=== PATIENT | female | born 1930 | race Caucasian/White ===

== ENCOUNTER 2018-07-27 22:02 | Emergency (ER) | payer OTHER, MEDICARE ==
--- NOTE | 2018-07-27 22:28 | PDOC ---
History of Present Illness - General Chief Complaint: Back Pain Stated Complaint: BACK PAIN Time Seen by Provider: 07/27/18 22:18 - History of Present Illness Initial Comments: 07/27/18 23:02 The patient is an 87 year old female with a history of osteoporosis, spinal stenosis, HTN, and hyperlipidemia who presents for evaluation of back pain. The patient is accompanied by family who assist in providing the history. They note that the patient has had gradual onset of dull 7/10 right lower back pain beginning earlier this evening. They state that the patient has chronic left sided back pain, and she has not had right sided back pain in the past prompting her presentation to the ED for further evaluation. The patient took tramadol with minimal improvement in her pain. She notes that the pain is worse with movement and lying on that side. She otherwise denies fevers, chills , SOB, vomiting, abdominal pain, numbness, tingling, weakness, or changes with urination or bowel movements. Past History - Past Medical History Allergies/Adverse Reactions: Allergies Allergy/AdvReac Type Severity Reaction Status Date / Time No Known Allergies Allergy Verified 02/01/15 22:07 Home Medications: Ambulatory Orders Multivit-Min/FA/Lycopene/Lut [Centrum Silver Tablet] 1 each PO DAILY 04/01/13 Tramadol HCl 50 mg PO TID 04/01/13 Bisoprolol 2.5MG/Hctz 6.25MG [Ziac (Nf)] 1 tab PO DAILY 07/27/18 Megestrol Acetate [Megace -] 20 mg PO QID 07/27/18 Timolol [Betimol] 5 ml OP DAILY 07/27/18 COPD: No HTN: Yes Hypercholesterolemia: Yes - Immunization History Immunization Up to Date: Yes - Suicide/Smoking/Psychosocial Hx Smoking Status: No Smoking History: Never smoked Number of Cigarettes Smoked Daily: 0 Hx Alcohol Use: No Review of Systems - Review of Systems Comments:: 07/27/18 23:07 Constitutional: No fevers, chills, fatigue, malaise HEENT: No Rhinorrhea, nasal congestion, visual changes Cardiovascular: No chest pain, syncope, palpitations, lightheadedness Respiratory: No Cough, SOB, Hemoptysis, Gastrointestinal: Nausea. No Abdominal pain, Vomiting, Constipation, Diarrhea, Melena Genitourinary: No Dysuria, Frequency, Urgency, Hesitancy, Hematuria, Flank pain Musculoskeletal: Right lower back pain. No Myalgia, arthralgia Skin: No rashes, itching, bruising, pallor Neurologic: No Headache, Dizziness, Numbness, Weakness, or Tingling Psychiatric: No Hallucinations. No SI or HI *Physical Exam - Physical Exam Comments: 07/27/18 23:08 General Appearance: Nourished. No Apparent Distress HEENT: No Pharyngeal Erythema, Tonsillar Exudate, Tonsillar Erythema Neck: No Cervical Lymphadenopathy Respiratory/Chest: Lungs Clear, Normal Breath Sounds. No Crackles, Rales, Rhonchi, Wheezing Cardiovascular: Regular Rhythm, Regular Rate. No Murmur, Gallops, Rubs Gastrointestinal/Abdominal: Normal Bowel Sounds, Soft. No Guarding, Rebound, Tenderness Musculoskeletal: Right lower back tenderness to palpation on exam. No CVA Tenderness Extremity: Normal Capillary Refill Integumentary: Normal Color, Dry, Warm Neurologic: Fully Oriented, Alert, Normal Mood/Affect, Normal Response, Medical Decision Making - Medical Decision Making 07/27/18 23:10 The patient is an 87 year old female with a history of osteoporosis, spinal stenosis, HTN, and hyperlipidemia who presents for evaluation of back pain. Given the patient's history and physical exam, it is likely the patient's symptoms are musculoskeletal in nature. We will obtain a chest plain film to evaluate further. We will treat with tylenol, motrin, and lidocaine patch and continue to monitor and reassess while here in the ED. 07/28/18 00:32 Chest plain film demonstrated no acute findings as preliminarily read by ED physician. The patient was reassessed and reports improvement in their symptoms. We are comfortable discharging the patient home in stable condition. Patient and family made aware of impression and plan, return precautions discussed including but not limited to worsening pain or symptoms, fevers, or signs of infection, chest pain, respiratory distress, inability to tolerate oral intake, dehydration, syncope, or neurologic changes. The patient is to follow up with PMD as recommended within 1 week, follow up information provided and the patient will call for an appointment. The patient is to take medications as instructed for duration of time and continue with supportive care , avoid triggers and precipitants. Patient is safe for outpatient follow-up. *DC/Admit/Observation/Transfer Diagnosis at time of Disposition: Musculoskeletal pain - Discharge Dispostion Disposition: HOME Condition at time of disposition: Stable Decision to Admit order: No - Referrals Referrals: Siva Monzon MD [Primary Care Provider] - - Patient Instructions Printed Discharge Instructions: DI for Musculoskeletal Pain Additional Instructions: 1) Please follow-up with your primary care doctor in the next 2-3 days. Please call tomorrow to schedule a follow up appointment. If you cannot follow up with your doctor within 1 week please return to the Emergency Department for any urgent issues. 2) Your imaging results were normal here in the ER. 3) If you have any worsening of symptoms or any other concerns please return to the ER immediately. Return if worsening symptoms including fevers, headache, vomiting, visual or hearing disturbances, abdominal pain, chest pain, shortness of breath, syncope, dehydration, inability to take things by mouth/vomiting, altered mental status, or worsening concerning symptoms. 4) Please continue taking your home medications as directed. Side effects may include upset stomach, abdominal pain, vomiting, or diarrhea. Do not drink alcohol with your medications. - Post Discharge Activity
--- NOTE | 2018-07-27 22:56 | PDOC ---
Attending Attestation - Resident Resident Name: NoemyBandar - ED Attending Attestation I have performed the following: I have examined & evaluated the patient, The case was reviewed & discussed with the resident, I agree w/resident's findings & plan, Exceptions are as noted - HPI HPI: 07/27/18 22:50 87y F hx of OA, spinal stenosis, htn, hl, presents with complaint of 3 hrs of R sided lower back pain that is dull, constant, gradual onset, non radiating, without associated fever/chills, numnbess/tingling/weakness, cp, sob, trauma. Pain seems worse with movement. no foul smelling urine/dysuria. on exam: general: NAD, well appearing card: rrr, no mrg pulm: cta bl abd soft nontender, mild ttp inferior to the R 12th rib, no cva ttp neuro: moving all 4 ext spontaneously and symmetrically ext: dp pulses symmetric b/l suspect msk pain/strain will treat supportively xray to ro fx or other pathology - Physicial Exam PE: 07/28/18 01:22 see above - Medical Decision Making 07/28/18 01:22 xray neg for acute pathology pt feeing irmved will dc with supportive care at home
[2018-07-27] MEDS ORDERED: ACETAMINOPHEN 325 MG TABLET (FP) PO ONE (22:57)
[2018-07-27] MEDS ORDERED: LIDOCAINE 5% TOPICAL PATCH TP ONE (22:57)
[2018-07-27] MEDS ORDERED: IBUPROFEN 600 MG TABLET (FP) PO ONE ×2 (22:57→23:17)
[2018-07-27 23:08] VITALS: TEMP 98.8; BMI 18.1
[2018-07-27] MEDS ORDERED: ACETAMINOPHEN 325 MG TABLET (FP) ONE (23:16)
[2018-07-27] MEDS ORDERED: LIDOCAINE 5% TOPICAL PATCH ONE (23:17)
[2018-07-28 01:00] VITALS: BP 175/86; PULSE 70
== END 2018-07-28 00:58 | disposition home or self-care (01) ==
LOC: JER 22:02
DX: M54.5 Low back pain (principal); M48.00 Spinal stenosis, site unspecified; I10 Essential (primary) hypertension; E78.5 Hyperlipidemia, unspecified; M81.8 Other osteoporosis without current pathological fracture
CPT/HCPCS: 71045-TC-FY; 99282-25

== ENCOUNTER 2018-08-04 08:20 | Inpatient (IN) | payer OTHER, MEDICARE ==
--- NOTE | 2018-08-04 08:34 | PDOC ---
Attending Attestation - Resident Resident Name: Marichuy Bates - ED Attending Attestation I have performed the following: I have examined & evaluated the patient, The case was reviewed & discussed with the resident, I agree w/resident's findings & plan, Exceptions are as noted - HPI HPI: 08/04/18 08:35 87yo F hx osteoporosis, spinal stenosis, HTN, dementia, and hyperlipidemia presents to the ED with generalized weakness since this morning. Per pt, daughter activated EMS this morning when she could not get her out of bed to the bathroom Lives with daughter and son in law, ambulates with walker Denies any other complaints of fevers, chills, cp, sob, abd pain, n/v/d, urinary sxs, focal weakness or numbness. Per daughter, reports she has noted a decline in pt over last month. Yyesterday pt slept all day despite company for [employer], woke up at 6pm which is very atypical for her. States pt normally more awake and alert. Other than recent decrease in bisoprolol from 5 to 2.5mg, no other medication changes. - Physicial Exam PE: 08/04/18 08:54 agree with resident exam - Medical Decision Making 08/04/18 08:55 87yo F with hx HTN, HL, dementia, osteoperosis, spinal stenosis presents to the ED with progressive generalized weakness and lethargy. Vitals unremarkable. Pt has 4/5 weakness in UE and LE. Plan for broad infectious vs neurologic vs metabolic vs ischemic w/u. Plan -labs -CTH -UA/UCx -CXR -rectal temp -reassess 08/04/18 10:15 Labs remarkable for elevated creatinine to 1.4 (baseline 0.7), BUN 40s with K of 5.9 (slightly hemolyzed) Likely pre-renal azotemia Review of EKG with peaked T waves As such pt treated with calcium, D50, IV insulin, fluids Will rpt BMP Dr. Ferrara c/gena and evaluated pt, recommends renal US which has been ordered Pt also has ++UA, will treat with ceftriaxone (prev UCx reviewed) Pt to be admitted at this time to hospitalist for pre-renal azotemia, hyperK, UTI 08/04/18 11:[address] Walden, pt accepted for admission Case discussed in detail with admitting physician including history, physical exam and ancillary studies. Admitting physician has assumed care for the patient, will follow all pending diagnostics and will complete the evaluation and treatment. Heart Score/ECG Review #1 08/04/18 09:07 Twelve-lead EKG was performed and reviewed by me. Sinus rhythm, rate 78. Normal axis. No ST elevations.
--- NOTE | 2018-08-04 08:45 | PDOC ---
History of Present Illness - General Chief Complaint: Weakness Stated Complaint: Weakness Time Seen by Provider: 08/04/18 08:25 History Source: Patient, Family Exam Limitations: No Limitations - History of Present Illness Initial Comments: 08/04/18 08:43 87 y/o female with PMH of HTN, HLD, spinal stenosis presents to the ED with generalized weakness for 24 hours. per patient and patient's daughter, she has been very lethargic since yesterday- there was company over her house for [employer] and it was a struggle for the patient to remain awake. She went to bed at 6pm (which her usual bedtime is around 10pm) and this morning the patients daughter had a hard time getting her out of bed to the bathroom and to do her normal routine. She said it took a lot out of her mother to walk to the bathroom which is unusual for her. She is usually able to perform her ADL's with help from her daughter and is able to recover after. per daughter she had seen her primary care physician, Dr. Esquivel around 3 weeks ago where he did blood work and all was normal, he also decreased her bisoprolol/HCTZ dose from 5 to 2.5 otherwise no new medications were started. She also had seen Dr. Yates who she usually follows up with every 6 months for her dementia and no new changes were made to her galantamine. She denies any recent falls, no recent illnesses travel or sick contacts. 08/04/18 08:46 08/04/18 08:53 Timing/Duration: 24 hours Associated Symptoms: reports: malaise, weakness. denies: chest pain, fever/ chills, nausea/vomiting Past History - Travel Traveled outside of the country in the last 30 days: No Close contact w/someone who was outside of country & ill: No - Past Medical History Allergies/Adverse Reactions: Allergies Allergy/AdvReac Type Severity Reaction Status Date / Time No Known Allergies Allergy Verified 08/04/18 08:31 Home Medications: Ambulatory Orders Multivit-Min/FA/Lycopene/Lut [Centrum Silver Tablet] 1 each PO DAILY 04/01/13 Tramadol HCl 50 mg PO TID 04/01/13 Bisoprolol 2.5MG/Hctz 6.25MG [Ziac (Nf)] 1 tab PO DAILY 07/27/18 Megestrol Acetate [Megace -] 20 mg PO QID 07/27/18 Timolol [Betimol] 5 ml OP DAILY 07/27/18 COPD: No HTN: Yes Hypercholesterolemia: Yes - Immunization History Immunization Up to Date: Yes - Suicide/Smoking/Psychosocial Hx Smoking Status: No Smoking History: Former smoker Have you smoked in the past 12 months: No Number of Cigarettes Smoked Daily: 0 Information on smoking cessation initiated: No Hx Alcohol Use: No Drug/Substance Use Hx: No Patient Lives Alone: No Review of Systems - Review of Systems Able to Perform ROS?: Yes Is the patient limited Hebrew proficient: No Constitutional: Yes: Malaise, Weakness HEENTM: No: Blurred Vision Respiratory: No: Shortness of Breath Cardiac (ROS): No: Chest Pain, Palpitations ABD/GI: Yes: Constipated. No: Diarrhea, Nausea : No: Burning, Dysuria, Frequency Musculoskeletal: Yes: Back Pain (chronic back pain), Muscle Weakness Neurological: Yes: Weakness. No: Headache *Physical Exam - Vital Signs Last Vital Signs Temp Pulse Resp BP Pulse Ox 98.2 F 72 18 149/82 99 08/04/18 08:26 08/04/18 08:26 08/04/18 08:26 08/04/18 08:26 08/04/18 08:26 - Physical Exam General Appearance: Yes: Cachetic Neck: positive: Normal Thyroid Respiratory/Chest: positive: Lungs Clear, Normal Breath Sounds Cardiovascular: positive: Regular Rhythm, Regular Rate, S1, S2 Gastrointestinal/Abdominal: positive: Normal Bowel Sounds, Flat, Soft. negative : Tender Musculoskeletal: negative: CVA Tenderness Integumentary: positive: Normal Color Neurologic: positive: machine heel builder II-XII NML intact, Fully Oriented, Alert, Other ( motor strength 4/5 B/L). negative: Numbness ED Treatment Course - LABORATORY CBC & Chemistry Diagram: 08/04/18 08:58 08/04/18 08:58 Medical Decision Making - Medical Decision Making 08/04/18 08:59 cbc/cmp/trop/ua/culture EKG CXR Head CT DDX: electrolyte abnormalitis; UTI ; PNA ekg done: sinus rhythm with PACS's peaked T waves labs; wbc 12; K 5.9; - giving calcium gluconate, d50 5 units insulin renal U/S pending Urine positive- ceftriaxone 08/04/18 09:07 08/04/18 09:50 08/04/18 10:15 *DC/Admit/Observation/Transfer Diagnosis at time of Disposition: APPLE (acute kidney injury), Hyperkalemia UTI (urinary tract infection) Qualifiers: Urinary tract infection type: acute cystitis Hematuria presence: with hematuria Qualified Code(s): N30.01 - Acute cystitis with hematuria - Discharge Dispostion Decision to Admit order: Yes - Referrals Referrals: Siva Monzon MD [Primary Care Provider] - - Patient Instructions - Post Discharge Activity - Attestations Physician Attestion: 08/04/18 11:26 Marichuy Bates
[2018-08-04 09:12] LABS: BASO % 0.6 % (0-2.0); EOS % 0.8 % (0-4.5); HEMATOCRIT 38.6 % (32.4-45.2); LYMPH % 10.6 % (8-40); MCH 37.6 pg (25.7-33.7); MCHC 33.7 g/dl (32.0-36.0); MEAN CELL VOLUME 111.8 fl (80-96); MEAN PLT VOLUME 8.8 fl (7.5-11.1); PLATELET COUNT 290 K/MM3 (134-434); RBC 3.45 M/mm3 (3.60-5.2); RDW 14.8 % (11.6-15.6)
[2018-08-04 09:40] LABS: ALBUMIN 2.5 g/dl (3.4-5.0); ALK PHOS 33 U/L (45-117); ANION GAP 8 MMOL/L (8-16); BILIRUBIN,TOTAL 0.5 mg/dL (0.2-1); BLOOD UREA NITROGEN 48 mg/dL (7-18); CALCIUM 9.4 mg/dL (8.5-10.1); CHLORIDE 112 mmol/L (98-107); CO2 22 mmol/L (21-32); CREATININE 1.4 mg/dL (0.55-1.3); GLUCOSE,RANDOM 82 mg/dL (74-106); POTASSIUM 5.9 mmol/L (3.5-5.1); SGOT/AST 59 U/L (15-37); SGPT/ALT 24 U/L (13-61); SODIUM 141 mmol/L (136-145); TOT PROT 7.3 g/dl (6.4-8.2)
[2018-08-04] MEDS ORDERED: SODIUM CHLORIDE 1,000 ML IV STA (09:42)
[2018-08-04] MEDS ORDERED: INSULIN REGULAR HUMAN 100 UNITS/ML *VIAL SQ ONE (09:43)
[2018-08-04] MEDS ORDERED: CALCIUM GLUCONATE 10% - 1,000 MG/10 ML VIAL IVPUSH ONE (09:43)
[2018-08-04] MEDS ORDERED: DEXTROSE 50%-WATER - 25 GM/50 ML VIAL IVPUSH ONE (09:44)
[2018-08-04] MEDS ORDERED: INSULIN REGULAR HUMAN 100 UNITS/ML *VIAL IVPUSH ONE (09:49)
[2018-08-04 10:03] LABS: EPI CELLS 1.4 /HPF (0-5/HPF); URINE APPEARANCE TURBID; URINE BACTERIA 1818.1 /hpf (NEGATIVE); URINE BILIRUBIN NEGATIVE (NEGATIVE); URINE CASTS 5 /lpf (0-8); URINE COLOR YELLOW; URINE GLUCOSE (UA) NEGATIVE (NEGATIVE); URINE KETONE NEGATIVE (NEGATIVE); URINE LEUK ESTERASE 3+ (NEGATIVE); URINE NITRITE NEGATIVE (NEGATIVE); URINE PROTEIN 1+ (NEGATIVE); URINE RBC 63 /hpf (0-4); URINE UROBILINOGEN 0.2 mg/dL (0.2-1.0); URINE WBC 1734 /hpf (0-5)
[2018-08-04] MEDS ORDERED: CEFTRIAXONE 1 GM in DEXTROSE 5%-WATER - 100 ML IVPB ONE (10:14)
--- NOTE | 2018-08-04 10:37 | CONSULT ---
Consult Consult Specialty:: Nephrology Reason for Consultation:: APPLE - History of Present Illness Chief Complaint: generalized weakness History of Present Illness: Pt is an 87 year old female with pmhx of HTN, spinal stenosis, HLD, osteoporosis , and dementia who presents to the ER today with generalized weakness. She says she does not feel well but is a poor historian. Her daughter is with her and assisted with history. Pt has had decreased PO intake for the last month. She was started on megace. She initially did better but over the last few days she has complained of weakness and had poor po intake. She was found to have APPLE and found to be hyperkalemic in the ER. She denied dysuria or hematuria. She denies chest pain or palpitations. She denies fevers or chills. 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 Cardio/Vascular: Yes: HTN, Hyperlipdemia - Alcohol/Substance Use Hx Alcohol Use: No - Smoking History Smoking history: Former smoker Have you smoked in the past 12 months: No Aproximately how many cigarettes per day: 0 Home Medications - Allergies Allergies/Adverse Reactions: Allergies Allergy/AdvReac Type Severity Reaction Status Date / Time No Known Allergies Allergy Verified 08/04/18 08:31 - Home Medications Home Medications: Ambulatory Orders Multivit-Min/FA/Lycopene/Lut [Centrum Silver Tablet] 1 each PO DAILY 04/01/13 Tramadol HCl 50 mg PO TID 04/01/13 Bisoprolol 2.5MG/Hctz 6.25MG [Ziac (Nf)] 1 tab PO DAILY 07/27/18 Megestrol Acetate [Megace -] 20 mg PO QID 07/27/18 Timolol [Betimol] 5 ml OP DAILY 07/27/18 Family Disease History - Family Disease History Family History: Denies Review of Systems - Review of Systems Constitutional: reports: Malaise. denies: Chills, Fever Eyes: reports: No Symptoms HENT: reports: No Symptoms Neck: reports: No Symptoms Cardiovascular: reports: No Symptoms Respiratory: reports: No Symptoms Gastrointestinal: reports: No Symptoms Genitourinary: reports: No Symptoms Musculoskeletal: reports: No Symptoms Integumentary: reports: No Symptoms Neurological: reports: No Symptoms Endocrine: reports: No Symptoms Hematology/Lymphatic: reports: No Symptoms Psychiatric: reports: No Symptoms Physical Exam Vital Signs: Vital Signs Temperature 98.2 F 08/04/18 08:26 Pulse Rate 72 08/04/18 08:26 Respiratory Rate 18 08/04/18 08:26 Blood Pressure 149/82 08/04/18 08:26 O2 Sat by Pulse Oximetry (%) 99 08/04/18 08:26 Constitutional: Yes: Calm Eyes: Yes: Conjunctiva Clear HENT: Yes: Atraumatic Cardiovascular: Yes: S1, S2 Respiratory: Yes: CTA Bilaterally Gastrointestinal: Yes: Soft Renal/: Yes: WNL Musculoskeletal: Yes: WNL Edema: No Neurological: Yes: Oriented Psychiatric: Yes: Oriented Labs: CBC, BMP 08/04/18 08:58 08/04/18 08:58 Laboratory Tests 09/15/10 09/18/10 01/04/14 07:30 06:00 09:41 WBC Hgb Plt Count Sodium Potassium Chloride BUN Creatinine 0.6 0.6 0.8 Creat Clearance w eGFR Urine Protein Urine Blood 11/27/17 08/04/18 08/04/18 10:00 08:58 08:58 WBC 12.0 H Hgb 13.0 Plt Count 290 Sodium 141 Potassium 5.9 H Chloride 112 H BUN 48 H Creatinine 1.0 1.4 H Creat Clearance w eGFR 35.65 Urine Protein Urine Blood 08/04/18 09:36 WBC Hgb Plt Count Sodium Potassium Chloride BUN Creatinine Creat Clearance w eGFR Urine Protein 1+ H Urine Blood 3+ H Problem List - Problems (1) APPLE (acute kidney injury) Code(s): N17.9 - ACUTE KIDNEY FAILURE, UNSPECIFIED Assessment/Plan Current Medications Generic Name Dose Route Start Last Admin Trade Name Freq PRN Reason Stop Dose Admin Sodium Chloride 1,000 mls @ 1,000 mls/hr 08/04/18 09:42 Normal Saline - IV 08/04/18 10:41 ASDIR STA Ceftriaxone Sodium 1 gm/ 100 mls @ 200 mls/hr 08/04/18 10:14 Dextrose IVPB 08/04/18 10:43 ONCE ONE Impression 1. APPLE 2. hyperkalemia 3. htn 4. UTI 5. hld 6. dementia Plan - pt is likely dehydrated - repeat labs after giving fluids - check renal ultrasound - check urine lytes and ward attendant to calc fena - abx for uti, follow cultures
[2018-08-04 10:43] LABS: YEAST NOT PRESENT (NEGATIVE)
[2018-08-04 10:49] LABS: ANISOCYTOSIS 1+; MACROCYTOSIS 0; OVALOCYTE 1+; PLATELET ESTIMATE NORMAL; TEAR DROP CELLS 1+
[2018-08-04] MEDS ORDERED: DEXTROSE 50%-WATER 25 GM/50 ML DISP.SYRIN ONE (11:51)
[2018-08-04] MEDS ORDERED: CALCIUM GLUCONATE 10% - 1,000 MG/10 ML VIAL ONE (11:51)
[2018-08-04] MEDS ORDERED: INSULIN REGULAR HUMAN 100 UNITS/ML *VIAL ONE ×2 (11:51→12:00)
[2018-08-04 11:58] LABS: OSMOLALITY,SERUM 309 mosm/kg (278-305)
[2018-08-04] MEDS ORDERED: CEFTRIAXONE 1 GM/50 ML BAG ONE (12:02)
--- NOTE | 2018-08-04 14:20 | EKG ---
Test Reason : Blood Pressure : / mmHG Vent. Rate : 078 BPM Atrial Rate : 078 BPM P-R Int : 158 ms QRS Dur : 064 ms QT Int : 354 ms P-R-T Axes : 075 -02 060 degrees QTc Int : 403 ms SINUS RHYTHM WITH PREMATURE ATRIAL COMPLEXES OTHERWISE NORMAL ECG WHEN COMPARED WITH ECG OF 27-NOV-2017 10:31, PREMATURE ATRIAL COMPLEXES ARE NOW PRESENT T WAVE AMPLITUDE HAS INCREASED IN ANTERIOR LEADS QT HAS SHORTENED Confirmed by AMOS POSADAS, KYLE ([id number]) on 08/04/2018 2:20:01 PM Referred By: Confirmed By:KYLE TRINIDAD MD
[2018-08-04 18:30] LABS: ANION GAP 10 MMOL/L (8-16); BLOOD UREA NITROGEN 44 mg/dL (7-18); CALCIUM 10.2 mg/dL (8.5-10.1); CHLORIDE 111 mmol/L (98-107); CO2 22 mmol/L (21-32); CREATININE 1.2 mg/dL (0.55-1.3); GLUCOSE,RANDOM 83 mg/dL (74-106); POTASSIUM 4.3 mmol/L (3.5-5.1); SODIUM 143 mmol/L (136-145)
--- NOTE | 2018-08-04 23:25 | HP ---
Admitting History and Physical - Past Medical History ADMISSIONS CONSULTANT: Yes: Dementia Cardiovascular: Yes: HTN, Hyperlipdemia - Smoking History Smoking history: Former smoker Have you smoked in the past 12 months: No Aproximately how many cigarettes per day: 0 - Alcohol/Substance Use Hx Alcohol Use: No Home Medications - Allergies Allergies/Adverse Reactions: Allergies Allergy/AdvReac Type Severity Reaction Status Date / Time No Known Allergies Allergy Verified 08/04/18 08:31 - Home Medications Home Medications: Ambulatory Orders Multivit-Min/FA/Lycopene/Lut [Centrum Silver Tablet] 1 each PO DAILY 04/01/13 Tramadol HCl 50 mg PO TID 04/01/13 Bisoprolol 2.5MG/Hctz 6.25MG [Ziac (Nf)] 1 tab PO DAILY 07/27/18 Megestrol Acetate [Megace -] 20 mg PO QID 07/27/18 Timolol [Betimol] 5 ml OP DAILY 07/27/18 Physical Examination Vital Signs: Vital Signs Temperature 98.2 F 08/04/18 08:26 Pulse Rate 101 H 08/04/18 21:28 Respiratory Rate 18 08/04/18 21:28 Blood Pressure 117/69 08/04/18 21:28 O2 Sat by Pulse Oximetry (%) 97 08/04/18 21:28 Labs: CBC, BMP 08/04/18 08:58 08/04/18 17:50
[2018-08-05] MEDS: traMADol HCL 50 MG TABLET PO SCH ×4 (00:27→23:01)
[2018-08-05] MEDS: DEXTROSE 5%-0.45% SALINE 1,000 ML IV SCH ×2 (00:28→23:00)
[2018-08-05 05:58] LABS: CREATININE, URINE RANDOM 24 mg/dL (30-150)
[2018-08-05 08:04] LABS: BASO % 0.6 % (0-2.0); EOS % 0.3 % (0-4.5); HEMOGLOBIN 13.7 GM/dL (10.7-15.3); LYMPH % 12.5 % (8-40); MCH 36.1 pg (25.7-33.7); MCHC 32.6 g/dl (32.0-36.0); MEAN CELL VOLUME 110.9 fl (80-96); MEAN PLT VOLUME 8.3 fl (7.5-11.1); MONO % 8.9 % (3.8-10.2); NEUT % 77.7 % (42.8-82.8); PLATELET COUNT 319 K/MM3 (134-434); RBC 3.79 M/mm3 (3.60-5.2); RDW 14.8 % (11.6-15.6); WHITE BLOOD COUNT 11.9 K/mm3 (4.0-10.0)
[2018-08-05] MEDS ORDERED: METOPROLOL TARTRATE 5 MG/5 ML VIAL ONE (08:39)
[2018-08-05 08:40] LABS: ALBUMIN 2.7 g/dl (3.4-5.0); ALK PHOS 37 U/L (45-117); ANION GAP 12 MMOL/L (8-16); BILIRUBIN,TOTAL 0.5 mg/dL (0.2-1); BLOOD UREA NITROGEN 40 mg/dL (7-18); CALCIUM 9.6 mg/dL (8.5-10.1); CHLORIDE 110 mmol/L (98-107); CO2 22 mmol/L (21-32); CREATININE 1.2 mg/dL (0.55-1.3); GLUCOSE,RANDOM 94 mg/dL (74-106); POTASSIUM 4.2 mmol/L (3.5-5.1); SGOT/AST 21 U/L (15-37); SGPT/ALT 17 U/L (13-61); SODIUM 144 mmol/L (136-145); TOT PROT 7.3 g/dl (6.4-8.2)
[2018-08-05] MEDS ORDERED: METOPROLOL TARTRATE 5 MG/5 ML VIAL IVPUSH ONE (09:00)
[2018-08-05] MEDS ORDERED: cefTRIAXone SODIUM 1 GM VIAL ONE (09:41)
[2018-08-05] MEDS ORDERED: DEXTROSE 5%-WATER - 50 ML IVPB ONE (09:41)
[2018-08-05] MEDS ORDERED: MEGESTROL ACETATE 20 MG TABLET PO SCH (10:00)
[2018-08-05] MEDS ORDERED: TIMOLOL OP SCH (10:00)
[2018-08-05] MEDS ORDERED: HEPARIN NA (PORCINE) 5,000 UNITS/ML 1ML VIAL SQ SCH (10:00)
[2018-08-05] MEDS: CEFTRIAXONE 1 GM in DEXTROSE 5%-WATER - 50 ML IVPB SCH (10:00)
[2018-08-05] MEDS: MULTIVITAMINS (DAILY MVI) TABLET (FP) PO SCH (10:01)
[2018-08-05 10:03] LABS: ANISOCYTOSIS 1+; MACROCYTOSIS 1+; PLATELET ESTIMATE NORMAL
--- NOTE | 2018-08-05 10:43 | CON.CARD ---
Consult Consult Specialty:: Cardiology Referred by:: Medicine Reason for Consultation:: tachycardia - History of Present Illness Chief Complaint: tachycardia History of Present Illness: 87F h/o HTN, HLD p/w weakness for one day. Had been lethargic for a day, felt sleepy and was very tired even walking to the bathroom. Recently saw Dr. Monzon , bisoprolol/HCTZ dose was reduced and labs reportedly normal at the time. UA concerning for UTI, on IV abx. Has seen Dr. Mcgregor for cardio. Afib with RVR noted on tele monitoring. No chest pain, palps, dizziness, lightheadedness. 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 Cardio/Vascular: Yes: HTN, Hyperlipdemia - Alcohol/Substance Use Hx Alcohol Use: No - Smoking History Smoking history: Never smoked Have you smoked in the past 12 months: No Aproximately how many cigarettes per day: 0 Home Medications - Allergies Allergies/Adverse Reactions: Allergies Allergy/AdvReac Type Severity Reaction Status Date / Time No Known Allergies Allergy Verified 08/04/18 08:31 - Home Medications Home Medications: Ambulatory Orders Multivit-Min/FA/Lycopene/Lut [Centrum Silver Tablet] 1 each PO DAILY 04/01/13 Tramadol HCl 50 mg PO TID 04/01/13 Bisoprolol 2.5MG/Hctz 6.25MG [Ziac (Nf)] 1 tab PO DAILY 07/27/18 Megestrol Acetate [Megace -] 20 mg PO QID 07/27/18 Timolol [Betimol] 5 ml OP DAILY 07/27/18 Galantamine HBr [Razadyne ER] 8 mg PO BID 08/05/18 Family Disease History - Family Disease History Family History: Unremarkable Review of Systems - Review of Systems Constitutional: reports: No Symptoms Eyes: reports: No Symptoms HENT: reports: No Symptoms Neck: reports: No Symptoms Cardiovascular: reports: No Symptoms Respiratory: reports: No Symptoms Gastrointestinal: reports: No Symptoms Genitourinary: reports: No Symptoms Musculoskeletal: reports: No Symptoms Integumentary: reports: No Symptoms Neurological: reports: No Symptoms Endocrine: reports: No Symptoms Hematology/Lymphatic: reports: No Symptoms Psychiatric: reports: No Symptoms Vital Signs: Vital Signs Temperature 97.6 F 08/05/18 06:00 Pulse Rate 142 H 08/05/18 08:45 Respiratory Rate 20 08/05/18 06:00 Blood Pressure 137/79 08/05/18 08:45 O2 Sat by Pulse Oximetry (%) 97 08/04/18 23:45 Constitutional: Yes: Well Nourished, No Distress, Calm Eyes: Yes: Conjunctiva Clear, EOM Intact HENT: Yes: Atraumatic, Normocephalic Neck: Yes: Supple, Trachea Midline Respiratory: Yes: Regular, CTA Bilaterally Gastrointestinal: Yes: Normal Bowel Sounds, Soft Cardiovascular: Yes: Pulse Irregular JVD: No Carotid Bruit: No PMI: Non-Displaced Musculoskeletal: No: Back Pain Extremities: No: Cold Edema: No Peripheral Pulses WNL: Yes Peripheral Pulses: 2+ Left Doralis Pedis, 2+ Right Dorsalis Pedis Integumentary: No: Jaundice Neurological: Yes: Alert Psychiatric: No: Agitated - Other Data Labs, Other Data: CBC, BMP 08/05/18 06:20 08/05/18 06:20 Troponin, BNP 08/04/18 08:58 Troponin I < 0.02 Troponin, BNP 08/04/18 08:58 Troponin I < 0.02 Assessment/Plan CXR: no congestion EKG: sinus with PACs, no ischemic changes EKG 08/05 afib with RVR, no ischemic changes tele: afib 110s-120s, occ 160s afib with RVR - no prior cardiac hx, discussed with patient's daughter - check echocardiogram - was on bisoprolol/HCT at home, history of low BP - will start metoprolol succinate 25 mg BID - [id number] 4, anticoagulation indicated. discussed risks/benefits with patient's daughter, has 24 hour supervision and uses assistance to get up, no bleeding hx. agreeable to starting AC -will start eliquis 2.5 mg BID (low dose for age, weight) APPLE -renal following, likely prerenal - improved with IVF UTI - manage per primary HTN - home meds held, starting metoprolol as above HLD - not on statin
[2018-08-05] MEDS ORDERED: METOPROLOL TARTRATE 5 MG/5 ML VIAL IVPUSH PRN (11:44)
[2018-08-05] MEDS: metoPROLOL SUCCINATE 25 MG TAB.SR.24H (FP) PO SCH ×2 (12:16→23:03)
[2018-08-05] MEDS: APIXABAN 2.5 MG TABLET PO SCH ×2 (12:20→23:03)
--- NOTE | 2018-08-05 12:25 | EKG ---
Test Reason : Blood Pressure : / mmHG Vent. Rate : 117 BPM Atrial Rate : 131 BPM P-R Int : 000 ms QRS Dur : 062 ms QT Int : 270 ms P-R-T Axes : 000 -14 049 degrees QTc Int : 376 ms ATRIAL FIBRILLATION WITH RAPID VENTRICULAR RESPONSE INFERIOR INFARCT , AGE UNDETERMINED ABNORMAL ECG Confirmed by MD RADHA, ALOK ([id number]) on 08/05/2018 12:25:26 PM Referred By: Shahram ROMAN Confirmed By:ALOK GARCIA MD
--- NOTE | 2018-08-05 14:47 | CON.ID ---
Consult Consult Specialty:: infectious diseases Referred by:: Reason for Consultation:: leukocytosis,uti - History of Present Illness Chief Complaint: generalized weakness History of Present Illness: 87 year old female with pmhx of HTN, spinal stenosis, HLD, osteoporosis, and dementia who presents to the ER today with generalized weakness. She says she does not feel well but is a poor historian. Her daughter is with her and assisted with history. Pt has had decreased PO intake for the last month. She was started on megace. She initially did better but over the last few days she has complained of weakness and had poor po intake. She was found to have APPLE and found to be hyperkalemic in the ER. She denied dysuria or hematuria. She denies chest pain or palpitations. She denies fevers or chills. 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 Cardio/Vascular: Yes: HTN, Hyperlipdemia - Alcohol/Substance Use Hx Alcohol Use: No - Smoking History Smoking history: Never smoked Have you smoked in the past 12 months: No Aproximately how many cigarettes per day: 0 Home Medications - Allergies Allergies/Adverse Reactions: Allergies Allergy/AdvReac Type Severity Reaction Status Date / Time No Known Allergies Allergy Verified 08/04/18 08:31 - Home Medications Home Medications: Ambulatory Orders RX: Multivit-Min/FA/Lycopene/Lut [Centrum Silver Tablet] 1 each PO DAILY RX: Tramadol HCl 50 mg PO TID 04/01/13 Bisoprolol 2.5MG/Hctz 6.25MG [Ziac (Nf)] 1 tab PO DAILY 07/27/18 Megestrol Acetate [Megace -] 20 mg PO QID 07/27/18 Timolol [Betimol] 5 ml OP DAILY 07/27/18 Galantamine HBr [Razadyne ER] 8 mg PO BID 08/05/18 Review of Systems - Review of Systems Constitutional: reports: Weakness Eyes: reports: No Symptoms HENT: reports: No Symptoms Neck: reports: No Symptoms Cardiovascular: reports: No Symptoms Respiratory: reports: No Symptoms Gastrointestinal: reports: No Symptoms Musculoskeletal: reports: No Symptoms Integumentary: reports: No Symptoms Neurological: reports: No Symptoms Endocrine: reports: No Symptoms Hematology/Lymphatic: reports: No Symptoms Psychiatric: reports: No Symptoms Physical Exam Vital Signs: Vital Signs Temperature 97.5 F L 08/05/18 09:00 Pulse Rate 114 H 08/05/18 09:00 Respiratory Rate 20 08/05/18 09:00 Blood Pressure 139/72 08/05/18 09:00 O2 Sat by Pulse Oximetry (%) 97 08/05/18 09:00 Constitutional: Yes: No Distress, Calm Eyes: Yes: Conjunctiva Clear Cardiovascular: Yes: Pulse Irregular Respiratory: Yes: Regular, CTA Bilaterally Gastrointestinal: Yes: Normal Bowel Sounds, Soft Musculoskeletal: Yes: WNL Extremities: Yes: WNL Neurological: Yes: Alert Psychiatric: Yes: Alert, Other Labs: CBC, BMP 08/05/18 06:20 08/05/18 06:20 Imaging - Results Chest X-ray: Report Reviewed, Image Reviewed Cat Scan: Report Reviewed, Image Reviewed Assessment/Plan Problem List - Problems (1) Rapid atrial fibrillation Code(s): I48.91 - UNSPECIFIED ATRIAL FIBRILLATION (2) UTI (urinary tract infection) Code(s): N39.0 - URINARY TRACT INFECTION, SITE NOT SPECIFIED Qualifiers: Urinary tract infection type: acute cystitis Hematuria presence: with hematuria Qualified Code(s): N30.01 - Acute cystitis with hematuria (3) APPLE (acute kidney injury) Code(s): N17.9 - ACUTE KIDNEY FAILURE, UNSPECIFIED (4) Dementia Code(s): F03.90 - UNSPECIFIED DEMENTIA WITHOUT BEHAVIORAL DISTURBANCE dirrhoea leukocytosis plan will start patient on abx monitor wbc nephro on case rest as per the team
--- NOTE | 2018-08-05 15:00 | PN ---
Progress Note, Physician History of Present Illness: Pt seen and examined at bedside. She is more awake today. Her PO intake remains poor. - Current Medication List Current Medications: Active Medications Apixaban (Eliquis -) 2.5 mg PO BID [facility] Last Admin: 08/05/18 12:20 Dose: 2.5 mg Ceftriaxone Sodium 1 gm/ (Dextrose) 50 mls @ 100 mls/hr IVPB DAILY [facility]; Protocol Last Admin: 08/05/18 10:00 Dose: 100 mls/hr Dextrose/Sodium Chloride (D5-1/2ns -) 1,000 mls @ 75 mls/hr IV ASDIR [facility] Last Admin: 08/05/18 00:28 Dose: 75 mls/hr Megestrol Acetate (Megace -) 20 mg PO QID [facility] Metoprolol Succinate (Toprol Xl -) 25 mg PO BID [facility] Last Admin: 08/05/18 12:16 Dose: 25 mg Metoprolol Tartrate (Lopressor Injection -) 5 mg IVPUSH Q4H PRN PRN Reason: TACHYCARDIA Multivitamins/Minerals/Vitamin C (Tab-A-Vit -) 1 tab PO DAILY [facility] Last Admin: 08/05/18 10:01 Dose: 1 tab Tramadol HCl (Ultram -) 50 mg PO TID [facility] Last Admin: 08/05/18 14:50 Dose: 50 mg - Objective Vital Signs: Vital Signs Temperature 97.5 F L 08/05/18 09:00 Pulse Rate 114 H 08/05/18 09:00 Respiratory Rate 20 08/05/18 09:00 Blood Pressure 139/72 08/05/18 09:00 O2 Sat by Pulse Oximetry (%) 97 08/05/18 09:00 Constitutional: Yes: Calm Eyes: Yes: Conjunctiva Clear HENT: Yes: Atraumatic Cardiovascular: Yes: S1, S2 Respiratory: Yes: CTA Bilaterally Gastrointestinal: Yes: Soft Genitourinary: Yes: WNL Musculoskeletal: Yes: Muscle Weakness Edema: No Neurological: Yes: Oriented Psychiatric: Yes: Oriented Labs: CBC, BMP 08/05/18 06:20 08/05/18 06:20 Problem List - Problems (1) APPLE (acute kidney injury) Code(s): N17.9 - ACUTE KIDNEY FAILURE, UNSPECIFIED Assessment/Plan Current Medications Generic Name Dose Route Start Last Admin Trade Name Freq PRN Reason Stop Dose Admin Apixaban 2.5 mg 08/05/18 12:00 08/05/18 12:20 Eliquis - PO 2.5 mg BID [facility] Administration Ceftriaxone Sodium 1 gm/ 50 mls @ 100 mls/hr 08/05/18 10:00 08/05/18 10:00 Dextrose IVPB 100 mls/hr DAILY [facility] Administration Protocol Dextrose/Sodium Chloride 1,000 mls @ 75 mls/hr 08/04/18 23:45 08/05/18 00:28 D5-1/2ns - IV 75 mls/hr ASDIR [facility] Administration Megestrol Acetate 20 mg 08/05/18 10:00 Megace - PO QID [facility] Metoprolol Succinate 25 mg 08/05/18 11:45 08/05/18 12:16 Toprol Xl - PO 25 mg BID [facility] Administration Metoprolol Tartrate 5 mg 08/05/18 11:44 Lopressor Injection - IVPUSH Q4H PRN TACHYCARDIA Multivitamins/Minerals/Vitamin C 1 tab 08/05/18 10:00 08/05/18 10:01 Tab-A-Vit - PO 1 tab DAILY [facility] Administration Tramadol HCl 50 mg 08/04/18 23:45 08/05/18 14:50 Ultram - PO 50 mg TID [facility] Administration Impression 1. APPLE 2. hyperkalemia 3. htn 4. UTI 5. hld 6. dementia Plan - potassium improved - renal function improving - urology eval for hydro - abx for uti, follow cultures - cont fluids for now Dr Ferrara
--- NOTE | 2018-08-05 16:15 | ECHO ---
Name: CURT SIMMONS Exam:Adult Echocardiogram Study Date: 08/05/2018 02:43 PM Age: 87 yrs Reason For Study: TACHYCARDIA Height: 58 in Weight: 93 lb BSA: 1.3 m2 MMode/2D Measurements & Calculations IVSd: 0.96 cm Ao root diam: 3.3 cm LVIDd: 3.4 cm LA dimension: 4.0 cm LVIDs: 2.2 cm LVPWd: 0.77 cm EDV(Teich): 46.8 ml LVOT diam: 2.0 cm ESV(Teich): 16.2 ml Doppler Measurements & Calculations MV E max gary: 52.1 cm/sec Ao V2 max: 111.3 cm/sec MV A max gary: 71.1 cm/sec Ao max P.0 mmHg MV E/A: 0.73 AI P1/2t: 539.6 msec SCAR(V,D): 3.3 cm2 AI max gary: 254.1 cm/sec LV V1 max P.4 mmHg AI max P.8 mmHg LV V1 mean P.5 mmHg AI dec slope: 137.9 cm/sec2 LV V1 max: 116.0 cm/sec LV V1 mean: 88.2 cm/sec LV V1 VTI: 27.7 cm MR max gary: 336.3 cm/sec SV(LVOT): 87.4 ml MR max P.3 mmHg TR max gary: 243.4 cm/sec Med Peak E' Gary: 2.6 cm/sec TR max P.7 mmHg Med E/e': 19.8 Lat Peak E' Gary: 3.5 cm/sec Lat E/e': 14.8 Left Ventricle Normal LV size and function. The estimated EF is 65%. Right Ventricle Normal RV size and function. Atria Normal left and right atrial size and function. Mitral Valve The mitral valve is grossly normal. Tricuspid Valve The tricuspid valve is not well visualized, but is grossly normal. There is mild tricuspid regurgitat ion. Aortic Valve Normal appearing aortic valve. Mild aortic regurgitation. Pulmonic Valve The pulmonic valve is not well seen, but is grossly normal. Great Vessels The aortic root is normal size. Pericardium/Pleura There is no pericardial effusion. Interpretation Summary Normal LV size and function. The estimated EF is 65%. Normal RV size and function. Normal left and right atrial size and function. The mitral valve is grossly normal. There is mild tricuspid regurgitation. Normal appearing aortic valve. Mild aortic regurgitation. The aortic root is normal size. MD Bandar Wong 08/05/2018 04:15 PM
--- NOTE | 2018-08-05 21:34 | PN ---
Progress Note, Physician History of Present Illness: No new complaints However this am pt developed rapid AFib w/ heart rate to 150's - Current Medication List Current Medications: Active Medications Apixaban (Eliquis -) 2.5 mg PO BID [facility] Last Admin: 08/05/18 12:20 Dose: 2.5 mg Ceftriaxone Sodium 1 gm/ (Dextrose) 50 mls @ 100 mls/hr IVPB DAILY [facility]; Protocol Last Admin: 08/05/18 10:00 Dose: 100 mls/hr Dextrose/Sodium Chloride (D5-1/2ns -) 1,000 mls @ 75 mls/hr IV ASDIR [facility] Last Admin: 08/05/18 00:28 Dose: 75 mls/hr Megestrol Acetate (Megace Oral Suspension -) 400 mg PO DAILY [facility] Metoprolol Succinate (Toprol Xl -) 25 mg PO BID [facility] Last Admin: 08/05/18 12:16 Dose: 25 mg Metoprolol Tartrate (Lopressor Injection -) 5 mg IVPUSH Q4H PRN PRN Reason: TACHYCARDIA Multivitamins/Minerals/Vitamin C (Tab-A-Vit -) 1 tab PO DAILY [facility] Last Admin: 08/05/18 10:01 Dose: 1 tab Tramadol HCl (Ultram -) 50 mg PO TID [facility] Last Admin: 08/05/18 14:50 Dose: 50 mg - Objective Vital Signs: Vital Signs Temperature 98.4 F 08/05/18 16:26 Pulse Rate 89 08/05/18 16:26 Respiratory Rate 18 08/05/18 16:26 Blood Pressure 130/74 08/05/18 16:26 O2 Sat by Pulse Oximetry (%) 97 08/05/18 09:00 Neck: Yes: WNL, Supple Cardiovascular: Yes: Tachycardia Respiratory: Yes: WNL, Regular, CTA Bilaterally Gastrointestinal: Yes: WNL, Normal Bowel Sounds, Soft Extremities: Yes: Other ((+) contractures B/L hands) Edema: No Labs: CBC, BMP 08/05/18 06:20 08/05/18 06:20 Problem List - Problems (1) Rapid atrial fibrillation Assessment/Plan: Cont tele Cont toprol Pt started on AC w/ eliquis Monitor for bleeding Code(s): I48.91 - UNSPECIFIED ATRIAL FIBRILLATION (2) UTI (urinary tract infection) Assessment/Plan: Cont ceftriaxone Cont IVF Code(s): N39.0 - URINARY TRACT INFECTION, SITE NOT SPECIFIED Qualifiers: Urinary tract infection type: acute cystitis Hematuria presence: with hematuria Qualified Code(s): N30.01 - Acute cystitis with hematuria (3) APPLE (acute kidney injury) Assessment/Plan: Cont IVF Code(s): N17.9 - ACUTE KIDNEY FAILURE, UNSPECIFIED (4) Dementia Code(s): F03.90 - UNSPECIFIED DEMENTIA WITHOUT BEHAVIORAL DISTURBANCE
[2018-08-05] MEDS: MEGESTROL ACETATE 400 MG/10 ML UNIT DOSE CUP PO SCH (23:01)
[2018-08-06] MEDS: traMADol HCL 50 MG TABLET PO SCH ×3 (05:33→22:05)
[2018-08-06] MEDS ORDERED: cefTRIAXone SODIUM 1 GM VIAL ONE (08:52)
[2018-08-06] MEDS ORDERED: DEXTROSE 5%-WATER - 50 ML IVPB ONE (08:52)
[2018-08-06] MEDS ORDERED: PT OWN MED DRAWER 7, Y5N ONE (08:53)
[2018-08-06] MEDS: CEFTRIAXONE 1 GM in DEXTROSE 5%-WATER - 50 ML IVPB SCH (09:29)
[2018-08-06] MEDS: APIXABAN 2.5 MG TABLET PO SCH ×2 (09:30→22:05)
[2018-08-06] MEDS: MULTIVITAMINS (DAILY MVI) TABLET (FP) PO SCH (09:30)
[2018-08-06] MEDS: MEGESTROL ACETATE 400 MG/10 ML UNIT DOSE CUP PO SCH (09:30)
[2018-08-06] MEDS: metoPROLOL SUCCINATE 25 MG TAB.SR.24H (FP) PO SCH ×2 (09:30→22:05)
[2018-08-06] MEDS: DEXTROSE 5%-0.45% SALINE 1,000 ML IV SCH (10:35)
--- NOTE | 2018-08-06 10:49 | PN ---
Progress Note, Physician History of Present Illness: Pt seen and examined at bedside. She is awake and alert. She has poor PO intake. - Current Medication List Current Medications: Active Medications Apixaban (Eliquis -) 2.5 mg PO BID [facility] Last Admin: 08/06/18 09:30 Dose: 2.5 mg Ceftriaxone Sodium 1 gm/ (Dextrose) 50 mls @ 100 mls/hr IVPB DAILY [facility]; Protocol Last Admin: 08/06/18 09:29 Dose: 100 mls/hr Dextrose/Sodium Chloride (D5-1/2ns -) 1,000 mls @ 75 mls/hr IV ASDIR [facility] Last Admin: 08/05/18 23:00 Dose: 75 mls/hr Megestrol Acetate (Megace Oral Suspension -) 400 mg PO DAILY [facility] Last Admin: 08/06/18 09:30 Dose: 400 mg Metoprolol Succinate (Toprol Xl -) 25 mg PO BID [facility] Last Admin: 08/06/18 09:30 Dose: 25 mg Metoprolol Tartrate (Lopressor Injection -) 5 mg IVPUSH Q4H PRN PRN Reason: TACHYCARDIA Multivitamins/Minerals/Vitamin C (Tab-A-Vit -) 1 tab PO DAILY [facility] Last Admin: 08/06/18 09:30 Dose: 1 tab Tramadol HCl (Ultram -) 50 mg PO TID [facility] Last Admin: 08/06/18 05:33 Dose: Not Given - Objective Vital Signs: Vital Signs Temperature 97.7 F 08/06/18 07:55 Pulse Rate 76 08/06/18 07:55 Respiratory Rate 18 08/06/18 07:55 Blood Pressure 142/85 08/06/18 07:55 O2 Sat by Pulse Oximetry (%) 99 08/06/18 10:16 Constitutional: Yes: Calm Eyes: Yes: Conjunctiva Clear HENT: Yes: Atraumatic Neck: Yes: Supple Cardiovascular: Yes: S1, S2 Respiratory: Yes: CTA Bilaterally Gastrointestinal: Yes: Soft Genitourinary: Yes: WNL Musculoskeletal: Yes: Muscle Weakness Edema: No Neurological: Yes: Oriented Psychiatric: Yes: Oriented Labs: CBC, BMP 08/05/18 06:20 08/05/18 06:20 Problem List - Problems (1) APPLE (acute kidney injury) Code(s): N17.9 - ACUTE KIDNEY FAILURE, UNSPECIFIED Assessment/Plan Current Medications Generic Name Dose Route Start Last Admin Trade Name Freq PRN Reason Stop Dose Admin Apixaban 2.5 mg 08/05/18 12:00 08/06/18 09:30 Eliquis - PO 2.5 mg BID [facility]IN Administration Ceftriaxone Sodium 1 gm/ 50 mls @ 100 mls/hr 08/05/18 10:00 08/06/18 09:29 Dextrose IVPB 100 mls/hr DAILY [facility] Administration Protocol Dextrose/Sodium Chloride 1,000 mls @ 75 mls/hr 08/04/18 23:45 08/05/18 23:00 D5-1/2ns - IV 75 mls/hr ASDIR [facility]IN Administration Megestrol Acetate 400 mg 08/05/18 17:30 08/06/18 09:30 Megace Oral Suspension - PO 400 mg DAILY [facility] Administration Metoprolol Succinate 25 mg 08/05/18 11:45 08/06/18 09:30 Toprol Xl - PO 25 mg BID [facility] Administration Metoprolol Tartrate 5 mg 08/05/18 11:44 Lopressor Injection - IVPUSH Q4H PRN TACHYCARDIA Multivitamins/Minerals/Vitamin C 1 tab 08/05/18 10:00 08/06/18 09:30 Tab-A-Vit - PO 1 tab DAILY [facility] Administration Tramadol HCl 50 mg 08/04/18 23:45 08/06/18 05:33 Ultram - PO Not Given TID ROBIN Impression 1. APPLE 2. hyperkalemia 3. htn 4. UTI 5. hld 6. dementia Plan - cont to monitor renal function - urology input pending - encourage PO intake - abx for UTI - cont fluids for now Dr Ferrara
--- NOTE | 2018-08-06 11:01 | PN ---
Progress Note (short form) - Note Progress Note: s: no chest pain, palps, dizziness, lightheadedness Current Medications Apixaban (Eliquis -) 2.5 mg PO BID [facility] Last Admin: 08/06/18 09:30 Dose: 2.5 mg Ceftriaxone Sodium 1 gm/ (Dextrose) 50 mls @ 100 mls/hr IVPB DAILY [facility]; Protocol Last Admin: 08/06/18 09:29 Dose: 100 mls/hr Dextrose/Sodium Chloride (D5-1/2ns -) 1,000 mls @ 75 mls/hr IV ASDIR [facility] Last Admin: 08/05/18 23:00 Dose: 75 mls/hr Megestrol Acetate (Megace Oral Suspension -) 400 mg PO DAILY [facility] Last Admin: 08/06/18 09:30 Dose: 400 mg Metoprolol Succinate (Toprol Xl -) 25 mg PO BID [facility] Last Admin: 08/06/18 09:30 Dose: 25 mg Metoprolol Tartrate (Lopressor Injection -) 5 mg IVPUSH Q4H PRN PRN Reason: TACHYCARDIA Multivitamins/Minerals/Vitamin C (Tab-A-Vit -) 1 tab PO DAILY [facility] Last Admin: 08/06/18 09:30 Dose: 1 tab Tramadol HCl (Ultram -) 50 mg PO TID [facility] Last Admin: 08/06/18 05:33 Dose: Not Given Vital Signs: Vital Signs Period Temp Pulse Resp BP Sys/Deluna Pulse Ox Last 24 Hr 97.7 F-98.9 F 76-121 17-20 119-143/62-86 97-99 Constitutional: Yes: Well Nourished, No Distress, Calm Eyes: Yes: Conjunctiva Clear, EOM Intact HENT: Yes: Atraumatic, Normocephalic Neck: Yes: Supple, Trachea Midline Respiratory: Yes: Regular, CTA Bilaterally Gastrointestinal: Yes: Normal Bowel Sounds, Soft Cardiovascular: Yes: Pulse Irregular JVD: No Carotid Bruit: No PMI: Non-Displaced Musculoskeletal: No: Back Pain Extremities: No: Cold Edema: No Peripheral Pulses WNL: Yes Peripheral Pulses: 2+ Left Doralis Pedis, 2+ Right Dorsalis Pedis Integumentary: No: Jaundice Neurological: Yes: Alert Psychiatric: No: Agitated Assessment/Plan CXR: no congestion EKG: sinus with PACs, no ischemic changes EKG 08/05 afib with RVR, no ischemic changes echo 07/2018 nl LV/RV function, mild TR, mild AR tele: afib rate ok afib with RVR - no prior cardiac hx, discussed with patient's daughter - nl LV function on echo - was on bisoprolol/HCT at home, history of low BP - continue metoprolol succinate 25 mg BID, rate ok - [id number] 4, anticoagulation indicated. discussed risks/benefits with patient's daughter, has 24 hour supervision and uses assistance to get up, no bleeding hx. agreeable to starting AC -continue eliquis 2.5 mg BID (low dose for age, weight) APPLE -renal following, likely prerenal - improved with IVF UTI - manage per primary HTN - home meds held, starting metoprolol as above HLD - not on statin
--- NOTE | 2018-08-06 11:06 | PN ---
Progress Note, Physician History of Present Illness: continues to be confused but more awake and alert - Current Medication List Current Medications: Active Medications Apixaban (Eliquis -) 2.5 mg PO BID [facility] Last Admin: 08/06/18 09:30 Dose: 2.5 mg Ceftriaxone Sodium 1 gm/ (Dextrose) 50 mls @ 100 mls/hr IVPB DAILY [facility]; Protocol Last Admin: 08/06/18 09:29 Dose: 100 mls/hr Dextrose/Sodium Chloride (D5-1/2ns -) 1,000 mls @ 75 mls/hr IV ASDIR [facility] Last Admin: 08/05/18 23:00 Dose: 75 mls/hr Megestrol Acetate (Megace Oral Suspension -) 400 mg PO DAILY [facility] Last Admin: 08/06/18 09:30 Dose: 400 mg Metoprolol Succinate (Toprol Xl -) 25 mg PO BID [facility] Last Admin: 08/06/18 09:30 Dose: 25 mg Metoprolol Tartrate (Lopressor Injection -) 5 mg IVPUSH Q4H PRN PRN Reason: TACHYCARDIA Multivitamins/Minerals/Vitamin C (Tab-A-Vit -) 1 tab PO DAILY [facility] Last Admin: 08/06/18 09:30 Dose: 1 tab Tramadol HCl (Ultram -) 50 mg PO TID [facility] Last Admin: 08/06/18 05:33 Dose: Not Given - Objective Vital Signs: Vital Signs Temperature 97.7 F 08/06/18 07:55 Pulse Rate 76 08/06/18 07:55 Respiratory Rate 18 08/06/18 07:55 Blood Pressure 142/85 08/06/18 07:55 O2 Sat by Pulse Oximetry (%) 99 08/06/18 10:16 Constitutional: Yes: No Distress, Calm Cardiovascular: Yes: Pulse Irregular, S1, S2 Respiratory: Yes: Regular, CTA Bilaterally Gastrointestinal: Yes: Normal Bowel Sounds, Soft Musculoskeletal: Yes: WNL Extremities: Yes: WNL Neurological: Yes: Alert, Confusion Labs: CBC, BMP 08/05/18 06:20 08/05/18 06:20 Assessment/Plan Problem List - Problems (1) Rapid atrial fibrillation Code(s): I48.91 - UNSPECIFIED ATRIAL FIBRILLATION (2) UTI (urinary tract infection) Code(s): N39.0 - URINARY TRACT INFECTION, SITE NOT SPECIFIED Qualifiers: Urinary tract infection type: acute cystitis Hematuria presence: with hematuria Qualified Code(s): N30.01 - Acute cystitis with hematuria (3) APPLE (acute kidney injury) Code(s): N17.9 - ACUTE KIDNEY FAILURE, UNSPECIFIED (4) Dementia Code(s): F03.90 - UNSPECIFIED DEMENTIA WITHOUT BEHAVIORAL DISTURBANCE plan if possible repeat urine cx rest continue current mgmt hydration nutrition
--- NOTE | 2018-08-06 11:26 | CON.GU ---
Consult Consult Specialty:: Reason for Consultation:: 87 year old with APPLE and incidentally detected hydronephrosis - History of Present Illness Chief Complaint: weakness History of Present Illness: 87 year old woman with APPLE. Renal sono shows right sided hydro with an 8mm renal calculus. 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 Cardio/Vascular: Yes: HTN, Hyperlipdemia - Alcohol/Substance Use Hx Alcohol Use: No - Smoking History Smoking history: Never smoked Have you smoked in the past 12 months: No Aproximately how many cigarettes per day: 0 Home Medications - Allergies Allergies/Adverse Reactions: Allergies Allergy/AdvReac Type Severity Reaction Status Date / Time No Known Allergies Allergy Verified 08/04/18 08:31 - Home Medications Home Medications: Ambulatory Orders Multivit-Min/FA/Lycopene/Lut [Centrum Silver Tablet] 1 each PO DAILY 04/01/13 Tramadol HCl 50 mg PO TID 04/01/13 Bisoprolol 2.5MG/Hctz 6.25MG [Ziac (Nf)] 1 tab PO DAILY 07/27/18 Megestrol Acetate [Megace -] 20 mg PO QID 07/27/18 Timolol [Betimol] 5 ml OP DAILY 07/27/18 Galantamine HBr [Razadyne ER] 8 mg PO BID 08/05/18 Physical Exam- Vital Signs: Vital Signs Temperature 97.7 F 08/06/18 07:55 Pulse Rate 76 08/06/18 07:55 Respiratory Rate 18 08/06/18 07:55 Blood Pressure 142/85 08/06/18 07:55 O2 Sat by Pulse Oximetry (%) 99 08/06/18 10:16 Labs: CBC, BMP 08/05/18 06:20 08/05/18 06:20 Problem List - Problems (1) Hydronephrosis Assessment/Plan: R/O congenital UPJ obstruction vs. ureteral calculs recommend abd/pel CT without contrast Code(s): N13.30 - UNSPECIFIED HYDRONEPHROSIS
--- NOTE | 2018-08-06 12:49 | PN ---
Progress Note (short form) - Note Progress Note: covering for Dr Walden chart reviewed / son at bedside - provides hx of admission patient comfortable provides no c/o Vital Signs Period Temp Pulse Resp BP Sys/Deluna Pulse Ox Last 24 Hr 97.7 F-98.9 F 76-121 17-20 119-143/62-86 97-99 neck - KJVD heart S1/S2 ireg lungs clear bilat abd soft non tender ext no edema / left knee deformity / right knee surgical scar CBC, BMP 08/05/18 06:20 08/05/18 06:20 CXR: no congestion EKG: sinus with PACs, no ischemic changes EKG 08/05 afib with RVR, no ischemic changes echo 07/2018 nl LV/RV function, mild TR, mild AR tele: afib rate ok Microbiology 08/04/18 09:36 Urine - Urine Clean Catch Urine Culture - Final Contaminated: Please Repeat Active Medications Apixaban (Eliquis -) 2.5 mg PO BID [facility] Last Admin: 08/06/18 09:30 Dose: 2.5 mg Ceftriaxone Sodium 1 gm/ (Dextrose) 50 mls @ 100 mls/hr IVPB DAILY [facility]; Protocol Last Admin: 08/06/18 09:29 Dose: 100 mls/hr Dextrose/Sodium Chloride (D5-1/2ns -) 1,000 mls @ 75 mls/hr IV ASDIR [facility] Last Admin: 08/06/18 10:35 Dose: 75 mls/hr Megestrol Acetate (Megace Oral Suspension -) 400 mg PO DAILY [facility] Last Admin: 08/06/18 09:30 Dose: 400 mg Metoprolol Succinate (Toprol Xl -) 25 mg PO BID [facility] Last Admin: 08/06/18 09:30 Dose: 25 mg Metoprolol Tartrate (Lopressor Injection -) 5 mg IVPUSH Q4H PRN PRN Reason: TACHYCARDIA Multivitamins/Minerals/Vitamin C (Tab-A-Vit -) 1 tab PO DAILY [facility] Last Admin: 08/06/18 09:30 Dose: 1 tab Tramadol HCl (Ultram -) 50 mg PO TID [facility] Last Admin: 08/06/18 05:33 Dose: Not Giv afib with RVR - no prior cardiac hx, discussed with patient's son - nl LV function on echo - was on bisoprolol/HCT at home, history of low BP - continue metoprolol succinate 25 mg BID, rate ok - [id number], anticoagulation indicated. discussed risks/benefits with patient's daughter, has 24 hour supervision and uses assistance to get up, no bleeding hx. agreeable with use of AC -continue eliquis 2.5 mg BID (low dose for age, weight) APPLE -renal following, likely prerenal - improved with IVF UTI - will need repeat c/s HTN - home meds held, starting metoprolol as above HLD - not on statin Dementia / cognitive decline per family noted to have cognitive decline over last few weeks willl recall Neurology - known as out patient
[2018-08-06 15:18] VITALS: BMI 19.4
--- NOTE | 2018-08-06 18:14 | CONSULT ---
Consult - text type - Consultation Consultation Note: NEUROLOGY CONSULT GREATLY APPRECIATED: Events discussed with staff. Granddaughter provides history at bedside. Discussed with ANN Dodson and Patient's daughter. This 87 yo F is well-known to me for OMS, LS spinal stenosis, B12 def. Lives with daughter and son-in-law. Ambulates short distances with rolling walker. Last seen by me in office 07/03/18 and maintained on galantamine 8 mg BID for cognitive decline. Admitted after increasing lower extremity weakness. Found with WBC 12.1 and urine [id number], started on IV rocephin. Incidentally noted R hydronephrosis pending CT scan. Stay complicated by new-onset afib, now on abixaban. Head CT (reviewed): Mod atrophy with involuntary ventricular dilation. Chronic periventricular ischemic changes. Calcified carotids. RACHEL: Cor irregularly irregular. No bruits. Neck supple. Mils Contracture of L knee. Wearing diaper. NEURO: Mentation/Speech: CACHIL DEHE, awake, alert, somewhat agitated. OX to "[facility] July 2018. TRUMP. +glabella. Recalls [facility] at 3 mins. CNII-CNXII: EOM full. Blink with threat. No facial. Gag ok. Motor: No obvious drift. R leg rests everted. Cannot raise L leg. Arreflexic in legs. Plantars silent. Minimal cogwheel rigidity. Coordination: No FTN dystaxia Sensation: Decreased to pinch in feet. Impression: Mod B/L Cerebral dysfunction (OMS, chronic) worsened by Toxic- Metabolic Encephalopathy Gait dysfunction with contributions of severe scoliosis, lumbar stenosis and contracture New onset A. Fib Suggest: Continue antibiotics and hydration Add quetiapine 12.5 mg po qhs PRN agitation Order Carotid duplex, B12 level Agree with cardio and telemetry Bedside PT for contractures director of food and nutrition services for possible SNF placement Thank you very much, Chilo Yates MD
[2018-08-07 06:38] LABS: BASO % 0.2 % (0-2.0); EOS % 0.5 % (0-4.5); HEMATOCRIT 34.1 % (32.4-45.2); HEMOGLOBIN 11.5 GM/dL (10.7-15.3); LYMPH % 6.3 % (8-40); MCH 36.9 pg (25.7-33.7); MCHC 33.9 g/dl (32.0-36.0); MEAN CELL VOLUME 108.9 fl (80-96); MEAN PLT VOLUME 7.8 fl (7.5-11.1); MONO % 5.5 % (3.8-10.2); NEUT % 87.5 % (42.8-82.8); PLATELET COUNT 282 K/MM3 (134-434); RBC 3.13 M/mm3 (3.60-5.2); RDW 14.4 % (11.6-15.6); WHITE BLOOD COUNT 14.4 K/mm3 (4.0-10.0)
[2018-08-07] MEDS: traMADol HCL 50 MG TABLET PO SCH ×3 (06:38→22:38)
[2018-08-07] MEDS: DEXTROSE 5%-0.45% SALINE 1,000 ML IV SCH (06:39)
[2018-08-07 07:14] LABS: ANION GAP 8 MMOL/L (8-16); BLOOD UREA NITROGEN 22 mg/dL (7-18); CALCIUM 8.5 mg/dL (8.5-10.1); CHLORIDE 110 mmol/L (98-107); CO2 20 mmol/L (21-32); GLUCOSE,RANDOM 98 mg/dL (74-106); POTASSIUM 3.8 mmol/L (3.5-5.1); SODIUM 138 mmol/L (136-145)
[2018-08-07] MEDS ORDERED: cefTRIAXone SODIUM 1 GM VIAL ONE (09:23)
[2018-08-07] MEDS ORDERED: PT OWN MED DRAWER 7, Y5N ONE (09:23)
[2018-08-07] MEDS ORDERED: DEXTROSE 5%-WATER - 50 ML IVPB ONE (09:23)
--- NOTE | 2018-08-07 09:57 | PN ---
Progress Note (short form) - Note Progress Note: covering for Dr Walden patient comfortable provides no c/o Vital Signs Period Temp Pulse Resp BP Sys/Deluna Pulse Ox Last 24 Hr 97.7 F-98.9 F 76-121 17-20 119-143/62-86 97-99 neck - KJVD heart S1/S2 ireg lungs clear bilat abd soft non tender ext no edema / left knee deformity / right knee surgical scar CBC, BMP 08/07/18 05:30 08/07/18 05:30 CBC, BMP 08/05/18 06:20 08/05/18 06:20 CXR: no congestion EKG: sinus with PACs, no ischemic changes EKG 08/05 afib with RVR, no ischemic changes echo 07/2018 nl LV/RV function, mild TR, mild AR tele: afib rate ok Microbiology 08/04/18 09:36 Urine - Urine Clean Catch Urine Culture - Final Contaminated: Please Repeat Active Medications Apixaban (Eliquis -) 2.5 mg PO BID [facility] Last Admin: 08/07/18 10:24 Dose: 2.5 mg Ceftriaxone Sodium 1 gm/ (Dextrose) 50 mls @ 100 mls/hr IVPB DAILY [facility]; Protocol Last Admin: 08/07/18 10:24 Dose: 100 mls/hr Dextrose/Sodium Chloride (D5-1/2ns -) 1,000 mls @ 75 mls/hr IV ASDIR [facility] Last Admin: 08/07/18 06:39 Dose: 75 mls/hr Megestrol Acetate (Megace Oral Suspension -) 400 mg PO DAILY [facility] Last Admin: 08/07/18 10:24 Dose: 400 mg Metoprolol Succinate (Toprol Xl -) 50 mg PO BID [facility] Last Admin: 08/07/18 10:25 Dose: 50 mg Metoprolol Tartrate (Lopressor Injection -) 5 mg IVPUSH Q4H PRN PRN Reason: TACHYCARDIA Multivitamins/Minerals/Vitamin C (Tab-A-Vit -) 1 tab PO DAILY [facility] Last Admin: 08/07/18 10:25 Dose: 1 tab Tramadol HCl (Ultram -) 50 mg PO TID [facility] Last Admin: 08/07/18 06:38 Dose: 50 mg ASSMT / plan afib with RVR - no prior cardiac hx, discussed with patient's son - nl LV function on echo - was on bisoprolol/HCT at home, history of low BP - continue metoprolol succinate 25 mg BID, rate ok - [id number], anticoagulation indicated. discussed risks/benefits with patient's daughter, has 24 hour supervision and uses assistance to get up, no bleeding hx. agreeable with use of AC -continue eliquis 2.5 mg BID (low dose for age, weight) APPLE -improved with IVF - now resolved UTI - will need repeat c/s - ordered HTN - home meds held, starting metoprolol as above HLD - not on statin Dementia / cognitive decline - appreciate Dr Yates follow up / consultation per family noted to have increased cognitive decline over last few weeks arrangements for STR in process - patient unable to go home safely without extensive assitance
[2018-08-07] MEDS: APIXABAN 2.5 MG TABLET PO SCH ×2 (10:24→22:39)
[2018-08-07] MEDS: MEGESTROL ACETATE 400 MG/10 ML UNIT DOSE CUP PO SCH (10:24)
[2018-08-07] MEDS: CEFTRIAXONE 1 GM in DEXTROSE 5%-WATER - 50 ML IVPB SCH (10:24)
[2018-08-07] MEDS: metoPROLOL SUCCINATE 25 MG TAB.SR.24H (FP) PO SCH ×2 (10:25→22:39)
[2018-08-07] MEDS: MULTIVITAMINS (DAILY MVI) TABLET (FP) PO SCH (10:25)
[2018-08-07 11:06] LABS: ANISOCYTOSIS 1+; MACROCYTOSIS 1+; PLATELET ESTIMATE NORMAL
--- NOTE | 2018-08-07 11:22 | PN ---
Progress Note (short form) - Note Progress Note: s: no chest pain, palps, dizziness, lightheadedness Current Medications Generic Name Dose Route Start Last Admin Trade Name Freq PRN Reason Stop Dose Admin Apixaban 2.5 mg 08/05/18 12:00 08/07/18 10:24 Eliquis - PO 2.5 mg BID [facility] Administration Ceftriaxone Sodium 1 gm/ 50 mls @ 100 mls/hr 08/05/18 10:00 08/07/18 10:24 Dextrose IVPB 100 mls/hr DAILY [facility] Administration Protocol Dextrose/Sodium Chloride 1,000 mls @ 75 mls/hr 08/04/18 23:45 08/07/18 06:39 D5-1/2ns - IV 75 mls/hr ASDIR [facility]IN Administration Megestrol Acetate 400 mg 08/05/18 17:30 08/07/18 10:24 Megace Oral Suspension - PO 400 mg DAILY [facility] Administration Metoprolol Succinate 50 mg 08/07/18 10:00 08/07/18 10:25 Toprol Xl - PO 50 mg BID ROBIN Administration Metoprolol Tartrate 5 mg 08/05/18 11:44 Lopressor Injection - IVPUSH Q4H PRN TACHYCARDIA Multivitamins/Minerals/Vitamin C 1 tab 08/05/18 10:00 08/07/18 10:25 Tab-A-Vit - PO 1 tab DAILY ROBIN Administration Tramadol HCl 50 mg 08/04/18 23:45 08/07/18 06:38 Ultram - PO 50 mg TID ROBIN Administration Vital Signs: Vital Signs Period Temp Pulse Resp BP Sys/Deluna Pulse Ox Last 24 Hr 98.8 F-99.4 F 83-114 18-20 123-150/73-93 97 Constitutional: Yes: Well Nourished, No Distress, Calm Eyes: Yes: Conjunctiva Clear Neck: Yes: Supple, Trachea Midline Respiratory: Yes: Regular, CTA Bilaterally Gastrointestinal: Yes: Normal Bowel Sounds, Soft Cardiovascular: Yes: Pulse Irregular JVD: No Extremities: No: Cold Edema: No Peripheral Pulses: 2+ Left Doralis Pedis, 2+ Right Dorsalis Pedis Integumentary: No: Jaundice Neurological: Yes: Alert Psychiatric: No: Agitated CBC, BMP 08/07/18 05:30 08/07/18 05:30 Assessment/Plan CXR: no congestion EKG: sinus with PACs, no ischemic changes EKG 08/05 afib with RVR, no ischemic changes echo 07/2018 nl LV/RV function, mild TR, mild AR tele: afib rate mostly ok afib with RVR - no prior cardiac hx, discussed with patient's daughter - nl LV function on echo - was on bisoprolol/HCT at home, history of low BP - mild rvr at times, will increase toprol to 50 bid - [id number], anticoagulation indicated. discussed risks/benefits with patient's daughter, has 24 hour supervision and uses assistance to get up, no bleeding hx. agreeable to starting AC -continue eliquis 2.5 mg BID (low dose for age, weight) APPLE -renal following, likely prerenal - improved with IVF UTI - manage per primary HTN - home meds held, starting metoprolol as above HLD - not on statin dc tele
--- NOTE | 2018-08-07 13:26 | PN ---
Progress Note, Physician History of Present Illness: Pt seen and examined at bedside. She still has poor PO intake. She denies shortness of breath. - Current Medication List Current Medications: Active Medications Apixaban (Eliquis -) 2.5 mg PO BID [facility] Last Admin: 08/07/18 10:24 Dose: 2.5 mg Ceftriaxone Sodium 1 gm/ (Dextrose) 50 mls @ 100 mls/hr IVPB DAILY [facility]; Protocol Last Admin: 08/07/18 10:24 Dose: 100 mls/hr Dextrose/Sodium Chloride (D5-1/2ns -) 1,000 mls @ 75 mls/hr IV ASDIR [facility] Last Admin: 08/07/18 06:39 Dose: 75 mls/hr Megestrol Acetate (Megace Oral Suspension -) 400 mg PO DAILY [facility] Last Admin: 08/07/18 10:24 Dose: 400 mg Metoprolol Succinate (Toprol Xl -) 50 mg PO BID [facility] Last Admin: 08/07/18 10:25 Dose: 50 mg Metoprolol Tartrate (Lopressor Injection -) 5 mg IVPUSH Q4H PRN PRN Reason: TACHYCARDIA Multivitamins/Minerals/Vitamin C (Tab-A-Vit -) 1 tab PO DAILY [facility] Last Admin: 08/07/18 10:25 Dose: 1 tab Tramadol HCl (Ultram -) 50 mg PO TID [facility] Last Admin: 08/07/18 06:38 Dose: 50 mg - Objective Vital Signs: Vital Signs Temperature 99.2 F 08/07/18 06:00 Pulse Rate 108 H 08/07/18 06:00 Respiratory Rate 20 08/07/18 09:00 Blood Pressure 123/73 08/07/18 06:00 O2 Sat by Pulse Oximetry (%) 97 08/07/18 09:00 Constitutional: Yes: Calm Eyes: Yes: Conjunctiva Clear HENT: Yes: Atraumatic Cardiovascular: Yes: S1, S2 Respiratory: Yes: CTA Bilaterally Gastrointestinal: Yes: Soft Genitourinary: Yes: Incontinence Musculoskeletal: Yes: Muscle Weakness Edema: No Neurological: Yes: Oriented Labs: CBC, BMP 08/07/18 05:30 08/07/18 05:30 Problem List - Problems (1) APPLE (acute kidney injury) Code(s): N17.9 - ACUTE KIDNEY FAILURE, UNSPECIFIED Assessment/Plan Current Medications Generic Name Dose Route Start Last Admin Trade Name Freq PRN Reason Stop Dose Admin Apixaban 2.5 mg 08/05/18 12:00 08/07/18 10:24 Eliquis - PO 2.5 mg BID ROBIN Administration Ceftriaxone Sodium 1 gm/ 50 mls @ 100 mls/hr 08/05/18 10:00 08/07/18 10:24 Dextrose IVPB 100 mls/hr DAILY [facility] Administration Protocol Dextrose/Sodium Chloride 1,000 mls @ 75 mls/hr 08/04/18 23:45 08/07/18 06:39 D5-1/2ns - IV 75 mls/hr ASDIR ROBIN Administration Megestrol Acetate 400 mg 08/05/18 17:30 08/07/18 10:24 Megace Oral Suspension - PO 400 mg DAILY [facility]IN Administration Metoprolol Succinate 50 mg 08/07/18 10:00 08/07/18 10:25 Toprol Xl - PO 50 mg BID ROBIN Administration Metoprolol Tartrate 5 mg 08/05/18 11:44 Lopressor Injection - IVPUSH Q4H PRN TACHYCARDIA Multivitamins/Minerals/Vitamin C 1 tab 08/05/18 10:00 08/07/18 10:25 Tab-A-Vit - PO 1 tab DAILY ROBIN Administration Tramadol HCl 50 mg 08/04/18 23:45 08/07/18 06:38 Ultram - PO 50 mg TID ROBIN Administration Impression 1. APPLE 2. hyperkalemia 3. htn 4. UTI 5. hld 6. dementia Plan - renal function is improving - abx for UTI - follow up ct scan - urology input appreciated - encourage PO intake - cont fluids for now Dr Ferrara
[2018-08-08] MEDS: traMADol HCL 50 MG TABLET PO SCH ×3 (05:53→21:30)
[2018-08-08] MEDS: DEXTROSE 5%-0.45% SALINE 1,000 ML IV SCH ×3 (06:31→17:11)
[2018-08-08] MEDS ORDERED: cefTRIAXone SODIUM 1 GM VIAL ONE (09:49)
[2018-08-08] MEDS ORDERED: DEXTROSE 5%-WATER - 50 ML IVPB ONE (09:50)
[2018-08-08] MEDS: MULTIVITAMINS (DAILY MVI) TABLET (FP) PO SCH (09:57)
[2018-08-08] MEDS: APIXABAN 2.5 MG TABLET PO SCH ×2 (09:57→21:30)
[2018-08-08] MEDS: metoPROLOL SUCCINATE 25 MG TAB.SR.24H (FP) PO SCH ×2 (09:57→21:29)
[2018-08-08] MEDS: CEFTRIAXONE 1 GM in DEXTROSE 5%-WATER - 50 ML IVPB SCH (09:58)
[2018-08-08] MEDS: MEGESTROL ACETATE 400 MG/10 ML UNIT DOSE CUP PO SCH (09:58)
--- NOTE | 2018-08-08 14:32 | PN ---
Progress Note, Physician History of Present Illness: clinically stable wbc still high dirrhoea - Current Medication List Current Medications: Active Medications Apixaban (Eliquis -) 2.5 mg PO BID [facility] Last Admin: 08/08/18 09:57 Dose: 2.5 mg Ceftriaxone Sodium 1 gm/ (Dextrose) 50 mls @ 100 mls/hr IVPB DAILY [facility]; Protocol Last Admin: 08/08/18 09:58 Dose: 100 mls/hr Dextrose/Sodium Chloride (D5-1/2ns -) 1,000 mls @ 75 mls/hr IV ASDIR [facility] Last Admin: 08/08/18 09:57 Dose: Not Given Megestrol Acetate (Megace Oral Suspension -) 400 mg PO DAILY [facility] Last Admin: 08/08/18 09:58 Dose: 400 mg Metoprolol Succinate (Toprol Xl -) 50 mg PO BID [facility] Last Admin: 08/08/18 09:57 Dose: 50 mg Metoprolol Tartrate (Lopressor Injection -) 5 mg IVPUSH Q4H PRN PRN Reason: TACHYCARDIA Multivitamins/Minerals/Vitamin C (Tab-A-Vit -) 1 tab PO DAILY [facility] Last Admin: 08/08/18 09:57 Dose: 1 tab Tramadol HCl (Ultram -) 50 mg PO TID [facility] - Objective Vital Signs: Vital Signs Temperature 98.4 F 08/08/18 13:35 Pulse Rate 76 08/08/18 13:35 Respiratory Rate 18 08/08/18 13:35 Blood Pressure 122/66 08/08/18 13:35 O2 Sat by Pulse Oximetry (%) 98 08/08/18 09:00 Constitutional: Yes: No Distress, Calm Cardiovascular: Yes: Pulse Irregular Respiratory: Yes: Regular, CTA Bilaterally Gastrointestinal: Yes: Normal Bowel Sounds, Soft Musculoskeletal: Yes: WNL Extremities: Yes: WNL Neurological: Yes: Alert Psychiatric: Yes: Alert Labs: CBC, BMP 08/07/18 05:30 08/07/18 05:30 Assessment/Plan Problem List - Problems (1) Rapid atrial fibrillation Code(s): I48.91 - UNSPECIFIED ATRIAL FIBRILLATION (2) UTI (urinary tract infection) Code(s): N39.0 - URINARY TRACT INFECTION, SITE NOT SPECIFIED Qualifiers: Urinary tract infection type: acute cystitis Hematuria presence: with hematuria Qualified Code(s): N30.01 - Acute cystitis with hematuria (3) APPLE (acute kidney injury) Code(s): N17.9 - ACUTE KIDNEY FAILURE, UNSPECIFIED (4) Dementia Code(s): F03.90 - UNSPECIFIED DEMENTIA WITHOUT BEHAVIORAL DISTURBANCE dirrhoea leukocytosis plan conitnue abx urology on complex case manager wbc rest as per the team reports noted
--- NOTE | 2018-08-08 14:42 | PN ---
Progress Note, Physician History of Present Illness: Pt seen and examined at bedside. She is awake and alert. Her appetite is improved and she is more interactive today. - Current Medication List Current Medications: Active Medications Apixaban (Eliquis -) 2.5 mg PO BID [facility] Last Admin: 08/08/18 09:57 Dose: 2.5 mg Ceftriaxone Sodium 1 gm/ (Dextrose) 50 mls @ 100 mls/hr IVPB DAILY [facility]; Protocol Last Admin: 08/08/18 09:58 Dose: 100 mls/hr Dextrose/Sodium Chloride (D5-1/2ns -) 1,000 mls @ 75 mls/hr IV ASDIR [facility] Last Admin: 08/08/18 09:57 Dose: Not Given Megestrol Acetate (Megace Oral Suspension -) 400 mg PO DAILY [facility] Last Admin: 08/08/18 09:58 Dose: 400 mg Metoprolol Succinate (Toprol Xl -) 50 mg PO BID [facility] Last Admin: 08/08/18 09:57 Dose: 50 mg Metoprolol Tartrate (Lopressor Injection -) 5 mg IVPUSH Q4H PRN PRN Reason: TACHYCARDIA Multivitamins/Minerals/Vitamin C (Tab-A-Vit -) 1 tab PO DAILY [facility] Last Admin: 08/08/18 09:57 Dose: 1 tab Tramadol HCl (Ultram -) 50 mg PO TID [facility] - Objective Vital Signs: Vital Signs Temperature 98.4 F 08/08/18 13:35 Pulse Rate 76 08/08/18 13:35 Respiratory Rate 18 08/08/18 13:35 Blood Pressure 122/66 08/08/18 13:35 O2 Sat by Pulse Oximetry (%) 98 08/08/18 09:00 Constitutional: Yes: Calm Eyes: Yes: Conjunctiva Clear HENT: Yes: Atraumatic Cardiovascular: Yes: S1, S2 Respiratory: Yes: CTA Bilaterally Gastrointestinal: Yes: Soft Genitourinary: Yes: WNL Musculoskeletal: Yes: Muscle Weakness Edema: No Neurological: Yes: Oriented Psychiatric: Yes: Oriented Labs: CBC, BMP 08/07/18 05:30 08/07/18 05:30 Problem List - Problems (1) APPLE (acute kidney injury) Code(s): N17.9 - ACUTE KIDNEY FAILURE, UNSPECIFIED Assessment/Plan Current Medications Generic Name Dose Route Start Last Admin Trade Name Freq PRN Reason Stop Dose Admin Apixaban 2.5 mg 08/08/18 10:00 08/08/18 09:57 Eliquis - PO 2.5 mg BID [facility]IN Administration Ceftriaxone Sodium 1 gm/ 50 mls @ 100 mls/hr 08/08/18 10:00 08/08/18 09:58 Dextrose IVPB 100 mls/hr DAILY [facility] Administration Protocol Dextrose/Sodium Chloride 1,000 mls @ 75 mls/hr 08/08/18 07:43 08/08/18 09:57 D5-1/2ns - IV Not Given ASDIR ROBIN Megestrol Acetate 400 mg 08/08/18 10:00 08/08/18 09:58 Megace Oral Suspension - PO 400 mg DAILY [facility] Administration Metoprolol Succinate 50 mg 08/08/18 10:00 08/08/18 09:57 Toprol Xl - PO 50 mg BID ROBIN Administration Metoprolol Tartrate 5 mg 08/08/18 07:43 Lopressor Injection - IVPUSH Q4H PRN TACHYCARDIA Multivitamins/Minerals/Vitamin C 1 tab 08/08/18 10:00 08/08/18 09:57 Tab-A-Vit - PO 1 tab DAILY [facility] Administration Tramadol HCl 50 mg 08/08/18 14:00 Ultram - PO TID [facility] Impression 1. APPLE 2. hyperkalemia 3. htn 4. UTI 5. hld 6. dementia 7. hydronephrosis 8. nephrolithiasis Plan - urology follow up for hydro - check bmp - PO intake is improving - abx for UTI - cont fluids for now Dr Ferrara
--- NOTE | 2018-08-08 16:17 | PN ---
Progress Note (short form) - Note Progress Note: s: no chest pain, palps, dizziness, lightheadedness Current Medications Generic Name Dose Route Start Last Admin Trade Name Freq PRN Reason Stop Dose Admin Apixaban 2.5 mg 08/08/18 10:00 08/08/18 09:57 Eliquis - PO 2.5 mg BID ROBIN Administration Ceftriaxone Sodium 1 gm/ 50 mls @ 100 mls/hr 08/08/18 10:00 08/08/18 09:58 Dextrose IVPB 100 mls/hr DAILY [facility] Administration Protocol Dextrose/Sodium Chloride 1,000 mls @ 75 mls/hr 08/08/18 07:43 08/08/18 09:57 D5-1/2ns - IV Not Given ASDIR ROBIN Megestrol Acetate 400 mg 08/08/18 10:00 08/08/18 09:58 Megace Oral Suspension - PO 400 mg DAILY [facility] Administration Metoprolol Succinate 50 mg 08/08/18 10:00 08/08/18 09:57 Toprol Xl - PO 50 mg BID ROBIN Administration Metoprolol Tartrate 5 mg 08/08/18 07:43 Lopressor Injection - IVPUSH Q4H PRN TACHYCARDIA Multivitamins/Minerals/Vitamin C 1 tab 08/08/18 10:00 08/08/18 09:57 Tab-A-Vit - PO 1 tab DAILY ROBIN Administration Tramadol HCl 50 mg 08/08/18 14:00 08/08/18 15:13 Ultram - PO 50 mg TID ROBIN Administration Vital Signs: Vital Signs Period Temp Pulse Resp BP Sys/Deluna Pulse Ox Last 24 Hr 97.4 F-98.8 F 76-114 18-20 121-144/62-80 93-98 Constitutional: Yes: No Distress, Calm Eyes: Yes: Conjunctiva Clear Neck: Yes: Supple, Trachea Midline Respiratory: Yes: Regular, CTA Bilaterally Gastrointestinal: Yes: Normal Bowel Sounds, Soft Cardiovascular: Yes: Pulse Irregular JVD: No Extremities: No: Cold Edema: No Peripheral Pulses: 2+ Left Doralis Pedis, 2+ Right Dorsalis Pedis Integumentary: No: Jaundice Neurological: Yes: Alert Psychiatric: No: Agitated CBC, BMP 08/07/18 05:30 08/07/18 05:30 Assessment/Plan CXR: no congestion EKG: sinus with PACs, no ischemic changes EKG 08/05 afib with RVR, no ischemic changes echo 07/2018 nl LV/RV function, mild TR, mild AR tele: afib rate mostly ok afib with RVR - no prior cardiac hx, discussed with patient's daughter - nl LV function on echo - was on bisoprolol/HCT at home, history of low BP - cont toprol 50 bid for rate control - [id number], anticoagulation indicated. discussed risks/benefits with patient's daughter, has 24 hour supervision and uses assistance to get up, no bleeding hx. agreeable to starting AC -continue eliquis 2.5 mg BID (low dose for age, weight) APPLE -renal following, likely prerenal - improved with IVF UTI - manage per primary HTN - home meds held, starting metoprolol as above HLD - not on statin
--- NOTE | 2018-08-08 17:44 | PN ---
Progress Note (short form) - Note Progress Note: kathie found to have an 8mm ureteral stone. If she is stable general anesthesia can schedule for ureteroscopy on 08/11/18 Problem List - Problems (1) Hydronephrosis Code(s): N13.30 - UNSPECIFIED HYDRONEPHROSIS
--- NOTE | 2018-08-08 23:30 | PN ---
Progress Note, Physician - Current Medication List Current Medications: Active Medications Apixaban (Eliquis -) 2.5 mg PO BID [facility] Last Admin: 08/08/18 21:30 Dose: 2.5 mg Ceftriaxone Sodium 1 gm/ (Dextrose) 50 mls @ 100 mls/hr IVPB DAILY [facility]; Protocol Last Admin: 08/08/18 09:58 Dose: 100 mls/hr Dextrose/Sodium Chloride (D5-1/2ns -) 1,000 mls @ 75 mls/hr IV ASDIR [facility] Last Admin: 08/08/18 17:11 Dose: 75 mls/hr Megestrol Acetate (Megace Oral Suspension -) 400 mg PO DAILY [facility] Last Admin: 08/08/18 09:58 Dose: 400 mg Metoprolol Succinate (Toprol Xl -) 50 mg PO BID [facility] Last Admin: 08/08/18 21:29 Dose: 50 mg Metoprolol Tartrate (Lopressor Injection -) 5 mg IVPUSH Q4H PRN PRN Reason: TACHYCARDIA Multivitamins/Minerals/Vitamin C (Tab-A-Vit -) 1 tab PO DAILY [facility] Last Admin: 08/08/18 09:57 Dose: 1 tab Tramadol HCl (Ultram -) 50 mg PO TID [facility] Last Admin: 08/08/18 21:30 Dose: 50 mg - Objective Vital Signs: Vital Signs Temperature 98.2 F 08/08/18 22:00 Pulse Rate 80 08/08/18 22:00 Respiratory Rate 18 08/08/18 22:00 Blood Pressure 142/92 08/08/18 22:00 O2 Sat by Pulse Oximetry (%) 100 08/08/18 21:00 Labs: CBC, BMP 08/07/18 05:30 08/07/18 05:30 Problem List - Problems (1) Rapid atrial fibrillation Code(s): I48.91 - UNSPECIFIED ATRIAL FIBRILLATION (2) UTI (urinary tract infection) Code(s): N39.0 - URINARY TRACT INFECTION, SITE NOT SPECIFIED Qualifiers: Urinary tract infection type: acute cystitis Hematuria presence: with hematuria Qualified Code(s): N30.01 - Acute cystitis with hematuria (3) APPLE (acute kidney injury) Code(s): N17.9 - ACUTE KIDNEY FAILURE, UNSPECIFIED (4) Dementia Code(s): F03.90 - UNSPECIFIED DEMENTIA WITHOUT BEHAVIORAL DISTURBANCE
[2018-08-09] MEDS: traMADol HCL 50 MG TABLET PO SCH ×3 (05:42→22:30)
[2018-08-09] MEDS ORDERED: cefTRIAXone SODIUM 1 GM VIAL ONE (08:55)
[2018-08-09] MEDS ORDERED: DEXTROSE 5%-WATER - 50 ML IVPB ONE (08:55)
[2018-08-09] MEDS: DEXTROSE 5%-0.45% SALINE 1,000 ML IV SCH ×2 (09:40→22:33)
[2018-08-09] MEDS: metoPROLOL SUCCINATE 25 MG TAB.SR.24H (FP) PO SCH ×2 (09:41→22:31)
[2018-08-09] MEDS: APIXABAN 2.5 MG TABLET PO SCH ×2 (09:42→22:31)
[2018-08-09] MEDS: CEFTRIAXONE 1 GM in DEXTROSE 5%-WATER - 50 ML IVPB SCH (09:42)
[2018-08-09] MEDS: MULTIVITAMINS (DAILY MVI) TABLET (FP) PO SCH (09:42)
[2018-08-09] MEDS: MEGESTROL ACETATE 400 MG/10 ML UNIT DOSE CUP PO SCH (09:45)
[2018-08-09] MEDS ORDERED: PT OWN MED DRAWER 7, Y5N ONE ×3 (10:10→21:46)
--- NOTE | 2018-08-09 17:08 | PN ---
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 APPLE 2. hyperkalemia 3. htn 4. UTI 5. hld 6. dementia 7. hydronephrosis 8. nephrolithiasis Current Medications Apixaban (Eliquis -) 2.5 mg PO BID [facility] Last Admin: 08/09/18 09:42 Dose: 2.5 mg Ceftriaxone Sodium 1 gm/ (Dextrose) 50 mls @ 100 mls/hr IVPB DAILY [facility]; Protocol Last Admin: 08/09/18 09:42 Dose: 100 mls/hr Dextrose/Sodium Chloride (D5-1/2ns -) 1,000 mls @ 75 mls/hr IV ASDIR [facility] Last Admin: 08/09/18 09:40 Dose: 75 mls/hr Megestrol Acetate (Megace Oral Suspension -) 400 mg PO DAILY [facility] Last Admin: 08/09/18 09:45 Dose: 400 mg Metoprolol Succinate (Toprol Xl -) 50 mg PO BID [facility] Last Admin: 08/09/18 09:41 Dose: 50 mg Metoprolol Tartrate (Lopressor Injection -) 5 mg IVPUSH Q4H PRN PRN Reason: TACHYCARDIA Multivitamins/Minerals/Vitamin C (Tab-A-Vit -) 1 tab PO DAILY [facility] Last Admin: 08/09/18 09:42 Dose: 1 tab Tramadol HCl (Ultram -) 50 mg PO TID [facility] Last Admin: 08/09/18 14:14 Dose: 50 mg Last Vital Signs Temp Pulse Resp BP Pulse Ox 98.1 F 112 H 20 151/83 97 08/09/18 13:54 08/09/18 13:54 08/09/18 13:54 08/09/18 13:54 08/09/18 09:00 CBC, BMP 08/07/18 05:30 08/07/18 05:30 s/p electrolyte disorder Plan- same rx
--- NOTE | 2018-08-09 18:01 | PN ---
Progress Note, Physician History of Present Illness: Pt seen and examined, events noted. Weak but responsive, no distress noted. notes reviewed. - Current Medication List Current Medications: Active Medications Apixaban (Eliquis -) 2.5 mg PO BID [facility] Last Admin: 08/09/18 09:42 Dose: 2.5 mg Ceftriaxone Sodium 1 gm/ (Dextrose) 50 mls @ 100 mls/hr IVPB DAILY [facility]; Protocol Last Admin: 08/09/18 09:42 Dose: 100 mls/hr Dextrose/Sodium Chloride (D5-1/2ns -) 1,000 mls @ 75 mls/hr IV ASDIR [facility] Last Admin: 08/09/18 09:40 Dose: 75 mls/hr Megestrol Acetate (Megace Oral Suspension -) 400 mg PO DAILY [facility] Last Admin: 08/09/18 09:45 Dose: 400 mg Metoprolol Succinate (Toprol Xl -) 50 mg PO BID [facility] Last Admin: 08/09/18 09:41 Dose: 50 mg Metoprolol Tartrate (Lopressor Injection -) 5 mg IVPUSH Q4H PRN PRN Reason: TACHYCARDIA Multivitamins/Minerals/Vitamin C (Tab-A-Vit -) 1 tab PO DAILY [facility] Last Admin: 08/09/18 09:42 Dose: 1 tab Tramadol HCl (Ultram -) 50 mg PO TID [facility] Last Admin: 08/09/18 14:14 Dose: 50 mg - Objective Vital Signs: Vital Signs Temperature 98.1 F 08/09/18 13:54 Pulse Rate 112 H 08/09/18 13:54 Respiratory Rate 20 08/09/18 13:54 Blood Pressure 151/83 08/09/18 13:54 O2 Sat by Pulse Oximetry (%) 97 08/09/18 09:00 Constitutional: Yes: No Distress Cardiovascular: Yes: Pulse Irregular Respiratory: Yes: Regular Gastrointestinal: Yes: Normal Bowel Sounds, Soft Genitourinary: Yes: WNL Extremities: Yes: WNL Integumentary: Yes: WNL Neurological: Yes: Weakness Labs: CBC, BMP 08/07/18 05:30 08/07/18 05:30 Microbiology 08/09/18 09:20 Urine - Urine Clean Catch Urine Culture - Final NO GROWTH OBTAINED 08/04/18 09:36 Urine - Urine Clean Catch Urine Culture - Final Contaminated: Please Repeat Problem List - Problems (1) APPLE (acute kidney injury) Code(s): N17.9 - ACUTE KIDNEY FAILURE, UNSPECIFIED (2) Dementia Code(s): F03.90 - UNSPECIFIED DEMENTIA WITHOUT BEHAVIORAL DISTURBANCE (3) Hydronephrosis Code(s): N13.30 - UNSPECIFIED HYDRONEPHROSIS (4) Parkinson disease Code(s): G20 - PARKINSON'S DISEASE (5) Rapid atrial fibrillation Code(s): I48.91 - UNSPECIFIED ATRIAL FIBRILLATION (6) UTI (urinary tract infection) Code(s): N39.0 - URINARY TRACT INFECTION, SITE NOT SPECIFIED Qualifiers: Urinary tract infection type: acute cystitis Hematuria presence: with hematuria Qualified Code(s): N30.01 - Acute cystitis with hematuria Assessment/Plan Ureteral Stone/hydronephrosis Pt mildly lethargic but responsive Afebrile but wbc trending up U/A indicative of UTI, initial Urine Cx contaminated, repeat neg Suggest continue antibiotics for now Repeat cbc, monitor wbc trend
--- NOTE | 2018-08-09 22:08 | PN ---
Progress Note, Physician History of Present Illness: Pt more awake - Current Medication List Current Medications: Active Medications Apixaban (Eliquis -) 2.5 mg PO BID [facility] Last Admin: 08/09/18 09:42 Dose: 2.5 mg Ceftriaxone Sodium 1 gm/ (Dextrose) 50 mls @ 100 mls/hr IVPB DAILY [facility]; Protocol Last Admin: 08/09/18 09:42 Dose: 100 mls/hr Dextrose/Sodium Chloride (D5-1/2ns -) 1,000 mls @ 75 mls/hr IV ASDIR [facility] Last Admin: 08/09/18 09:40 Dose: 75 mls/hr Megestrol Acetate (Megace Oral Suspension -) 400 mg PO DAILY [facility] Last Admin: 08/09/18 09:45 Dose: 400 mg Metoprolol Succinate (Toprol Xl -) 50 mg PO BID [facility] Last Admin: 08/09/18 09:41 Dose: 50 mg Metoprolol Tartrate (Lopressor Injection -) 5 mg IVPUSH Q4H PRN PRN Reason: TACHYCARDIA Multivitamins/Minerals/Vitamin C (Tab-A-Vit -) 1 tab PO DAILY [facility] Last Admin: 08/09/18 09:42 Dose: 1 tab Tramadol HCl (Ultram -) 50 mg PO TID [facility] Last Admin: 08/09/18 14:14 Dose: 50 mg - Objective Vital Signs: Vital Signs Temperature 97.8 F 08/09/18 19:05 Pulse Rate 101 H 08/09/18 19:05 Respiratory Rate 20 08/09/18 19:05 Blood Pressure 149/79 08/09/18 19:05 O2 Sat by Pulse Oximetry (%) 97 08/09/18 09:00 Neck: Yes: WNL, Supple Cardiovascular: Yes: Tachycardia, Pulse Irregular Respiratory: Yes: WNL, Regular, CTA Bilaterally Gastrointestinal: Yes: WNL, Normal Bowel Sounds, Soft Extremities: Yes: Other ((+) contractures of hands) Edema: No Labs: CBC, BMP 08/07/18 05:30 08/07/18 05:30 Problem List - Problems (1) Rapid atrial fibrillation Assessment/Plan: Cont eliquis Cont toprol Heart rate slightly elevated Code(s): I48.91 - UNSPECIFIED ATRIAL FIBRILLATION (2) UTI (urinary tract infection) Assessment/Plan: Cont ceftriaxone Cont IVF Repeat urine culture pending Code(s): N39.0 - URINARY TRACT INFECTION, SITE NOT SPECIFIED Qualifiers: Urinary tract infection type: acute cystitis Hematuria presence: with hematuria Qualified Code(s): N30.01 - Acute cystitis with hematuria (3) APPLE (acute kidney injury) Assessment/Plan: Cont IVF Renal/uro consults noted 8mm ureteral stone Possible ureterscopy on 08/11 if cleared by cardio Code(s): N17.9 - ACUTE KIDNEY FAILURE, UNSPECIFIED (4) Dementia Code(s): F03.90 - UNSPECIFIED DEMENTIA WITHOUT BEHAVIORAL DISTURBANCE
[2018-08-10] MEDS: traMADol HCL 50 MG TABLET PO SCH ×3 (05:48→21:29)
[2018-08-10 07:22] LABS: BASO % 0.3 % (0-2.0); EOS % 0.7 % (0-4.5); HEMATOCRIT 35.1 % (32.4-45.2); HEMOGLOBIN 11.8 GM/dL (10.7-15.3); LYMPH % 7.9 % (8-40); MCH 36.8 pg (25.7-33.7); MCHC 33.5 g/dl (32.0-36.0); MEAN PLT VOLUME 8.4 fl (7.5-11.1); MONO % 8.7 % (3.8-10.2); NEUT % 82.4 % (42.8-82.8); PLATELET COUNT 306 K/MM3 (134-434); RBC 3.19 M/mm3 (3.60-5.2); RDW 14.2 % (11.6-15.6); WHITE BLOOD COUNT 17.7 K/mm3 (4.0-10.0)
[2018-08-10 07:25] LABS: ALK PHOS 29 U/L (45-117); ANION GAP 7 MMOL/L (8-16); BILIRUBIN,TOTAL 0.4 mg/dL (0.2-1); BLOOD UREA NITROGEN 11 mg/dL (7-18); CALCIUM 8.1 mg/dL (8.5-10.1); CHLORIDE 106 mmol/L (98-107); CO2 25 mmol/L (21-32); CREATININE 0.7 mg/dL (0.55-1.3); GLUCOSE,RANDOM 93 mg/dL (74-106); POTASSIUM 3.5 mmol/L (3.5-5.1); SGOT/AST 23 U/L (15-37); SGPT/ALT 23 U/L (13-61); SODIUM 138 mmol/L (136-145); TOT PROT 5.8 g/dl (6.4-8.2)
[2018-08-10] MEDS ORDERED: cefTRIAXone SODIUM 1 GM VIAL ONE (08:42)
[2018-08-10] MEDS ORDERED: DEXTROSE 5%-WATER - 50 ML IVPB ONE ×2 (08:42→16:32)
[2018-08-10] MEDS: MEGESTROL ACETATE 400 MG/10 ML UNIT DOSE CUP PO SCH (10:02)
[2018-08-10] MEDS: APIXABAN 2.5 MG TABLET PO SCH ×2 (10:02→21:29)
[2018-08-10] MEDS: MULTIVITAMINS (DAILY MVI) TABLET (FP) PO SCH (10:02)
[2018-08-10] MEDS: metoPROLOL SUCCINATE 25 MG TAB.SR.24H (FP) PO SCH ×2 (10:02→21:29)
[2018-08-10] MEDS: DEXTROSE 5%-0.45% SALINE 1,000 ML IV SCH (10:09)
[2018-08-10] MEDS: CEFTRIAXONE 1 GM in DEXTROSE 5%-WATER - 50 ML IVPB SCH (10:10)
[2018-08-10 10:59] LABS: ANISOCYTOSIS 0; MACROCYTOSIS 0; PLATELET ESTIMATE NORMAL
[2018-08-10] MEDS: DOCUSATE SODIUM 100 MG CAPSULE (FP) PO SCH ×2 (13:45→21:29)
--- NOTE | 2018-08-10 14:41 | PN ---
Progress Note, Physician History of Present Illness: Pt is easily arousable, responsive verbally. Daughter at bedside states mental status has improved. Was conversive with family last night. Remains afebrile but wbc continues to trend up. As per daughter pt has had multiple UTIs in the past. - Current Medication List Current Medications: Active Medications Apixaban (Eliquis -) 2.5 mg PO BID [facility]S [facility] Last Admin: 08/10/18 10:02 Dose: 2.5 mg Docusate Sodium (Colace -) 100 mg PO TID [facility] 234 BEDS AT [facility] Last Admin: 08/10/18 13:45 Dose: 100 mg Ceftriaxone Sodium 1 gm/ (Dextrose) 50 mls @ 100 mls/hr IVPB DAILY [facility] 234 BEDS AT [facility]; Protocol Last Admin: 08/10/18 10:10 Dose: 100 mls/hr Dextrose/Sodium Chloride (D5-1/2ns -) 1,000 mls @ 75 mls/hr IV ASDIR COUNTS INCLUDE 234 BEDS AT THE [facility] Last Admin: 08/10/18 10:09 Dose: 75 mls/hr Megestrol Acetate (Megace Oral Suspension -) 400 mg PO DAILY [facility] 234 BEDS AT [facility] Last Admin: 08/10/18 10:02 Dose: 400 mg Metoprolol Succinate (Toprol Xl -) 50 mg PO BID [facility] 234 BEDS AT [facility] Last Admin: 08/10/18 10:02 Dose: 50 mg Metoprolol Tartrate (Lopressor Injection -) 5 mg IVPUSH Q4H PRN PRN Reason: TACHYCARDIA Multivitamins/Minerals/Vitamin C (Tab-A-Vit -) 1 tab PO DAILY [facility] 234 B[facility]S AT [facility] Last Admin: 08/10/18 10:02 Dose: 1 tab Non-Formulary Med( Galantamine Hbr 8 Mg Tab 1 each PO BID [facility]CLUDE 234 BEDS AT [facility] Tramadol HCl (Ultram -) 50 mg PO TID [facility] 234 BEDS AT [facility] Last Admin: 08/10/18 13:45 Dose: 50 mg - Objective Vital Signs: Vital Signs Temperature 98.2 F 08/10/18 08:50 Pulse Rate 107 H 08/10/18 08:50 Respiratory Rate 20 08/10/18 09:00 Blood Pressure 144/77 08/10/18 08:50 O2 Sat by Pulse Oximetry (%) 97 08/10/18 09:00 Constitutional: Yes: No Distress, Calm Cardiovascular: Yes: Pulse Irregular Respiratory: Yes: Regular Gastrointestinal: Yes: Normal Bowel Sounds, Soft Genitourinary: Yes: WNL Integumentary: Yes: WNL Neurological: Yes: Alert Labs: CBC, BMP 08/10/18 06:20 08/10/18 06:20 Microbiology 08/09/18 09:20 Urine - Urine Clean Catch Urine Culture - Final NO GROWTH OBTAINED 08/04/18 09:36 Urine - Urine Clean Catch Urine Culture - Final Contaminated: Please Repeat Problem List - Problems (1) APPLE (acute kidney injury) Code(s): N17.9 - ACUTE KIDNEY FAILURE, UNSPECIFIED (2) Dementia Code(s): F03.90 - UNSPECIFIED DEMENTIA WITHOUT BEHAVIORAL DISTURBANCE (3) Hydronephrosis Code(s): N13.30 - UNSPECIFIED HYDRONEPHROSIS (4) Parkinson disease Code(s): G20 - PARKINSON'S DISEASE (5) Rapid atrial fibrillation Code(s): I48.91 - UNSPECIFIED ATRIAL FIBRILLATION (6) UTI (urinary tract infection) Code(s): N39.0 - URINARY TRACT INFECTION, SITE NOT SPECIFIED Qualifiers: Urinary tract infection type: acute cystitis Hematuria presence: with hematuria Qualified Code(s): N30.01 - Acute cystitis with hematuria Assessment/Plan AMS Ureteral Stone/hydronephrosis Leukocytosis - wbc trending up APPLE - resolved Pt more alert and responsive, no distress d/c Ceftriaxone, will start Zosyn for now Repeat cbc, monitor wbc trend, unclear if infectious etiology For possible ureteroscopy
--- NOTE | 2018-08-10 15:26 | PN ---
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 APPLE 2. hyperkalemia 3. htn 4. UTI 5. hld 6. dementia 7. hydronephrosis 8. nephrolithiasis Current Medications Apixaban (Eliquis -) 2.5 mg PO BID [facility] Last Admin: 08/10/18 10:02 Dose: 2.5 mg Docusate Sodium (Colace -) 100 mg PO TID [facility] Last Admin: 08/10/18 13:45 Dose: 100 mg Dextrose/Sodium Chloride (D5-1/2ns -) 1,000 mls @ 75 mls/hr IV ASDIR [facility] Last Admin: 08/10/18 10:09 Dose: 75 mls/hr Piperacillin Sod/Tazobactam (Sod 3.375 gm/ Dextrose) 50 mls @ 100 mls/hr IVPB Q8H-IV [facility]; Protocol Megestrol Acetate (Megace Oral Suspension -) 400 mg PO DAILY [facility] Last Admin: 08/10/18 10:02 Dose: 400 mg Metoprolol Succinate (Toprol Xl -) 50 mg PO BID [facility] Last Admin: 08/10/18 10:02 Dose: 50 mg Metoprolol Tartrate (Lopressor Injection -) 5 mg IVPUSH Q4H PRN PRN Reason: TACHYCARDIA Multivitamins/Minerals/Vitamin C (Tab-A-Vit -) 1 tab PO DAILY [facility] Last Admin: 08/10/18 10:02 Dose: 1 tab Non-Formulary Med( Galantamine Hbr 8 Mg Tab 1 each PO BID [facility] Tramadol HCl (Ultram -) 50 mg PO TID [facility] Last Admin: 08/10/18 13:45 Dose: 50 mg Last Vital Signs Temp Pulse Resp BP Pulse Ox 98.2 F 112 H 20 126/71 97 08/10/18 14:44 08/10/18 14:44 08/10/18 14:44 08/10/18 14:44 08/10/18 09:00 CBC, BMP 08/07/18 05:30 08/07/18 05:30 s/p electrolyte disorder pre-renal azotemia Plan- same rx
[2018-08-10] MEDS ORDERED: PIPERACILLIN/TAZOBACTAM 3.375 GM VIAL IVPB ONE (16:32)
[2018-08-10] MEDS: PIPERACILLIN/TAZOB 3.375 GM 3.375 GM in DEXTROSE 5%-WATER - 50 ML IVPB SCH (17:15)
[2018-08-10] MEDS ORDERED: PT OWN MED DRAWER 7, Y5N ONE (20:59)
[2018-08-10] MEDS: GALANTAMINE HBR 8 MG PO SCH (21:30)
--- NOTE | 2018-08-10 21:42 | PN ---
Progress Note, Physician History of Present Illness: Pt seems more lethargic today - Current Medication List Current Medications: Active Medications Apixaban (Eliquis -) 2.5 mg PO BID [facility] Last Admin: 08/10/18 21:29 Dose: 2.5 mg Docusate Sodium (Colace -) 100 mg PO TID [facility] Last Admin: 08/10/18 21:29 Dose: 100 mg Dextrose/Sodium Chloride (D5-1/2ns -) 1,000 mls @ 75 mls/hr IV ASDIR [facility] Last Admin: 08/10/18 10:09 Dose: 75 mls/hr Piperacillin Sod/Tazobactam (Sod 3.375 gm/ Dextrose) 50 mls @ 100 mls/hr IVPB Q8H-IV [facility]; Protocol Last Admin: 08/10/18 17:15 Dose: 100 mls/hr Megestrol Acetate (Megace Oral Suspension -) 400 mg PO DAILY [facility] Last Admin: 08/10/18 10:02 Dose: 400 mg Metoprolol Succinate (Toprol Xl -) 50 mg PO BID [facility] Last Admin: 08/10/18 21:29 Dose: 50 mg Metoprolol Tartrate (Lopressor Injection -) 5 mg IVPUSH Q4H PRN PRN Reason: TACHYCARDIA Multivitamins/Minerals/Vitamin C (Tab-A-Vit -) 1 tab PO DAILY [facility] Last Admin: 08/10/18 10:02 Dose: 1 tab Non-Formulary Med( Galantamine Hbr 8 Mg Tab 1 each PO BID [facility] Last Admin: 08/10/18 21:30 Dose: 1 each Tramadol HCl (Ultram -) 50 mg PO TID [facility] Last Admin: 08/10/18 21:29 Dose: 50 mg - Objective Vital Signs: Vital Signs Temperature 98.3 F 08/10/18 18:00 Pulse Rate 125 H 08/10/18 18:00 Respiratory Rate 20 08/10/18 18:00 Blood Pressure 119/62 08/10/18 18:00 O2 Sat by Pulse Oximetry (%) 97 08/10/18 09:00 Neck: Yes: WNL, Supple Cardiovascular: Yes: Tachycardia Respiratory: Yes: Diminished Gastrointestinal: Yes: WNL, Normal Bowel Sounds, Soft Edema: No Labs: CBC, BMP 08/10/18 06:20 08/10/18 06:20 Problem List - Problems (1) Rapid atrial fibrillation Assessment/Plan: Cont eliquis Cont toprol Heart rate slightly elevated Code(s): I48.91 - UNSPECIFIED ATRIAL FIBRILLATION (2) UTI (urinary tract infection) Assessment/Plan: Antibx changed to IV zosyn WBC increased Cont IVF Repeat urine culture pending Probable ureteroscopy in am for 8 mm stone Cardio consult for cardiac clearance Code(s): N39.0 - URINARY TRACT INFECTION, SITE NOT SPECIFIED Qualifiers: Urinary tract infection type: acute cystitis Hematuria presence: with hematuria Qualified Code(s): N30.01 - Acute cystitis with hematuria (3) APPLE (acute kidney injury) Assessment/Plan: Cont IVF Renal/uro consults noted 8mm ureteral stone Possible ureterscopy on 08/11 if cleared by cardio Hydronephrosis Code(s): N17.9 - ACUTE KIDNEY FAILURE, UNSPECIFIED (4) Dementia Code(s): F03.90 - UNSPECIFIED DEMENTIA WITHOUT BEHAVIORAL DISTURBANCE
[2018-08-11] MEDS ORDERED: PIPERACILLIN/TAZOBACTAM 3.375 GM VIAL IVPB ONE ×3 (00:56→16:55)
[2018-08-11] MEDS ORDERED: DEXTROSE 5%-WATER - 50 ML IVPB ONE ×3 (00:57→16:55)
[2018-08-11] MEDS: PIPERACILLIN/TAZOB 3.375 GM 3.375 GM in DEXTROSE 5%-WATER - 50 ML IVPB SCH ×4 (01:01→17:17)
[2018-08-11] MEDS: DEXTROSE 5%-0.45% SALINE 1,000 ML IV SCH ×3 (01:01→17:28)
[2018-08-11] MEDS: traMADol HCL 50 MG TABLET PO SCH ×3 (06:03→21:13)
[2018-08-11] MEDS: DOCUSATE SODIUM 100 MG CAPSULE (FP) PO SCH ×3 (06:03→21:12)
[2018-08-11 07:01] LABS: BASO % 0.1 % (0-2.0); HEMATOCRIT 32.9 % (32.4-45.2); HEMOGLOBIN 10.9 GM/dL (10.7-15.3); LYMPH % 2.3 % (8-40); MCH 36.2 pg (25.7-33.7); MCHC 33.1 g/dl (32.0-36.0); MEAN CELL VOLUME 109.3 fl (80-96); MEAN PLT VOLUME 8.7 fl (7.5-11.1); MONO % 5.1 % (3.8-10.2); NEUT % 92.5 % (42.8-82.8); PLATELET COUNT 278 K/MM3 (134-434); RBC 3.01 M/mm3 (3.60-5.2); RDW 14.1 % (11.6-15.6)
[2018-08-11 07:30] LABS: ALBUMIN 1.8 g/dl (3.4-5.0); ALK PHOS 30 U/L (45-117); ANION GAP 9 MMOL/L (8-16); BILIRUBIN,TOTAL 0.7 mg/dL (0.2-1); BLOOD UREA NITROGEN 11 mg/dL (7-18); CHLORIDE 104 mmol/L (98-107); CO2 26 mmol/L (21-32); CREATININE 0.8 mg/dL (0.55-1.3); GLUCOSE,RANDOM 120 mg/dL (74-106); POTASSIUM 3.1 mmol/L (3.5-5.1); SGOT/AST 16 U/L (15-37); SGPT/ALT 16 U/L (13-61); SODIUM 138 mmol/L (136-145); TOT PROT 5.3 g/dl (6.4-8.2)
[2018-08-11 07:57] LABS: WHITE BLOOD COUNT 38.1 K/mm3 (4.0-10.0)
--- NOTE | 2018-08-11 08:49 | PN ---
Progress Note, Physician Chief Complaint: Asked to f/u for preop eval WBC increased. She denies CP or SOB - Current Medication List Current Medications: Active Medications Apixaban (Eliquis -) 2.5 mg PO BID [facility] Last Admin: 08/10/18 21:29 Dose: 2.5 mg Docusate Sodium (Colace -) 100 mg PO TID [facility] Last Admin: 08/11/18 06:03 Dose: 100 mg Dextrose/Sodium Chloride (D5-1/2ns -) 1,000 mls @ 75 mls/hr IV ASDIR [facility] Last Admin: 08/11/18 08:13 Dose: Not Given Piperacillin Sod/Tazobactam (Sod 3.375 gm/ Dextrose) 50 mls @ 100 mls/hr IVPB Q8H-IV [facility]; Protocol Last Admin: 08/11/18 01:01 Dose: 100 mls/hr Megestrol Acetate (Megace Oral Suspension -) 400 mg PO DAILY [facility] Last Admin: 08/10/18 10:02 Dose: 400 mg Metoprolol Succinate (Toprol Xl -) 50 mg PO BID [facility] Last Admin: 08/10/18 21:29 Dose: 50 mg Metoprolol Tartrate (Lopressor Injection -) 5 mg IVPUSH Q4H PRN PRN Reason: TACHYCARDIA Multivitamins/Minerals/Vitamin C (Tab-A-Vit -) 1 tab PO DAILY [facility] Last Admin: 08/10/18 10:02 Dose: 1 tab Non-Formulary Med( Galantamine Hbr 8 Mg Tab 1 each PO BID [facility] Last Admin: 08/10/18 21:30 Dose: 1 each Tramadol HCl (Ultram -) 50 mg PO TID [facility] Last Admin: 08/11/18 06:03 Dose: 50 mg - Objective Vital Signs: Vital Signs Temperature 98.1 F 08/11/18 06:04 Pulse Rate 101 H 08/11/18 06:04 Respiratory Rate 18 08/11/18 06:04 Blood Pressure 118/76 08/11/18 06:04 O2 Sat by Pulse Oximetry (%) 97 08/10/18 21:00 Constitutional: Yes: No Distress Cardiovascular: Yes: Pulse Irregular Respiratory: Yes: CTA Bilaterally (no rales or wheezing) Gastrointestinal: Yes: Soft Edema: No Neurological: Yes: Alert Labs: CBC, BMP 08/11/18 06:00 08/11/18 06:00 Laboratory Tests 08/11/18 08/11/18 06:00 06:00 WBC 38.1 H* Hgb 10.9 Hct 32.9 Plt Count 278 Sodium 138 Potassium 3.1 L Creatinine 0.8 - ....Imaging EKG: Image Reviewed Assessment/Plan IMP/PLAN: 1. Afib with RVR: - no prior cardiac hx, discussed with patient's daughter - nl LV function on echo - cont toprol 50 bid for rate control - [id number] 4, anticoagulation indicated. -Will Hold AC in prep for ureteroscopy (8mm stone) 2. APPLE -renal following, likely prerenal - improved with IVF 3. UTI - manage per primary 4. HTN - home meds held, started metoprolol as above for rate control 5. Preop reccs: -there are currently no absolute cardiac contraindications to ureteroscopy (no unstable angina, no severe , clinically euvolemic) -Will obtain preop ECG; hold Eliquis- timing of procedure deferred to Urology -CXR Will follow
[2018-08-11] MEDS: GALANTAMINE HBR 8 MG PO SCH ×2 (10:14→21:12)
[2018-08-11] MEDS: MEGESTROL ACETATE 400 MG/10 ML UNIT DOSE CUP PO SCH (10:14)
[2018-08-11] MEDS: metoPROLOL SUCCINATE 25 MG TAB.SR.24H (FP) PO SCH ×2 (10:14→21:12)
[2018-08-11] MEDS: MULTIVITAMINS (DAILY MVI) TABLET (FP) PO SCH (10:14)
--- NOTE | 2018-08-11 10:51 | EKG ---
Test Reason : Blood Pressure : / mmHG Vent. Rate : 089 BPM Atrial Rate : 090 BPM P-R Int : 000 ms QRS Dur : 060 ms QT Int : 364 ms P-R-T Axes : 074 -07 033 degrees QTc Int : 442 ms UNDETERMINED RHYTHM LIKELY SINUS WITH 1ST DEGREE AV BLOCK, ? JUNCTIONAL RHYTHM CANNOT RULE OUT INFERIOR INFARCT (CITED ON OR BEFORE 05-AUG-2018) ABNORMAL ECG WHEN COMPARED WITH ECG OF 05-AUG-2018 09:03, SINUS RHYTHM HAS REPLACED ATRIAL FIBRILLATION Confirmed by BARBARA PUCKETT MD ([id number]) on 08/11/2018 10:51:25 AM Referred By: BRODY NAVARRETE Confirmed By:BARBARA PUCKETT MD
--- NOTE | 2018-08-11 11:07 | PN ---
Progress Note, Physician History of Present Illness: dementia wbc has jumped up foul smelling stool - Current Medication List Current Medications: Active Medications Apixaban (Eliquis -) 2.5 mg PO BID [facility]S [facility]CLUDE 234 BEDS AT [facility] Last Admin: 08/10/18 21:29 Dose: 2.5 mg Docusate Sodium (Colace -) 100 mg PO TID COUNTS INCLUDE 234 BEDS AT [facility] Last Admin: 08/11/18 06:03 Dose: 100 mg Dextrose/Sodium Chloride (D5-1/2ns -) 1,000 mls @ 75 mls/hr IV ASDIR COUNTS INCLUDE 234 BEDS AT THE [facility] Last Admin: 08/11/18 08:13 Dose: Not Given Piperacillin Sod/Tazobactam (Sod 3.375 gm/ Dextrose) 50 mls @ 100 mls/hr IVPB Q8H-IV [facility]S [facility]CLUDE 234 BEDS AT [facility]; Protocol Last Admin: 08/11/18 10:14 Dose: 100 mls/hr Metronidazole (Flagyl 500mg Premixed Ivpb -) 500 mg in 100 mls @ 100 mls/hr IVPB Q8H-IV [facility] Last Admin: 08/11/18 10:47 Dose: 100 mls/hr Megestrol Acetate (Megace Oral Suspension -) 400 mg PO DAILY [facility]S [facility]CLUDE 234 BEDS AT [facility] Last Admin: 08/11/18 10:14 Dose: 400 mg Metoprolol Succinate (Toprol Xl -) 50 mg PO BID [facility]CLUDE 234 BEDS AT [facility] Last Admin: 08/11/18 10:14 Dose: 50 mg Metoprolol Tartrate (Lopressor Injection -) 5 mg IVPUSH Q4H PRN PRN Reason: TACHYCARDIA Multivitamins/Minerals/Vitamin C (Tab-A-Vit -) 1 tab PO DAILY [facility]CLUDE 234 BEDS AT [facility] Last Admin: 08/11/18 10:14 Dose: 1 tab Non-Formulary Med( Galantamine Hbr 8 Mg Tab 1 each PO BID COUNTS INCLUDE 234 BEDS AT [facility] Last Admin: 08/11/18 10:14 Dose: 1 each Tramadol HCl (Ultram -) 50 mg PO TID [facility] INCLUDE 234 BEDS AT [facility] Last Admin: 08/11/18 06:03 Dose: 50 mg - Objective Vital Signs: Vital Signs Temperature 97.9 F 08/11/18 10:00 Pulse Rate 101 H 08/11/18 10:00 Respiratory Rate 20 08/11/18 10:00 Blood Pressure 99/74 08/11/18 10:00 O2 Sat by Pulse Oximetry (%) 97 08/10/18 21:00 Constitutional: Yes: Calm Cardiovascular: Yes: S1, S2 Respiratory: Yes: Regular, CTA Bilaterally Gastrointestinal: Yes: Normal Bowel Sounds, Soft Musculoskeletal: Yes: WNL Extremities: Yes: WNL Neurological: Yes: Other Psychiatric: Yes: Other Labs: CBC, BMP 08/11/18 06:00 08/11/18 06:00 Assessment/Plan Problem List - Problems (1) Rapid atrial fibrillation Code(s): I48.91 - UNSPECIFIED ATRIAL FIBRILLATION (2) UTI (urinary tract infection) Code(s): N39.0 - URINARY TRACT INFECTION, SITE NOT SPECIFIED Qualifiers: Urinary tract infection type: acute cystitis Hematuria presence: with hematuria Qualified Code(s): N30.01 - Acute cystitis with hematuria (3) APPLE (acute kidney injury) Code(s): N17.9 - ACUTE KIDNEY FAILURE, UNSPECIFIED (4) Dementia Code(s): F03.90 - UNSPECIFIED DEMENTIA WITHOUT BEHAVIORAL DISTURBANCE dirrhoea leukocytosis plan will add iv flagyl and oral vanco will send a stool for cdiff rest as per the team
[2018-08-11 11:39] LABS: ANISOCYTOSIS 2+; MACROCYTOSIS 2+; PLATELET ESTIMATE NORMAL
[2018-08-11] MEDS: VANCOMYCIN 250 MG/5 ML ORAL SOLUTION PO SCH ×2 (12:06→17:18)
[2018-08-11] MEDS ORDERED: POTASSIUM CHLORIDE TABS 20 MEQ TABLET.ER (FP) PO ONE (15:10)
--- NOTE | 2018-08-11 15:15 | PN ---
Progress Note, Physician History of Present Illness: Pt seen and examined at bedside. She is awake and alert. She denies shortness of breath. - Current Medication List Current Medications: Active Medications Apixaban (Eliquis -) 2.5 mg PO BID [facility] Last Admin: 08/10/18 21:29 Dose: 2.5 mg Docusate Sodium (Colace -) 100 mg PO TID [facility] Last Admin: 08/11/18 13:41 Dose: 100 mg Dextrose/Sodium Chloride (D5-1/2ns -) 1,000 mls @ 75 mls/hr IV [facility]IR [facility] Last Admin: 08/11/18 08:13 Dose: Not Given Metronidazole (Flagyl 500mg Premixed Ivpb -) 500 mg in 100 mls @ 100 mls/hr IVPB Q8H-IV [facility] Last Admin: 08/11/18 10:47 Dose: 100 mls/hr Piperacillin Sod/Tazobactam (Sod 3.375 gm/ Dextrose) 50 mls @ 100 mls/hr IVPB Q8H-IV [facility]; Protocol Last Admin: 08/11/18 13:18 Dose: Not Given Megestrol Acetate (Megace Oral Suspension -) 400 mg PO DAILY [facility] Last Admin: 08/11/18 10:14 Dose: 400 mg Metoprolol Succinate (Toprol Xl -) 50 mg PO BID [facility] Last Admin: 08/11/18 10:14 Dose: 50 mg Metoprolol Tartrate (Lopressor Injection -) 5 mg IVPUSH Q4H PRN PRN Reason: TACHYCARDIA Multivitamins/Minerals/Vitamin C (Tab-A-Vit -) 1 tab PO DAILY [facility] Last Admin: 08/11/18 10:14 Dose: 1 tab Non-Formulary Med( Galantamine Hbr 8 Mg Tab 1 each PO BID [facility] Last Admin: 08/11/18 10:14 Dose: 1 each Tramadol HCl (Ultram -) 50 mg PO TID [facility] Last Admin: 08/11/18 13:40 Dose: 50 mg Vancomycin HCl (Vancomycin Oral Solution) 125 mg PO Q6HPO [facility] Last Admin: 08/11/18 12:06 Dose: 125 mg - Objective Vital Signs: Vital Signs Temperature 97.5 F L 08/11/18 13:33 Pulse Rate 96 H 08/11/18 13:33 Respiratory Rate 20 08/11/18 13:33 Blood Pressure 98/49 L 08/11/18 13:33 O2 Sat by Pulse Oximetry (%) 99 08/11/18 09:00 Constitutional: Yes: Calm Eyes: Yes: Conjunctiva Clear HENT: Yes: Atraumatic Neck: Yes: Supple Cardiovascular: Yes: S1, S2 Respiratory: Yes: CTA Bilaterally Gastrointestinal: Yes: Soft Genitourinary: Yes: Incontinence Musculoskeletal: Yes: Muscle Weakness Edema: No Neurological: Yes: Oriented Psychiatric: Yes: Oriented Labs: CBC, BMP 08/11/18 06:00 08/11/18 06:00 Problem List - Problems (1) APPLE (acute kidney injury) Code(s): N17.9 - ACUTE KIDNEY FAILURE, UNSPECIFIED Assessment/Plan Current Medications Generic Name Dose Route Start Last Admin Trade Name Freq PRN Reason Stop Dose Admin Apixaban 2.5 mg 08/08/18 10:00 08/10/18 21:29 Eliquis - PO 2.5 mg BID [facility] Administration Docusate Sodium 100 mg 08/10/18 13:00 08/11/18 13:41 Colace - PO 100 mg TID [facility] Administration Dextrose/Sodium Chloride 1,000 mls @ 75 mls/hr 08/08/18 07:43 08/11/18 08:13 D5-1/2ns - IV Not Given ASDIR [facility] Metronidazole 500 mg in 100 mls @ 100 mls/hr 08/11/18 10:00 08/11/18 10:47 Flagyl 500mg Premixed Ivpb - IVPB 100 mls/hr Q8H-IV [facility] Administration Piperacillin Sod/Tazobactam 50 mls @ 100 mls/hr 08/11/18 13:15 08/11/18 13:18 Sod 3.375 gm/ Dextrose IVPB Not Given Q8H-IV [facility] Protocol Megestrol Acetate 400 mg 08/08/18 10:00 08/11/18 10:14 Megace Oral Suspension - PO 400 mg DAILY [facility] Administration Metoprolol Succinate 50 mg 08/08/18 10:00 08/11/18 10:14 Toprol Xl - PO 50 mg BID [facility] Administration Metoprolol Tartrate 5 mg 08/08/18 07:43 Lopressor Injection - IVPUSH Q4H PRN TACHYCARDIA Multivitamins/Minerals/Vitamin C 1 tab 08/08/18 10:00 08/11/18 10:14 Tab-A-Vit - PO 1 tab DAILY [facility] Administration Non-Formulary Med( 1 each 08/10/18 22:00 08/11/18 10:14 Galantamine Hbr 8 Mg PO 1 each Tab BID ROBIN Administration Potassium Chloride 40 meq 08/11/18 15:10 K-Dur - PO 08/11/18 15:11 ONCE ONE Tramadol HCl 50 mg 08/08/18 14:00 08/11/18 13:40 Ultram - PO 50 mg TID ROBIN Administration Vancomycin HCl 125 mg 08/11/18 12:00 08/11/18 12:06 Vancomycin Oral Solution PO 125 mg Q6HPO ROBIN Administration Impression 1. APPLE 2. hyperkalemia 3. htn 4. UTI 5. hld 6. dementia 7. hydronephrosis 8. nephrolithiasis Plan - replace potassium - check mag - monitor lytes - ID and urology follow up - cont fluids for now Dr Ferrara
[2018-08-11] MEDS: KCL 10 MEQ IVPB 10 MEQ/100 ML INFUS.BAG IVPB SCH ×3 (18:58→22:08)
[2018-08-11] MEDS ORDERED: PT OWN MED DRAWER 7, Y5N ONE (20:14)
--- NOTE | 2018-08-11 23:03 | PN ---
Progress Note, Physician - Current Medication List Current Medications: Active Medications Apixaban (Eliquis -) 2.5 mg PO BID [facility] Last Admin: 08/10/18 21:29 Dose: 2.5 mg Docusate Sodium (Colace -) 100 mg PO TID [facility] Last Admin: 08/11/18 21:12 Dose: 100 mg Dextrose/Sodium Chloride (D5-1/2ns -) 1,000 mls @ 75 mls/hr IV ASDIR [facility] Last Admin: 08/11/18 17:28 Dose: 75 mls/hr Metronidazole (Flagyl 500mg Premixed Ivpb -) 500 mg in 100 mls @ 100 mls/hr IVPB Q8H-IV [facility] Last Admin: 08/11/18 17:54 Dose: 100 mls/hr Piperacillin Sod/Tazobactam (Sod 3.375 gm/ Dextrose) 50 mls @ 100 mls/hr IVPB Q8H-IV [facility]; Protocol Last Admin: 08/11/18 17:17 Dose: 100 mls/hr Megestrol Acetate (Megace Oral Suspension -) 400 mg PO DAILY [facility] Last Admin: 08/11/18 10:14 Dose: 400 mg Metoprolol Succinate (Toprol Xl -) 50 mg PO BID [facility] Last Admin: 08/11/18 21:12 Dose: 50 mg Metoprolol Tartrate (Lopressor Injection -) 5 mg IVPUSH Q4H PRN PRN Reason: TACHYCARDIA Multivitamins/Minerals/Vitamin C (Tab-A-Vit -) 1 tab PO DAILY [facility] Last Admin: 08/11/18 10:14 Dose: 1 tab Non-Formulary Med( Galantamine Hbr 8 Mg Tab 1 each PO BID [facility] Last Admin: 08/11/18 21:12 Dose: 1 each Tramadol HCl (Ultram -) 50 mg PO TID [facility] Last Admin: 08/11/18 21:13 Dose: 50 mg Vancomycin HCl (Vancomycin Oral Solution) 125 mg PO Q6HPO [facility] Last Admin: 08/11/18 17:18 Dose: 125 mg - Objective Vital Signs: Vital Signs Temperature 97.8 F 08/11/18 18:37 Pulse Rate 101 H 08/11/18 18:37 Respiratory Rate 20 08/11/18 18:37 Blood Pressure 104/49 L 08/11/18 18:37 O2 Sat by Pulse Oximetry (%) 99 04/29/19 09:00 Labs: CBC, BMP 08/11/18 06:00 08/11/18 06:00 Problem List - Problems (1) Rapid atrial fibrillation Code(s): I48.91 - UNSPECIFIED ATRIAL FIBRILLATION (2) UTI (urinary tract infection) Code(s): N39.0 - URINARY TRACT INFECTION, SITE NOT SPECIFIED Qualifiers: Urinary tract infection type: acute cystitis Hematuria presence: with hematuria Qualified Code(s): N30.01 - Acute cystitis with hematuria (3) APPLE (acute kidney injury) Code(s): N17.9 - ACUTE KIDNEY FAILURE, UNSPECIFIED (4) Dementia Code(s): F03.90 - UNSPECIFIED DEMENTIA WITHOUT BEHAVIORAL DISTURBANCE
[2018-08-12] MEDS: VANCOMYCIN 250 MG/5 ML ORAL SOLUTION PO SCH ×4 (01:06→17:39)
[2018-08-12] MEDS ORDERED: PIPERACILLIN/TAZOBACTAM 3.375 GM VIAL IVPB ONE ×3 (01:10→16:55)
[2018-08-12] MEDS ORDERED: DEXTROSE 5%-WATER - 50 ML IVPB ONE ×3 (01:11→16:56)
[2018-08-12] MEDS: PIPERACILLIN/TAZOB 3.375 GM 3.375 GM in DEXTROSE 5%-WATER - 50 ML IVPB SCH ×3 (01:14→17:38)
[2018-08-12] MEDS: KCL 10 MEQ IVPB 10 MEQ/100 ML INFUS.BAG IVPB SCH ×3 (03:15→05:23)
[2018-08-12] MEDS: DOCUSATE SODIUM 100 MG CAPSULE (FP) PO SCH ×3 (05:48→21:26)
[2018-08-12] MEDS: traMADol HCL 50 MG TABLET PO SCH ×3 (05:48→21:26)
[2018-08-12 07:36] LABS: BASO % 0.1 % (0-2.0); EOS % 0.1 % (0-4.5); HEMOGLOBIN 10.2 GM/dL (10.7-15.3); LYMPH % 2.9 % (8-40); MCH 34.9 pg (25.7-33.7); MEAN CELL VOLUME 108.8 fl (80-96); MONO % 4.3 % (3.8-10.2); NEUT % 92.6 % (42.8-82.8); PLATELET COUNT 320 K/MM3 (134-434); RBC 2.94 M/mm3 (3.60-5.2); RDW 14.2 % (11.6-15.6)
[2018-08-12 07:38] LABS: ALBUMIN 1.7 g/dl (3.4-5.0); ALK PHOS 34 U/L (45-117); ANION GAP 9 MMOL/L (8-16); BILIRUBIN,TOTAL 0.9 mg/dL (0.2-1); BLOOD UREA NITROGEN 12 mg/dL (7-18); CALCIUM 7.7 mg/dL (8.5-10.1); CHLORIDE 106 mmol/L (98-107); CO2 22 mmol/L (21-32); CREATININE 0.7 mg/dL (0.55-1.3); GLUCOSE,RANDOM 77 mg/dL (74-106); MAGNESIUM 1.2 mg/dL (1.8-2.4); POTASSIUM 4.8 mmol/L (3.5-5.1); SGOT/AST 14 U/L (15-37); SGPT/ALT 17 U/L (13-61); SODIUM 136 mmol/L (136-145); TOT PROT 5.5 g/dl (6.4-8.2)
[2018-08-12 08:29] LABS: WHITE BLOOD COUNT 35.6 K/mm3 (4.0-10.0)
[2018-08-12 10:24] LABS: ANISOCYTOSIS 0; MACROCYTOSIS 0; PLATELET ESTIMATE NORMAL
[2018-08-12] MEDS: GALANTAMINE HBR 8 MG PO SCH ×2 (10:30→21:28)
[2018-08-12] MEDS: MEGESTROL ACETATE 400 MG/10 ML UNIT DOSE CUP PO SCH (10:30)
[2018-08-12] MEDS: MULTIVITAMINS (DAILY MVI) TABLET (FP) PO SCH (10:31)
[2018-08-12] MEDS: metoPROLOL SUCCINATE 25 MG TAB.SR.24H (FP) PO SCH ×2 (10:33→21:26)
[2018-08-12] MEDS: DEXTROSE 5%-0.45% SALINE 1,000 ML IV SCH ×2 (10:33→17:37)
--- NOTE | 2018-08-12 13:36 | PN ---
Progress Note, Physician History of Present Illness: clinically patient is s table wbc still high - Current Medication List Current Medications: Active Medications Apixaban (Eliquis -) 2.5 mg PO BID [facility] Last Admin: 08/10/18 21:29 Dose: 2.5 mg Docusate Sodium (Colace -) 100 mg PO TID [facility] Last Admin: 08/12/18 05:48 Dose: 100 mg Dextrose/Sodium Chloride (D5-1/2ns -) 1,000 mls @ 75 mls/hr IV ASDIR [facility] Last Admin: 08/12/18 10:33 Dose: Not Given Metronidazole (Flagyl 500mg Premixed Ivpb -) 500 mg in 100 mls @ 100 mls/hr IVPB Q8H-IV [facility] Last Admin: 08/12/18 10:30 Dose: 100 mls/hr Piperacillin Sod/Tazobactam (Sod 3.375 gm/ Dextrose) 50 mls @ 100 mls/hr IVPB Q8H-IV [facility]; Protocol Last Admin: 08/12/18 10:29 Dose: 100 mls/hr Megestrol Acetate (Megace Oral Suspension -) 400 mg PO DAILY [facility] Last Admin: 08/12/18 10:30 Dose: 400 mg Metoprolol Succinate (Toprol Xl -) 50 mg PO BID [facility] Last Admin: 08/12/18 10:33 Dose: 50 mg Metoprolol Tartrate (Lopressor Injection -) 5 mg IVPUSH Q4H PRN PRN Reason: TACHYCARDIA Multivitamins/Minerals/Vitamin C (Tab-A-Vit -) 1 tab PO DAILY [facility] Last Admin: 08/12/18 10:31 Dose: 1 tab Non-Formulary Med( Galantamine Hbr 8 Mg Tab 1 each PO BID [facility] Last Admin: 08/12/18 10:30 Dose: 1 each Tramadol HCl (Ultram -) 50 mg PO TID [facility] Last Admin: 08/12/18 05:48 Dose: 50 mg Vancomycin HCl (Vancomycin Oral Solution) 125 mg PO Q6HPO [facility] Last Admin: 08/12/18 12:31 Dose: 125 mg - Objective Vital Signs: Vital Signs Temperature 97.9 F 08/12/18 10:00 Pulse Rate 97 H 08/12/18 10:00 Respiratory Rate 18 08/12/18 10:00 Blood Pressure 154/94 08/12/18 10:00 O2 Sat by Pulse Oximetry (%) 99 08/12/18 09:00 Constitutional: Yes: No Distress, Calm Cardiovascular: Yes: S1, S2 Respiratory: Yes: Regular, CTA Bilaterally Gastrointestinal: Yes: Normal Bowel Sounds, Soft Musculoskeletal: Yes: WNL Extremities: Yes: WNL Neurological: Yes: Alert Labs: CBC, BMP 08/12/18 06:00 08/12/18 06:00 Assessment/Plan Problem List - Problems (1) Rapid atrial fibrillation Code(s): I48.91 - UNSPECIFIED ATRIAL FIBRILLATION (2) UTI (urinary tract infection) Code(s): N39.0 - URINARY TRACT INFECTION, SITE NOT SPECIFIED Qualifiers: Urinary tract infection type: acute cystitis Hematuria presence: with hematuria Qualified Code(s): N30.01 - Acute cystitis with hematuria (3) APPLE (acute kidney injury) Code(s): N17.9 - ACUTE KIDNEY FAILURE, UNSPECIFIED (4) Dementia Code(s): F03.90 - UNSPECIFIED DEMENTIA WITHOUT BEHAVIORAL DISTURBANCE dirrhoea leukocytosis plan continue abx monitor closely urology plan rest as per the team
--- NOTE | 2018-08-12 14:18 | PN ---
Progress Note (short form) - Note Progress Note: s: no chest pain, palps, dizziness, lightheadedness Current Medications Generic Name Dose Route Start Last Admin Trade Name Freq PRN Reason Stop Dose Admin Apixaban 2.5 mg 08/08/18 10:00 08/10/18 21:29 Eliquis - PO 2.5 mg BID [facility] Administration Docusate Sodium 100 mg 08/10/18 13:00 08/12/18 13:58 Colace - PO 100 mg TID [facility] Administration Dextrose/Sodium Chloride 1,000 mls @ 75 mls/hr 08/08/18 07:43 08/12/18 10:33 D5-1/2ns - IV Not Given ASDIR [facility] Piperacillin Sod/Tazobactam 50 mls @ 100 mls/hr 08/11/18 13:15 08/12/18 10:29 Sod 3.375 gm/ Dextrose IVPB 100 mls/hr Q8H-IV [facility] Administration Protocol Megestrol Acetate 400 mg 08/08/18 10:00 08/12/18 10:30 Megace Oral Suspension - PO 400 mg DAILY [facility] Administration Metoprolol Succinate 50 mg 08/08/18 10:00 08/12/18 10:33 Toprol Xl - PO 50 mg BID [facility] Administration Metoprolol Tartrate 5 mg 08/08/18 07:43 Lopressor Injection - IVPUSH Q4H PRN TACHYCARDIA Multivitamins/Minerals/Vitamin C 1 tab 08/08/18 10:00 08/12/18 10:31 Tab-A-Vit - PO 1 tab DAILY [facility] Administration Non-Formulary Med( 1 each 08/10/18 22:00 08/12/18 10:30 Galantamine Hbr 8 Mg PO 1 each Tab BID [facility] Administration Tramadol HCl 50 mg 08/08/18 14:00 08/12/18 13:59 Ultram - PO Not Given TID [facility] Vancomycin HCl 125 mg 08/11/18 12:00 08/12/18 12:31 Vancomycin Oral Solution PO 125 mg Q6HPO [facility] Administration Vital Signs: Vital Signs Period Temp Pulse Resp BP Sys/Deluna Pulse Ox Last 24 Hr 97.3 F-98.7 F 96-110 18-22 104-154/49-94 99-99 Constitutional: Yes: No Distress, Calm Eyes: Yes: Conjunctiva Clear Neck: Yes: Supple, Trachea Midline Respiratory: Yes: Regular, CTA Bilaterally Gastrointestinal: Yes: Normal Bowel Sounds, Soft Cardiovascular: Yes: Pulse Irregular JVD: No Extremities: No: Cold Edema: No Peripheral Pulses: 2+ Left Doralis Pedis, 2+ Right Dorsalis Pedis Integumentary: No: Jaundice Neurological: Yes: Alert Psychiatric: No: Agitated CBC, BMP 08/12/18 06:00 08/12/18 06:00 Assessment/Plan CXR: no congestion EKG: sinus with PACs, no ischemic changes EKG 08/05 afib with RVR, no ischemic changes echo 07/2018 nl LV/RV function, mild TR, mild AR 1. Afib with RVR: - no prior cardiac hx, discussed with patient's daughter - nl LV function on echo - cont toprol 50 bid for rate control - [id number] 4, anticoagulation indicated. - can hold AC in prep for ureteroscopy (8mm stone) 2. APPLE -renal following, likely prerenal -improved with IVF 3. UTI - manage per primary 4. HTN - home meds held, started metoprolol as above for rate control 5. Preop reccs: -there are currently no absolute cardiac contraindications to ureteroscopy (no unstable angina, no severe , clinically euvolemic)
--- NOTE | 2018-08-12 16:42 | PN ---
Progress Note, Physician History of Present Illness: Pt seen and examined at bedside. She is awake and alert. She has poor appetite. - Current Medication List Current Medications: Active Medications Apixaban (Eliquis -) 2.5 mg PO BID [facility] Last Admin: 08/10/18 21:29 Dose: 2.5 mg Docusate Sodium (Colace -) 100 mg PO TID [facility] Last Admin: 08/12/18 13:58 Dose: 100 mg Dextrose/Sodium Chloride (D5-1/2ns -) 1,000 mls @ 75 mls/hr IV ASDIR [facility] Last Admin: 08/12/18 10:33 Dose: Not Given Piperacillin Sod/Tazobactam (Sod 3.375 gm/ Dextrose) 50 mls @ 100 mls/hr IVPB Q8H-IV [facility]; Protocol Last Admin: 08/12/18 10:29 Dose: 100 mls/hr Megestrol Acetate (Megace Oral Suspension -) 400 mg PO DAILY [facility] Last Admin: 08/12/18 10:30 Dose: 400 mg Metoprolol Succinate (Toprol Xl -) 50 mg PO BID [facility] Last Admin: 08/12/18 10:33 Dose: 50 mg Metoprolol Tartrate (Lopressor Injection -) 5 mg IVPUSH Q4H PRN PRN Reason: TACHYCARDIA Multivitamins/Minerals/Vitamin C (Tab-A-Vit -) 1 tab PO DAILY [facility] Last Admin: 08/12/18 10:31 Dose: 1 tab Non-Formulary Med( Galantamine Hbr 8 Mg Tab 1 each PO BID [facility] Last Admin: 08/12/18 10:30 Dose: 1 each Tramadol HCl (Ultram -) 50 mg PO TID [facility] Last Admin: 08/12/18 13:59 Dose: Not Given Vancomycin HCl (Vancomycin Oral Solution) 125 mg PO Q6HPO [facility] Last Admin: 08/12/18 12:31 Dose: 125 mg - Objective Vital Signs: Vital Signs Temperature 97.3 F L 08/12/18 13:56 Pulse Rate 105 H 08/12/18 13:56 Respiratory Rate 18 08/12/18 13:56 Blood Pressure 131/60 08/12/18 13:56 O2 Sat by Pulse Oximetry (%) 99 08/12/18 09:00 Constitutional: Yes: Calm Eyes: Yes: Conjunctiva Clear HENT: Yes: Atraumatic Neck: Yes: Supple Cardiovascular: Yes: S1, S2 Respiratory: Yes: CTA Bilaterally Gastrointestinal: Yes: Soft Genitourinary: Yes: Incontinence Musculoskeletal: Yes: Muscle Weakness Edema: No Neurological: Yes: Oriented Psychiatric: Yes: Oriented Labs: CBC, BMP 08/12/18 06:00 08/12/18 06:00 Problem List - Problems (1) APPLE (acute kidney injury) Code(s): N17.9 - ACUTE KIDNEY FAILURE, UNSPECIFIED Assessment/Plan Current Medications Generic Name Dose Route Start Last Admin Trade Name Freq PRN Reason Stop Dose Admin Apixaban 2.5 mg 08/08/18 10:00 08/10/18 21:29 Eliquis - PO 2.5 mg BID [facility] Administration Docusate Sodium 100 mg 08/10/18 13:00 08/12/18 13:58 Colace - PO 100 mg TID [facility] Administration Dextrose/Sodium Chloride 1,000 mls @ 75 mls/hr 08/08/18 07:43 08/12/18 10:33 D5-1/2ns - IV Not Given ASDIR [facility] Piperacillin Sod/Tazobactam 50 mls @ 100 mls/hr 08/11/18 13:15 08/12/18 10:29 Sod 3.375 gm/ Dextrose IVPB 100 mls/hr Q8H-IV [facility] Administration Protocol Megestrol Acetate 400 mg 08/08/18 10:00 08/12/18 10:30 Megace Oral Suspension - PO 400 mg DAILY [facility] Administration Metoprolol Succinate 50 mg 08/08/18 10:00 08/12/18 10:33 Toprol Xl - PO 50 mg BID [facility] Administration Metoprolol Tartrate 5 mg 08/08/18 07:43 Lopressor Injection - IVPUSH Q4H PRN TACHYCARDIA Multivitamins/Minerals/Vitamin C 1 tab 08/08/18 10:00 08/12/18 10:31 Tab-A-Vit - PO 1 tab DAILY [facility] Administration Non-Formulary Med( 1 each 08/10/18 22:00 08/12/18 10:30 Galantamine Hbr 8 Mg PO 1 each Tab BID [facility] Administration Tramadol HCl 50 mg 08/08/18 14:00 08/12/18 13:59 Ultram - PO Not Given TID [facility] Vancomycin HCl 125 mg 08/11/18 12:00 08/12/18 12:31 Vancomycin Oral Solution PO 125 mg Q6HPO [facility] Administration Laboratory Tests 08/12/18 06:00 Potassium 4.8 Magnesium 1.2 L Impression 1. APPLE 2. hyperkalemia 3. htn 4. UTI 5. hld 6. dementia 7. hydronephrosis 8. nephrolithiasis Plan - replace mag - decrease dose of potassium - monitor lytes daily - ID and urology follow up Dr Ferrara
[2018-08-12] MEDS ORDERED: MAGNESIUM SULF 50% (8.12 MEQ/2 ML-1 GM VIAL) IVPB ONE (17:15)
[2018-08-12] MEDS ORDERED: PT OWN MED DRAWER 7, Y5N ONE (20:58)
--- NOTE | 2018-08-12 21:54 | PN ---
Progress Note, Physician History of Present Illness: No new changes - Current Medication List Current Medications: Active Medications Apixaban (Eliquis -) 2.5 mg PO BID [facility] Last Admin: 08/10/18 21:29 Dose: 2.5 mg Docusate Sodium (Colace -) 100 mg PO TID [facility] Last Admin: 08/12/18 21:26 Dose: 100 mg Dextrose/Sodium Chloride (D5-1/2ns -) 1,000 mls @ 75 mls/hr IV ASDIR [facility] Last Admin: 08/12/18 17:37 Dose: 75 mls/hr Piperacillin Sod/Tazobactam (Sod 3.375 gm/ Dextrose) 50 mls @ 100 mls/hr IVPB Q8H-IV [facility]; Protocol Last Admin: 08/12/18 17:38 Dose: 100 mls/hr Megestrol Acetate (Megace Oral Suspension -) 400 mg PO DAILY [facility] Last Admin: 08/12/18 10:30 Dose: 400 mg Metoprolol Succinate (Toprol Xl -) 50 mg PO BID [facility] Last Admin: 08/12/18 21:26 Dose: 50 mg Metoprolol Tartrate (Lopressor Injection -) 5 mg IVPUSH Q4H PRN PRN Reason: TACHYCARDIA Multivitamins/Minerals/Vitamin C (Tab-A-Vit -) 1 tab PO DAILY [facility] Last Admin: 08/12/18 10:31 Dose: 1 tab Non-Formulary Med( Galantamine Hbr 8 Mg Tab 1 each PO BID [facility] Last Admin: 08/12/18 21:28 Dose: 1 each Tramadol HCl (Ultram -) 50 mg PO TID [facility] Last Admin: 08/12/18 21:26 Dose: 50 mg Vancomycin HCl (Vancomycin Oral Solution) 125 mg PO Q6HPO [facility] Last Admin: 08/12/18 17:39 Dose: 125 mg - Objective Vital Signs: Vital Signs Temperature 97.7 F 08/12/18 21:23 Pulse Rate 103 H 08/12/18 21:23 Respiratory Rate 20 08/12/18 21:23 Blood Pressure 127/72 08/12/18 21:23 O2 Sat by Pulse Oximetry (%) 99 08/12/18 09:00 Neck: Yes: WNL, Supple Cardiovascular: Yes: Tachycardia Respiratory: Yes: WNL, Regular, CTA Bilaterally Gastrointestinal: Yes: WNL, Normal Bowel Sounds, Soft Edema: No Labs: CBC, BMP 08/12/18 06:00 08/12/18 06:00 Problem List - Problems (1) Rapid atrial fibrillation Assessment/Plan: Cont eliquis Cont toprol Heart rate slightly elevated Code(s): I48.91 - UNSPECIFIED ATRIAL FIBRILLATION (2) UTI (urinary tract infection) Assessment/Plan: Antibx changed to IV zosyn WBC increased Cont IVF Repeat urine culture pending Probable ureteroscopy in am for 8 mm stone Cardio consult for cardiac clearance Code(s): N39.0 - URINARY TRACT INFECTION, SITE NOT SPECIFIED Qualifiers: Urinary tract infection type: acute cystitis Hematuria presence: with hematuria Qualified Code(s): N30.01 - Acute cystitis with hematuria (3) APPLE (acute kidney injury) Assessment/Plan: Cont IVF Renal/uro consults noted 8mm ureteral stone Possible ureterscopy on 08/11 if cleared by cardio Hydronephrosis Code(s): N17.9 - ACUTE KIDNEY FAILURE, UNSPECIFIED (4) Dementia Code(s): F03.90 - UNSPECIFIED DEMENTIA WITHOUT BEHAVIORAL DISTURBANCE
[2018-08-13] MEDS ORDERED: PIPERACILLIN/TAZOBACTAM 3.375 GM VIAL IVPB ONE ×3 (01:16→16:31)
[2018-08-13] MEDS ORDERED: DEXTROSE 5%-WATER - 50 ML IVPB ONE ×3 (01:16→16:31)
[2018-08-13] MEDS: PIPERACILLIN/TAZOB 3.375 GM 3.375 GM in DEXTROSE 5%-WATER - 50 ML IVPB SCH ×3 (01:19→17:16)
[2018-08-13] MEDS: VANCOMYCIN 250 MG/5 ML ORAL SOLUTION PO SCH ×4 (01:19→17:30)
[2018-08-13] MEDS ORDERED: PT OWN MED DRAWER 7, Y5N ONE ×3 (04:03→23:41)
[2018-08-13] MEDS: traMADol HCL 50 MG TABLET PO SCH ×3 (06:18→22:02)
[2018-08-13] MEDS: DOCUSATE SODIUM 100 MG CAPSULE (FP) PO SCH ×3 (06:19→22:02)
[2018-08-13] MEDS: DEXTROSE 5%-0.45% SALINE 1,000 ML IV SCH (08:31)
[2018-08-13 09:20] LABS: ALBUMIN 1.5 g/dl (3.4-5.0); ALK PHOS 34 U/L (45-117); ANION GAP 7 MMOL/L (8-16); BILIRUBIN,TOTAL 0.6 mg/dL (0.2-1); BLOOD UREA NITROGEN 12 mg/dL (7-18); CALCIUM 7.9 mg/dL (8.5-10.1); CHLORIDE 107 mmol/L (98-107); CO2 23 mmol/L (21-32); CREATININE 0.7 mg/dL (0.55-1.3); GLUCOSE,RANDOM 106 mg/dL (74-106); MAGNESIUM 1.9 mg/dL (1.8-2.4); POTASSIUM 3.3 mmol/L (3.5-5.1); SGOT/AST 14 U/L (15-37); SGPT/ALT 13 U/L (13-61); SODIUM 138 mmol/L (136-145); TOT PROT 5.2 g/dl (6.4-8.2)
[2018-08-13 09:21] LABS: BASO % 0.2 % (0-2.0); EOS % 0.2 % (0-4.5); HEMATOCRIT 31.5 % (32.4-45.2); HEMOGLOBIN 10.3 GM/dL (10.7-15.3); LYMPH % 3.2 % (8-40); MCH 35.5 pg (25.7-33.7); MCHC 32.8 g/dl (32.0-36.0); MEAN CELL VOLUME 108.4 fl (80-96); MEAN PLT VOLUME 9.1 fl (7.5-11.1); MONO % 5.1 % (3.8-10.2); NEUT % 91.3 % (42.8-82.8); PLATELET COUNT 350 K/MM3 (134-434); RDW 14.2 % (11.6-15.6); WHITE BLOOD COUNT 23.8 K/mm3 (4.0-10.0)
--- NOTE | 2018-08-13 09:36 | PN ---
Progress Note (short form) - Note Progress Note: for ureteroscopic laser lithotripsy RIGHT tomorrow 08/14/18/ spoke with daughter Naomi Banks [phone] Problem List - Problems (1) Hydronephrosis Code(s): N13.30 - UNSPECIFIED HYDRONEPHROSIS
[2018-08-13 10:05] LABS: ANISOCYTOSIS 0; MACROCYTOSIS 1+; PLATELET ESTIMATE NORMAL
[2018-08-13] MEDS: GALANTAMINE HBR 8 MG PO SCH ×2 (10:05→22:02)
[2018-08-13] MEDS: MULTIVITAMINS (DAILY MVI) TABLET (FP) PO SCH (10:05)
[2018-08-13] MEDS: metoPROLOL SUCCINATE 25 MG TAB.SR.24H (FP) PO SCH ×2 (10:05→22:02)
[2018-08-13] MEDS: MEGESTROL ACETATE 400 MG/10 ML UNIT DOSE CUP PO SCH (10:15)
[2018-08-13] MEDS: APIXABAN 2.5 MG TABLET PO SCH (11:31)
--- NOTE | 2018-08-13 12:30 | PN ---
Progress Note, Physician History of Present Illness: Pt seen and examined at bedside. She is awake and appears comfortable. - Current Medication List Current Medications: Active Medications Apixaban (Eliquis -) 2.5 mg PO BID [facility] Last Admin: 08/13/18 11:31 Dose: Not Given Docusate Sodium (Colace -) 100 mg PO TID [facility] Last Admin: 08/13/18 06:19 Dose: 100 mg Dextrose/Sodium Chloride (D5-1/2ns -) 1,000 mls @ 75 mls/hr IV ASDIR [facility] Last Admin: 08/13/18 08:31 Dose: 75 mls/hr Piperacillin Sod/Tazobactam (Sod 3.375 gm/ Dextrose) 50 mls @ 100 mls/hr IVPB Q8H-IV [facility]; Protocol Last Admin: 08/13/18 10:05 Dose: 100 mls/hr Megestrol Acetate (Megace Oral Suspension -) 400 mg PO DAILY [facility] Last Admin: 08/13/18 10:15 Dose: Not Given Metoprolol Succinate (Toprol Xl -) 50 mg PO BID [facility] Last Admin: 08/13/18 10:05 Dose: 50 mg Metoprolol Tartrate (Lopressor Injection -) 5 mg IVPUSH Q4H PRN PRN Reason: TACHYCARDIA Multivitamins/Minerals/Vitamin C (Tab-A-Vit -) 1 tab PO DAILY [facility] Last Admin: 08/13/18 10:05 Dose: 1 tab Non-Formulary Med( Galantamine Hbr 8 Mg Tab 1 each PO BID [facility] Last Admin: 08/13/18 10:05 Dose: 1 each Tramadol HCl (Ultram -) 50 mg PO TID [facility] Last Admin: 08/13/18 06:18 Dose: 50 mg Vancomycin HCl (Vancomycin Oral Solution) 125 mg PO Q6HPO [facility] Last Admin: 08/13/18 12:13 Dose: 125 mg - Objective Vital Signs: Vital Signs Temperature 97.0 F L 08/13/18 10:00 Pulse Rate 93 H 08/13/18 10:00 Respiratory Rate 20 08/13/18 10:00 Blood Pressure 116/50 L 08/13/18 10:00 O2 Sat by Pulse Oximetry (%) 98 08/12/18 21:00 Constitutional: Yes: Calm Eyes: Yes: Conjunctiva Clear HENT: Yes: Atraumatic Neck: Yes: Supple Cardiovascular: Yes: S1, S2 Respiratory: Yes: CTA Bilaterally Gastrointestinal: Yes: Soft Genitourinary: Yes: Incontinence Musculoskeletal: Yes: Muscle Weakness Edema: No Neurological: Yes: Oriented Labs: CBC, BMP 08/13/18 06:00 08/13/18 08:00 Problem List - Problems (1) APPLE (acute kidney injury) Code(s): N17.9 - ACUTE KIDNEY FAILURE, UNSPECIFIED Assessment/Plan Current Medications Generic Name Dose Route Start Last Admin Trade Name Freq PRN Reason Stop Dose Admin Apixaban 2.5 mg 08/08/18 10:00 08/13/18 11:31 Eliquis - PO Not Given BID [facility]IN Docusate Sodium 100 mg 08/10/18 13:00 08/13/18 06:19 Colace - PO 100 mg TID [facility] Administration Dextrose/Sodium Chloride 1,000 mls @ 75 mls/hr 08/08/18 07:43 08/13/18 08:31 D5-1/2ns - IV 75 mls/hr ASDIR [facility] Administration Piperacillin Sod/Tazobactam 50 mls @ 100 mls/hr 08/11/18 13:15 08/13/18 10:05 Sod 3.375 gm/ Dextrose IVPB 100 mls/hr Q8H-IV [facility] Administration Protocol Megestrol Acetate 400 mg 08/08/18 10:00 08/13/18 10:15 Megace Oral Suspension - PO Not Given DAILY [facility] Metoprolol Succinate 50 mg 08/08/18 10:00 08/13/18 10:05 Toprol Xl - PO 50 mg BID [facility] Administration Metoprolol Tartrate 5 mg 08/08/18 07:43 Lopressor Injection - IVPUSH Q4H PRN TACHYCARDIA Multivitamins/Minerals/Vitamin C 1 tab 08/08/18 10:00 08/13/18 10:05 Tab-A-Vit - PO 1 tab DAILY [facility] Administration Non-Formulary Med( 1 each 08/10/18 22:00 08/13/18 10:05 Galantamine Hbr 8 Mg PO 1 each Tab BID [facility] Administration Tramadol HCl 50 mg 08/08/18 14:00 08/13/18 06:18 Ultram - PO 50 mg TID [facility] Administration Vancomycin HCl 125 mg 08/11/18 12:08/13/18 12:13 Vancomycin Oral Solution PO 125 mg Q6HPO [facility] Administration Impression 1. APPLE 2. hyperkalemia 3. htn 4. UTI 5. hld 6. dementia 7. hydronephrosis 8. nephrolithiasis Plan - mag improved - replace potassium - cont fluids, can decrease rate - cysto tomorrow Dr Ferrara
[2018-08-13] MEDS ORDERED: POTASSIUM CHLORIDE ORAL LIQUID 20 MEQ/15 ML PO ONE (13:00)
--- NOTE | 2018-08-13 13:17 | PN ---
Progress Note, Physician History of Present Illness: patient stable no new issues - Current Medication List Current Medications: Active Medications Apixaban (Eliquis -) 2.5 mg PO BID [facility] Last Admin: 08/13/18 11:31 Dose: Not Given Docusate Sodium (Colace -) 100 mg PO TID [facility] Last Admin: 08/13/18 06:19 Dose: 100 mg Piperacillin Sod/Tazobactam (Sod 3.375 gm/ Dextrose) 50 mls @ 100 mls/hr IVPB Q8H-IV [facility]; Protocol Last Admin: 08/13/18 10:05 Dose: 100 mls/hr Potassium Chloride 10 meq/ (Dextrose/Sodium Chloride) 1,005 mls @ 60 mls/hr IVPB ASDIR [facility] Megestrol Acetate (Megace Oral Suspension -) 400 mg PO DAILY [facility] Last Admin: 08/13/18 10:15 Dose: Not Given Metoprolol Succinate (Toprol Xl -) 50 mg PO BID [facility] Last Admin: 08/13/18 10:05 Dose: 50 mg Metoprolol Tartrate (Lopressor Injection -) 5 mg IVPUSH Q4H PRN PRN Reason: TACHYCARDIA Multivitamins/Minerals/Vitamin C (Tab-A-Vit -) 1 tab PO DAILY [facility] Last Admin: 08/13/18 10:05 Dose: 1 tab Non-Formulary Med( Galantamine Hbr 8 Mg Tab 1 each PO BID [facility] Last Admin: 08/13/18 10:05 Dose: 1 each Tramadol HCl (Ultram -) 50 mg PO TID [facility] Last Admin: 08/13/18 06:18 Dose: 50 mg Vancomycin HCl (Vancomycin Oral Solution) 125 mg PO Q6HPO [facility] Last Admin: 08/13/18 12:13 Dose: 125 mg - Objective Vital Signs: Vital Signs Temperature 97.0 F L 08/13/18 10:00 Pulse Rate 93 H 08/13/18 10:00 Respiratory Rate 20 08/13/18 10:00 Blood Pressure 116/50 L 08/13/18 10:00 O2 Sat by Pulse Oximetry (%) 98 08/12/18 21:00 Constitutional: Yes: No Distress, Calm Cardiovascular: Yes: S1, S2 Respiratory: Yes: Regular, CTA Bilaterally Gastrointestinal: Yes: Normal Bowel Sounds, Soft Musculoskeletal: Yes: WNL Extremities: Yes: WNL Neurological: Yes: Alert Psychiatric: Yes: Alert Labs: CBC, BMP 08/13/18 06:00 08/13/18 08:00 Assessment/Plan Problem List - Problems (1) Rapid atrial fibrillation Code(s): I48.91 - UNSPECIFIED ATRIAL FIBRILLATION (2) UTI (urinary tract infection) Code(s): N39.0 - URINARY TRACT INFECTION, SITE NOT SPECIFIED Qualifiers: Urinary tract infection type: acute cystitis Hematuria presence: with hematuria Qualified Code(s): N30.01 - Acute cystitis with hematuria (3) APPLE (acute kidney injury) Code(s): N17.9 - ACUTE KIDNEY FAILURE, UNSPECIFIED (4) Dementia Code(s): F03.90 - UNSPECIFIED DEMENTIA WITHOUT BEHAVIORAL DISTURBANCE dirrhoea leukocytosis plan continue zosyn and flagyl wbc trending down final plan awaited rest as per the team
[2018-08-13] MEDS: DEXTROSE 5%-0.45% SALINE 1,000 ML with POTASSIUM CHLORIDE 10 MEQ IVPB SCH ×2 (14:02→17:17)
--- NOTE | 2018-08-13 14:54 | PN ---
Progress Note, Physician Chief Complaint: No distress ECG: NSR w/ 1st degree AV block - Current Medication List Current Medications: Active Medications Apixaban (Eliquis -) 2.5 mg PO BID [facility] Last Admin: 08/13/18 11:31 Dose: Not Given Docusate Sodium (Colace -) 100 mg PO TID [facility] Last Admin: 08/13/18 14:01 Dose: 100 mg Piperacillin Sod/Tazobactam (Sod 3.375 gm/ Dextrose) 50 mls @ 100 mls/hr IVPB Q8H-IV [facility]; Protocol Last Admin: 08/13/18 10:05 Dose: 100 mls/hr Potassium Chloride 10 meq/ (Dextrose/Sodium Chloride) 1,005 mls @ 60 mls/hr IVPB ASDIR [facility] Last Admin: 08/13/18 14:02 Dose: 60 mls/hr Megestrol Acetate (Megace Oral Suspension -) 400 mg PO DAILY [facility] Last Admin: 08/13/18 10:15 Dose: Not Given Metoprolol Succinate (Toprol Xl -) 50 mg PO BID [facility] Last Admin: 08/13/18 10:05 Dose: 50 mg Metoprolol Tartrate (Lopressor Injection -) 5 mg IVPUSH Q4H PRN PRN Reason: TACHYCARDIA Multivitamins/Minerals/Vitamin C (Tab-A-Vit -) 1 tab PO DAILY [facility] Last Admin: 08/13/18 10:05 Dose: 1 tab Non-Formulary Med( Galantamine Hbr 8 Mg Tab 1 each PO BID [facility] Last Admin: 08/13/18 10:05 Dose: 1 each Tramadol HCl (Ultram -) 50 mg PO TID [facility] Last Admin: 08/13/18 14:01 Dose: 50 mg Vancomycin HCl (Vancomycin Oral Solution) 125 mg PO Q6HPO [facility] Last Admin: 08/13/18 12:13 Dose: 125 mg - Objective Vital Signs: Vital Signs Temperature 98.2 F 08/13/18 14:33 Pulse Rate 93 H 08/13/18 10:00 Respiratory Rate 20 08/13/18 14:33 Blood Pressure 116/50 L 08/13/18 10:00 O2 Sat by Pulse Oximetry (%) 98 08/12/18 21:00 Constitutional: Yes: No Distress Cardiovascular: Yes: Regular Rate and Rhythm Respiratory: Yes: CTA Bilaterally Gastrointestinal: Yes: Soft Edema: No Labs: CBC, BMP 08/13/18 06:00 08/13/18 08:00 - ....Imaging EKG: Image Reviewed Assessment/Plan 1. 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 APPLE -renal following, likely prerenal -improved with IVF 3. UTI - manage per primary 4. HTN - home meds held, started metoprolol as above for rate control 5. Preop reccs: -there are currently no absolute cardiac contraindications to ureteroscopy (no unstable angina, no severe , clinically euvolemic) -Please replete K+ and Mg2+
[2018-08-13] MEDS: KCL 10 MEQ IVPB 10 MEQ/100 ML INFUS.BAG IVPB SCH ×2 (19:18→22:01)
[2018-08-13] MEDS ORDERED: INSULIN (NOVOLOG) ASPART 100 UNITS/ML 10ML VIAL ONE (19:38)
--- NOTE | 2018-08-13 19:59 | PN ---
Progress Note, Physician History of Present Illness: No new changes - Current Medication List Current Medications: Active Medications Apixaban (Eliquis -) 2.5 mg PO BID [facility] Last Admin: 08/13/18 11:31 Dose: Not Given Docusate Sodium (Colace -) 100 mg PO TID [facility] Last Admin: 08/13/18 14:01 Dose: 100 mg Piperacillin Sod/Tazobactam (Sod 3.375 gm/ Dextrose) 50 mls @ 100 mls/hr IVPB Q8H-IV [facility]; Protocol Last Admin: 08/13/18 17:16 Dose: 100 mls/hr Potassium Chloride 10 meq/ (Dextrose/Sodium Chloride) 1,005 mls @ 60 mls/hr IVPB ASDIR [facility] Last Admin: 08/13/18 17:17 Dose: 60 mls/hr Potassium Chloride (Potassium Chloride 10 Meq Premix Ivpb -) 10 meq in 100 mls @ 100 mls/hr IVPB Q60M [facility] Stop: 08/13/18 21:29 Last Admin: 08/13/18 19:18 Dose: Not Given Megestrol Acetate (Megace Oral Suspension -) 400 mg PO DAILY [facility] Last Admin: 08/13/18 10:15 Dose: Not Given Metoprolol Succinate (Toprol Xl -) 50 mg PO BID [facility] Last Admin: 08/13/18 10:05 Dose: 50 mg Metoprolol Tartrate (Lopressor Injection -) 5 mg IVPUSH Q4H PRN PRN Reason: TACHYCARDIA Multivitamins/Minerals/Vitamin C (Tab-A-Vit -) 1 tab PO DAILY [facility] Last Admin: 08/13/18 10:05 Dose: 1 tab Non-Formulary Med( Galantamine Hbr 8 Mg Tab 1 each PO BID [facility] Last Admin: 08/13/18 10:05 Dose: 1 each Tramadol HCl (Ultram -) 50 mg PO TID [facility] Last Admin: 08/13/18 14:01 Dose: 50 mg Vancomycin HCl (Vancomycin Oral Solution) 125 mg PO Q6HPO [facility] Last Admin: 08/13/18 17:30 Dose: 125 mg - Objective Vital Signs: Vital Signs Temperature 97.7 F 08/13/18 18:00 Pulse Rate 97 H 08/13/18 18:00 Respiratory Rate 20 08/13/18 18:00 Blood Pressure 157/71 08/13/18 18:00 O2 Sat by Pulse Oximetry (%) 98 08/12/18 21:00 Constitutional: Yes: Thin Neck: Yes: WNL Cardiovascular: Yes: WNL, Regular Rate and Rhythm Respiratory: Yes: WNL, Regular, CTA Bilaterally Gastrointestinal: Yes: WNL, Normal Bowel Sounds, Soft Extremities: Yes: Other (Slight swelling of rt elbow and lt knee) Labs: CBC, BMP 08/13/18 06:00 08/13/18 08:00 Problem List - Problems (1) Rapid atrial fibrillation Assessment/Plan: Cont eliquis Cont toprol Heart rate slightly elevated Code(s): I48.91 - UNSPECIFIED ATRIAL FIBRILLATION (2) UTI (urinary tract infection) Assessment/Plan: Antibx changed to IV zosyn WBC slowly decreasing Cont IVF Repeat urine culture pending Probable ureteroscopy in am for 8 mm stone Code(s): N39.0 - URINARY TRACT INFECTION, SITE NOT SPECIFIED Qualifiers: Urinary tract infection type: acute cystitis Hematuria presence: with hematuria Qualified Code(s): N30.01 - Acute cystitis with hematuria (3) APPLE (acute kidney injury) Assessment/Plan: Cont IVF Resolving 8mm ureteral stone Possible ureterscopy Hydronephrosis Code(s): N17.9 - ACUTE KIDNEY FAILURE, UNSPECIFIED (4) Dementia Code(s): F03.90 - UNSPECIFIED DEMENTIA WITHOUT BEHAVIORAL DISTURBANCE (5) Severe protein-calorie malnutrition Code(s): E43 - UNSPECIFIED SEVERE PROTEIN-CALORIE MALNUTRITION
[2018-08-14] MEDS: VANCOMYCIN 250 MG/5 ML ORAL SOLUTION PO SCH ×4 (00:32→20:17)
[2018-08-14] MEDS ORDERED: PIPERACILLIN/TAZOBACTAM 3.375 GM VIAL IVPB ONE ×3 (01:38→20:09)
[2018-08-14] MEDS ORDERED: DEXTROSE 5%-WATER - 50 ML IVPB ONE ×3 (01:39→20:09)
[2018-08-14] MEDS: PIPERACILLIN/TAZOB 3.375 GM 3.375 GM in DEXTROSE 5%-WATER - 50 ML IVPB SCH ×3 (01:45→20:16)
[2018-08-14] MEDS: DOCUSATE SODIUM 100 MG CAPSULE (FP) PO SCH ×3 (05:03→21:01)
[2018-08-14] MEDS: traMADol HCL 50 MG TABLET PO SCH ×3 (05:03→21:01)
[2018-08-14 07:43] LABS: BASO % 0.3 % (0-2.0); EOS % 0.2 % (0-4.5); HEMATOCRIT 35.3 % (32.4-45.2); HEMOGLOBIN 11.6 GM/dL (10.7-15.3); LYMPH % 5.1 % (8-40); MCH 35.4 pg (25.7-33.7); MCHC 32.9 g/dl (32.0-36.0); MEAN CELL VOLUME 107.7 fl (80-96); MEAN PLT VOLUME 8.7 fl (7.5-11.1); NEUT % 87.4 % (42.8-82.8); PLATELET COUNT 409 K/MM3 (134-434); RBC 3.28 M/mm3 (3.60-5.2); RDW 14.3 % (11.6-15.6); WHITE BLOOD COUNT 19.1 K/mm3 (4.0-10.0)
[2018-08-14 08:09] LABS: ALBUMIN 1.7 g/dl (3.4-5.0); ALK PHOS 34 U/L (45-117); ANION GAP 9 MMOL/L (8-16); BILIRUBIN,TOTAL 0.7 mg/dL (0.2-1); BLOOD UREA NITROGEN 12 mg/dL (7-18); CALCIUM 8.3 mg/dL (8.5-10.1); CHLORIDE 107 mmol/L (98-107); CO2 20 mmol/L (21-32); CREATININE 0.7 mg/dL (0.55-1.3); GLUCOSE,RANDOM 96 mg/dL (74-106); MAGNESIUM 1.7 mg/dL (1.8-2.4); POTASSIUM 4.1 mmol/L (3.5-5.1); SGOT/AST 14 U/L (15-37); SGPT/ALT 12 U/L (13-61); SODIUM 136 mmol/L (136-145); TOT PROT 5.6 g/dl (6.4-8.2)
[2018-08-14] MEDS: metoPROLOL SUCCINATE 25 MG TAB.SR.24H (FP) PO SCH ×2 (09:40→21:03)
[2018-08-14] MEDS: MEGESTROL ACETATE 400 MG/10 ML UNIT DOSE CUP PO SCH (09:40)
[2018-08-14] MEDS: MULTIVITAMINS (DAILY MVI) TABLET (FP) PO SCH (09:40)
[2018-08-14] MEDS: GALANTAMINE HBR 8 MG PO SCH ×2 (09:40→21:03)
[2018-08-14] MEDS ORDERED: MAGNESIUM SULF 50% (8.12 MEQ/2 ML-1 GM VIAL) IVPB ONE (11:00)
[2018-08-14 11:11] LABS: ANISOCYTOSIS 0; MACROCYTOSIS 1+; OVALOCYTE 1+; PLATELET ESTIMATE NORMAL
--- NOTE | 2018-08-14 12:37 | PN ---
Progress Note, Physician History of Present Illness: stable wbc trending down - Current Medication List Current Medications: Active Medications Apixaban (Eliquis -) 2.5 mg PO BID [facility] Last Admin: 08/13/18 11:31 Dose: Not Given Docusate Sodium (Colace -) 100 mg PO TID [facility] Last Admin: 08/14/18 05:03 Dose: 100 mg Piperacillin Sod/Tazobactam (Sod 3.375 gm/ Dextrose) 50 mls @ 100 mls/hr IVPB Q8H-IV [facility]; Protocol Last Admin: 08/14/18 09:25 Dose: 100 mls/hr Potassium Chloride 10 meq/ (Dextrose/Sodium Chloride) 1,005 mls @ 60 mls/hr IVPB ASDIR [facility] Last Admin: 08/13/18 17:17 Dose: 60 mls/hr Megestrol Acetate (Megace Oral Suspension -) 400 mg PO DAILY [facility] Last Admin: 08/14/18 09:40 Dose: Not Given Metoprolol Succinate (Toprol Xl -) 50 mg PO BID [facility] Last Admin: 08/14/18 09:40 Dose: Not Given Metoprolol Tartrate (Lopressor Injection -) 5 mg IVPUSH Q4H PRN PRN Reason: TACHYCARDIA Multivitamins/Minerals/Vitamin C (Tab-A-Vit -) 1 tab PO DAILY [facility] Last Admin: 08/14/18 09:40 Dose: Not Given Non-Formulary Med( Galantamine Hbr 8 Mg Tab 1 each PO BID [facility] Last Admin: 08/14/18 09:40 Dose: Not Given Tramadol HCl (Ultram -) 50 mg PO TID [facility] Last Admin: 08/14/18 05:03 Dose: 50 mg Vancomycin HCl (Vancomycin Oral Solution) 125 mg PO Q6HPO [facility] Last Admin: 08/14/18 11:26 Dose: 125 mg - Objective Vital Signs: Vital Signs Temperature 98.5 F 08/14/18 10:00 Pulse Rate 108 H 08/14/18 10:00 Respiratory Rate 18 08/14/18 10:00 Blood Pressure 149/94 08/14/18 10:00 O2 Sat by Pulse Oximetry (%) 96 08/14/18 09:00 Constitutional: Yes: No Distress, Calm Cardiovascular: Yes: S1, S2 Gastrointestinal: Yes: Normal Bowel Sounds, Soft Musculoskeletal: Yes: WNL Extremities: Yes: WNL Neurological: Yes: Alert, Other Psychiatric: Yes: Alert Labs: CBC, BMP 08/14/18 06:30 08/14/18 06:30 Assessment/Plan Problem List - Problems (1) Rapid atrial fibrillation Code(s): I48.91 - UNSPECIFIED ATRIAL FIBRILLATION (2) UTI (urinary tract infection) Code(s): N39.0 - URINARY TRACT INFECTION, SITE NOT SPECIFIED Qualifiers: Urinary tract infection type: acute cystitis Hematuria presence: with hematuria Qualified Code(s): N30.01 - Acute cystitis with hematuria (3) APPLE (acute kidney injury) Code(s): N17.9 - ACUTE KIDNEY FAILURE, UNSPECIFIED (4) Dementia Code(s): F03.90 - UNSPECIFIED DEMENTIA WITHOUT BEHAVIORAL DISTURBANCE dirrhoea leukocytosis plan continue abx monitor closely urology plan rest as per the team
[2018-08-14] MEDS: DEXTROSE 5%-0.45% SALINE 1,000 ML with POTASSIUM CHLORIDE 10 MEQ IVPB SCH (13:32)
--- NOTE | 2018-08-14 14:03 | PN ---
Progress Note, Physician History of Present Illness: Pt seen and examined at bedside. She appears comfortable. - Current Medication List Current Medications: Active Medications Apixaban (Eliquis -) 2.5 mg PO BID [facility] Last Admin: 08/13/18 11:31 Dose: Not Given Docusate Sodium (Colace -) 100 mg PO TID [facility] Last Admin: 08/14/18 13:33 Dose: Not Given Piperacillin Sod/Tazobactam (Sod 3.375 gm/ Dextrose) 50 mls @ 100 mls/hr IVPB Q8H-IV [facility]; Protocol Last Admin: 08/14/18 09:25 Dose: 100 mls/hr Potassium Chloride 10 meq/ (Dextrose/Sodium Chloride) 1,005 mls @ 60 mls/hr IVPB ASDIR [facility] Last Admin: 08/14/18 13:32 Dose: Not Given Megestrol Acetate (Megace Oral Suspension -) 400 mg PO DAILY [facility] Last Admin: 08/14/18 09:40 Dose: Not Given Metoprolol Succinate (Toprol Xl -) 50 mg PO BID [facility] Last Admin: 08/14/18 09:40 Dose: Not Given Metoprolol Tartrate (Lopressor Injection -) 5 mg IVPUSH Q4H PRN PRN Reason: TACHYCARDIA Multivitamins/Minerals/Vitamin C (Tab-A-Vit -) 1 tab PO DAILY [facility] Last Admin: 08/14/18 09:40 Dose: Not Given Non-Formulary Med( Galantamine Hbr 8 Mg Tab 1 each PO BID [facility] Last Admin: 08/14/18 09:40 Dose: Not Given Tramadol HCl (Ultram -) 50 mg PO TID [facility] Last Admin: 08/14/18 13:33 Dose: Not Given Vancomycin HCl (Vancomycin Oral Solution) 125 mg PO Q6HPO [facility] Last Admin: 08/14/18 11:26 Dose: 125 mg - Objective Vital Signs: Vital Signs Temperature 98.5 F 08/14/18 10:00 Pulse Rate 108 H 08/14/18 10:00 Respiratory Rate 18 08/14/18 10:00 Blood Pressure 149/94 08/14/18 10:00 O2 Sat by Pulse Oximetry (%) 96 08/14/18 09:00 Constitutional: Yes: Calm Eyes: Yes: Conjunctiva Clear HENT: Yes: Atraumatic Cardiovascular: Yes: S1, S2 Respiratory: Yes: On Nasal O2 Gastrointestinal: Yes: Soft Genitourinary: Yes: WNL Musculoskeletal: Yes: WNL Edema: No Neurological: Yes: Oriented Labs: CBC, BMP 08/14/18 06:30 08/14/18 06:30 Problem List - Problems (1) APPLE (acute kidney injury) Code(s): N17.9 - ACUTE KIDNEY FAILURE, UNSPECIFIED Assessment/Plan Current Medications Generic Name Dose Route Start Last Admin Trade Name Freq PRN Reason Stop Dose Admin Apixaban 2.5 mg 08/08/18 10:00 08/13/18 11:31 Eliquis - PO Not Given BID [facility] Docusate Sodium 100 mg 08/10/18 13:00 08/13/18 06:19 Colace - PO 100 mg TID [facility] Administration Dextrose/Sodium Chloride 1,000 mls @ 75 mls/hr 08/08/18 07:43 08/13/18 08:31 D5-1/2ns - IV 75 mls/hr ASDIR [facility] Administration Piperacillin Sod/Tazobactam 50 mls @ 100 mls/hr 08/11/18 13:15 08/13/18 10:05 Sod 3.375 gm/ Dextrose IVPB 100 mls/hr Q8H-IV [facility] Administration Protocol Megestrol Acetate 400 mg 08/08/18 10:00 08/13/18 10:15 Megace Oral Suspension - PO Not Given DAILY [facility] Metoprolol Succinate 50 mg 08/08/18 10:00 08/13/18 10:05 Toprol Xl - PO 50 mg BID [facility] Administration Metoprolol Tartrate 5 mg 08/08/18 07:43 Lopressor Injection - IVPUSH Q4H PRN TACHYCARDIA Multivitamins/Minerals/Vitamin C 1 tab 08/08/18 10:00 08/13/18 10:05 Tab-A-Vit - PO 1 tab DAILY [facility] Administration Non-Formulary Med( 1 each 08/10/18 22:00 08/13/18 10:05 Galantamine Hbr 8 Mg PO 1 each Tab BID [facility] Administration Tramadol HCl 50 mg 08/08/18 14:00 08/13/18 06:18 Ultram - PO 50 mg TID [facility] Administration Vancomycin HCl 125 mg 08/11/18 12:00 08/13/18 12:13 Vancomycin Oral Solution PO 125 mg Q6HPO [facility] Administration Laboratory Tests 08/14/18 06:30 Magnesium 1.7 L Impression 1. APPLE 2. hyperkalemia 3. htn 4. UTI 5. hld 6. dementia 7. hydronephrosis 8. nephrolithiasis Plan - replace mag - cont fluids - cysto today - monitor for post obstructive diuresis - repeat labs in am Dr Ferrara
[2018-08-14] MEDS: METOPROLOL TARTRATE 5 MG/5 ML VIAL IVPUSH PRN (14:30)
[2018-08-14] MEDS ORDERED: ONDANSETRON 4 MG/2 ML VIAL IVPUSH PRN (15:59)
[2018-08-14] MEDS ORDERED: LACTATED RINGERS SOLUTION 1,000 ML IV SCH (16:00)
[2018-08-14] MEDS ORDERED: PROPOFOL 20 ML ONE (16:30)
[2018-08-14] MEDS ORDERED: ceFAZolin SODIUM 1 GM VIAL IVPB ONE (16:55)
[2018-08-14] MEDS ORDERED: ceFAZolin SODIUM 1 GM VIAL ONE (17:06)
[2018-08-14] MEDS ORDERED: PT OWN MED DRAWER 7, Y5N ONE (20:09)
--- NOTE | 2018-08-14 23:35 | PN ---
Progress Note, Physician - Current Medication List Current Medications: Active Medications Apixaban (Eliquis -) 2.5 mg PO BID [facility] Last Admin: 08/13/18 11:31 Dose: Not Given Docusate Sodium (Colace -) 100 mg PO TID [facility] Last Admin: 08/14/18 21:01 Dose: 100 mg Piperacillin Sod/Tazobactam (Sod 3.375 gm/ Dextrose) 50 mls @ 100 mls/hr IVPB Q8H-IV [facility]; Protocol Last Admin: 08/14/18 20:16 Dose: 100 mls/hr Potassium Chloride 10 meq/ (Dextrose/Sodium Chloride) 1,005 mls @ 60 mls/hr IVPB ASDIR [facility] Last Admin: 08/14/18 13:32 Dose: Not Given Lactated Ringer's (Lactated Ringers Solution) 1,000 mls @ 125 mls/hr IV ASDIR [facility] Megestrol Acetate (Megace Oral Suspension -) 400 mg PO DAILY [facility] Last Admin: 08/14/18 09:40 Dose: Not Given Metoprolol Succinate (Toprol Xl -) 50 mg PO BID [facility] Last Admin: 08/14/18 21:03 Dose: 50 mg Metoprolol Tartrate (Lopressor Injection -) 5 mg IVPUSH Q4H PRN PRN Reason: TACHYCARDIA Last Admin: 08/14/18 14:30 Dose: 5 mg Multivitamins/Minerals/Vitamin C (Tab-A-Vit -) 1 tab PO DAILY [facility] Last Admin: 08/14/18 09:40 Dose: Not Given Non-Formulary Med( Galantamine Hbr 8 Mg Tab 1 each PO BID [facility] Last Admin: 08/14/18 21:03 Dose: 1 each Ondansetron HCl (Zofran Injection) 4 mg IVPUSH Q6H PRN PRN Reason: NAUSEA AND/OR VOMITING Tramadol HCl (Ultram -) 50 mg PO TID [facility] Last Admin: 08/14/18 21:01 Dose: 50 mg Vancomycin HCl (Vancomycin Oral Solution) 125 mg PO Q6HPO [facility] Last Admin: 08/14/18 20:17 Dose: 125 mg - Objective Vital Signs: Vital Signs Temperature 97.8 F 08/14/18 19:15 Pulse Rate 98 H 08/14/18 19:15 Respiratory Rate 18 08/14/18 19:15 Blood Pressure 120/72 08/14/18 19:15 O2 Sat by Pulse Oximetry (%) 96 08/14/18 19:00 Labs: CBC, BMP 08/14/18 06:30 08/14/18 06:30 Problem List - Problems (1) Rapid atrial fibrillation Code(s): I48.91 - UNSPECIFIED ATRIAL FIBRILLATION (2) UTI (urinary tract infection) Code(s): N39.0 - URINARY TRACT INFECTION, SITE NOT SPECIFIED Qualifiers: Urinary tract infection type: acute cystitis Hematuria presence: with hematuria Qualified Code(s): N30.01 - Acute cystitis with hematuria (3) APPLE (acute kidney injury) Code(s): N17.9 - ACUTE KIDNEY FAILURE, UNSPECIFIED (4) Dementia Code(s): F03.90 - UNSPECIFIED DEMENTIA WITHOUT BEHAVIORAL DISTURBANCE (5) Severe protein-calorie malnutrition Code(s): E43 - UNSPECIFIED SEVERE PROTEIN-CALORIE MALNUTRITION
[2018-08-15] MEDS ORDERED: PIPERACILLIN/TAZOBACTAM 3.375 GM VIAL IVPB ONE ×3 (01:16→16:35)
[2018-08-15] MEDS ORDERED: DEXTROSE 5%-WATER - 50 ML IVPB ONE ×3 (01:16→16:36)
[2018-08-15] MEDS: METOPROLOL TARTRATE 5 MG/5 ML VIAL IVPUSH PRN (01:19)
[2018-08-15] MEDS: VANCOMYCIN 250 MG/5 ML ORAL SOLUTION PO SCH ×2 (01:20→06:23)
[2018-08-15] MEDS: PIPERACILLIN/TAZOB 3.375 GM 3.375 GM in DEXTROSE 5%-WATER - 50 ML IVPB SCH ×3 (01:20→19:07)
[2018-08-15] MEDS: traMADol HCL 50 MG TABLET PO SCH (06:23)
[2018-08-15] MEDS: DOCUSATE SODIUM 100 MG CAPSULE (FP) PO SCH ×3 (06:24→22:59)
[2018-08-15 07:32] LABS: BASO % 0.2 % (0-2.0); EOS % 0.5 % (0-4.5); HEMATOCRIT 31.9 % (32.4-45.2); HEMOGLOBIN 10.4 GM/dL (10.7-15.3); LYMPH % 5.9 % (8-40); MCH 35.5 pg (25.7-33.7); MCHC 32.7 g/dl (32.0-36.0); MEAN CELL VOLUME 108.4 fl (80-96); MEAN PLT VOLUME 8.4 fl (7.5-11.1); MONO % 7.1 % (3.8-10.2); NEUT % 86.3 % (42.8-82.8); PLATELET COUNT 406 K/MM3 (134-434); RBC 2.94 M/mm3 (3.60-5.2); RDW 14.4 % (11.6-15.6); WHITE BLOOD COUNT 17.8 K/mm3 (4.0-10.0)
[2018-08-15 07:55] LABS: ALBUMIN 1.6 g/dl (3.4-5.0); ALK PHOS 31 U/L (45-117); ANION GAP 9 MMOL/L (8-16); BILIRUBIN,TOTAL 0.6 mg/dL (0.2-1); BLOOD UREA NITROGEN 12 mg/dL (7-18); CALCIUM 7.9 mg/dL (8.5-10.1); CHLORIDE 110 mmol/L (98-107); CO2 21 mmol/L (21-32); CREATININE 0.8 mg/dL (0.55-1.3); GLUCOSE,RANDOM 86 mg/dL (74-106); MAGNESIUM 1.9 mg/dL (1.8-2.4); POTASSIUM 3.7 mmol/L (3.5-5.1); SGOT/AST 16 U/L (15-37); SGPT/ALT 10 U/L (13-61); SODIUM 141 mmol/L (136-145); TOT PROT 5.4 g/dl (6.4-8.2)
[2018-08-15] MEDS: metoPROLOL SUCCINATE 25 MG TAB.SR.24H (FP) PO SCH ×2 (09:06→22:58)
[2018-08-15] MEDS: MULTIVITAMINS (DAILY MVI) TABLET (FP) PO SCH (09:07)
[2018-08-15] MEDS: GALANTAMINE HBR 8 MG PO SCH ×2 (09:07→22:59)
[2018-08-15] MEDS: MEGESTROL ACETATE 400 MG/10 ML UNIT DOSE CUP PO SCH (09:08)
--- NOTE | 2018-08-15 09:51 | PN ---
Progress Note, Physician History of Present Illness: patient stable doing well no new issues - Current Medication List Current Medications: Active Medications Apixaban (Eliquis -) 2.5 mg PO BID [facility] Last Admin: 08/13/18 11:31 Dose: Not Given Docusate Sodium (Colace -) 100 mg PO TID [facility] Last Admin: 08/15/18 06:24 Dose: 100 mg Piperacillin Sod/Tazobactam (Sod 3.375 gm/ Dextrose) 50 mls @ 100 mls/hr IVPB Q8H-IV [facility]; Protocol Last Admin: 08/15/18 09:06 Dose: 100 mls/hr Potassium Chloride 10 meq/ (Dextrose/Sodium Chloride) 1,005 mls @ 60 mls/hr IVPB ASDIR [facility] Last Admin: 08/14/18 13:32 Dose: Not Given Lactated Ringer's (Lactated Ringers Solution) 1,000 mls @ 125 mls/hr IV ASDIR [facility] Last Admin: 08/15/18 05:05 Dose: Not Given Megestrol Acetate (Megace Oral Suspension -) 400 mg PO DAILY [facility] Last Admin: 08/15/18 09:08 Dose: 400 mg Metoprolol Succinate (Toprol Xl -) 50 mg PO BID [facility] Last Admin: 08/15/18 09:06 Dose: 50 mg Metoprolol Tartrate (Lopressor Injection -) 5 mg IVPUSH Q4H PRN PRN Reason: TACHYCARDIA Last Admin: 08/15/18 01:19 Dose: 5 mg Multivitamins/Minerals/Vitamin C (Tab-A-Vit -) 1 tab PO DAILY [facility] Last Admin: 08/15/18 09:07 Dose: 1 tab Non-Formulary Med( Galantamine Hbr 8 Mg Tab 1 each PO BID [facility] Last Admin: 08/15/18 09:07 Dose: 1 each Ondansetron HCl (Zofran Injection) 4 mg IVPUSH Q6H PRN PRN Reason: NAUSEA AND/OR VOMITING Tramadol HCl (Ultram -) 50 mg PO TID [facility] Last Admin: 08/15/18 06:23 Dose: 50 mg - Objective Vital Signs: Vital Signs Temperature 99.3 F 08/15/18 08:38 Pulse Rate 117 H 08/15/18 08:38 Respiratory Rate 20 08/15/18 08:38 Blood Pressure 118/62 08/15/18 08:38 O2 Sat by Pulse Oximetry (%) 98 08/14/18 21:00 Constitutional: Yes: No Distress, Calm Cardiovascular: Yes: S1, S2 Respiratory: Yes: Regular, CTA Bilaterally Gastrointestinal: Yes: Normal Bowel Sounds, Soft Musculoskeletal: Yes: WNL Extremities: Yes: WNL Neurological: Yes: Alert, Oriented Psychiatric: Yes: Alert, Oriented Labs: CBC, BMP 08/15/18 07:00 08/15/18 07:00 Assessment/Plan Problem List - Problems (1) Rapid atrial fibrillation Code(s): I48.91 - UNSPECIFIED ATRIAL FIBRILLATION (2) UTI (urinary tract infection) Code(s): N39.0 - URINARY TRACT INFECTION, SITE NOT SPECIFIED Qualifiers: Urinary tract infection type: acute cystitis Hematuria presence: with hematuria Qualified Code(s): N30.01 - Acute cystitis with hematuria (3) APPLE (acute kidney injury) Code(s): N17.9 - ACUTE KIDNEY FAILURE, UNSPECIFIED (4) Dementia Code(s): F03.90 - UNSPECIFIED DEMENTIA WITHOUT BEHAVIORAL DISTURBANCE dirrhoea leukocytosis plan continue abx monitor closely wbc trending down final plan awaited
--- NOTE | 2018-08-15 10:11 | PN ---
Progress Note, Physician Chief Complaint: sleeping now. Does wake when jostled. as per RN was alert earlier, eating. - Current Medication List Current Medications: Active Medications Apixaban (Eliquis -) 2.5 mg PO BID [facility] Last Admin: 08/13/18 11:31 Dose: Not Given Docusate Sodium (Colace -) 100 mg PO TID [facility] Last Admin: 08/15/18 06:24 Dose: 100 mg Piperacillin Sod/Tazobactam (Sod 3.375 gm/ Dextrose) 50 mls @ 100 mls/hr IVPB Q8H-IV [facility]; Protocol Last Admin: 08/15/18 09:06 Dose: 100 mls/hr Potassium Chloride 10 meq/ (Dextrose/Sodium Chloride) 1,005 mls @ 60 mls/hr IVPB ASDIR [facility] Last Admin: 08/14/18 13:32 Dose: Not Given Lactated Ringer's (Lactated Ringers Solution) 1,000 mls @ 125 mls/hr IV ASDIR [facility] Last Admin: 08/15/18 05:05 Dose: Not Given Megestrol Acetate (Megace Oral Suspension -) 400 mg PO DAILY [facility] Last Admin: 08/15/18 09:08 Dose: 400 mg Metoprolol Succinate (Toprol Xl -) 50 mg PO BID [facility] Last Admin: 08/15/18 09:06 Dose: 50 mg Metoprolol Tartrate (Lopressor Injection -) 5 mg IVPUSH Q4H PRN PRN Reason: TACHYCARDIA Last Admin: 08/15/18 01:19 Dose: 5 mg Multivitamins/Minerals/Vitamin C (Tab-A-Vit -) 1 tab PO DAILY [facility] Last Admin: 08/15/18 09:07 Dose: 1 tab Non-Formulary Med( Galantamine Hbr 8 Mg Tab 1 each PO BID [facility] Last Admin: 08/15/18 09:07 Dose: 1 each Ondansetron HCl (Zofran Injection) 4 mg IVPUSH Q6H PRN PRN Reason: NAUSEA AND/OR VOMITING Tramadol HCl (Ultram -) 50 mg PO TID [facility] Last Admin: 08/15/18 06:23 Dose: 50 mg - Objective Vital Signs: Vital Signs Temperature 99.3 F 08/15/18 08:38 Pulse Rate 117 H 08/15/18 08:38 Respiratory Rate 20 08/15/18 08:38 Blood Pressure 118/62 08/15/18 08:38 O2 Sat by Pulse Oximetry (%) 98 08/14/18 21:00 Constitutional: Yes: No Distress Cardiovascular: Yes: Pulse Irregular Respiratory: Yes: Rhonchi, Other (no active wheezing.) Gastrointestinal: Yes: Soft Edema: No Labs: CBC, BMP 08/15/18 07:00 08/15/18 07:00 Microbiology 08/10/18 14:45 Blood - Peripheral Venous Blood Culture - Preliminary NO GROWTH OBTAINED AFTER 96 HOURS, INCUBATION TO CONTINUE FOR 1 DAYS. 08/10/18 14:20 Blood - Peripheral Venous Blood Culture - Preliminary NO GROWTH OBTAINED AFTER 96 HOURS, INCUBATION TO CONTINUE FOR 1 DAYS. Laboratory Tests 08/15/18 08/15/18 07:00 07:00 WBC 17.8 H Hgb 10.4 L Plt Count 406 Sodium 141 Potassium 3.7 Creatinine 0.8 Assessment/Plan Assessment/Plan 1. Afib: - nl LV function on echo - cont toprol 50 bid for rate control - [id number] 4, anticoagulation indicated assisted - AC was held for ureteroscopy (8mm stone), will d/w Urology if ok to resume today 2. APPLE -renal following, likely prerenal -improved with IVF 3. UTI - manage per primary 4. HTN - started metoprolol as above for rate control
[2018-08-15 11:10] LABS: ANISOCYTOSIS 0; MACROCYTOSIS 1+; PLATELET ESTIMATE NORMAL
--- NOTE | 2018-08-15 11:45 | OP ---
DATE OF OPERATION: 08/14/2018 PREOPERATIVE DIAGNOSIS: Right ureteral calculus, right hydronephrosis. POSTOPERATIVE DIAGNOSIS: Right ureteral calculus, right hydronephrosis. PROCEDURE: Right ureteroscopy, laser lithotripsy, and right ureteral stent placement. ANESTHESIA: General. SURGEON: Anival Levi MD SPECIMENS: None. DRAINS: The 6 x 22 double-J ureteral stent. ESTIMATED BLOOD LOSS: None. PREOPERATIVE INDICATIONS: The patient is an 87-year-old female with obstructing right ureteral stone approximately 8 mm in size. She comes to the OR for laser lithotripsy. OPERATION: The patient was brought to the OR, placed on the table in the supine position, given general anesthesia and IV antibiotics, and placed in the modified lithotomy position. The groin was prepped and draped sterilely. Cystoscopy was performed. The bladder itself was unremarkable. No tumors or stones were seen. Both ureteral orifices were visualized. The wire was passed up the right UO into the right kidney with fluoroscopic guidance. The UO was dilated with 10-Malagasy dual lumen catheter, and a semi-rigid ureteroscope was passed into the ureter. Stone was visualized and was impacted in the distal ureter. Using Holmium Laser Fiber, the stone was broken up into small pieces of sand, which were irrigated out. No other stones were seen along the course of the ureter. A 6 x 22 double-J ureteral stent was placed over a wire under fluoroscopic guidance; one loop in the kidney and one loop in the bladder. The bladder was emptied. The patient was woken up. ANIVAL LEVI M.D. [id number]
[2018-08-15] MEDS: DEXTROSE 5%-0.45% SALINE 1,000 ML with POTASSIUM CHLORIDE 10 MEQ IVPB SCH ×2 (13:45→18:31)
--- NOTE | 2018-08-15 15:41 | PN ---
Progress Note, Physician - Current Medication List Current Medications: Active Medications Apixaban (Eliquis -) 2.5 mg PO BID [facility] Last Admin: 08/13/18 11:31 Dose: Not Given Docusate Sodium (Colace -) 100 mg PO TID [facility] Last Admin: 08/15/18 13:45 Dose: Not Given Piperacillin Sod/Tazobactam (Sod 3.375 gm/ Dextrose) 50 mls @ 100 mls/hr IVPB Q8H-IV [facility]; Protocol Last Admin: 08/15/18 09:06 Dose: 100 mls/hr Potassium Chloride 10 meq/ (Dextrose/Sodium Chloride) 1,005 mls @ 60 mls/hr IVPB ASDIR [facility] Last Admin: 08/15/18 13:45 Dose: Not Given Lactated Ringer's (Lactated Ringers Solution) 1,000 mls @ 125 mls/hr IV ASDIR [facility] Last Admin: 08/15/18 05:05 Dose: Not Given Megestrol Acetate (Megace Oral Suspension -) 400 mg PO DAILY [facility] Last Admin: 08/15/18 09:08 Dose: 400 mg Metoprolol Succinate (Toprol Xl -) 50 mg PO BID [facility] Last Admin: 08/15/18 09:06 Dose: 50 mg Metoprolol Tartrate (Lopressor Injection -) 5 mg IVPUSH Q4H PRN PRN Reason: TACHYCARDIA Last Admin: 08/15/18 01:19 Dose: 5 mg Multivitamins/Minerals/Vitamin C (Tab-A-Vit -) 1 tab PO DAILY [facility] Last Admin: 08/15/18 09:07 Dose: 1 tab Non-Formulary Med( Galantamine Hbr 8 Mg Tab 1 each PO BID [facility] Last Admin: 08/15/18 09:07 Dose: 1 each Ondansetron HCl (Zofran Injection) 4 mg IVPUSH Q6H PRN PRN Reason: NAUSEA AND/OR VOMITING - Objective Vital Signs: Vital Signs Temperature 99.3 F 08/15/18 08:38 Pulse Rate 117 H 08/15/18 08:38 Respiratory Rate 20 08/15/18 09:00 Blood Pressure 118/62 08/15/18 08:38 O2 Sat by Pulse Oximetry (%) 96 08/15/18 09:00 Constitutional: Yes: Calm HENT: Yes: Atraumatic Neck: Yes: Supple Cardiovascular: Yes: Regular Rate and Rhythm Respiratory: Yes: Rhonchi Gastrointestinal: Yes: Normal Bowel Sounds Extremities: Yes: WNL Edema: No Neurological: Yes: Other (drowsy) Labs: CBC, BMP 08/15/18 07:00 08/15/18 07:00 Problem List - Problems (1) APPLE (acute kidney injury) Assessment/Plan: iv hydration renal on board Code(s): N17.9 - ACUTE KIDNEY FAILURE, UNSPECIFIED (2) Dementia Code(s): F03.90 - UNSPECIFIED DEMENTIA WITHOUT BEHAVIORAL DISTURBANCE (3) Parkinson disease Code(s): G20 - PARKINSON'S DISEASE (4) Rapid atrial fibrillation Assessment/Plan: on meds Code(s): I48.91 - UNSPECIFIED ATRIAL FIBRILLATION (5) UTI (urinary tract infection) Assessment/Plan: on abx Code(s): N39.0 - URINARY TRACT INFECTION, SITE NOT SPECIFIED Qualifiers: Urinary tract infection type: acute cystitis Hematuria presence: with hematuria Qualified Code(s): N30.01 - Acute cystitis with hematuria Assessment/Plan Impression 1. APPLE 2. hyperkalemia 3. htn 4. UTI 5. hld 6. dementia 7. hydronephrosis 8. nephrolithiasis COVERING DR VAZQUEZ TODAY
--- NOTE | 2018-08-15 15:46 | PN ---
Progress Note, Physician History of Present Illness: Pt seen and examined at bedside. She is s/p cysto. - Current Medication List Current Medications: Active Medications Apixaban (Eliquis -) 2.5 mg PO BID [facility] Last Admin: 08/13/18 11:31 Dose: Not Given Docusate Sodium (Colace -) 100 mg PO TID [facility] Last Admin: 08/15/18 13:45 Dose: Not Given Piperacillin Sod/Tazobactam (Sod 3.375 gm/ Dextrose) 50 mls @ 100 mls/hr IVPB Q8H-IV [facility]; Protocol Last Admin: 08/15/18 09:06 Dose: 100 mls/hr Potassium Chloride 10 meq/ (Dextrose/Sodium Chloride) 1,005 mls @ 60 mls/hr IVPB ASDIR [facility] Last Admin: 08/15/18 13:45 Dose: Not Given Lactated Ringer's (Lactated Ringers Solution) 1,000 mls @ 125 mls/hr IV ASDIR [facility] Last Admin: 08/15/18 05:05 Dose: Not Given Megestrol Acetate (Megace Oral Suspension -) 400 mg PO DAILY [facility] Last Admin: 08/15/18 09:08 Dose: 400 mg Metoprolol Succinate (Toprol Xl -) 50 mg PO BID [facility] Last Admin: 08/15/18 09:06 Dose: 50 mg Metoprolol Tartrate (Lopressor Injection -) 5 mg IVPUSH Q4H PRN PRN Reason: TACHYCARDIA Last Admin: 08/15/18 01:19 Dose: 5 mg Multivitamins/Minerals/Vitamin C (Tab-A-Vit -) 1 tab PO DAILY [facility] Last Admin: 08/15/18 09:07 Dose: 1 tab Non-Formulary Med( Galantamine Hbr 8 Mg Tab 1 each PO BID [facility] Last Admin: 08/15/18 09:07 Dose: 1 each Ondansetron HCl (Zofran Injection) 4 mg IVPUSH Q6H PRN PRN Reason: NAUSEA AND/OR VOMITING - Objective Vital Signs: Vital Signs Temperature 99.3 F 08/15/18 08:38 Pulse Rate 117 H 08/15/18 08:38 Respiratory Rate 20 08/15/18 09:00 Blood Pressure 118/62 08/15/18 08:38 O2 Sat by Pulse Oximetry (%) 96 08/15/18 09:00 Constitutional: Yes: Calm Eyes: Yes: Conjunctiva Clear HENT: Yes: Atraumatic Neck: Yes: Supple Cardiovascular: Yes: S1, S2 Respiratory: Yes: CTA Bilaterally Gastrointestinal: Yes: Normal Bowel Sounds, Soft Genitourinary: Yes: Incontinence Musculoskeletal: Yes: Muscle Weakness Edema: No Neurological: Yes: Oriented Psychiatric: Yes: Oriented Labs: CBC, BMP 08/15/18 07:00 08/15/18 07:00 Problem List - Problems (1) APPLE (acute kidney injury) Code(s): N17.9 - ACUTE KIDNEY FAILURE, UNSPECIFIED Assessment/Plan Current Medications Generic Name Dose Route Start Last Admin Trade Name Freq PRN Reason Stop Dose Admin Apixaban 2.5 mg 08/08/18 10:00 08/13/18 11:31 Eliquis - PO Not Given BID ROBIN Docusate Sodium 100 mg 08/10/18 13:00 08/15/18 13:45 Colace - PO Not Given TID ROBIN Piperacillin Sod/Tazobactam 50 mls @ 100 mls/hr 08/11/18 13:15 08/15/18 09:06 Sod 3.375 gm/ Dextrose IVPB 100 mls/hr Q8H-IV [facility] Administration Protocol Potassium Chloride 10 meq/ 1,005 mls @ 60 mls/hr 08/13/18 12:32 08/15/18 13: 45 Dextrose/Sodium Chloride IVPB Not Given ASDIR [facility] Megestrol Acetate 400 mg 08/08/18 10:00 08/15/18 09:08 Megace Oral Suspension - PO 400 mg DAILY [facility] Administration Metoprolol Succinate 50 mg 08/08/18 10:00 08/15/18 09:06 Toprol Xl - PO 50 mg BID [facility] Administration Metoprolol Tartrate 5 mg 08/08/18 07:43 08/15/18 01:19 Lopressor Injection - IVPUSH 5 mg Q4H PRN Administration TACHYCARDIA Multivitamins/Minerals/Vitamin C 1 tab 08/08/18 10:00 08/15/18 09:07 Tab-A-Vit - PO 1 tab DAILY [facility] Administration Non-Formulary Med( 1 each 08/10/18 22:00 08/15/18 09:07 Galantamine Hbr 8 Mg PO 1 each Tab BID [facility] Administration Ondansetron HCl 4 mg 08/14/18 15:59 Zofran Injection IVPUSH Q6H PRN NAUSEA AND/OR VOMITING Impression 1. APPLE 2. hyperkalemia 3. htn 4. UTI 5. hld 6. dementia 7. hydronephrosis 8. nephrolithiasis Plan - lytes are stable - cand stop fluids in am - discussed with family - will follow PRN - encourage PO intake Dr Ferrara
--- NOTE | 2018-08-15 15:57 | PN ---
Progress Note (short form) - Note Progress Note: NEUROLOGY PROGRESS: Events reviewed and discussed with ANN Dodson. Granddaughter at bedside. Yesterday afternoon, underwent R lithotripsy and uretral stent. Now on Zoysn. Granddaughter notes pt now is "not the same" and not eating very much. Abixaban on hold prior to procedure. Granddaughter notes patient has not received galantamine 8 mg BID since admission, and just resumed 08/12/18. Carotid duplex: Large plaques at bifurcations of carotids. No sig. hemodynamic changes. B12= 1248 alb=1.8 WBC 38.1-> 17.8 Cr/BUN=0.8/12 RACHEL: Neck supple. - Kernig's. L elbow and L knee contracture. L knee appears swollen. + Jacqueline's on L. NEURO: Eyes closed. Speech sparse. Follows limited commands. Pupils 4mm and reactive. Reduced rapid tongue. Gag ok. + corneals B/L Decreased pinch to ankles. 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 fib Suggest: Continue antibiotics and hydration Repeat Head CT (C-), Venous duplex both legs Continue galantamine 8 mg BID Start thiamine 250 mg IVP TID x 3 days Resume telemetry if cardiology agrees. Resume Apixaban ROZINA Thank you very much, Chilo Yates MD
[2018-08-15] MEDS: THIAMINE HCL 200 MG/2 ML VIAL IVPB SCH ×2 (18:32→22:58)
[2018-08-15] MEDS ORDERED: PT OWN MED DRAWER 7, Y5N ONE (20:47)
[2018-08-15] MEDS: APIXABAN 2.5 MG TABLET PO SCH (22:58)
[2018-08-16] MEDS ORDERED: PIPERACILLIN/TAZOBACTAM 3.375 GM VIAL IVPB ONE ×3 (01:26→17:53)
[2018-08-16] MEDS: PIPERACILLIN/TAZOB 3.375 GM 3.375 GM in DEXTROSE 5%-WATER - 50 ML IVPB SCH ×3 (01:47→18:24)
[2018-08-16] MEDS ORDERED: traMADol HCL 50 MG TABLET PO ONE (04:30)
[2018-08-16] MEDS: DOCUSATE SODIUM 100 MG CAPSULE (FP) PO SCH ×3 (06:40→21:41)
[2018-08-16] MEDS: THIAMINE HCL 200 MG/2 ML VIAL IVPB SCH ×3 (06:43→21:41)
[2018-08-16] MEDS ORDERED: DEXTROSE 5%-WATER - 50 ML IVPB ONE ×2 (09:00→17:53)
[2018-08-16] MEDS: APIXABAN 2.5 MG TABLET PO SCH ×2 (09:17→21:41)
[2018-08-16] MEDS: metoPROLOL SUCCINATE 25 MG TAB.SR.24H (FP) PO SCH ×2 (09:17→21:41)
[2018-08-16] MEDS: MEGESTROL ACETATE 400 MG/10 ML UNIT DOSE CUP PO SCH (09:17)
[2018-08-16] MEDS: MULTIVITAMINS (DAILY MVI) TABLET (FP) PO SCH (09:17)
[2018-08-16] MEDS: DEXTROSE 5%-0.45% SALINE 1,000 ML with POTASSIUM CHLORIDE 10 MEQ IVPB SCH (10:00)
[2018-08-16] MEDS: GALANTAMINE HBR 8 MG PO SCH ×2 (10:14→21:43)
--- NOTE | 2018-08-16 11:05 | PN ---
Progress Note, Physician History of Present Illness: patient stable - Current Medication List Current Medications: Active Medications Apixaban (Eliquis -) 2.5 mg PO BID [facility] Last Admin: 08/16/18 09:17 Dose: 2.5 mg Docusate Sodium (Colace -) 100 mg PO TID [facility] Last Admin: 08/16/18 06:40 Dose: Not Given Piperacillin Sod/Tazobactam (Sod 3.375 gm/ Dextrose) 50 mls @ 100 mls/hr IVPB Q8H-IV [facility]; Protocol Last Admin: 08/16/18 09:16 Dose: 100 mls/hr Potassium Chloride 10 meq/ (Dextrose/Sodium Chloride) 1,005 mls @ 60 mls/hr IVPB ASDIR [facility] Last Admin: 08/15/18 18:31 Dose: 60 mls/hr Megestrol Acetate (Megace Oral Suspension -) 400 mg PO DAILY [facility] Last Admin: 08/16/18 09:17 Dose: 400 mg Metoprolol Succinate (Toprol Xl -) 50 mg PO BID [facility] Last Admin: 08/16/18 09:17 Dose: 50 mg Metoprolol Tartrate (Lopressor Injection -) 5 mg IVPUSH Q4H PRN PRN Reason: TACHYCARDIA Last Admin: 08/15/18 01:19 Dose: 5 mg Multivitamins/Minerals/Vitamin C (Tab-A-Vit -) 1 tab PO DAILY [facility] Last Admin: 08/16/18 09:17 Dose: 1 tab Non-Formulary Med( Galantamine Hbr 8 Mg Tab 1 each PO BID [facility] Last Admin: 08/16/18 10:14 Dose: 1 each Ondansetron HCl (Zofran Injection) 4 mg IVPUSH Q6H PRN PRN Reason: NAUSEA AND/OR VOMITING Thiamine HCl (Vitamin B1 Injection -) 250 mg IVPB TID [facility] Stop: 08/18/18 15:59 Last Admin: 08/16/18 06:43 Dose: 250 mg - Objective Vital Signs: Vital Signs Temperature 97.9 F 08/16/18 05:49 Pulse Rate 123 H 08/16/18 05:49 Respiratory Rate 20 08/16/18 05:49 Blood Pressure 163/89 08/16/18 05:49 O2 Sat by Pulse Oximetry (%) 96 08/15/18 21:00 Constitutional: Yes: No Distress, Calm Cardiovascular: Yes: S1, S2 Respiratory: Yes: Regular, CTA Bilaterally Gastrointestinal: Yes: Normal Bowel Sounds, Soft Musculoskeletal: Yes: WNL Extremities: Yes: WNL Neurological: Yes: Alert, Other Psychiatric: Yes: Other Labs: CBC, BMP 08/15/18 07:00 08/15/18 07:00 Assessment/Plan Problem List - Problems (1) Rapid atrial fibrillation Code(s): I48.91 - UNSPECIFIED ATRIAL FIBRILLATION (2) UTI (urinary tract infection) Code(s): N39.0 - URINARY TRACT INFECTION, SITE NOT SPECIFIED Qualifiers: Urinary tract infection type: acute cystitis Hematuria presence: with hematuria Qualified Code(s): N30.01 - Acute cystitis with hematuria (3) APPLE (acute kidney injury) Code(s): N17.9 - ACUTE KIDNEY FAILURE, UNSPECIFIED (4) Dementia Code(s): F03.90 - UNSPECIFIED DEMENTIA WITHOUT BEHAVIORAL DISTURBANCE dirrhoea leukocytosis plan continue abx monitor closely wbc trending down final plan awaited
--- NOTE | 2018-08-16 15:44 | PN ---
Progress Note (short form) - Note Progress Note: NEUROLOGY FOLLOW-UP: Events reviewed and discussed with daughter at the bedside. Pt. is much more awake, alert and communicative. Daughter confirms that the left knee swelling is new. Post-op CT of head (reviewed): Moderate, diffuse atrophy with prominent periventricular microvascular changes Poswible atlantoaxial subluxation EXAM: left knee swollen with prominent effusion Approx 4 cm leg length discrepancy with foreshortening of the left leg. Left Darinel's + Normal neck ROM without tenderness NEURO: awake, alert. 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 Moves all fours well (except left leg). Minimal cogwheel rigidity IMP: Moderately severe, B/L cerebral dysfunction now improving post-op with improvement in TME Persistent leukocytosis- r/o septic left knee. New left leg foreshortening. SUGGEST: Aspirate and culture left knee effusion X-Rays of the left hip/femur Continue current neuro Rx. Thank you very much, Chilo Yates MD
[2018-08-16] MEDS: ACETAMINOPHEN 325 MG TABLET (FP) PO PRN (17:20)
--- NOTE | 2018-08-16 23:56 | PN ---
Progress Note, Physician - Current Medication List Current Medications: Active Medications Acetaminophen (Tylenol -) 650 mg PO Q6H PRN PRN Reason: PAIN LEVEL 1-5 Last Admin: 08/16/18 17:20 Dose: 650 mg Apixaban (Eliquis -) 2.5 mg PO BID [facility] Last Admin: 08/16/18 21:41 Dose: 2.5 mg Docusate Sodium (Colace -) 100 mg PO TID [facility] Last Admin: 08/16/18 21:41 Dose: 100 mg Piperacillin Sod/Tazobactam (Sod 3.375 gm/ Dextrose) 50 mls @ 100 mls/hr IVPB Q8H-IV [facility]; Protocol Last Admin: 08/16/18 18:24 Dose: 100 mls/hr Potassium Chloride 10 meq/ (Dextrose/Sodium Chloride) 1,005 mls @ 60 mls/hr IVPB ASDIR [facility] Last Admin: 08/16/18 10:00 Dose: 60 mls/hr Megestrol Acetate (Megace Oral Suspension -) 400 mg PO DAILY [facility] Last Admin: 08/16/18 09:17 Dose: 400 mg Metoprolol Succinate (Toprol Xl -) 50 mg PO BID [facility] Last Admin: 08/16/18 21:41 Dose: 50 mg Metoprolol Tartrate (Lopressor Injection -) 5 mg IVPUSH Q4H PRN PRN Reason: TACHYCARDIA Last Admin: 08/15/18 01:19 Dose: 5 mg Multivitamins/Minerals/Vitamin C (Tab-A-Vit -) 1 tab PO DAILY [facility] Last Admin: 08/16/18 09:17 Dose: 1 tab Non-Formulary Med( Galantamine Hbr 8 Mg Tab 1 each PO BID [facility] Last Admin: 08/16/18 21:43 Dose: 1 each Ondansetron HCl (Zofran Injection) 4 mg IVPUSH Q6H PRN PRN Reason: NAUSEA AND/OR VOMITING Thiamine HCl (Vitamin B1 Injection -) 250 mg IVPB TID [facility] Stop: 08/18/18 15:59 Last Admin: 08/16/18 21:41 Dose: 250 mg - Objective Vital Signs: Vital Signs Temperature 98.9 F 08/16/18 22:00 Pulse Rate 102 H 08/16/18 22:00 Respiratory Rate 20 08/16/18 22:00 Blood Pressure 100/53 L 08/16/18 22:00 O2 Sat by Pulse Oximetry (%) 100 08/16/18 21:00 Labs: CBC, BMP 08/15/18 07:00 08/15/18 07:00 Problem List - Problems (1) Rapid atrial fibrillation Code(s): I48.91 - UNSPECIFIED ATRIAL FIBRILLATION (2) UTI (urinary tract infection) Code(s): N39.0 - URINARY TRACT INFECTION, SITE NOT SPECIFIED Qualifiers: Urinary tract infection type: acute cystitis Hematuria presence: with hematuria Qualified Code(s): N30.01 - Acute cystitis with hematuria (3) APPLE (acute kidney injury) Code(s): N17.9 - ACUTE KIDNEY FAILURE, UNSPECIFIED (4) Dementia Code(s): F03.90 - UNSPECIFIED DEMENTIA WITHOUT BEHAVIORAL DISTURBANCE (5) Severe protein-calorie malnutrition Code(s): E43 - UNSPECIFIED SEVERE PROTEIN-CALORIE MALNUTRITION
[2018-08-17] MEDS ORDERED: DEXTROSE 5%-WATER - 50 ML IVPB ONE ×4 (00:35→20:58)
[2018-08-17] MEDS ORDERED: PIPERACILLIN/TAZOBACTAM 3.375 GM VIAL IVPB ONE ×4 (00:35→20:58)
[2018-08-17] MEDS: PIPERACILLIN/TAZOB 3.375 GM 3.375 GM in DEXTROSE 5%-WATER - 50 ML IVPB SCH ×3 (01:06→17:29)
[2018-08-17] MEDS: DOCUSATE SODIUM 100 MG CAPSULE (FP) PO SCH ×3 (05:48→21:19)
[2018-08-17] MEDS: THIAMINE HCL 200 MG/2 ML VIAL IVPB SCH ×3 (05:49→21:18)
[2018-08-17 07:38] LABS: BASO % 0.4 % (0-2.0); EOS % 1.1 % (0-4.5); HEMATOCRIT 27.7 % (32.4-45.2); HEMOGLOBIN 9.1 GM/dL (10.7-15.3); LYMPH % 9.1 % (8-40); MCH 35.1 pg (25.7-33.7); MCHC 32.9 g/dl (32.0-36.0); MEAN CELL VOLUME 106.7 fl (80-96); MEAN PLT VOLUME 8.4 fl (7.5-11.1); MONO % 6.8 % (3.8-10.2); NEUT % 82.6 % (42.8-82.8); PLATELET COUNT 409 K/MM3 (134-434); RBC 2.59 M/mm3 (3.60-5.2); RDW 14.5 % (11.6-15.6); WHITE BLOOD COUNT 13.9 K/mm3 (4.0-10.0)
[2018-08-17 08:04] LABS: ALBUMIN 1.4 g/dl (3.4-5.0); ALK PHOS 25 U/L (45-117); ANION GAP 8 MMOL/L (8-16); BILIRUBIN,TOTAL 0.6 mg/dL (0.2-1); BLOOD UREA NITROGEN 9 mg/dL (7-18); CALCIUM 7.7 mg/dL (8.5-10.1); CHLORIDE 110 mmol/L (98-107); CO2 23 mmol/L (21-32); CREATININE 0.7 mg/dL (0.55-1.3); GLUCOSE,RANDOM 71 mg/dL (74-106); POTASSIUM 3.3 mmol/L (3.5-5.1); SGOT/AST 14 U/L (15-37); SGPT/ALT < 6 U/L (13-61); SODIUM 141 mmol/L (136-145); TOT PROT 4.6 g/dl (6.4-8.2)
[2018-08-17] MEDS: metoPROLOL SUCCINATE 25 MG TAB.SR.24H (FP) PO SCH ×2 (10:23→21:19)
[2018-08-17] MEDS: APIXABAN 2.5 MG TABLET PO SCH ×2 (10:24→21:19)
[2018-08-17] MEDS: MULTIVITAMINS (DAILY MVI) TABLET (FP) PO SCH (10:24)
[2018-08-17] MEDS: GALANTAMINE HBR 8 MG PO SCH ×2 (10:25→21:19)
[2018-08-17] MEDS: MEGESTROL ACETATE 400 MG/10 ML UNIT DOSE CUP PO SCH (10:25)
--- NOTE | 2018-08-17 10:43 | PN ---
Progress Note, Physician History of Present Illness: stable no new issues wbc trending down - Current Medication List Current Medications: Active Medications Acetaminophen (Tylenol -) 650 mg PO Q6H PRN PRN Reason: PAIN LEVEL 1-5 Last Admin: 08/16/18 17:20 Dose: 650 mg Apixaban (Eliquis -) 2.5 mg PO BID [facility] Last Admin: 08/17/18 10:24 Dose: 2.5 mg Docusate Sodium (Colace -) 100 mg PO TID [facility] Last Admin: 08/17/18 05:48 Dose: 100 mg Piperacillin Sod/Tazobactam (Sod 3.375 gm/ Dextrose) 50 mls @ 100 mls/hr IVPB Q8H-IV [facility]; Protocol Last Admin: 08/17/18 10:25 Dose: 100 mls/hr Potassium Chloride 10 meq/ (Dextrose/Sodium Chloride) 1,005 mls @ 60 mls/hr IVPB ASDIR [facility] Last Admin: 08/16/18 10:00 Dose: 60 mls/hr Megestrol Acetate (Megace Oral Suspension -) 400 mg PO DAILY [facility] Last Admin: 08/17/18 10:25 Dose: 400 mg Metoprolol Succinate (Toprol Xl -) 50 mg PO BID [facility] Last Admin: 08/17/18 10:23 Dose: 50 mg Metoprolol Tartrate (Lopressor Injection -) 5 mg IVPUSH Q4H PRN PRN Reason: TACHYCARDIA Last Admin: 08/15/18 01:19 Dose: 5 mg Multivitamins/Minerals/Vitamin C (Tab-A-Vit -) 1 tab PO DAILY [facility] Last Admin: 08/17/18 10:24 Dose: 1 tab Non-Formulary Med( Galantamine Hbr 8 Mg Tab 1 each PO BID [facility] Last Admin: 08/17/18 10:25 Dose: 1 each Ondansetron HCl (Zofran Injection) 4 mg IVPUSH Q6H PRN PRN Reason: NAUSEA AND/OR VOMITING Thiamine HCl (Vitamin B1 Injection -) 250 mg IVPB TID [facility] Stop: 08/18/18 15:59 Last Admin: 08/17/18 05:49 Dose: 250 mg - Objective Vital Signs: Vital Signs Temperature 97.7 F 08/17/18 05:57 Pulse Rate 109 H 08/17/18 05:57 Respiratory Rate 20 08/17/18 05:57 Blood Pressure 149/87 08/17/18 05:57 O2 Sat by Pulse Oximetry (%) 100 08/16/18 21:00 Constitutional: Yes: No Distress, Calm Cardiovascular: Yes: S1, S2 Respiratory: Yes: Regular, CTA Bilaterally Gastrointestinal: Yes: Normal Bowel Sounds, Soft Musculoskeletal: Yes: WNL Extremities: Yes: WNL Neurological: Yes: Alert Psychiatric: Yes: Alert Labs: CBC, BMP 08/17/18 06:20 08/17/18 06:20 Assessment/Plan Problem List - Problems (1) Rapid atrial fibrillation Code(s): I48.91 - UNSPECIFIED ATRIAL FIBRILLATION (2) UTI (urinary tract infection) Code(s): N39.0 - URINARY TRACT INFECTION, SITE NOT SPECIFIED Qualifiers: Urinary tract infection type: acute cystitis Hematuria presence: with hematuria Qualified Code(s): N30.01 - Acute cystitis with hematuria (3) APPLE (acute kidney injury) Code(s): N17.9 - ACUTE KIDNEY FAILURE, UNSPECIFIED (4) Dementia Code(s): F03.90 - UNSPECIFIED DEMENTIA WITHOUT BEHAVIORAL DISTURBANCE dirrhoea leukocytosis plan continue abx monitor closely wbc trending down final plan awaited
[2018-08-17 11:58] LABS: ANISOCYTOSIS 0; MACROCYTOSIS 1+; OVALOCYTE 1+; PLATELET ESTIMATE NORMAL
--- NOTE | 2018-08-17 15:59 | PN ---
Progress Note, Physician History of Present Illness: Pt seen and examined at bedside. Called for hypokalemia. - Current Medication List Current Medications: Active Medications Acetaminophen (Tylenol -) 650 mg PO Q6H PRN PRN Reason: PAIN LEVEL 1-5 Last Admin: 08/16/18 17:20 Dose: 650 mg Apixaban (Eliquis -) 2.5 mg PO BID [facility] Last Admin: 08/17/18 10:24 Dose: 2.5 mg Docusate Sodium (Colace -) 100 mg PO TID [facility] Last Admin: 08/17/18 05:48 Dose: 100 mg Piperacillin Sod/Tazobactam (Sod 3.375 gm/ Dextrose) 50 mls @ 100 mls/hr IVPB Q8H-IV [facility]; Protocol Last Admin: 08/17/18 10:25 Dose: 100 mls/hr Potassium Chloride 10 meq/ (Dextrose/Sodium Chloride) 1,005 mls @ 60 mls/hr IVPB ASDIR [facility] Last Admin: 08/16/18 10:00 Dose: 60 mls/hr Megestrol Acetate (Megace Oral Suspension -) 400 mg PO DAILY [facility] Last Admin: 08/17/18 10:25 Dose: 400 mg Metoprolol Succinate (Toprol Xl -) 50 mg PO BID [facility] Last Admin: 08/17/18 10:23 Dose: 50 mg Metoprolol Tartrate (Lopressor Injection -) 5 mg IVPUSH Q4H PRN PRN Reason: TACHYCARDIA Last Admin: 08/15/18 01:19 Dose: 5 mg Multivitamins/Minerals/Vitamin C (Tab-A-Vit -) 1 tab PO DAILY [facility] Last Admin: 08/17/18 10:24 Dose: 1 tab Non-Formulary Med( Galantamine Hbr 8 Mg Tab 1 each PO BID [facility] Last Admin: 08/17/18 10:25 Dose: 1 each Ondansetron HCl (Zofran Injection) 4 mg IVPUSH Q6H PRN PRN Reason: NAUSEA AND/OR VOMITING Thiamine HCl (Vitamin B1 Injection -) 250 mg IVPB TID [facility] Stop: 08/18/18 15:59 Last Admin: 08/17/18 05:49 Dose: 250 mg - Objective Vital Signs: Vital Signs Temperature 98 F 08/17/18 13:24 Pulse Rate 120 H 05/05/19 13:24 Respiratory Rate 20 08/17/18 13:24 Blood Pressure 120/61 08/17/18 13:24 O2 Sat by Pulse Oximetry (%) 100 08/17/18 09:00 Constitutional: Yes: Calm Eyes: Yes: Conjunctiva Clear HENT: Yes: Atraumatic Neck: Yes: Supple Cardiovascular: Yes: S1, S2 Respiratory: Yes: CTA Bilaterally Gastrointestinal: Yes: Soft Genitourinary: Yes: Incontinence Musculoskeletal: Yes: Muscle Weakness Neurological: Yes: Oriented Psychiatric: Yes: Oriented Labs: CBC, BMP 08/17/18 06:20 08/17/18 06:20 Problem List - Problems (1) APPLE (acute kidney injury) Code(s): N17.9 - ACUTE KIDNEY FAILURE, UNSPECIFIED Assessment/Plan Current Medications Generic Name Dose Route Start Last Admin Trade Name Freq PRN Reason Stop Dose Admin Acetaminophen 650 mg 08/16/18 17:19 08/16/18 17:20 Tylenol - PO 650 mg Q6H PRN Administration PAIN LEVEL 1-5 Apixaban 2.5 mg 08/08/18 10:00 08/17/18 10:24 Eliquis - PO 2.5 mg BID [facility] Administration Docusate Sodium 100 mg 08/10/18 13:00 08/17/18 05:48 Colace - PO 100 mg TID [facility] Administration Piperacillin Sod/Tazobactam 50 mls @ 100 mls/hr 08/11/18 13:15 08/17/18 10:25 Sod 3.375 gm/ Dextrose IVPB 100 mls/hr Q8H-IV [facility] Administration Protocol Potassium Chloride 10 meq/ 1,005 mls @ 60 mls/hr 08/13/18 12:32 08/16/18 10: 00 Dextrose/Sodium Chloride IVPB 60 mls/hr ASDIR [facility] Administration Megestrol Acetate 400 mg 08/08/18 10:00 08/17/18 10:25 Megace Oral Suspension - PO 400 mg DAILY [facility] Administration Metoprolol Succinate 50 mg 08/08/18 10:00 08/17/18 10:23 Toprol Xl - PO 50 mg BID [facility] Administration Metoprolol Tartrate 5 mg 08/08/18 07:43 08/15/18 01:19 Lopressor Injection - IVPUSH 5 mg Q4H PRN Administration TACHYCARDIA Multivitamins/Minerals/Vitamin C 1 tab 08/08/18 10:00 08/17/18 10:24 Tab-A-Vit - PO 1 tab DAILY [facility] Administration Non-Formulary Med( 1 each 08/10/18 22:00 08/17/18 10:25 Galantamine Hbr 8 Mg PO 1 each Tab BID [facility] Administration Ondansetron HCl 4 mg 08/14/18 15:59 Zofran Injection IVPUSH Q6H PRN NAUSEA AND/OR VOMITING Thiamine HCl 250 mg 08/15/18 16:00 08/17/18 05:49 Vitamin B1 Injection - IVPB 08/18/18 15:59 250 mg TID [facility] Administration Impression 1. APPLE 2. hyperkalemia 3. htn 4. UTI 5. hld 6. dementia 7. hydronephrosis 8. nephrolithiasis 9. hypokalemia Plan - replace potassium - check mag - decrease rate of fluids - encourage PO intake Dr Ferrara
[2018-08-17] MEDS ORDERED: POTASSIUM CHLORIDE ORAL LIQUID 20 MEQ/15 ML PO ONE (16:00)
[2018-08-17] MEDS ORDERED: DEXTROSE 5%-0.45% SALINE 1,000 ML with POTASSIUM CHLORIDE 10 MEQ IVPB SCH (16:02)
[2018-08-17] MEDS ORDERED: DEXTROSE 5%-0.45% SALINE 1,000 ML with POTASSIUM CHLORIDE 20 MEQ IVPB SCH (16:02)
--- NOTE | 2018-08-17 20:34 | PN ---
Progress Note (short form) - Note Progress Note: NEUROLOGY PROGRESS: Events reviewed and discussed with Dr. Walden. X-Rays confirm a left Femur neck fracture. Dr. Chilo Duarte consulted. Pt denies pain but is confused. [facility]. No month, no year. Sl. dysarthric. Scattered petechia and ecchymoses both arms. Left leg foreshortened. WBC=16k zuatdlzwd=303m IMP: Mod. OMS Parkinsonism Toxic-metabolic encephalopathy. SUGGEST: Await ortho opinion Check coagulation profile. Chest XRay/ABG (r/o fat embolism). Thank you very much, Chilo Yates MD
[2018-08-17] MEDS: ACETAMINOPHEN 325 MG TABLET (FP) PO PRN (21:18)
--- NOTE | 2018-08-17 21:45 | PN ---
Progress Note, Physician History of Present Illness: No new complaints - Current Medication List Current Medications: Active Medications Acetaminophen (Tylenol -) 650 mg PO Q6H PRN PRN Reason: PAIN LEVEL 1-5 Last Admin: 08/17/18 21:18 Dose: 650 mg Apixaban (Eliquis -) 2.5 mg PO BID [facility] Last Admin: 08/17/18 21:19 Dose: 2.5 mg Docusate Sodium (Colace -) 100 mg PO TID [facility] Last Admin: 08/17/18 21:19 Dose: 100 mg Piperacillin Sod/Tazobactam (Sod 3.375 gm/ Dextrose) 50 mls @ 100 mls/hr IVPB Q8H-IV [facility]; Protocol Last Admin: 08/17/18 17:29 Dose: 100 mls/hr Potassium Chloride 10 meq/ (Dextrose/Sodium Chloride) 1,005 mls @ 40 mls/hr IVPB ASDIR [facility] Last Admin: 08/17/18 17:29 Dose: 40 mls/hr Megestrol Acetate (Megace Oral Suspension -) 400 mg PO DAILY [facility] Last Admin: 08/17/18 10:25 Dose: 400 mg Metoprolol Succinate (Toprol Xl -) 50 mg PO BID [facility] Last Admin: 08/17/18 21:19 Dose: 50 mg Metoprolol Tartrate (Lopressor Injection -) 5 mg IVPUSH Q4H PRN PRN Reason: TACHYCARDIA Last Admin: 08/15/18 01:19 Dose: 5 mg Multivitamins/Minerals/Vitamin C (Tab-A-Vit -) 1 tab PO DAILY [facility] Last Admin: 08/17/18 10:24 Dose: 1 tab Non-Formulary Med( Galantamine Hbr 8 Mg Tab 1 each PO BID [facility] Last Admin: 08/17/18 21:19 Dose: 1 each Ondansetron HCl (Zofran Injection) 4 mg IVPUSH Q6H PRN PRN Reason: NAUSEA AND/OR VOMITING Thiamine HCl (Vitamin B1 Injection -) 250 mg IVPB TID [facility] Stop: 08/18/18 15:59 Last Admin: 08/17/18 21:18 Dose: 250 mg - Objective Vital Signs: Vital Signs Temperature 98 F 08/17/18 19:56 Pulse Rate 111 H 08/17/18 19:56 Respiratory Rate 20 05/05/19 20:36 Blood Pressure 144/75 05/05/19 19:56 O2 Sat by Pulse Oximetry (%) 98 08/17/18 20:36 Neck: Yes: WNL, Supple Cardiovascular: Yes: Regular Rate and Rhythm, Pulse Irregular Respiratory: Yes: WNL, Regular, CTA Bilaterally Gastrointestinal: Yes: WNL, Normal Bowel Sounds, Soft Labs: CBC, BMP 08/17/18 06:20 08/17/18 06:20 Problem List - Problems (1) Rapid atrial fibrillation Assessment/Plan: Cont eliquis Cont toprol Heart rate controlled Code(s): I48.91 - UNSPECIFIED ATRIAL FIBRILLATION (2) UTI (urinary tract infection) Assessment/Plan: Antibx changed to IV zosyn WBC decreasing Cont IVF Repeat urine culture negative Code(s): N39.0 - URINARY TRACT INFECTION, SITE NOT SPECIFIED Qualifiers: Urinary tract infection type: acute cystitis Hematuria presence: with hematuria Qualified Code(s): N30.01 - Acute cystitis with hematuria (3) APPLE (acute kidney injury) Assessment/Plan: Cont IVF Resolving 8mm ureteral stone/hydronephrosis S/P ureterscopic lithotripsy Code(s): N17.9 - ACUTE KIDNEY FAILURE, UNSPECIFIED (4) HTN (hypertension) Assessment/Plan: BP stable Pt is on metoprolol Code(s): I10 - ESSENTIAL (PRIMARY) HYPERTENSION (5) Severe protein-calorie malnutrition Code(s): E43 - UNSPECIFIED SEVERE PROTEIN-CALORIE MALNUTRITION (6) Dementia Code(s): F03.90 - UNSPECIFIED DEMENTIA WITHOUT BEHAVIORAL DISTURBANCE
[2018-08-18] MEDS: PIPERACILLIN/TAZOB 3.375 GM 3.375 GM in DEXTROSE 5%-WATER - 50 ML IVPB SCH ×2 (01:43→09:08)
[2018-08-18] MEDS: THIAMINE HCL 200 MG/2 ML VIAL IVPB SCH ×2 (05:24→13:15)
[2018-08-18] MEDS: DOCUSATE SODIUM 100 MG CAPSULE (FP) PO SCH ×3 (05:24→21:24)
[2018-08-18 07:49] LABS: ALBUMIN 1.5 g/dl (3.4-5.0); ALK PHOS 28 U/L (45-117); ANION GAP 8 MMOL/L (8-16); BILIRUBIN,TOTAL 0.4 mg/dL (0.2-1); BLOOD UREA NITROGEN 7 mg/dL (7-18); CALCIUM 7.5 mg/dL (8.5-10.1); CHLORIDE 109 mmol/L (98-107); CO2 23 mmol/L (21-32); CREATININE 0.7 mg/dL (0.55-1.3); GLUCOSE,RANDOM 74 mg/dL (74-106); MAGNESIUM 1.6 mg/dL (1.8-2.4); POTASSIUM 3.2 mmol/L (3.5-5.1); SGOT/AST 18 U/L (15-37); SGPT/ALT 10 U/L (13-61); SODIUM 140 mmol/L (136-145); TOT PROT 4.9 g/dl (6.4-8.2)
[2018-08-18 07:58] LABS: BASO % 0.5 % (0-2.0); EOS % 1.7 % (0-4.5); HEMATOCRIT 27.9 % (32.4-45.2); HEMOGLOBIN 9.2 GM/dL (10.7-15.3); LYMPH % 9.3 % (8-40); MCH 34.8 pg (25.7-33.7); MEAN CELL VOLUME 105.5 fl (80-96); MEAN PLT VOLUME 8.2 fl (7.5-11.1); NEUT % 82.5 % (42.8-82.8); PLATELET COUNT 447 K/MM3 (134-434); RBC 2.65 M/mm3 (3.60-5.2); RDW 14.5 % (11.6-15.6); WHITE BLOOD COUNT 13.6 K/mm3 (4.0-10.0)
[2018-08-18 08:20] LABS: INR 1.98 (0.83-1.09); PROTHROMBIN TIME (PATIENT) 23.5 SEC (9.7-13.0)
[2018-08-18 08:22] LABS: ACTIVATED PTT 35.7 SECONDS (25.2-36.5)
[2018-08-18] MEDS ORDERED: DEXTROSE 5%-WATER - 50 ML IVPB ONE (08:30)
[2018-08-18] MEDS ORDERED: PIPERACILLIN/TAZOBACTAM 3.375 GM VIAL IVPB ONE (08:30)
[2018-08-18] MEDS: metoPROLOL SUCCINATE 25 MG TAB.SR.24H (FP) PO SCH ×2 (09:08→21:25)
[2018-08-18] MEDS: MEGESTROL ACETATE 400 MG/10 ML UNIT DOSE CUP PO SCH (09:08)
[2018-08-18] MEDS: MULTIVITAMINS (DAILY MVI) TABLET (FP) PO SCH (09:08)
[2018-08-18] MEDS: GALANTAMINE HBR 8 MG PO SCH ×2 (09:08→21:24)
[2018-08-18] MEDS: APIXABAN 2.5 MG TABLET PO SCH ×2 (09:09→21:23)
--- NOTE | 2018-08-18 09:16 | CON.ORTH ---
Consult Reason for Consultation:: ? femoral neck fx - Past Medical History [employer]WORKING [employer]: Yes: Dementia Cardio/Vascular: Yes: HTN, Hyperlipdemia - Alcohol/Substance Use Hx Alcohol Use: No - Smoking History Smoking history: Never smoked Have you smoked in the past 12 months: No Aproximately how many cigarettes per day: 0 Home Medications - Allergies Allergies/Adverse Reactions: Allergies Allergy/AdvReac Type Severity Reaction Status Date / Time No Known Allergies Allergy Verified 08/04/18 08:31 - Home Medications Home Medications: Ambulatory Orders Multivit-Min/FA/Lycopene/Lut [Centrum Silver Tablet] 1 each PO DAILY 04/01/13 Tramadol HCl 50 mg PO TID 04/01/13 Bisoprolol 2.5MG/Hctz 6.25MG [Ziac (Nf)] 1 tab PO DAILY 07/27/18 Megestrol Acetate [Megace -] 20 mg PO QID 07/27/18 Timolol [Betimol] 5 ml OP DAILY 07/27/18 Galantamine HBr [Razadyne ER] 8 mg PO BID 08/05/18 Physical Exam for Ortho Vital Signs: Vital Signs Temperature 98.5 F 08/18/18 06:35 Pulse Rate 110 H 08/18/18 06:35 Respiratory Rate 20 08/18/18 06:35 Blood Pressure 149/83 08/18/18 06:35 O2 Sat by Pulse Oximetry (%) 98 08/17/18 20:36 Labs: CBC, BMP 08/18/18 06:48 08/18/18 06:48 INR, PTT INR 1.98 (0.83-1.09) H 08/18/18 06:48 - Lower Extremity Hip: Yes: Left, Decreased ROM, Leg Shortened, Other (LLE- + shortening 2 inches , + b/l LE contractures,decr rom but has no pain with any motion, nvi) Imaging - Results X-ray: Report Reviewed, Image Reviewed Assessment/Plan 87yo F hx osteoporosis, spinal stenosis, HTN, dementia, and hyperlipidemia. Ortho was consulted for left femoral neck fx on xrays. Per pts daughter pt was ambulating with a walker 2 weeks ago. There was no fall/injury. Pt denies any hip pain at the present time although not a good historian. She does state that she has LBP. Denies any numbness/tingling. 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 Duarte in detail No surgical intervention PT suzanne PWB will follow
[2018-08-18] MEDS ORDERED: POTASSIUM CHLORIDE ORAL LIQUID 20 MEQ/15 ML PO ONE (09:45)
[2018-08-18] MEDS: DEXTROSE 5%-0.45% SALINE 1,000 ML with POTASSIUM CHLORIDE 10 MEQ IVPB SCH (10:01)
[2018-08-18] MEDS: MAGNESIUM OXIDE 400 MG TABLET (FP) PO SCH ×2 (10:03→21:24)
--- NOTE | 2018-08-18 11:30 | PN ---
Progress Note, Physician History of Present Illness: was c/o of left hip pain xray showed fracture ortho on case wbc still high - Current Medication List Current Medications: Active Medications Acetaminophen (Tylenol -) 650 mg PO Q6H PRN PRN Reason: PAIN LEVEL 1-5 Last Admin: 08/17/18 21:18 Dose: 650 mg Apixaban (Eliquis -) 2.5 mg PO BID [facility] Last Admin: 08/18/18 09:09 Dose: 2.5 mg Docusate Sodium (Colace -) 100 mg PO TID [facility] Last Admin: 08/18/18 05:24 Dose: 100 mg Piperacillin Sod/Tazobactam (Sod 3.375 gm/ Dextrose) 50 mls @ 100 mls/hr IVPB Q8H-IV [facility]; Protocol Last Admin: 08/18/18 09:08 Dose: 100 mls/hr Magnesium Oxide (Mag-Ox -) 400 mg PO BID [facility] Last Admin: 08/18/18 10:03 Dose: 400 mg Megestrol Acetate (Megace Oral Suspension -) 400 mg PO DAILY [facility] Last Admin: 08/18/18 09:08 Dose: 400 mg Metoprolol Succinate (Toprol Xl -) 50 mg PO BID [facility] Last Admin: 08/18/18 09:08 Dose: 50 mg Metoprolol Tartrate (Lopressor Injection -) 5 mg IVPUSH Q4H PRN PRN Reason: TACHYCARDIA Last Admin: 08/15/18 01:19 Dose: 5 mg Multivitamins/Minerals/Vitamin C (Tab-A-Vit -) 1 tab PO DAILY [facility] Last Admin: 08/18/18 09:08 Dose: 1 tab Non-Formulary Med( Galantamine Hbr 8 Mg Tab 1 each PO BID [facility] Last Admin: 08/18/18 09:08 Dose: 1 each Ondansetron HCl (Zofran Injection) 4 mg IVPUSH Q6H PRN PRN Reason: NAUSEA AND/OR VOMITING Thiamine HCl (Vitamin B1 Injection -) 250 mg IVPB TID [facility] Stop: 08/18/18 15:59 Last Admin: 08/18/18 05:24 Dose: 250 mg - Objective Vital Signs: Vital Signs Temperature 98.6 F 08/18/18 09:54 Pulse Rate 77 08/18/18 09:54 Respiratory Rate 20 08/18/18 09:54 Blood Pressure 146/79 08/18/18 09:54 O2 Sat by Pulse Oximetry (%) 98 08/18/18 09:00 Constitutional: Yes: Calm, Mild Distress Cardiovascular: Yes: S1, S2 Respiratory: Yes: Regular, CTA Bilaterally Gastrointestinal: Yes: Normal Bowel Sounds, Soft Musculoskeletal: Yes: WNL Extremities: Yes: WNL Neurological: Yes: Alert, Oriented Psychiatric: Yes: Alert, Oriented Labs: CBC, BMP 08/18/18 06:48 08/18/18 06:48 INR, PTT INR 1.98 (0.83-1.09) H 08/18/18 06:48 Assessment/Plan Problem List - Problems (1) Rapid atrial fibrillation Code(s): I48.91 - UNSPECIFIED ATRIAL FIBRILLATION (2) UTI (urinary tract infection) Code(s): N39.0 - URINARY TRACT INFECTION, SITE NOT SPECIFIED Qualifiers: Urinary tract infection type: acute cystitis Hematuria presence: with hematuria Qualified Code(s): N30.01 - Acute cystitis with hematuria (3) APPLE (acute kidney injury) Code(s): N17.9 - ACUTE KIDNEY FAILURE, UNSPECIFIED (4) Dementia Code(s): F03.90 - UNSPECIFIED DEMENTIA WITHOUT BEHAVIORAL DISTURBANCE dirrhoea leukocytosis plan continue abx post cystoscopy stent placed wbc still high will d/w the team will change to oral today
[2018-08-18 15:19] LABS: MACROCYTOSIS 1+; OVALOCYTE 1+; PLATELET ESTIMATE ADEQUATE
--- NOTE | 2018-08-18 16:04 | PN ---
Progress Note (short form) - Note Progress Note: s: no chest pain, palps, dizziness, dyspnea Current Medications Acetaminophen (Tylenol -) 650 mg PO Q6H PRN PRN Reason: PAIN LEVEL 1-5 Last Admin: 08/17/18 21:18 Dose: 650 mg Amoxicillin/Clavulanate Potassium (Augmentin - 875mg Tablet) 1 tab PO BID@0800, 1730 [facility] Apixaban (Eliquis -) 2.5 mg PO BID [facility] Last Admin: 08/18/18 09:09 Dose: 2.5 mg Docusate Sodium (Colace -) 100 mg PO TID [facility] Last Admin: 08/18/18 13:16 Dose: 100 mg Magnesium Oxide (Mag-Ox -) 400 mg PO BID [facility] Last Admin: 08/18/18 10:03 Dose: 400 mg Megestrol Acetate (Megace Oral Suspension -) 400 mg PO DAILY [facility] Last Admin: 08/18/18 09:08 Dose: 400 mg Metoprolol Succinate (Toprol Xl -) 50 mg PO BID [facility] Last Admin: 08/18/18 09:08 Dose: 50 mg Metoprolol Tartrate (Lopressor Injection -) 5 mg IVPUSH Q4H PRN PRN Reason: TACHYCARDIA Last Admin: 08/15/18 01:19 Dose: 5 mg Multivitamins/Minerals/Vitamin C (Tab-A-Vit -) 1 tab PO DAILY [facility] Last Admin: 08/18/18 09:08 Dose: 1 tab Non-Formulary Med( Galantamine Hbr 8 Mg Tab 1 each PO BID [facility] Last Admin: 08/18/18 09:08 Dose: 1 each Ondansetron HCl (Zofran Injection) 4 mg IVPUSH Q6H PRN PRN Reason: NAUSEA AND/OR VOMITING Vital Signs Period Temp Pulse Resp BP Sys/Deluna Pulse Ox Last 24 Hr 98 F-98.6 F 77-111 20-20 114-149/72-83 98-98 Constitutional: Yes: No Distress Cardiovascular: Yes: Pulse Irregular Respiratory: Yes: Rhonchi, Other (no active wheezing.) Gastrointestinal: Yes: Soft, nt, nd no JVD Edema: No alert, not agitated no jaundice Assessment/Plan Assessment/Plan 1. Afib: - nl LV function on echo - cont toprol 50 bid for rate control - [id number] 4, anticoagulation indicated fdc, continue eliquis 2. APPLE -renal following, likely prerenal -improved with IVF 3. UTI - manage per primary 4. HTN - started metoprolol as above for rate control
[2018-08-18] MEDS: AMOX TR/POT CLAV 875MG/125MG TABLETS (FP) PO SCH (16:37)
--- NOTE | 2018-08-18 17:57 | PN ---
Progress Note, Physician History of Present Illness: Pt seen and examined at bedside. She is awake and alert. She denies shortness of breath. - Current Medication List Current Medications: Active Medications Acetaminophen (Tylenol -) 650 mg PO Q6H PRN PRN Reason: PAIN LEVEL 1-5 Last Admin: 08/17/18 21:18 Dose: 650 mg Amoxicillin/Clavulanate Potassium (Augmentin - 875mg Tablet) 1 tab PO BID@0800, 1730 [facility] Last Admin: 08/18/18 16:37 Dose: 1 tab Apixaban (Eliquis -) 2.5 mg PO BID [facility] Last Admin: 08/18/18 09:09 Dose: 2.5 mg Docusate Sodium (Colace -) 100 mg PO TID [facility] Last Admin: 08/18/18 13:16 Dose: 100 mg Magnesium Oxide (Mag-Ox -) 400 mg PO BID [facility] Last Admin: 08/18/18 10:03 Dose: 400 mg Megestrol Acetate (Megace Oral Suspension -) 400 mg PO DAILY [facility] Last Admin: 08/18/18 09:08 Dose: 400 mg Metoprolol Succinate (Toprol Xl -) 50 mg PO BID [facility] Last Admin: 08/18/18 09:08 Dose: 50 mg Metoprolol Tartrate (Lopressor Injection -) 5 mg IVPUSH Q4H PRN PRN Reason: TACHYCARDIA Last Admin: 08/15/18 01:19 Dose: 5 mg Multivitamins/Minerals/Vitamin C (Tab-A-Vit -) 1 tab PO DAILY [facility] Last Admin: 08/18/18 09:08 Dose: 1 tab Non-Formulary Med( Galantamine Hbr 8 Mg Tab 1 each PO BID [facility] Last Admin: 08/18/18 09:08 Dose: 1 each Ondansetron HCl (Zofran Injection) 4 mg IVPUSH Q6H PRN PRN Reason: NAUSEA AND/OR VOMITING - Objective Vital Signs: Vital Signs Temperature 98.5 F 08/18/18 14:22 Pulse Rate 77 08/18/18 09:54 Respiratory Rate 20 08/18/18 14:22 Blood Pressure 114/72 08/18/18 14:22 O2 Sat by Pulse Oximetry (%) 98 08/18/18 09:00 Constitutional: Yes: Calm Eyes: Yes: Conjunctiva Clear Cardiovascular: Yes: S1, S2 Respiratory: Yes: CTA Bilaterally Gastrointestinal: Yes: Soft Genitourinary: Yes: WNL Edema: No Neurological: Yes: Oriented Psychiatric: Yes: Oriented Labs: CBC, BMP 08/18/18 06:48 08/18/18 06:48 INR, PTT INR 1.98 (0.83-1.09) H 08/18/18 06:48 Problem List - Problems (1) APPLE (acute kidney injury) Code(s): N17.9 - ACUTE KIDNEY FAILURE, UNSPECIFIED Assessment/Plan Current Medications Generic Name Dose Route Start Last Admin Trade Name Freq PRN Reason Stop Dose Admin Acetaminophen 650 mg 08/16/18 17:19 08/17/18 21:18 Tylenol - PO 650 mg Q6H PRN Administration PAIN LEVEL 1-5 Amoxicillin/Clavulanate Potassium 1 tab 08/18/18 17:30 08/18/18 16:37 Augmentin - 875mg Tablet PO 1 tab BID@0800,1730 [facility] Administration Apixaban 2.5 mg 08/08/18 10:00 08/18/18 09:09 Eliquis - PO 2.5 mg BID [facility] Administration Docusate Sodium 100 mg 08/10/18 13:00 08/18/18 13:16 Colace - PO 100 mg TID [facility] Administration Magnesium Oxide 400 mg 08/18/18 10:00 08/18/18 10:03 Mag-Ox - PO 400 mg BID [facility] Administration Megestrol Acetate 400 mg 08/08/18 10:00 08/18/18 09:08 Megace Oral Suspension - PO 400 mg DAILY [facility] Administration Metoprolol Succinate 50 mg 08/08/18 10:00 08/18/18 09:08 Toprol Xl - PO 50 mg BID [facility] Administration Metoprolol Tartrate 5 mg 08/08/18 07:43 08/15/18 01:19 Lopressor Injection - IVPUSH 5 mg Q4H PRN Administration TACHYCARDIA Multivitamins/Minerals/Vitamin C 1 tab 08/08/18 10:00 08/18/18 09:08 Tab-A-Vit - PO 1 tab DAILY [facility] Administration Non-Formulary Med( 1 each 08/10/18 22:00 08/18/18 09:08 Galantamine Hbr 8 Mg PO 1 each Tab BID [facility] Administration Ondansetron HCl 4 mg 08/14/18 15:59 Zofran Injection IVPUSH Q6H PRN NAUSEA AND/OR VOMITING Impression 1. APPLE 2. hyperkalemia 3. htn 4. UTI 5. hld 6. dementia 7. hydronephrosis 8. nephrolithiasis 9. hypokalemia Plan - replace potassium and mag - d/c fuids - encourage PO intake - discussed with family Dr Ferrara
--- NOTE | 2018-08-19 02:21 | PN ---
Progress Note, Physician History of Present Illness: Pt seen and examined 08/18/18 however note is being entered now - Current Medication List Current Medications: Active Medications Acetaminophen (Tylenol -) 650 mg PO Q6H PRN PRN Reason: PAIN LEVEL 1-5 Last Admin: 08/17/18 21:18 Dose: 650 mg Amoxicillin/Clavulanate Potassium (Augmentin - 875mg Tablet) 1 tab PO BID@0800, 1730 [facility] Last Admin: 08/18/18 16:37 Dose: 1 tab Apixaban (Eliquis -) 2.5 mg PO BID [facility] Last Admin: 08/18/18 21:23 Dose: 2.5 mg Docusate Sodium (Colace -) 100 mg PO TID [facility] Last Admin: 08/18/18 21:24 Dose: 100 mg Magnesium Oxide (Mag-Ox -) 400 mg PO BID [facility] Last Admin: 08/18/18 21:24 Dose: 400 mg Megestrol Acetate (Megace Oral Suspension -) 400 mg PO DAILY [facility] Last Admin: 08/18/18 09:08 Dose: 400 mg Metoprolol Succinate (Toprol Xl -) 50 mg PO BID [facility] Last Admin: 08/18/18 21:25 Dose: 50 mg Metoprolol Tartrate (Lopressor Injection -) 5 mg IVPUSH Q4H PRN PRN Reason: TACHYCARDIA Last Admin: 08/15/18 01:19 Dose: 5 mg Multivitamins/Minerals/Vitamin C (Tab-A-Vit -) 1 tab PO DAILY [facility] Last Admin: 08/18/18 09:08 Dose: 1 tab Non-Formulary Med( Galantamine Hbr 8 Mg Tab 1 each PO BID [facility] Last Admin: 08/18/18 21:24 Dose: 1 each Ondansetron HCl (Zofran Injection) 4 mg IVPUSH Q6H PRN PRN Reason: NAUSEA AND/OR VOMITING - Objective Vital Signs: Vital Signs Temperature 98.5 F 08/18/18 22:00 Pulse Rate 97 H 08/18/18 22:00 Respiratory Rate 20 08/18/18 22:00 Blood Pressure 150/83 08/18/18 22:00 O2 Sat by Pulse Oximetry (%) 96 08/18/18 21:00 Labs: CBC, BMP 08/18/18 06:48 08/18/18 06:48 INR, PTT INR 1.98 (0.83-1.09) H 08/18/18 06:48 Problem List - Problems (1) Rapid atrial fibrillation Code(s): I48.91 - UNSPECIFIED ATRIAL FIBRILLATION (2) UTI (urinary tract infection) Code(s): N39.0 - URINARY TRACT INFECTION, SITE NOT SPECIFIED Qualifiers: Urinary tract infection type: acute cystitis Hematuria presence: with hematuria Qualified Code(s): N30.01 - Acute cystitis with hematuria (3) APPLE (acute kidney injury) Code(s): N17.9 - ACUTE KIDNEY FAILURE, UNSPECIFIED (4) HTN (hypertension) Code(s): I10 - ESSENTIAL (PRIMARY) HYPERTENSION (5) Severe protein-calorie malnutrition Code(s): E43 - UNSPECIFIED SEVERE PROTEIN-CALORIE MALNUTRITION (6) Dementia Code(s): F03.90 - UNSPECIFIED DEMENTIA WITHOUT BEHAVIORAL DISTURBANCE
[2018-08-19] MEDS: DOCUSATE SODIUM 100 MG CAPSULE (FP) PO SCH ×3 (05:45→21:24)
[2018-08-19 07:36] LABS: BASO % 0.5 % (0-2.0); EOS % 0.8 % (0-4.5); HEMATOCRIT 29.7 % (32.4-45.2); HEMOGLOBIN 9.7 GM/dL (10.7-15.3); LYMPH % 8.8 % (8-40); MCH 34.3 pg (25.7-33.7); MCHC 32.7 g/dl (32.0-36.0); MEAN CELL VOLUME 105.1 fl (80-96); MEAN PLT VOLUME 8.1 fl (7.5-11.1); MONO % 5.4 % (3.8-10.2); NEUT % 84.5 % (42.8-82.8); PLATELET COUNT 499 K/MM3 (134-434); RBC 2.82 M/mm3 (3.60-5.2); RDW 15.1 % (11.6-15.6); WHITE BLOOD COUNT 18.3 K/mm3 (4.0-10.0)
[2018-08-19 08:31] LABS: ALBUMIN 1.6 g/dl (3.4-5.0); ALK PHOS 33 U/L (45-117); ANION GAP 10 MMOL/L (8-16); BILIRUBIN,TOTAL 0.5 mg/dL (0.2-1); BLOOD UREA NITROGEN 8 mg/dL (7-18); CALCIUM 7.7 mg/dL (8.5-10.1); CHLORIDE 109 mmol/L (98-107); CO2 23 mmol/L (21-32); CREATININE 0.6 mg/dL (0.55-1.3); GLUCOSE,RANDOM 74 mg/dL (74-106); POTASSIUM 3.4 mmol/L (3.5-5.1); SGOT/AST 25 U/L (15-37); SGPT/ALT 12 U/L (13-61); SODIUM 142 mmol/L (136-145); TOT PROT 5.3 g/dl (6.4-8.2)
[2018-08-19] MEDS: AMOX TR/POT CLAV 875MG/125MG TABLETS (FP) PO SCH ×2 (08:49→16:46)
[2018-08-19] MEDS: metoPROLOL SUCCINATE 25 MG TAB.SR.24H (FP) PO SCH ×2 (08:50→09:00)
[2018-08-19] MEDS ORDERED: PT OWN MED DRAWER 7, Y5N ONE (09:02)
[2018-08-19] MEDS: GALANTAMINE HBR 8 MG PO SCH ×2 (09:16→21:25)
[2018-08-19] MEDS: APIXABAN 2.5 MG TABLET PO SCH ×2 (09:16→21:24)
[2018-08-19] MEDS: MULTIVITAMINS (DAILY MVI) TABLET (FP) PO SCH (09:16)
[2018-08-19] MEDS: MEGESTROL ACETATE 400 MG/10 ML UNIT DOSE CUP PO SCH (09:16)
[2018-08-19] MEDS: MAGNESIUM OXIDE 400 MG TABLET (FP) PO SCH ×2 (09:16→21:24)
[2018-08-19] MEDS ORDERED: POTASSIUM CHLORIDE ORAL LIQUID 20 MEQ/15 ML PO ONE ×2 (10:00→14:45)
[2018-08-19 11:08] LABS: MAGNESIUM 1.5 mg/dL (1.8-2.4)
--- NOTE | 2018-08-19 11:21 | PN ---
Progress Note, Physician History of Present Illness: no new issues wants to go home - Current Medication List Current Medications: Active Medications Acetaminophen (Tylenol -) 650 mg PO Q6H PRN PRN Reason: PAIN LEVEL 1-5 Last Admin: 08/17/18 21:18 Dose: 650 mg Amoxicillin/Clavulanate Potassium (Augmentin - 875mg Tablet) 1 tab PO BID@0800, 1730 [facility] Last Admin: 08/19/18 08:49 Dose: 1 tab Apixaban (Eliquis -) 2.5 mg PO BID [facility] Last Admin: 08/19/18 09:16 Dose: 2.5 mg Docusate Sodium (Colace -) 100 mg PO TID [facility] Last Admin: 08/19/18 05:45 Dose: 100 mg Magnesium Oxide (Mag-Ox -) 400 mg PO BID [facility] Last Admin: 08/19/18 09:16 Dose: 400 mg Megestrol Acetate (Megace Oral Suspension -) 400 mg PO DAILY [facility] Last Admin: 08/19/18 09:16 Dose: 400 mg Metoprolol Succinate (Toprol Xl -) 50 mg PO BID [facility] Last Admin: 08/19/18 09:00 Dose: Not Given Metoprolol Tartrate (Lopressor Injection -) 5 mg IVPUSH Q4H PRN PRN Reason: TACHYCARDIA Last Admin: 08/15/18 01:19 Dose: 5 mg Multivitamins/Minerals/Vitamin C (Tab-A-Vit -) 1 tab PO DAILY [facility] Last Admin: 08/19/18 09:16 Dose: 1 tab Non-Formulary Med( Galantamine Hbr 8 Mg Tab 1 each PO BID [facility] Last Admin: 08/19/18 09:16 Dose: 1 each Ondansetron HCl (Zofran Injection) 4 mg IVPUSH Q6H PRN PRN Reason: NAUSEA AND/OR VOMITING - Objective Vital Signs: Vital Signs Temperature 98.3 F 08/19/18 06:00 Pulse Rate 140 H 08/19/18 08:26 Respiratory Rate 18 08/19/18 08:26 Blood Pressure 164/96 08/19/18 08:26 O2 Sat by Pulse Oximetry (%) 96 08/18/18 21:00 Constitutional: Yes: No Distress, Calm Cardiovascular: Yes: S1, S2 Respiratory: Yes: Regular, CTA Bilaterally Musculoskeletal: Yes: WNL Extremities: Yes: Other Neurological: Yes: Alert, Oriented Psychiatric: Yes: Alert, Oriented Labs: CBC, BMP 08/19/18 06:45 08/19/18 06:45 INR, PTT INR 1.98 (0.83-1.09) H 08/18/18 06:48 Assessment/Plan Problem List - Problems (1) Rapid atrial fibrillation Code(s): I48.91 - UNSPECIFIED ATRIAL FIBRILLATION (2) UTI (urinary tract infection) Code(s): N39.0 - URINARY TRACT INFECTION, SITE NOT SPECIFIED Qualifiers: Urinary tract infection type: acute cystitis Hematuria presence: with hematuria Qualified Code(s): N30.01 - Acute cystitis with hematuria (3) APPLE (acute kidney injury) Code(s): N17.9 - ACUTE KIDNEY FAILURE, UNSPECIFIED (4) Dementia Code(s): F03.90 - UNSPECIFIED DEMENTIA WITHOUT BEHAVIORAL DISTURBANCE dirrhoea leukocytosis plan continue oral abx wbc has jumped up will see what is it tomorrow then ill decided
[2018-08-19 11:55] LABS: ANISOCYTOSIS 1+; MACROCYTOSIS 1+; PLATELET ESTIMATE INCREASED
--- NOTE | 2018-08-19 15:34 | PN ---
Progress Note (short form) - Note Progress Note: s: no chest pain, palps, dizziness, lightheadedness Current Medications Generic Name Dose Route Start Last Admin Trade Name Freq PRN Reason Stop Dose Admin Acetaminophen 650 mg 08/16/18 17:19 08/17/18 21:18 Tylenol - PO 650 mg Q6H PRN Administration PAIN LEVEL 1-5 Amoxicillin/Clavulanate Potassium 1 tab 08/18/18 17:30 08/19/18 08:49 Augmentin - 875mg Tablet PO 1 tab BID@0800,1730 [facility] Administration Apixaban 2.5 mg 08/08/18 10:00 08/19/18 09:16 Eliquis - PO 2.5 mg BID [facility] Administration Docusate Sodium 100 mg 08/10/18 13:00 08/19/18 15:22 Colace - PO 100 mg TID [facility] Administration Magnesium Oxide 400 mg 08/18/18 10:00 08/19/18 09:16 Mag-Ox - PO 400 mg BID [facility] Administration Megestrol Acetate 400 mg 08/08/18 10:00 08/19/18 09:16 Megace Oral Suspension - PO 400 mg DAILY [facility] Administration Metoprolol Succinate 100 mg 08/19/18 15:32 Toprol Xl - PO BID [facility] Metoprolol Tartrate 5 mg 08/08/18 07:43 08/15/18 01:19 Lopressor Injection - IVPUSH 5 mg Q4H PRN Administration TACHYCARDIA Multivitamins/Minerals/Vitamin C 1 tab 08/08/18 10:00 08/19/18 09:16 Tab-A-Vit - PO 1 tab DAILY [facility] Administration Non-Formulary Med( 1 each 08/10/18 22:00 08/19/18 09:16 Galantamine Hbr 8 Mg PO 1 each Tab BID [facility] Administration Ondansetron HCl 4 mg 08/14/18 15:59 Zofran Injection IVPUSH Q6H PRN NAUSEA AND/OR VOMITING Vital Signs Period Temp Pulse Resp BP Sys/Deluna Pulse Ox Last 24 Hr 98.3 F-99.2 F 97-140 18-20 123-164/76-96 96-98 Constitutional: Yes: No Distress, Calm Eyes: Yes: Conjunctiva Clear Neck: Yes: Supple, Trachea Midline Respiratory: Yes: Regular, CTA Bilaterally Gastrointestinal: Yes: Normal Bowel Sounds, Soft Cardiovascular: Yes: Pulse Irregular JVD: No Extremities: No: Cold Edema: No Integumentary: No: Jaundice Neurological: Yes: Alert Psychiatric: No: Agitated CBC, BMP 08/19/18 06:45 08/19/18 06:45 Assessment/Plan CXR: no congestion EKG: sinus with PACs, no ischemic changes EKG 08/05 afib with RVR, no ischemic changes echo 07/2018 nl LV/RV function, mild TR, mild AR 1. Afib with RVR: - no prior cardiac hx, discussed with patient's daughter - nl LV function on echo - still with occasional rvr, will increase toprol to 100 bid today - [id number] 4, anticoagulation indicated, on eliquis 2. APPLE -renal following, likely prerenal -improved with IVF 3. UTI - manage per primary 4. HTN - home meds held, started metoprolol as above for rate control
[2018-08-19] MEDS ORDERED: MAGNESIUM SULF 50% (8.12 MEQ/2 ML-1 GM VIAL) IVPB ONE (16:51)
--- NOTE | 2018-08-19 16:51 | PN ---
Progress Note, Physician History of Present Illness: Pt seen and examined at bedside. She is awake and alert. Her PO intake is improved. - Current Medication List Current Medications: Active Medications Acetaminophen (Tylenol -) 650 mg PO Q6H PRN PRN Reason: PAIN LEVEL 1-5 Last Admin: 08/17/18 21:18 Dose: 650 mg Amoxicillin/Clavulanate Potassium (Augmentin - 875mg Tablet) 1 tab PO BID@0800, 1730 [facility] Last Admin: 08/19/18 08:49 Dose: 1 tab Apixaban (Eliquis -) 2.5 mg PO BID [facility] Last Admin: 08/19/18 09:16 Dose: 2.5 mg Docusate Sodium (Colace -) 100 mg PO TID [facility] Last Admin: 08/19/18 15:22 Dose: 100 mg Magnesium Oxide (Mag-Ox -) 400 mg PO BID [facility] Last Admin: 08/19/18 09:16 Dose: 400 mg Megestrol Acetate (Megace Oral Suspension -) 400 mg PO DAILY [facility] Last Admin: 08/19/18 09:16 Dose: 400 mg Metoprolol Succinate (Toprol Xl -) 100 mg PO BID [facility] Metoprolol Tartrate (Lopressor Injection -) 5 mg IVPUSH Q4H PRN PRN Reason: TACHYCARDIA Last Admin: 08/15/18 01:19 Dose: 5 mg Multivitamins/Minerals/Vitamin C (Tab-A-Vit -) 1 tab PO DAILY [facility] Last Admin: 08/19/18 09:16 Dose: 1 tab Non-Formulary Med( Galantamine Hbr 8 Mg Tab 1 each PO BID [facility] Last Admin: 08/19/18 09:16 Dose: 1 each Ondansetron HCl (Zofran Injection) 4 mg IVPUSH Q6H PRN PRN Reason: NAUSEA AND/OR VOMITING - Objective Vital Signs: Vital Signs Temperature 99.1 F 08/19/18 14:07 Pulse Rate 121 H 08/19/18 14:07 Respiratory Rate 20 08/19/18 14:07 Blood Pressure 155/90 08/19/18 14:07 O2 Sat by Pulse Oximetry (%) 98 08/19/18 09:00 Constitutional: Yes: Calm Eyes: Yes: Conjunctiva Clear HENT: Yes: Atraumatic Neck: Yes: Supple Cardiovascular: Yes: S1, S2 Gastrointestinal: Yes: Soft Genitourinary: Yes: WNL Musculoskeletal: Yes: Muscle Weakness Edema: No Neurological: Yes: Oriented Psychiatric: Yes: Oriented Labs: CBC, BMP 08/19/18 06:45 08/19/18 06:45 INR, PTT INR 1.98 (0.83-1.09) H 08/18/18 06:48 Problem List - Problems (1) APPLE (acute kidney injury) Code(s): N17.9 - ACUTE KIDNEY FAILURE, UNSPECIFIED Assessment/Plan Current Medications Generic Name Dose Route Start Last Admin Trade Name Freq PRN Reason Stop Dose Admin Acetaminophen 650 mg 08/16/18 17:19 08/17/18 21:18 Tylenol - PO 650 mg Q6H PRN Administration PAIN LEVEL 1-5 Amoxicillin/Clavulanate Potassium 1 tab 08/18/18 17:30 08/19/18 08:49 Augmentin - 875mg Tablet PO 1 tab BID@0800,1730 [facility] Administration Apixaban 2.5 mg 08/08/18 10:00 08/19/18 09:16 Eliquis - PO 2.5 mg BID [facility] Administration Docusate Sodium 100 mg 08/10/18 13:00 08/19/18 15:22 Colace - PO 100 mg TID [facility] Administration Magnesium Oxide 400 mg 08/18/18 10:00 08/19/18 09:16 Mag-Ox - PO 400 mg BID [facility] Administration Megestrol Acetate 400 mg 08/08/18 10:00 08/19/18 09:16 Megace Oral Suspension - PO 400 mg DAILY [facility] Administration Metoprolol Succinate 100 mg 08/19/18 15:32 Toprol Xl - PO BID [facility] Metoprolol Tartrate 5 mg 08/08/18 07:43 08/15/18 01:19 Lopressor Injection - IVPUSH 5 mg Q4H PRN Administration TACHYCARDIA Multivitamins/Minerals/Vitamin C 1 tab 08/08/18 10:00 08/19/18 09:16 Tab-A-Vit - PO 1 tab DAILY [facility] Administration Non-Formulary Med( 1 each 08/10/18 22:00 08/19/18 09:16 Galantamine Hbr 8 Mg PO 1 each Tab BID [facility] Administration Ondansetron HCl 4 mg 08/14/18 15:59 Zofran Injection IVPUSH Q6H PRN NAUSEA AND/OR VOMITING Laboratory Tests 08/19/18 06:45 Potassium 3.4 L Magnesium 1.5 L Impression 1. APPLE 2. hyperkalemia 3. htn 4. UTI 5. hld 6. dementia 7. hydronephrosis 8. nephrolithiasis 9. hypokalemia Plan - replace potassium - replace mag - monitor lytes - encourage PO intake - discussed with family Dr Ferrara
--- NOTE | 2018-08-19 23:14 | PN ---
Progress Note, Physician History of Present Illness: No new complaints - Current Medication List Current Medications: Active Medications Acetaminophen (Tylenol -) 650 mg PO Q6H PRN PRN Reason: PAIN LEVEL 1-5 Last Admin: 08/17/18 21:18 Dose: 650 mg Amoxicillin/Clavulanate Potassium (Augmentin - 875mg Tablet) 1 tab PO BID@0800, 1730 [facility] Last Admin: 08/19/18 16:46 Dose: 1 tab Apixaban (Eliquis -) 2.5 mg PO BID [facility] Last Admin: 08/19/18 21:24 Dose: 2.5 mg Docusate Sodium (Colace -) 100 mg PO TID [facility] Last Admin: 08/19/18 21:24 Dose: 100 mg Magnesium Oxide (Mag-Ox -) 400 mg PO BID [facility] Last Admin: 08/19/18 21:24 Dose: 400 mg Megestrol Acetate (Megace Oral Suspension -) 400 mg PO DAILY [facility] Last Admin: 08/19/18 09:16 Dose: 400 mg Metoprolol Succinate (Toprol Xl -) 100 mg PO BID [facility] Last Admin: 08/19/18 21:26 Dose: 100 mg Metoprolol Tartrate (Lopressor Injection -) 5 mg IVPUSH Q4H PRN PRN Reason: TACHYCARDIA Last Admin: 08/15/18 01:19 Dose: 5 mg Multivitamins/Minerals/Vitamin C (Tab-A-Vit -) 1 tab PO DAILY [facility] Last Admin: 08/19/18 09:16 Dose: 1 tab Non-Formulary Med( Galantamine Hbr 8 Mg Tab 1 each PO BID [facility] Last Admin: 08/19/18 21:25 Dose: 1 each Ondansetron HCl (Zofran Injection) 4 mg IVPUSH Q6H PRN PRN Reason: NAUSEA AND/OR VOMITING Potassium Chloride (Potassium Chloride Oral Liquid) 40 meq PO DAILY [facility] - Objective Vital Signs: Vital Signs Temperature 98.8 F 08/19/18 22:00 Pulse Rate 101 H 08/19/18 22:00 Respiratory Rate 20 08/19/18 22:00 Blood Pressure 144/69 08/19/18 22:00 O2 Sat by Pulse Oximetry (%) 98 08/19/18 21:00 Cardiovascular: Yes: Tachycardia Respiratory: Yes: Diminished Gastrointestinal: Yes: WNL, Normal Bowel Sounds, Soft Edema: No Labs: CBC, BMP 08/19/18 06:45 08/19/18 06:45 INR, PTT INR 1.98 (0.83-1.09) H 08/18/18 06:48 Problem List - Problems (1) Rapid atrial fibrillation Assessment/Plan: Cont eliquis Heart rate elevated today Metoprolol dose increased Code(s): I48.91 - UNSPECIFIED ATRIAL FIBRILLATION (2) UTI (urinary tract infection) Assessment/Plan: Antibx changed to po augmentin Slight increase in WBC Will repeat WBC in am Await ID recommendations Cont IVF Repeat urine culture negative Code(s): N39.0 - URINARY TRACT INFECTION, SITE NOT SPECIFIED Qualifiers: Urinary tract infection type: acute cystitis Hematuria presence: with hematuria Qualified Code(s): N30.01 - Acute cystitis with hematuria (3) APPLE (acute kidney injury) Assessment/Plan: Cont IVF Resolving 8mm ureteral stone/hydronephrosis S/P ureterscopic lithotripsy Code(s): N17.9 - ACUTE KIDNEY FAILURE, UNSPECIFIED (4) HTN (hypertension) Assessment/Plan: BP stable Pt is on metoprolol Code(s): I10 - ESSENTIAL (PRIMARY) HYPERTENSION (5) Severe protein-calorie malnutrition Code(s): E43 - UNSPECIFIED SEVERE PROTEIN-CALORIE MALNUTRITION (6) Dementia Code(s): F03.90 - UNSPECIFIED DEMENTIA WITHOUT BEHAVIORAL DISTURBANCE
[2018-08-20] MEDS: DOCUSATE SODIUM 100 MG CAPSULE (FP) PO SCH ×3 (06:08→22:57)
[2018-08-20 07:28] LABS: BASO % 0.4 % (0-2.0); EOS % 0.8 % (0-4.5); HEMATOCRIT 28.8 % (32.4-45.2); HEMOGLOBIN 9.4 GM/dL (10.7-15.3); LYMPH % 8.3 % (8-40); MCH 34.1 pg (25.7-33.7); MCHC 32.4 g/dl (32.0-36.0); MEAN CELL VOLUME 105.2 fl (80-96); MEAN PLT VOLUME 8.1 fl (7.5-11.1); MONO % 5.7 % (3.8-10.2); NEUT % 84.8 % (42.8-82.8); PLATELET COUNT 468 K/MM3 (134-434); RBC 2.74 M/mm3 (3.60-5.2); RDW 15.1 % (11.6-15.6); WHITE BLOOD COUNT 18.1 K/mm3 (4.0-10.0)
[2018-08-20 07:52] LABS: ALBUMIN 1.6 g/dl (3.4-5.0); ALK PHOS 35 U/L (45-117); ANION GAP 6 MMOL/L (8-16); BILIRUBIN,TOTAL 0.5 mg/dL (0.2-1); BLOOD UREA NITROGEN 7 mg/dL (7-18); CALCIUM 7.8 mg/dL (8.5-10.1); CHLORIDE 107 mmol/L (98-107); CO2 26 mmol/L (21-32); CREATININE 0.5 mg/dL (0.55-1.3); GLUCOSE,RANDOM 66 mg/dL (74-106); SGOT/AST 21 U/L (15-37); SGPT/ALT 12 U/L (13-61); SODIUM 139 mmol/L (136-145); TOT PROT 5.2 g/dl (6.4-8.2)
[2018-08-20] MEDS: APIXABAN 2.5 MG TABLET PO SCH ×3 (09:50→22:58)
[2018-08-20] MEDS: MAGNESIUM OXIDE 400 MG TABLET (FP) PO SCH ×3 (09:50→22:58)
[2018-08-20] MEDS: GALANTAMINE HBR 8 MG PO SCH ×4 (09:50→22:58)
[2018-08-20] MEDS: MULTIVITAMINS (DAILY MVI) TABLET (FP) PO SCH ×2 (09:50→09:56)
[2018-08-20] MEDS ORDERED: PT OWN MED DRAWER 7, Y5N ONE ×2 (09:55→20:58)
[2018-08-20] MEDS: AMOX TR/POT CLAV 875MG/125MG TABLETS (FP) PO SCH ×3 (09:56→17:10)
[2018-08-20] MEDS: MEGESTROL ACETATE 400 MG/10 ML UNIT DOSE CUP PO SCH (09:57)
[2018-08-20] MEDS: POTASSIUM CHLORIDE ORAL LIQUID 20 MEQ/15 ML PO SCH (09:57)
[2018-08-20 10:23] LABS: ANISOCYTOSIS 1+; MACROCYTOSIS 1+; OVALOCYTE 1+; PLATELET ESTIMATE NORMAL
--- NOTE | 2018-08-20 11:12 | PN ---
Progress Note (short form) - Note Progress Note: s: no chest pain, palps, dizziness, lightheadedness Current Medications Acetaminophen (Tylenol -) 650 mg PO Q6H PRN PRN Reason: PAIN LEVEL 1-5 Last Admin: 08/17/18 21:18 Dose: 650 mg Amoxicillin/Clavulanate Potassium (Augmentin - 875mg Tablet) 1 tab PO BID@0800, 1730 [facility] Last Admin: 08/20/18 09:56 Dose: 1 tab Apixaban (Eliquis -) 2.5 mg PO BID [facility] Last Admin: 08/20/18 09:56 Dose: 2.5 mg Docusate Sodium (Colace -) 100 mg PO TID [facility] Last Admin: 08/20/18 06:08 Dose: 100 mg Magnesium Oxide (Mag-Ox -) 400 mg PO BID [facility] Last Admin: 08/20/18 09:57 Dose: 400 mg Megestrol Acetate (Megace Oral Suspension -) 400 mg PO DAILY [facility] Last Admin: 08/20/18 09:57 Dose: 400 mg Metoprolol Succinate (Toprol Xl -) 100 mg PO BID [facility] Last Admin: 08/20/18 09:58 Dose: 100 mg Metoprolol Tartrate (Lopressor Injection -) 5 mg IVPUSH Q4H PRN PRN Reason: TACHYCARDIA Last Admin: 08/15/18 01:19 Dose: 5 mg Multivitamins/Minerals/Vitamin C (Tab-A-Vit -) 1 tab PO DAILY [facility] Last Admin: 08/20/18 09:56 Dose: 1 tab Non-Formulary Med( Galantamine Hbr 8 Mg Tab 1 each PO BID [facility] Last Admin: 08/20/18 09:58 Dose: 1 each Ondansetron HCl (Zofran Injection) 4 mg IVPUSH Q6H PRN PRN Reason: NAUSEA AND/OR VOMITING Potassium Chloride (Potassium Chloride Oral Liquid) 40 meq PO DAILY [facility] Last Admin: 08/20/18 09:57 Dose: 40 meq Vital Signs Period Temp Pulse Resp BP Sys/Deluna Pulse Ox Last 24 Hr 98.8 F-99.1 F 75-121 20-20 126-155/67-90 98 Constitutional: Yes: No Distress, Calm Eyes: Yes: Conjunctiva Clear Neck: Yes: Supple, Trachea Midline Respiratory: Yes: Regular, CTA Bilaterally Gastrointestinal: Yes: Normal Bowel Sounds, Soft Cardiovascular: Yes: Pulse Irregular JVD: No Extremities: No: Cold Edema: No Integumentary: No: Jaundice Neurological: Yes: Alert Psychiatric: No: Agitated Assessment/Plan CXR: no congestion EKG: sinus with PACs, no ischemic changes EKG 08/05 afib with RVR, no ischemic changes echo 07/2018 nl LV/RV function, mild TR, mild AR 1. Afib with RVR: - no prior cardiac hx, discussed with patient's daughter - nl LV function on echo - still with occasional rvr, toprol was increased to 100 mg BID. d/w RN on JUN appears to be given however patient not always taking doses. Continue current meds - [id number], anticoagulation indicated, on eliquis 2. APPLE -renal following, likely prerenal -improved with IVF 3. UTI - manage per primary 4. HTN - home meds held, started metoprolol as above for rate control
--- NOTE | 2018-08-20 11:27 | PN ---
Progress Note, Physician History of Present Illness: wbc on the higher side patient not eating well redness noted around the cubital fossa not very warm - Current Medication List Current Medications: Active Medications Acetaminophen (Tylenol -) 650 mg PO Q6H PRN PRN Reason: PAIN LEVEL 1-5 Last Admin: 08/17/18 21:18 Dose: 650 mg Amoxicillin/Clavulanate Potassium (Augmentin - 875mg Tablet) 1 tab PO BID@0800, 1730 [facility] Last Admin: 08/20/18 09:56 Dose: 1 tab Apixaban (Eliquis -) 2.5 mg PO BID [facility] Last Admin: 08/20/18 09:56 Dose: 2.5 mg Docusate Sodium (Colace -) 100 mg PO TID [facility] Last Admin: 08/20/18 06:08 Dose: 100 mg Magnesium Oxide (Mag-Ox -) 400 mg PO BID [facility] Last Admin: 08/20/18 09:57 Dose: 400 mg Megestrol Acetate (Megace Oral Suspension -) 400 mg PO DAILY [facility] Last Admin: 08/20/18 09:57 Dose: 400 mg Metoprolol Succinate (Toprol Xl -) 100 mg PO BID [facility] Last Admin: 08/20/18 09:58 Dose: 100 mg Metoprolol Tartrate (Lopressor Injection -) 5 mg IVPUSH Q4H PRN PRN Reason: TACHYCARDIA Last Admin: 08/15/18 01:19 Dose: 5 mg Multivitamins/Minerals/Vitamin C (Tab-A-Vit -) 1 tab PO DAILY [facility] Last Admin: 08/20/18 09:56 Dose: 1 tab Non-Formulary Med( Galantamine Hbr 8 Mg Tab 1 each PO BID [facility] Last Admin: 08/20/18 09:58 Dose: 1 each Ondansetron HCl (Zofran Injection) 4 mg IVPUSH Q6H PRN PRN Reason: NAUSEA AND/OR VOMITING Potassium Chloride (Potassium Chloride Oral Liquid) 40 meq PO DAILY [facility] Last Admin: 08/20/18 09:57 Dose: 40 meq - Objective Vital Signs: Vital Signs Temperature 99 F 08/20/18 04:55 Pulse Rate 110 H 08/20/18 04:55 Respiratory Rate 20 08/20/18 04:55 Blood Pressure 147/67 08/20/18 04:55 O2 Sat by Pulse Oximetry (%) 98 08/19/18 21:00 Constitutional: Yes: No Distress, Calm Cardiovascular: Yes: S1, S2 Respiratory: Yes: Regular, CTA Bilaterally Gastrointestinal: Yes: Normal Bowel Sounds, Soft Musculoskeletal: Yes: WNL Extremities: Yes: Erythema (on the cubital fossa) Integumentary: Yes: Erythema Neurological: Yes: Alert Psychiatric: Yes: Alert Labs: CBC, BMP 08/20/18 06:05 08/20/18 06:05 INR, PTT INR 1.98 (0.83-1.09) H 08/18/18 06:48 Assessment/Plan Problem List - Problems (1) Rapid atrial fibrillation Code(s): I48.91 - UNSPECIFIED ATRIAL FIBRILLATION (2) UTI (urinary tract infection) Code(s): N39.0 - URINARY TRACT INFECTION, SITE NOT SPECIFIED Qualifiers: Urinary tract infection type: acute cystitis Hematuria presence: with hematuria Qualified Code(s): N30.01 - Acute cystitis with hematuria (3) APPLE (acute kidney injury) Code(s): N17.9 - ACUTE KIDNEY FAILURE, UNSPECIFIED (4) Dementia Code(s): F03.90 - UNSPECIFIED DEMENTIA WITHOUT BEHAVIORAL DISTURBANCE dirrhoea leukocytosis plan continue oral abx wbc still high will monitor rest as per the team
--- NOTE | 2018-08-20 11:52 | PN ---
Progress Note, Physician History of Present Illness: Pt seen and examined at bedside. She is awake and alert. She denies shortness of breath. - Current Medication List Current Medications: Active Medications Acetaminophen (Tylenol -) 650 mg PO Q6H PRN PRN Reason: PAIN LEVEL 1-5 Last Admin: 08/17/18 21:18 Dose: 650 mg Amoxicillin/Clavulanate Potassium (Augmentin - 875mg Tablet) 1 tab PO BID@0800, 1730 [facility] Last Admin: 08/20/18 09:56 Dose: 1 tab Apixaban (Eliquis -) 2.5 mg PO BID [facility] Last Admin: 08/20/18 09:56 Dose: 2.5 mg Docusate Sodium (Colace -) 100 mg PO TID [facility] Last Admin: 08/20/18 06:08 Dose: 100 mg Magnesium Oxide (Mag-Ox -) 400 mg PO BID [facility] Last Admin: 08/20/18 09:57 Dose: 400 mg Megestrol Acetate (Megace Oral Suspension -) 400 mg PO DAILY [facility] Last Admin: 08/20/18 09:57 Dose: 400 mg Metoprolol Succinate (Toprol Xl -) 100 mg PO BID [facility] Last Admin: 08/20/18 09:58 Dose: 100 mg Metoprolol Tartrate (Lopressor Injection -) 5 mg IVPUSH Q4H PRN PRN Reason: TACHYCARDIA Last Admin: 08/15/18 01:19 Dose: 5 mg Multivitamins/Minerals/Vitamin C (Tab-A-Vit -) 1 tab PO DAILY [facility] Last Admin: 08/20/18 09:56 Dose: 1 tab Non-Formulary Med( Galantamine Hbr 8 Mg Tab 1 each PO BID [facility] Last Admin: 08/20/18 09:58 Dose: 1 each Ondansetron HCl (Zofran Injection) 4 mg IVPUSH Q6H PRN PRN Reason: NAUSEA AND/OR VOMITING Potassium Chloride (Potassium Chloride Oral Liquid) 40 meq PO DAILY [facility] Last Admin: 08/20/18 09:57 Dose: 40 meq - Objective Vital Signs: Vital Signs Temperature 99 F 08/20/18 04:55 Pulse Rate 110 H 08/20/18 04:55 Respiratory Rate 20 08/20/18 04:55 Blood Pressure 147/67 08/20/18 04:55 O2 Sat by Pulse Oximetry (%) 98 08/19/18 21:00 Constitutional: Yes: Calm Eyes: Yes: Conjunctiva Clear HENT: Yes: Atraumatic Cardiovascular: Yes: S1, S2 Gastrointestinal: Yes: Normal Bowel Sounds, Soft Genitourinary: Yes: WNL Musculoskeletal: Yes: Muscle Weakness Edema: No Neurological: Yes: Oriented Psychiatric: Yes: Oriented Labs: CBC, BMP 08/20/18 06:05 08/20/18 06:05 INR, PTT INR 1.98 (0.83-1.09) H 08/18/18 06:48 Problem List - Problems (1) APPLE (acute kidney injury) Code(s): N17.9 - ACUTE KIDNEY FAILURE, UNSPECIFIED Assessment/Plan Current Medications Generic Name Dose Route Start Last Admin Trade Name Freq PRN Reason Stop Dose Admin Acetaminophen 650 mg 08/16/18 17:19 08/17/18 21:18 Tylenol - PO 650 mg Q6H PRN Administration PAIN LEVEL 1-5 Amoxicillin/Clavulanate Potassium 1 tab 08/18/18 17:30 08/20/18 09:56 Augmentin - 875mg Tablet PO 1 tab BID@0800,1730 ROBIN Administration Apixaban 2.5 mg 08/08/18 10:00 08/20/18 09:56 Eliquis - PO 2.5 mg BID ROBIN Administration Docusate Sodium 100 mg 08/10/18 13:00 08/20/18 06:08 Colace - PO 100 mg TID ROBIN Administration Magnesium Oxide 400 mg 08/18/18 10:00 08/20/18 09:57 Mag-Ox - PO 400 mg BID ROBIN Administration Megestrol Acetate 400 mg 08/08/18 10:00 08/20/18 09:57 Megace Oral Suspension - PO 400 mg DAILY ROBIN Administration Metoprolol Succinate 100 mg 08/19/18 15:32 08/20/18 09:58 Toprol Xl - PO 100 mg BID ROBIN Administration Metoprolol Tartrate 5 mg 08/08/18 07:43 08/15/18 01:19 Lopressor Injection - IVPUSH 5 mg Q4H PRN Administration TACHYCARDIA Multivitamins/Minerals/Vitamin C 1 tab 08/08/18 10:00 08/20/18 09:56 Tab-A-Vit - PO 1 tab DAILY ROBIN Administration Non-Formulary Med( 1 each 08/10/18 22:00 05/08/19 09:58 Galantamine Hbr 8 Mg PO 1 each Tab BID ROBIN Administration Ondansetron HCl 4 mg 08/14/18 15:59 Zofran Injection IVPUSH Q6H PRN NAUSEA AND/OR VOMITING Potassium Chloride 40 meq 08/20/18 10:00 08/20/18 09:57 Potassium Chloride Oral Liquid PO 40 meq DAILY [facility] Administration Impression 1. APPLE 2. hyperkalemia 3. htn 4. UTI 5. hld 6. dementia 7. hydronephrosis 8. nephrolithiasis 9. hypokalemia Plan - encourage PO intake - lytes improving, cont to monitor - potassium tayler - will follow PRN Dr Ferrara
[2018-08-20] MEDS: ACETAMINOPHEN 325 MG TABLET (FP) PO PRN (14:30)
--- NOTE | 2018-08-20 21:31 | PN ---
Progress Note, Physician History of Present Illness: No new complaints - Current Medication List Current Medications: Active Medications Acetaminophen (Tylenol -) 650 mg PO Q6H PRN PRN Reason: PAIN LEVEL 1-5 Last Admin: 08/20/18 14:30 Dose: 650 mg Amoxicillin/Clavulanate Potassium (Augmentin - 875mg Tablet) 1 tab PO BID@0800, 1730 [facility] Last Admin: 08/20/18 17:10 Dose: 1 tab Apixaban (Eliquis -) 2.5 mg PO BID [facility] Last Admin: 08/20/18 09:50 Dose: Not Given Docusate Sodium (Colace -) 100 mg PO TID [facility] Last Admin: 08/20/18 14:31 Dose: 100 mg Magnesium Oxide (Mag-Ox -) 400 mg PO BID [facility] Last Admin: 08/20/18 09:50 Dose: Not Given Megestrol Acetate (Megace Oral Suspension -) 400 mg PO DAILY [facility] Last Admin: 08/20/18 09:57 Dose: 400 mg Metoprolol Succinate (Toprol Xl -) 100 mg PO BID [facility] Last Admin: 08/20/18 09:58 Dose: 100 mg Metoprolol Tartrate (Lopressor Injection -) 5 mg IVPUSH Q4H PRN PRN Reason: TACHYCARDIA Last Admin: 08/15/18 01:19 Dose: 5 mg Multivitamins/Minerals/Vitamin C (Tab-A-Vit -) 1 tab PO DAILY [facility] Last Admin: 08/20/18 09:50 Dose: Not Given Non-Formulary Med( Galantamine Hbr 8 Mg Tab 1 each PO BID [facility] Last Admin: 08/20/18 14:32 Dose: 1 each Ondansetron HCl (Zofran Injection) 4 mg IVPUSH Q6H PRN PRN Reason: NAUSEA AND/OR VOMITING Potassium Chloride (Potassium Chloride Oral Liquid) 40 meq PO DAILY [facility] Last Admin: 08/20/18 09:57 Dose: 40 meq - Objective Vital Signs: Vital Signs Temperature 98.0 F 08/20/18 18:41 Pulse Rate 89 08/20/18 18:41 Respiratory Rate 20 08/20/18 18:41 Blood Pressure 127/61 08/20/18 18:41 O2 Sat by Pulse Oximetry (%) 98 08/20/18 09:00 Cardiovascular: Yes: Tachycardia Respiratory: Yes: WNL, Regular, CTA Bilaterally Gastrointestinal: Yes: WNL, Normal Bowel Sounds, Soft Labs: CBC, BMP 08/20/18 06:05 08/20/18 06:05 INR, PTT INR 1.98 (0.83-1.09) H 08/18/18 06:48 Problem List - Problems (1) Rapid atrial fibrillation Assessment/Plan: Cont eliquis Heart rate better controlled Metoprolol dose increased Code(s): I48.91 - UNSPECIFIED ATRIAL FIBRILLATION (2) UTI (urinary tract infection) Assessment/Plan: Antibx changed to po augmentin WBC still elevated Cont IVF Repeat urine culture negative Code(s): N39.0 - URINARY TRACT INFECTION, SITE NOT SPECIFIED Qualifiers: Urinary tract infection type: acute cystitis Hematuria presence: with hematuria Qualified Code(s): N30.01 - Acute cystitis with hematuria (3) APPLE (acute kidney injury) Assessment/Plan: Cont IVF Resolving 8mm ureteral stone/hydronephrosis S/P ureterscopic lithotripsy Code(s): N17.9 - ACUTE KIDNEY FAILURE, UNSPECIFIED (4) HTN (hypertension) Assessment/Plan: BP stable Pt is on metoprolol Code(s): I10 - ESSENTIAL (PRIMARY) HYPERTENSION (5) Severe protein-calorie malnutrition Code(s): E43 - UNSPECIFIED SEVERE PROTEIN-CALORIE MALNUTRITION (6) Dementia Code(s): F03.90 - UNSPECIFIED DEMENTIA WITHOUT BEHAVIORAL DISTURBANCE (7) Femoral neck fracture Assessment/Plan: No surgical intervention as per ortho Code(s): S72.009A - FRACTURE OF UNSP PART OF NECK OF UNSP FEMUR, INIT
[2018-08-21] MEDS: DOCUSATE SODIUM 100 MG CAPSULE (FP) PO SCH ×3 (06:17→21:40)
[2018-08-21 07:10] LABS: BASO % 0.4 % (0-2.0); EOS % 0.8 % (0-4.5); HEMATOCRIT 29.2 % (32.4-45.2); HEMOGLOBIN 9.5 GM/dL (10.7-15.3); LYMPH % 8.8 % (8-40); MCH 34.5 pg (25.7-33.7); MCHC 32.5 g/dl (32.0-36.0); MEAN PLT VOLUME 8.2 fl (7.5-11.1); MONO % 4.8 % (3.8-10.2); NEUT % 85.2 % (42.8-82.8); PLATELET COUNT 453 K/MM3 (134-434); RBC 2.75 M/mm3 (3.60-5.2); RDW 14.8 % (11.6-15.6); WHITE BLOOD COUNT 17.3 K/mm3 (4.0-10.0)
[2018-08-21 07:47] LABS: ALBUMIN 1.6 g/dl (3.4-5.0); BILIRUBIN,TOTAL 0.4 mg/dL (0.2-1); CREATININE 0.7 mg/dL (0.55-1.3); POTASSIUM 4.2 mmol/L (3.5-5.1); TOT PROT 5.3 g/dl (6.4-8.2)
--- NOTE | 2018-08-21 09:06 | PN ---
Progress Note, Physician History of Present Illness: patient stable no new issues - Current Medication List Current Medications: Active Medications Acetaminophen (Tylenol -) 650 mg PO Q6H PRN PRN Reason: PAIN LEVEL 1-5 Last Admin: 08/20/18 14:30 Dose: 650 mg Amoxicillin/Clavulanate Potassium (Augmentin - 875mg Tablet) 1 tab PO BID@0800, 1730 [facility] Last Admin: 08/20/18 17:10 Dose: 1 tab Apixaban (Eliquis -) 2.5 mg PO BID [facility] Last Admin: 08/20/18 22:58 Dose: 2.5 mg Docusate Sodium (Colace -) 100 mg PO TID [facility] Last Admin: 08/21/18 06:17 Dose: Not Given Magnesium Oxide (Mag-Ox -) 400 mg PO BID [facility] Last Admin: 08/20/18 22:58 Dose: 400 mg Megestrol Acetate (Megace Oral Suspension -) 400 mg PO DAILY [facility] Last Admin: 08/20/18 09:57 Dose: 400 mg Metoprolol Succinate (Toprol Xl -) 100 mg PO BID [facility] Last Admin: 08/20/18 22:58 Dose: 100 mg Metoprolol Tartrate (Lopressor Injection -) 5 mg IVPUSH Q4H PRN PRN Reason: TACHYCARDIA Last Admin: 08/15/18 01:19 Dose: 5 mg Multivitamins/Minerals/Vitamin C (Tab-A-Vit -) 1 tab PO DAILY [facility] Last Admin: 08/20/18 09:50 Dose: Not Given Non-Formulary Med( Galantamine Hbr 8 Mg Tab 1 each PO BID [facility] Last Admin: 08/20/18 22:58 Dose: 1 each Ondansetron HCl (Zofran Injection) 4 mg IVPUSH Q6H PRN PRN Reason: NAUSEA AND/OR VOMITING Potassium Chloride (Potassium Chloride Oral Liquid) 40 meq PO DAILY [facility] Last Admin: 08/20/18 09:57 Dose: 40 meq - Objective Vital Signs: Vital Signs Temperature 98 F 08/21/18 05:54 Pulse Rate 88 08/21/18 08:37 Respiratory Rate 18 08/21/18 08:39 Blood Pressure 158/88 08/21/18 08:37 O2 Sat by Pulse Oximetry (%) 93 L 08/21/18 08:39 Constitutional: Yes: No Distress, Calm Cardiovascular: Yes: S1, S2 Respiratory: Yes: Regular, CTA Bilaterally Gastrointestinal: Yes: Normal Bowel Sounds, Soft Genitourinary: Yes: WNL Musculoskeletal: Yes: WNL Extremities: Yes: WNL Neurological: Yes: Alert Psychiatric: Yes: Alert Labs: CBC, BMP 08/21/18 06:00 08/21/18 06:00 INR, PTT INR 1.98 (0.83-1.09) H 08/18/18 06:48 Assessment/Plan Problem List - Problems (1) Rapid atrial fibrillation Code(s): I48.91 - UNSPECIFIED ATRIAL FIBRILLATION (2) UTI (urinary tract infection) Code(s): N39.0 - URINARY TRACT INFECTION, SITE NOT SPECIFIED Qualifiers: Urinary tract infection type: acute cystitis Hematuria presence: with hematuria Qualified Code(s): N30.01 - Acute cystitis with hematuria (3) APPLE (acute kidney injury) Code(s): N17.9 - ACUTE KIDNEY FAILURE, UNSPECIFIED (4) Dementia Code(s): F03.90 - UNSPECIFIED DEMENTIA WITHOUT BEHAVIORAL DISTURBANCE dirrhoea leukocytosis plan continue oral abx wbc still high
[2018-08-21] MEDS: MAGNESIUM OXIDE 400 MG TABLET (FP) PO SCH ×2 (10:33→21:40)
[2018-08-21] MEDS: AMOX TR/POT CLAV 875MG/125MG TABLETS (FP) PO SCH ×3 (10:33→16:40)
[2018-08-21] MEDS: POTASSIUM CHLORIDE ORAL LIQUID 20 MEQ/15 ML PO SCH (10:37)
[2018-08-21] MEDS: APIXABAN 2.5 MG TABLET PO SCH ×2 (10:40→21:39)
[2018-08-21] MEDS: MEGESTROL ACETATE 400 MG/10 ML UNIT DOSE CUP PO SCH ×2 (10:40→12:22)
[2018-08-21] MEDS: MULTIVITAMINS (DAILY MVI) TABLET (FP) PO SCH (10:41)
[2018-08-21] MEDS: GALANTAMINE HBR 8 MG PO SCH ×2 (10:41→21:40)
[2018-08-21 11:03] LABS: ANISOCYTOSIS 1+; MACROCYTOSIS 1+; PLATELET ESTIMATE NORMAL
--- NOTE | 2018-08-21 15:46 | PN ---
Progress Note (short form) - Note Progress Note: s: no chest pain, palps, dizziness, lightheadedness Current Medications Acetaminophen (Tylenol -) 650 mg PO Q6H PRN PRN Reason: PAIN LEVEL 1-5 Last Admin: 08/20/18 14:30 Dose: 650 mg Amoxicillin/Clavulanate Potassium (Augmentin - 875mg Tablet) 1 tab PO BID@0800, 1730 [facility] Last Admin: 08/21/18 12:22 Dose: Not Given Apixaban (Eliquis -) 2.5 mg PO BID [facility] Last Admin: 08/21/18 10:40 Dose: 2.5 mg Docusate Sodium (Colace -) 100 mg PO TID [facility] Last Admin: 08/21/18 13:50 Dose: Not Given Magnesium Oxide (Mag-Ox -) 400 mg PO BID [facility] Last Admin: 08/21/18 10:33 Dose: 400 mg Megestrol Acetate (Megace Oral Suspension -) 400 mg PO DAILY [facility] Last Admin: 08/21/18 12:22 Dose: Not Given Metoprolol Succinate (Toprol Xl -) 100 mg PO BID [facility] Last Admin: 08/21/18 10:35 Dose: 100 mg Metoprolol Tartrate (Lopressor Injection -) 5 mg IVPUSH Q4H PRN PRN Reason: TACHYCARDIA Last Admin: 08/15/18 01:19 Dose: 5 mg Multivitamins/Minerals/Vitamin C (Tab-A-Vit -) 1 tab PO DAILY [facility] Last Admin: 08/21/18 10:41 Dose: 1 tab Non-Formulary Med( Galantamine Hbr 8 Mg Tab 1 each PO BID [facility] Last Admin: 08/21/18 10:41 Dose: 1 each Ondansetron HCl (Zofran Injection) 4 mg IVPUSH Q6H PRN PRN Reason: NAUSEA AND/OR VOMITING Potassium Chloride (Potassium Chloride Oral Liquid) 40 meq PO DAILY [facility] Last Admin: 08/21/18 10:37 Dose: 40 meq Vital Signs Period Temp Pulse Resp BP Sys/Deluna Pulse Ox Last 24 Hr 97.5 F-98.3 F 88-111 18-20 127-158/61-98 93-97 Constitutional: Yes: No Distress, Calm Eyes: Yes: Conjunctiva Clear Neck: Yes: Supple, Trachea Midline Respiratory: Yes: Regular, CTA Bilaterally Gastrointestinal: Yes: Normal Bowel Sounds, Soft Cardiovascular: Yes: Pulse Irregular JVD: No Extremities: No: Cold Edema: No Integumentary: No: Jaundice Neurological: Yes: Alert Psychiatric: No: Agitated Assessment/Plan CXR: no congestion EKG: sinus with PACs, no ischemic changes EKG 08/05 afib with RVR, no ischemic changes echo 07/2018 nl LV/RV function, mild TR, mild AR 1. Afib with RVR: - no prior cardiac hx, discussed with patient's daughter - nl LV function on echo - still with occasional rvr, toprol was increased to 100 mg BID. Not consistently taking meds, rate ok with taking, continue current dose. - [id number] 4, anticoagulation indicated, on eliquis 2. APPLE -renal following, likely prerenal -improved with IVF 3. UTI - manage per primary 4. HTN - home meds held, started metoprolol as above for rate control
[2018-08-21] MEDS ORDERED: INSULIN (NOVOLOG) ASPART 100 UNITS/ML 10ML VIAL ONE (19:00)
[2018-08-21] MEDS ORDERED: PT OWN MED DRAWER 7, Y5N ONE (20:32)
--- NOTE | 2018-08-21 23:06 | PN ---
Progress Note, Physician History of Present Illness: No new complaints - Current Medication List Current Medications: Active Medications Acetaminophen (Tylenol -) 650 mg PO Q6H PRN PRN Reason: PAIN LEVEL 1-5 Last Admin: 08/20/18 14:30 Dose: 650 mg Amoxicillin/Clavulanate Potassium (Augmentin - 875mg Tablet) 1 tab PO BID@0800, 1730 [facility] Last Admin: 08/21/18 16:40 Dose: Not Given Apixaban (Eliquis -) 2.5 mg PO BID [facility] Last Admin: 08/21/18 21:39 Dose: 2.5 mg Docusate Sodium (Colace -) 100 mg PO TID [facility] Last Admin: 08/21/18 21:40 Dose: 100 mg Magnesium Oxide (Mag-Ox -) 400 mg PO BID [facility] Last Admin: 08/21/18 21:40 Dose: 400 mg Megestrol Acetate (Megace Oral Suspension -) 400 mg PO DAILY [facility] Last Admin: 08/21/18 12:22 Dose: Not Given Metoprolol Succinate (Toprol Xl -) 100 mg PO BID [facility] Last Admin: 08/21/18 21:40 Dose: 100 mg Metoprolol Tartrate (Lopressor Injection -) 5 mg IVPUSH Q4H PRN PRN Reason: TACHYCARDIA Last Admin: 08/15/18 01:19 Dose: 5 mg Multivitamins/Minerals/Vitamin C (Tab-A-Vit -) 1 tab PO DAILY [facility] Last Admin: 08/21/18 10:41 Dose: 1 tab Non-Formulary Med( Galantamine Hbr 8 Mg Tab 1 each PO BID [facility] Last Admin: 08/21/18 21:40 Dose: 1 each Ondansetron HCl (Zofran Injection) 4 mg IVPUSH Q6H PRN PRN Reason: NAUSEA AND/OR VOMITING Potassium Chloride (Potassium Chloride Oral Liquid) 40 meq PO DAILY [facility] Last Admin: 08/21/18 10:37 Dose: 40 meq - Objective Vital Signs: Vital Signs Temperature 99.6 F 08/21/18 21:45 Pulse Rate 114 H 08/21/18 21:45 Respiratory Rate 16 08/21/18 21:45 Blood Pressure 149/77 08/21/18 21:45 O2 Sat by Pulse Oximetry (%) 93 L 08/21/18 08:39 Neck: Yes: WNL, Supple Cardiovascular: Yes: WNL, Regular Rate and Rhythm Respiratory: Yes: WNL, Regular, CTA Bilaterally Gastrointestinal: Yes: WNL, Normal Bowel Sounds, Soft Labs: CBC, BMP 08/21/18 06:00 08/21/18 06:00 INR, PTT INR 1.98 (0.83-1.09) H 08/18/18 06:48 Problem List - Problems (1) Rapid atrial fibrillation Assessment/Plan: Cont eliquis Heart rate better controlled Metoprolol dose increased Code(s): I48.91 - UNSPECIFIED ATRIAL FIBRILLATION (2) UTI (urinary tract infection) Assessment/Plan: Antibx changed to po augmentin WBC still elevated Cont IVF Repeat urine culture negative Code(s): N39.0 - URINARY TRACT INFECTION, SITE NOT SPECIFIED Qualifiers: Urinary tract infection type: acute cystitis Hematuria presence: with hematuria Qualified Code(s): N30.01 - Acute cystitis with hematuria (3) APPLE (acute kidney injury) Assessment/Plan: Cont IVF Resolving 8mm ureteral stone/hydronephrosis S/P ureterscopic lithotripsy Code(s): N17.9 - ACUTE KIDNEY FAILURE, UNSPECIFIED (4) HTN (hypertension) Assessment/Plan: BP stable Pt is on metoprolol Code(s): I10 - ESSENTIAL (PRIMARY) HYPERTENSION (5) Severe protein-calorie malnutrition Code(s): E43 - UNSPECIFIED SEVERE PROTEIN-CALORIE MALNUTRITION (6) Dementia Code(s): F03.90 - UNSPECIFIED DEMENTIA WITHOUT BEHAVIORAL DISTURBANCE (7) Femoral neck fracture Assessment/Plan: No surgical intervention as per ortho Code(s): S72.009A - FRACTURE OF UNSP PART OF NECK OF UNSP FEMUR, INIT
[2018-08-22] MEDS: DOCUSATE SODIUM 100 MG CAPSULE (FP) PO SCH ×3 (06:02→22:30)
[2018-08-22] MEDS: METOPROLOL TARTRATE 5 MG/5 ML VIAL IVPUSH PRN (06:26)
[2018-08-22] MEDS ORDERED: PT OWN MED DRAWER 7, Y5N ONE ×3 (08:12→20:49)
[2018-08-22] MEDS: AMOX TR/POT CLAV 875MG/125MG TABLETS (FP) PO SCH ×3 (08:50→17:07)
[2018-08-22] MEDS: POTASSIUM CHLORIDE ORAL LIQUID 20 MEQ/15 ML PO SCH (09:01)
[2018-08-22] MEDS: GALANTAMINE HBR 8 MG PO SCH ×2 (09:01→22:31)
[2018-08-22] MEDS: MAGNESIUM OXIDE 400 MG TABLET (FP) PO SCH ×2 (09:02→22:29)
[2018-08-22] MEDS: APIXABAN 2.5 MG TABLET PO SCH ×2 (09:02→22:30)
[2018-08-22] MEDS: MEGESTROL ACETATE 400 MG/10 ML UNIT DOSE CUP PO SCH (09:02)
[2018-08-22] MEDS: MULTIVITAMINS (DAILY MVI) TABLET (FP) PO SCH (09:02)
--- NOTE | 2018-08-22 12:13 | PN ---
Progress Note, Physician History of Present Illness: patient stable no new issues - Current Medication List Current Medications: Active Medications Acetaminophen (Tylenol -) 650 mg PO Q6H PRN PRN Reason: PAIN LEVEL 1-5 Last Admin: 08/20/18 14:30 Dose: 650 mg Amoxicillin/Clavulanate Potassium (Augmentin - 875mg Tablet) 1 tab PO BID@0800, 1730 [facility] Last Admin: 08/22/18 08:50 Dose: 1 tab Apixaban (Eliquis -) 2.5 mg PO BID [facility] Last Admin: 08/22/18 09:02 Dose: 2.5 mg Docusate Sodium (Colace -) 100 mg PO TID [facility] Last Admin: 08/22/18 06:02 Dose: Not Given Magnesium Oxide (Mag-Ox -) 400 mg PO BID [facility] Last Admin: 08/22/18 09:02 Dose: 400 mg Megestrol Acetate (Megace Oral Suspension -) 400 mg PO DAILY [facility] Last Admin: 08/22/18 09:02 Dose: 400 mg Metoprolol Succinate (Toprol Xl -) 100 mg PO BID [facility] Last Admin: 08/22/18 09:02 Dose: 100 mg Metoprolol Tartrate (Lopressor Injection -) 5 mg IVPUSH Q4H PRN PRN Reason: TACHYCARDIA Last Admin: 08/22/18 06:26 Dose: 5 mg Multivitamins/Minerals/Vitamin C (Tab-A-Vit -) 1 tab PO DAILY [facility] Last Admin: 08/22/18 09:02 Dose: 1 tab Non-Formulary Med( Galantamine Hbr 8 Mg Tab 1 each PO BID [facility] Last Admin: 08/22/18 09:01 Dose: 1 each Ondansetron HCl (Zofran Injection) 4 mg IVPUSH Q6H PRN PRN Reason: NAUSEA AND/OR VOMITING Potassium Chloride (Potassium Chloride Oral Liquid) 40 meq PO DAILY [facility] Last Admin: 08/22/18 09:01 Dose: 40 meq - Objective Vital Signs: Vital Signs Temperature 98.4 F 08/22/18 09:56 Pulse Rate 100 H 08/22/18 09:56 Respiratory Rate 18 08/22/18 09:56 Blood Pressure 157/94 08/22/18 09:56 O2 Sat by Pulse Oximetry (%) 92 L 08/22/18 09:00 Constitutional: Yes: No Distress, Calm Cardiovascular: Yes: Regular Rate and Rhythm Respiratory: Yes: Regular, CTA Bilaterally Gastrointestinal: Yes: Normal Bowel Sounds, Soft Musculoskeletal: Yes: WNL Extremities: Yes: WNL Neurological: Yes: Alert, Oriented Psychiatric: Yes: Alert Labs: CBC, BMP 08/21/18 06:00 08/21/18 06:00 INR, PTT INR 1.98 (0.83-1.09) H 08/18/18 06:48 Assessment/Plan Problem List - Problems (1) Rapid atrial fibrillation Code(s): I48.91 - UNSPECIFIED ATRIAL FIBRILLATION (2) UTI (urinary tract infection) Code(s): N39.0 - URINARY TRACT INFECTION, SITE NOT SPECIFIED Qualifiers: Urinary tract infection type: acute cystitis Hematuria presence: with hematuria Qualified Code(s): N30.01 - Acute cystitis with hematuria (3) APPLE (acute kidney injury) Code(s): N17.9 - ACUTE KIDNEY FAILURE, UNSPECIFIED (4) Dementia Code(s): F03.90 - UNSPECIFIED DEMENTIA WITHOUT BEHAVIORAL DISTURBANCE dirrhoea leukocytosis plan continue oral abx wbc still high
--- NOTE | 2018-08-22 15:53 | PN ---
Progress Note (short form) - Note Progress Note: s: no chest pain, palps, dizziness, lightheadedness Current Medications Generic Name Dose Route Start Last Admin Trade Name Freq PRN Reason Stop Dose Admin Acetaminophen 650 mg 08/16/18 17:19 08/20/18 14:30 Tylenol - PO 650 mg Q6H PRN Administration PAIN LEVEL 1-5 Amoxicillin/Clavulanate Potassium 1 tab 08/18/18 17:30 08/22/18 08:50 Augmentin - 875mg Tablet PO 1 tab BID@0800,1730 [facility] Administration Apixaban 2.5 mg 08/08/18 10:00 08/22/18 09:02 Eliquis - PO 2.5 mg BID [facility] Administration Docusate Sodium 100 mg 08/10/18 13:00 08/22/18 13:07 Colace - PO Not Given TID [facility] Magnesium Oxide 400 mg 08/18/18 10:00 08/22/18 09:02 Mag-Ox - PO 400 mg BID [facility] Administration Megestrol Acetate 400 mg 08/08/18 10:00 08/22/18 09:02 Megace Oral Suspension - PO 400 mg DAILY [facility] Administration Metoprolol Succinate 100 mg 08/19/18 15:32 08/22/18 09:02 Toprol Xl - PO 100 mg BID [facility] Administration Metoprolol Tartrate 5 mg 08/08/18 07:43 08/22/18 06:26 Lopressor Injection - IVPUSH 5 mg Q4H PRN Administration TACHYCARDIA Multivitamins/Minerals/Vitamin C 1 tab 08/08/18 10:00 08/22/18 09:02 Tab-A-Vit - PO 1 tab DAILY [facility] Administration Non-Formulary Med( 1 each 08/10/18 22:00 08/22/18 09:01 Galantamine Hbr 8 Mg PO 1 each Tab BID [facility] Administration Ondansetron HCl 4 mg 08/14/18 15:59 Zofran Injection IVPUSH Q6H PRN NAUSEA AND/OR VOMITING Potassium Chloride 40 meq 08/20/18 10:00 08/22/18 09:01 Potassium Chloride Oral Liquid PO 40 meq DAILY [facility] Administration Vital Signs Period Temp Pulse Resp BP Sys/Deluna Pulse Ox Last 24 Hr 97.7 F-99.9 F 97-123 16-20 123-157/72-94 92-93 Constitutional: Yes: No Distress, Calm Eyes: Yes: Conjunctiva Clear Neck: Yes: Supple, Trachea Midline Respiratory: Yes: Regular, CTA Bilaterally Gastrointestinal: Yes: Normal Bowel Sounds, Soft Cardiovascular: Yes: Pulse Irregular JVD: No Extremities: No: Cold Edema: No Integumentary: No: Jaundice Neurological: Yes: Alert Psychiatric: No: Agitated CBC, BMP 08/21/18 06:00 08/21/18 06:00 Assessment/Plan CXR: no congestion EKG: sinus with PACs, no ischemic changes EKG 08/05 afib with RVR, no ischemic changes echo 07/2018 nl LV/RV function, mild TR, mild AR 1. Afib with RVR: - no prior cardiac hx, discussed with patient's daughter - nl LV function on echo - still with occasional rvr, toprol was increased to 100 mg BID. Not consistently taking meds, rate ok when taking, continue current dose. - [id number] 4, anticoagulation indicated, on eliquis 2. APPLE -renal following, likely prerenal -improved with IVF 3. UTI - manage per primary 4. HTN - bp stable. home meds held, started metoprolol as above for rate control
--- NOTE | 2018-08-22 16:43 | PN ---
Progress Note (short form) - Note Progress Note: NEUROLOGY PROGRESS: Events reviewed and discussed with granddaughter, Amada. Pt remains on Augmentin po for UTI. Noted post-op with vaginal fold redness. Metoprolol increased for continued tachyarrythmia. Granddaughter reports poor po intake. Also PT working with patient, only able to get her to seated position. WBC=16k -> 17.3 BS= 70s. Incontinent in diaper Ox "[place]" corrected to [place]. No month, no year. + glabella, snout Sl. dysarthric, speech sparse. Jaw tremor. Strong grasps. Scattered petechia and ecchymoses both arms. Left leg foreshortened. IMP: Mod. OMS Parkinsonism Atrial fibrillation Toxic-metabolic encephalopathy. SUGGEST: Obtain repeat UA, C & S, possible Rx for yeast infection? Rx as per ID. Encourage po intake and fluids Continue toprol 100 mg BID and eliquis 2.5 mg BID for afib and stroke prevention Bedside PT Rx of femur fracture as per Ortho Thank you very much, Chilo Yates MD
--- NOTE | 2018-08-22 23:32 | PN ---
Progress Note, Physician - Current Medication List Current Medications: Active Medications Acetaminophen (Tylenol -) 650 mg PO Q6H PRN PRN Reason: PAIN LEVEL 1-5 Last Admin: 08/20/18 14:30 Dose: 650 mg Amoxicillin/Clavulanate Potassium (Augmentin - 875mg Tablet) 1 tab PO BID@0800, 1730 [facility] Last Admin: 08/22/18 17:07 Dose: Not Given Apixaban (Eliquis -) 2.5 mg PO BID [facility] Last Admin: 08/22/18 22:30 Dose: 2.5 mg Docusate Sodium (Colace -) 100 mg PO TID [facility] Last Admin: 08/22/18 22:30 Dose: 100 mg Magnesium Oxide (Mag-Ox -) 400 mg PO BID [facility] Last Admin: 08/22/18 22:29 Dose: 400 mg Megestrol Acetate (Megace Oral Suspension -) 400 mg PO DAILY [facility] Last Admin: 08/22/18 09:02 Dose: 400 mg Metoprolol Succinate (Toprol Xl -) 100 mg PO BID [facility] Last Admin: 08/22/18 22:30 Dose: 100 mg Metoprolol Tartrate (Lopressor Injection -) 5 mg IVPUSH Q4H PRN PRN Reason: TACHYCARDIA Last Admin: 08/22/18 06:26 Dose: 5 mg Multivitamins/Minerals/Vitamin C (Tab-A-Vit -) 1 tab PO DAILY [facility] Last Admin: 08/22/18 09:02 Dose: 1 tab Non-Formulary Med( Galantamine Hbr 8 Mg Tab 1 each PO BID [facility] Last Admin: 08/22/18 22:31 Dose: 1 each Ondansetron HCl (Zofran Injection) 4 mg IVPUSH Q6H PRN PRN Reason: NAUSEA AND/OR VOMITING Potassium Chloride (Potassium Chloride Oral Liquid) 40 meq PO DAILY [facility] Last Admin: 08/22/18 09:01 Dose: 40 meq - Objective Vital Signs: Vital Signs Temperature 98.3 F 08/22/18 18:54 Pulse Rate 108 H 08/22/18 18:54 Respiratory Rate 18 08/22/18 18:54 Blood Pressure 121/90 08/22/18 18:54 O2 Sat by Pulse Oximetry (%) 92 L 08/22/18 09:00 Labs: CBC, BMP 08/21/18 06:00 08/21/18 06:00 INR, PTT INR 1.98 (0.83-1.09) H 08/18/18 06:48 Problem List - Problems (1) Rapid atrial fibrillation Code(s): I48.91 - UNSPECIFIED ATRIAL FIBRILLATION (2) UTI (urinary tract infection) Code(s): N39.0 - URINARY TRACT INFECTION, SITE NOT SPECIFIED Qualifiers: Urinary tract infection type: acute cystitis Hematuria presence: with hematuria Qualified Code(s): N30.01 - Acute cystitis with hematuria (3) APPLE (acute kidney injury) Code(s): N17.9 - ACUTE KIDNEY FAILURE, UNSPECIFIED (4) HTN (hypertension) Code(s): I10 - ESSENTIAL (PRIMARY) HYPERTENSION (5) Severe protein-calorie malnutrition Code(s): E43 - UNSPECIFIED SEVERE PROTEIN-CALORIE MALNUTRITION (6) Dementia Code(s): F03.90 - UNSPECIFIED DEMENTIA WITHOUT BEHAVIORAL DISTURBANCE (7) Femoral neck fracture Code(s): S72.009A - FRACTURE OF UNSP PART OF NECK OF UNSP FEMUR, INIT
[2018-08-23] MEDS: DOCUSATE SODIUM 100 MG CAPSULE (FP) PO SCH ×3 (06:12→22:04)
[2018-08-23 07:21] LABS: BASO % 0.8 % (0-2.0); EOS % 1.2 % (0-4.5); HEMATOCRIT 28.2 % (32.4-45.2); HEMOGLOBIN 9.1 GM/dL (10.7-15.3); LYMPH % 9.3 % (8-40); MCH 33.7 pg (25.7-33.7); MCHC 32.3 g/dl (32.0-36.0); MEAN CELL VOLUME 104.6 fl (80-96); MEAN PLT VOLUME 8.2 fl (7.5-11.1); MONO % 5.4 % (3.8-10.2); NEUT % 83.3 % (42.8-82.8); PLATELET COUNT 431 K/MM3 (134-434); RDW 15.3 % (11.6-15.6); WHITE BLOOD COUNT 17.6 K/mm3 (4.0-10.0)
[2018-08-23] MEDS: AMOX TR/POT CLAV 875MG/125MG TABLETS (FP) PO SCH ×2 (11:04→18:02)
[2018-08-23] MEDS: MULTIVITAMINS (DAILY MVI) TABLET (FP) PO SCH (11:04)
[2018-08-23] MEDS: MEGESTROL ACETATE 400 MG/10 ML UNIT DOSE CUP PO SCH (11:04)
[2018-08-23] MEDS: APIXABAN 2.5 MG TABLET PO SCH ×2 (11:05→22:04)
[2018-08-23] MEDS: GALANTAMINE HBR 8 MG PO SCH ×2 (11:05→22:05)
[2018-08-23] MEDS: MAGNESIUM OXIDE 400 MG TABLET (FP) PO SCH ×2 (11:05→22:05)
[2018-08-23] MEDS: POTASSIUM CHLORIDE ORAL LIQUID 20 MEQ/15 ML PO SCH (11:06)
[2018-08-23] MEDS ORDERED: METOPROLOL TARTRATE 5 MG/5 ML VIAL IVPUSH PRN (11:28)
--- NOTE | 2018-08-23 11:29 | PN ---
Progress Note (short form) - Note Progress Note: s: no chest pain, palps, dizziness, lightheadedness Current Medications Generic Name Dose Route Start Last Admin Trade Name Freq PRN Reason Stop Dose Admin Acetaminophen 650 mg 08/16/18 17:19 08/20/18 14:30 Tylenol - PO 650 mg Q6H PRN Administration PAIN LEVEL 1-5 Amoxicillin/Clavulanate Potassium 1 tab 08/18/18 17:30 08/23/18 11:04 Augmentin - 875mg Tablet PO 1 tab BID@0800,1730 [facility] Administration Apixaban 2.5 mg 08/08/18 10:00 08/23/18 11:05 Eliquis - PO 2.5 mg BID [facility] Administration Docusate Sodium 100 mg 08/10/18 13:00 08/23/18 06:12 Colace - PO 100 mg TID [facility] Administration Magnesium Oxide 400 mg 08/18/18 10:00 08/23/18 11:05 Mag-Ox - PO 400 mg BID [facility] Administration Megestrol Acetate 400 mg 08/08/18 10:00 08/23/18 11:04 Megace Oral Suspension - PO 400 mg DAILY [facility] Administration Metoprolol Succinate 100 mg 08/19/18 15:32 08/23/18 11:09 Toprol Xl - PO 100 mg BID [facility] Administration Metoprolol Tartrate 5 mg 08/23/18 11:28 Lopressor Injection - IVPUSH Q4H PRN TACHYCARDIA Multivitamins/Minerals/Vitamin C 1 tab 08/08/18 10:00 08/23/18 11:04 Tab-A-Vit - PO 1 tab DAILY [facility] Administration Non-Formulary Med( 1 each 08/10/18 22:00 08/23/18 11:05 Galantamine Hbr 8 Mg PO 1 each Tab BID [facility] Administration Ondansetron HCl 4 mg 08/14/18 15:59 Zofran Injection IVPUSH Q6H PRN NAUSEA AND/OR VOMITING Potassium Chloride 40 meq 08/20/18 10:00 08/23/18 11:06 Potassium Chloride Oral Liquid PO 40 meq DAILY [facility] Administration Vital Signs Period Temp Pulse Resp BP Sys/Deluna Pulse Ox Last 24 Hr 98.2 F-98.7 F 91-111 18-20 121-151/72-90 98 Constitutional: Yes: No Distress, Calm Eyes: Yes: Conjunctiva Clear Neck: Yes: Supple, Trachea Midline Respiratory: Yes: Regular, CTA Bilaterally Gastrointestinal: Yes: Normal Bowel Sounds, Soft Cardiovascular: Yes: Pulse Irregular JVD: No Extremities: No: Cold Edema: No Integumentary: No: Jaundice Neurological: Yes: Alert Psychiatric: No: Agitated CBC, BMP 08/23/18 06:59 08/21/18 06:00 Assessment/Plan CXR: no congestion EKG: sinus with PACs, no ischemic changes EKG 08/05 afib with RVR, no ischemic changes echo 07/2018 nl LV/RV function, mild TR, mild AR 1. Afib with RVR: - no prior cardiac hx, discussed with patient's daughter - nl LV function on echo - still with occasional rvr, toprol was increased to 100 mg BID. Not consistently taking meds, rate ok when taking, continue current dose. - [id number] 4, anticoagulation indicated, on eliquis 2. APPLE -renal following, likely prerenal -improved with IVF 3. UTI - manage per primary 4. HTN - bp stable. home meds held, started metoprolol as above for rate control
[2018-08-23 13:34] LABS: ANISOCYTOSIS 1+; MACROCYTOSIS 0; PLATELET ESTIMATE NORMAL
--- NOTE | 2018-08-23 15:15 | PN ---
Progress Note, Physician History of Present Illness: Pt seen and events noted. She is alert and responding says she feels well. Denies abd pain or discomfort. Family friend at bedside reports she is eating well. - Current Medication List Current Medications: Active Medications Acetaminophen (Tylenol -) 650 mg PO Q6H PRN PRN Reason: PAIN LEVEL 1-5 Last Admin: 08/20/18 14:30 Dose: 650 mg Amoxicillin/Clavulanate Potassium (Augmentin - 875mg Tablet) 1 tab PO BID@0800, 1730 [facility] Last Admin: 08/23/18 11:04 Dose: 1 tab Apixaban (Eliquis -) 2.5 mg PO BID [facility] Last Admin: 08/23/18 11:05 Dose: 2.5 mg Docusate Sodium (Colace -) 100 mg PO TID [facility] Last Admin: 08/23/18 06:12 Dose: 100 mg Magnesium Oxide (Mag-Ox -) 400 mg PO BID [facility] Last Admin: 08/23/18 11:05 Dose: 400 mg Megestrol Acetate (Megace Oral Suspension -) 400 mg PO DAILY [facility] Last Admin: 08/23/18 11:04 Dose: 400 mg Metoprolol Succinate (Toprol Xl -) 100 mg PO BID [facility] Last Admin: 08/23/18 11:09 Dose: 100 mg Metoprolol Tartrate (Lopressor Injection -) 5 mg IVPUSH Q4H PRN PRN Reason: TACHYCARDIA Multivitamins/Minerals/Vitamin C (Tab-A-Vit -) 1 tab PO DAILY [facility] Last Admin: 08/23/18 11:04 Dose: 1 tab Non-Formulary Med( Galantamine Hbr 8 Mg Tab 1 each PO BID [facility] Last Admin: 08/23/18 11:05 Dose: 1 each Ondansetron HCl (Zofran Injection) 4 mg IVPUSH Q6H PRN PRN Reason: NAUSEA AND/OR VOMITING Potassium Chloride (Potassium Chloride Oral Liquid) 40 meq PO DAILY [facility] Last Admin: 08/23/18 11:06 Dose: 40 meq - Objective Vital Signs: Vital Signs Temperature 98.7 F 08/23/18 15:01 Pulse Rate 96 H 08/23/18 15:01 Respiratory Rate 20 08/23/18 15:01 Blood Pressure 135/78 08/23/18 15:01 O2 Sat by Pulse Oximetry (%) 98 08/22/18 21:00 Constitutional: Yes: No Distress, Calm Cardiovascular: Yes: Pulse Irregular Respiratory: Yes: Regular Gastrointestinal: Yes: Normal Bowel Sounds, Soft Edema: No Neurological: Yes: Alert Labs: CBC, BMP 08/23/18 06:59 08/21/18 06:00 INR, PTT INR 1.98 (0.83-1.09) H 08/18/18 06:48 Microbiology 08/10/18 14:20 Blood - Peripheral Venous Blood Culture - Final NO GROWTH AFTER 5 DAYS INCUBATION 08/10/18 14:45 Blood - Peripheral Venous Blood Culture - Final NO GROWTH AFTER 5 DAYS INCUBATION 08/09/18 09:20 Urine - Urine Clean Catch Urine Culture - Final NO GROWTH OBTAINED 08/04/18 09:36 Urine - Urine Clean Catch Urine Culture - Final Contaminated: Please Repeat Problem List - Problems (1) APPLE (acute kidney injury) Code(s): N17.9 - ACUTE KIDNEY FAILURE, UNSPECIFIED (2) Dementia Code(s): F03.90 - UNSPECIFIED DEMENTIA WITHOUT BEHAVIORAL DISTURBANCE (3) Hydronephrosis Code(s): N13.30 - UNSPECIFIED HYDRONEPHROSIS (4) Parkinson disease Code(s): G20 - PARKINSON'S DISEASE (5) Rapid atrial fibrillation Code(s): I48.91 - UNSPECIFIED ATRIAL FIBRILLATION (6) UTI (urinary tract infection) Code(s): N39.0 - URINARY TRACT INFECTION, SITE NOT SPECIFIED Qualifiers: Urinary tract infection type: acute cystitis Hematuria presence: with hematuria Qualified Code(s): N30.01 - Acute cystitis with hematuria Assessment/Plan AMS Ureteral Stone/hydronephrosis s/p lithotripsy/ureteral stent Leukocytosis / ? UTI APPLE - resolved -- pt clinically stable, afebrile -- wbc remains elevated but stable -- recent cultures noted, will repeat and consider change antibiotics if no improvement continue close monitoring
--- NOTE | 2018-08-23 19:41 | CONSULT ---
Consult Consult Specialty:: orthopedics Reason for Consultation:: Right elbow - History of Present Illness Chief Complaint: right elbow History of Present Illness: 87y/o female with hx of dementia c/o right elbow pain yesterday. Nursing also noticed some swelling along the elbow and orthopedics was consulted. No hx of trauma. No complaints of pain today. No other associated, aggravating or relieving factors. 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 Cardio/Vascular: Yes: HTN, Hyperlipdemia - Alcohol/Substance Use Hx Alcohol Use: No - Smoking History Smoking history: Never smoked Have you smoked in the past 12 months: No Aproximately how many cigarettes per day: 0 Home Medications - Allergies Allergies/Adverse Reactions: Allergies Allergy/AdvReac Type Severity Reaction Status Date / Time No Known Allergies Allergy Verified 08/04/18 08:31 - Home Medications Home Medications: Ambulatory Orders Multivit-Min/FA/Lycopene/Lut [Centrum Silver Tablet] 1 each PO DAILY 04/01/13 Tramadol HCl 50 mg PO TID 04/01/13 Bisoprolol 2.5MG/Hctz 6.25MG [Ziac (Nf)] 1 tab PO DAILY 07/27/18 Megestrol Acetate [Megace -] 20 mg PO QID 07/27/18 Timolol [Betimol] 5 ml OP DAILY 07/27/18 Galantamine HBr [Razadyne ER] 8 mg PO BID 08/05/18 Review of Systems - Review of Systems Constitutional: reports: No Symptoms Eyes: reports: No Symptoms HENT: reports: No Symptoms Neck: reports: No Symptoms Cardiovascular: reports: No Symptoms Respiratory: reports: No Symptoms Gastrointestinal: reports: No Symptoms Genitourinary: reports: No Symptoms Breasts: reports: No Symptoms Reported Musculoskeletal: reports: No Symptoms Integumentary: reports: No Symptoms Neurological: reports: No Symptoms Endocrine: reports: No Symptoms Hematology/Lymphatic: reports: No Symptoms Psychiatric: reports: No Symptoms Physical Exam Vital Signs: Vital Signs Temperature 98.1 F 08/23/18 19:14 Pulse Rate 94 H 08/23/18 19:14 Respiratory Rate 18 08/23/18 19:14 Blood Pressure 138/74 08/23/18 19:14 O2 Sat by Pulse Oximetry (%) 98 08/23/18 09:00 Constitutional: Yes: Well Nourished, No Distress, Calm HENT: Yes: Atraumatic, Normocephalic Musculoskeletal: Yes: Other (No edema along the elbow. There are several small areas of ecchymosis along the extremity. There is no tenderness along the elbow. ROM 5-130 deg. Near full pronation and supination. there is crepitis with ROM but no pain. No instablitly. NVID.) Labs: CBC, BMP 08/23/18 06:59 08/21/18 06:00 Imaging - Results X-ray: Report Reviewed, Image Reviewed (Right elbow severe arthrosis. No fx.) Assessment/Plan #1 Right elbow arthritis -Pt currently asymptomatic. Recommend observation. Tyelnol for pain PRN. Activities as tolerated. F/u as needed as outpatient. Please reconsult if needed.
[2018-08-23] MEDS ORDERED: PT OWN MED DRAWER 7, Y5N ONE (21:03)
--- NOTE | 2018-08-23 21:12 | PN ---
Progress Note, Physician - Current Medication List Current Medications: Active Medications Acetaminophen (Tylenol -) 650 mg PO Q6H PRN PRN Reason: PAIN LEVEL 1-5 Last Admin: 08/20/18 14:30 Dose: 650 mg Amoxicillin/Clavulanate Potassium (Augmentin - 875mg Tablet) 1 tab PO BID@0800, 1730 [facility] Last Admin: 08/23/18 18:02 Dose: 1 tab Apixaban (Eliquis -) 2.5 mg PO BID [facility] Last Admin: 08/23/18 11:05 Dose: 2.5 mg Docusate Sodium (Colace -) 100 mg PO TID [facility] Last Admin: 08/23/18 15:58 Dose: Not Given Magnesium Oxide (Mag-Ox -) 400 mg PO BID [facility] Last Admin: 08/23/18 11:05 Dose: 400 mg Megestrol Acetate (Megace Oral Suspension -) 400 mg PO DAILY [facility] Last Admin: 08/23/18 11:04 Dose: 400 mg Metoprolol Succinate (Toprol Xl -) 100 mg PO BID [facility] Last Admin: 08/23/18 11:09 Dose: 100 mg Metoprolol Tartrate (Lopressor Injection -) 5 mg IVPUSH Q4H PRN PRN Reason: TACHYCARDIA Multivitamins/Minerals/Vitamin C (Tab-A-Vit -) 1 tab PO DAILY [facility] Last Admin: 08/23/18 11:04 Dose: 1 tab Non-Formulary Med( Galantamine Hbr 8 Mg Tab 1 each PO BID [facility] Last Admin: 08/23/18 11:05 Dose: 1 each Ondansetron HCl (Zofran Injection) 4 mg IVPUSH Q6H PRN PRN Reason: NAUSEA AND/OR VOMITING Potassium Chloride (Potassium Chloride Oral Liquid) 40 meq PO DAILY [facility] Last Admin: 08/23/18 11:06 Dose: 40 meq - Objective Vital Signs: Vital Signs Temperature 98.1 F 08/23/18 19:14 Pulse Rate 94 H 08/23/18 19:14 Respiratory Rate 18 08/23/18 19:14 Blood Pressure 138/74 08/23/18 19:14 O2 Sat by Pulse Oximetry (%) 98 08/23/18 09:00 Labs: CBC, BMP 08/23/18 06:59 08/21/18 06:00 INR, PTT INR 1.98 (0.83-1.09) H 08/18/18 06:48 Problem List - Problems (1) Rapid atrial fibrillation Code(s): I48.91 - UNSPECIFIED ATRIAL FIBRILLATION (2) UTI (urinary tract infection) Code(s): N39.0 - URINARY TRACT INFECTION, SITE NOT SPECIFIED Qualifiers: Urinary tract infection type: acute cystitis Hematuria presence: with hematuria Qualified Code(s): N30.01 - Acute cystitis with hematuria (3) APPLE (acute kidney injury) Code(s): N17.9 - ACUTE KIDNEY FAILURE, UNSPECIFIED (4) HTN (hypertension) Code(s): I10 - ESSENTIAL (PRIMARY) HYPERTENSION (5) Severe protein-calorie malnutrition Code(s): E43 - UNSPECIFIED SEVERE PROTEIN-CALORIE MALNUTRITION (6) Dementia Code(s): F03.90 - UNSPECIFIED DEMENTIA WITHOUT BEHAVIORAL DISTURBANCE (7) Femoral neck fracture Code(s): S72.009A - FRACTURE OF UNSP PART OF NECK OF UNSP FEMUR, INIT
[2018-08-23] MEDS: ACETAMINOPHEN 325 MG TABLET (FP) PO PRN (22:06)
[2018-08-24] MEDS: DOCUSATE SODIUM 100 MG CAPSULE (FP) PO SCH ×3 (06:06→21:26)
[2018-08-24 07:05] LABS: BASO % 0.5 % (0-2.0); EOS % 0.9 % (0-4.5); HEMATOCRIT 31.2 % (32.4-45.2); LYMPH % 8.4 % (8-40); MCH 33.6 pg (25.7-33.7); MCHC 32.2 g/dl (32.0-36.0); MEAN CELL VOLUME 104.6 fl (80-96); MEAN PLT VOLUME 8.2 fl (7.5-11.1); MONO % 5.9 % (3.8-10.2); NEUT % 84.3 % (42.8-82.8); PLATELET COUNT 423 K/MM3 (134-434); RBC 2.98 M/mm3 (3.60-5.2); RDW 15.7 % (11.6-15.6); WHITE BLOOD COUNT 18.8 K/mm3 (4.0-10.0)
[2018-08-24 07:30] LABS: BILIRUBIN,TOTAL 0.4 mg/dL (0.2-1); CREATININE 0.8 mg/dL (0.55-1.3); TOT PROT 5.8 g/dl (6.4-8.2)
[2018-08-24] MEDS: AMOX TR/POT CLAV 875MG/125MG TABLETS (FP) PO SCH (08:52)
[2018-08-24] MEDS: MULTIVITAMINS (DAILY MVI) TABLET (FP) PO SCH (11:40)
[2018-08-24] MEDS: POTASSIUM CHLORIDE ORAL LIQUID 20 MEQ/15 ML PO SCH (11:40)
[2018-08-24] MEDS: APIXABAN 2.5 MG TABLET PO SCH ×2 (11:40→21:26)
[2018-08-24] MEDS: GALANTAMINE HBR 8 MG PO SCH ×2 (11:41→21:27)
[2018-08-24] MEDS: MEGESTROL ACETATE 400 MG/10 ML UNIT DOSE CUP PO SCH (11:41)
[2018-08-24] MEDS: MAGNESIUM OXIDE 400 MG TABLET (FP) PO SCH ×2 (11:41→21:26)
--- NOTE | 2018-08-24 12:07 | PN ---
Progress Note (short form) - Note Progress Note: s: no chest pain, palps, dizziness, lightheadedness Current Medications Generic Name Dose Route Start Last Admin Trade Name Freq PRN Reason Stop Dose Admin Acetaminophen 650 mg 08/16/18 17:19 08/23/18 22:06 Tylenol - PO 650 mg Q6H PRN Administration PAIN LEVEL 1-5 Amoxicillin/Clavulanate Potassium 1 tab 08/18/18 17:30 08/24/18 08:52 Augmentin - 875mg Tablet PO 1 tab BID@0800,1730 [facility] Administration Apixaban 2.5 mg 08/08/18 10:00 08/24/18 11:40 Eliquis - PO 2.5 mg BID [facility] Administration Docusate Sodium 100 mg 08/10/18 13:00 08/24/18 06:06 Colace - PO 100 mg TID [facility] Administration Magnesium Oxide 400 mg 08/18/18 10:00 08/24/18 11:41 Mag-Ox - PO 400 mg BID [facility] Administration Megestrol Acetate 400 mg 08/08/18 10:00 08/24/18 11:41 Megace Oral Suspension - PO 400 mg DAILY [facility] Administration Metoprolol Succinate 100 mg 08/19/18 15:32 08/24/18 11:40 Toprol Xl - PO 100 mg BID [facility] Administration Metoprolol Tartrate 5 mg 08/23/18 11:28 Lopressor Injection - IVPUSH Q4H PRN TACHYCARDIA Multivitamins/Minerals/Vitamin C 1 tab 08/08/18 10:00 08/24/18 11:40 Tab-A-Vit - PO 1 tab DAILY [facility] Administration Non-Formulary Med( 1 each 08/10/18 22:00 08/24/18 11:41 Galantamine Hbr 8 Mg PO 1 each Tab BID [facility] Administration Ondansetron HCl 4 mg 08/14/18 15:59 Zofran Injection IVPUSH Q6H PRN NAUSEA AND/OR VOMITING Potassium Chloride 40 meq 08/20/18 10:00 08/24/18 11:40 Potassium Chloride Oral Liquid PO 40 meq DAILY [facility] Administration Vital Signs Period Temp Pulse Resp BP Sys/Deluna Pulse Ox Last 24 Hr 98.1 F-98.7 F 91-113 18-20 135-171/74-87 96 Constitutional: Yes: No Distress, Calm Eyes: Yes: Conjunctiva Clear Neck: Yes: Supple, Trachea Midline Respiratory: Yes: Regular, CTA Bilaterally Gastrointestinal: Yes: Normal Bowel Sounds, Soft Cardiovascular: Yes: Pulse Irregular JVD: No Extremities: No: Cold Edema: No Integumentary: No: Jaundice Neurological: Yes: Alert Psychiatric: No: Agitated CBC, BMP 08/24/18 05:20 08/24/18 05:20 Assessment/Plan CXR: no congestion EKG: sinus with PACs, no ischemic changes EKG 08/05 afib with RVR, no ischemic changes echo 07/2018 nl LV/RV function, mild TR, mild AR 1. Afib with RVR: - no prior cardiac hx, discussed with patient's daughter - nl LV function on echo - cont toprol for rate control - [id number] 4, anticoagulation indicated, on eliquis 2. APPLE -renal following, likely prerenal -improved with IVF 3. UTI - manage per primary 4. HTN - bp stable. home meds held, started metoprolol as above for rate control
[2018-08-24 13:20] LABS: ANISOCYTOSIS 1+; MACROCYTOSIS 0; OVALOCYTE 1+; PLATELET ESTIMATE NORMAL
--- NOTE | 2018-08-24 14:38 | PN ---
Progress Note, Physician History of Present Illness: Pt is alert and easily arousable, no distress. States she feels fine. WBC increasing trend, temp of 99.8F yesterday, currently 99F. - Current Medication List Current Medications: Active Medications Acetaminophen (Tylenol -) 650 mg PO Q6H PRN PRN Reason: PAIN LEVEL 1-5 Last Admin: 08/23/18 22:06 Dose: 650 mg Amoxicillin/Clavulanate Potassium (Augmentin - 875mg Tablet) 1 tab PO BID@0800, 1730 [facility] Last Admin: 08/24/18 08:52 Dose: 1 tab Apixaban (Eliquis -) 2.5 mg PO BID [facility] Last Admin: 08/24/18 11:40 Dose: 2.5 mg Docusate Sodium (Colace -) 100 mg PO TID [facility] Last Admin: 08/24/18 13:52 Dose: Not Given Magnesium Oxide (Mag-Ox -) 400 mg PO BID [facility] Last Admin: 08/24/18 11:41 Dose: 400 mg Megestrol Acetate (Megace Oral Suspension -) 400 mg PO DAILY [facility] Last Admin: 08/24/18 11:41 Dose: 400 mg Metoprolol Succinate (Toprol Xl -) 100 mg PO BID [facility] Last Admin: 08/24/18 11:40 Dose: 100 mg Metoprolol Tartrate (Lopressor Injection -) 5 mg IVPUSH Q4H PRN PRN Reason: TACHYCARDIA Multivitamins/Minerals/Vitamin C (Tab-A-Vit -) 1 tab PO DAILY [facility] Last Admin: 08/24/18 11:40 Dose: 1 tab Non-Formulary Med( Galantamine Hbr 8 Mg Tab 1 each PO BID [facility] Last Admin: 08/24/18 11:41 Dose: 1 each Ondansetron HCl (Zofran Injection) 4 mg IVPUSH Q6H PRN PRN Reason: NAUSEA AND/OR VOMITING Potassium Chloride (Potassium Chloride Oral Liquid) 40 meq PO DAILY [facility] Last Admin: 08/24/18 11:40 Dose: 40 meq Tramadol HCl (Ultram -) 50 mg PO BID [facility] - Objective Vital Signs: Vital Signs Temperature 99.0 F 08/24/18 13:23 Pulse Rate 115 H 08/24/18 13:23 Respiratory Rate 20 08/24/18 13:23 Blood Pressure 117/69 08/24/18 13:23 O2 Sat by Pulse Oximetry (%) 98 08/24/18 09:00 Constitutional: Yes: No Distress, Calm Cardiovascular: Yes: Pulse Irregular Respiratory: Yes: CTA Bilaterally (anteriorly) Gastrointestinal: Yes: Normal Bowel Sounds, Soft Genitourinary: Yes: WNL Musculoskeletal: Yes: Other (elbows without erythema/edema/wounds/tenderness) Neurological: Yes: Alert Labs: CBC, BMP 08/24/18 05:20 08/24/18 05:20 INR, PTT INR 1.98 (0.83-1.09) H 08/18/18 06:48 Microbiology 08/10/18 14:20 Blood - Peripheral Venous Blood Culture - Final NO GROWTH AFTER 5 DAYS INCUBATION 08/10/18 14:45 Blood - Peripheral Venous Blood Culture - Final NO GROWTH AFTER 5 DAYS INCUBATION 08/09/18 09:20 Urine - Urine Clean Catch Urine Culture - Final NO GROWTH OBTAINED 08/04/18 09:36 Urine - Urine Clean Catch Urine Culture - Final Contaminated: Please Repeat Problem List - Problems (1) APPLE (acute kidney injury) Code(s): N17.9 - ACUTE KIDNEY FAILURE, UNSPECIFIED (2) Dementia Code(s): F03.90 - UNSPECIFIED DEMENTIA WITHOUT BEHAVIORAL DISTURBANCE (3) Hydronephrosis Code(s): N13.30 - UNSPECIFIED HYDRONEPHROSIS (4) Parkinson disease Code(s): G20 - PARKINSON'S DISEASE (5) Rapid atrial fibrillation Code(s): I48.91 - UNSPECIFIED ATRIAL FIBRILLATION (6) UTI (urinary tract infection) Code(s): N39.0 - URINARY TRACT INFECTION, SITE NOT SPECIFIED Qualifiers: Urinary tract infection type: acute cystitis Hematuria presence: with hematuria Qualified Code(s): N30.01 - Acute cystitis with hematuria Assessment/Plan AMS Ureteral Stone/hydronephrosis s/p lithotripsy/ureteral stent Leukocytosis UTI APPLE - resolved -- Pt with low grade fevers, wbc elevated and trending up -- d/c augmentin, restart Zosyn -- repeat blood cultures/urine cultures -- repeat cbc/bmp -- currently alert, without distress, monitor closely
[2018-08-24] MEDS ORDERED: PIPERACILLIN/TAZOBACTAM 2.25 GM VIAL IVPB ONE ×2 (16:42→20:52)
[2018-08-24] MEDS ORDERED: DEXTROSE 5%-WATER - 50 ML IVPB ONE ×2 (16:42→20:53)
[2018-08-24] MEDS: PIPERACILLIN/TAZOB 2.25 GM 2.25 GM in DEXTROSE 5%-WATER - 50 ML IVPB SCH ×2 (16:54→21:27)
[2018-08-24] MEDS: traMADol HCL 50 MG TABLET PO SCH (21:26)
--- NOTE | 2018-08-24 23:14 | PN ---
Progress Note, Physician History of Present Illness: Pt more awake - Current Medication List Current Medications: Active Medications Acetaminophen (Tylenol -) 650 mg PO Q6H PRN PRN Reason: PAIN LEVEL 1-5 Last Admin: 08/23/18 22:06 Dose: 650 mg Apixaban (Eliquis -) 2.5 mg PO BID [facility] Last Admin: 08/24/18 21:26 Dose: 2.5 mg Docusate Sodium (Colace -) 100 mg PO TID [facility] Last Admin: 08/24/18 21:26 Dose: 100 mg Piperacillin Sod/Tazobactam (Sod 2.25 gm/ Dextrose) 50 mls @ 100 mls/hr IVPB Q6H-IV [facility]; Protocol Last Admin: 08/24/18 21:27 Dose: 100 mls/hr Magnesium Oxide (Mag-Ox -) 400 mg PO BID [facility] Last Admin: 08/24/18 21:26 Dose: 400 mg Megestrol Acetate (Megace Oral Suspension -) 400 mg PO DAILY [facility] Last Admin: 08/24/18 11:41 Dose: 400 mg Metoprolol Succinate (Toprol Xl -) 100 mg PO BID [facility] Last Admin: 08/24/18 21:26 Dose: 100 mg Metoprolol Tartrate (Lopressor Injection -) 5 mg IVPUSH Q4H PRN PRN Reason: TACHYCARDIA Multivitamins/Minerals/Vitamin C (Tab-A-Vit -) 1 tab PO DAILY [facility] Last Admin: 08/24/18 11:40 Dose: 1 tab Non-Formulary Med( Galantamine Hbr 8 Mg Tab 1 each PO BID [facility] Last Admin: 08/24/18 21:27 Dose: 1 each Ondansetron HCl (Zofran Injection) 4 mg IVPUSH Q6H PRN PRN Reason: NAUSEA AND/OR VOMITING Potassium Chloride (Potassium Chloride Oral Liquid) 40 meq PO DAILY [facility] Last Admin: 08/24/18 11:40 Dose: 40 meq Tramadol HCl (Ultram -) 50 mg PO BID [facility] Last Admin: 08/24/18 21:26 Dose: 50 mg - Objective Vital Signs: Vital Signs Temperature 98.2 F 08/24/18 22:00 Pulse Rate 102 H 08/24/18 22:00 Respiratory Rate 20 08/24/18 22:00 Blood Pressure 120/60 08/24/18 22:00 O2 Sat by Pulse Oximetry (%) 97 08/24/18 21:00 Neck: Yes: WNL, Supple Cardiovascular: Yes: Pulse Irregular Respiratory: Yes: WNL, Regular, CTA Bilaterally Gastrointestinal: Yes: WNL, Normal Bowel Sounds, Soft Edema: No Labs: CBC, BMP 08/24/18 05:20 08/24/18 05:20 INR, PTT INR 1.98 (0.83-1.09) H 08/18/18 06:48 Problem List - Problems (1) Rapid atrial fibrillation Assessment/Plan: Cont eliquis Heart rate better controlled Cont Metoprolol Code(s): I48.91 - UNSPECIFIED ATRIAL FIBRILLATION (2) UTI (urinary tract infection) Assessment/Plan: Restarted IV zosyn due to increasing WBC/fever S/P ureteral stent placement/lithotripsy Follow urine cultures Code(s): N39.0 - URINARY TRACT INFECTION, SITE NOT SPECIFIED Qualifiers: Urinary tract infection type: acute cystitis Hematuria presence: with hematuria Qualified Code(s): N30.01 - Acute cystitis with hematuria (3) APPLE (acute kidney injury) Assessment/Plan: Cont IVF Resolving 8mm ureteral stone/hydronephrosis S/P ureterscopic lithotripsy Code(s): N17.9 - ACUTE KIDNEY FAILURE, UNSPECIFIED (4) Elbow pain Assessment/Plan: Ortho reconsulted Cont tramadol Code(s): M25.529 - PAIN IN UNSPECIFIED ELBOW (5) HTN (hypertension) Assessment/Plan: BP stable Pt is on metoprolol Code(s): I10 - ESSENTIAL (PRIMARY) HYPERTENSION (6) Severe protein-calorie malnutrition Code(s): E43 - UNSPECIFIED SEVERE PROTEIN-CALORIE MALNUTRITION (7) Dementia Code(s): F03.90 - UNSPECIFIED DEMENTIA WITHOUT BEHAVIORAL DISTURBANCE (8) Femoral neck fracture Assessment/Plan: No surgical intervention as per ortho Code(s): S72.009A - FRACTURE OF UNSP PART OF NECK OF UNSP FEMUR, INIT
[2018-08-25] MEDS ORDERED: PIPERACILLIN/TAZOBACTAM 2.25 GM VIAL IVPB ONE ×4 (00:05→20:43)
[2018-08-25] MEDS ORDERED: DEXTROSE 5%-WATER - 50 ML IVPB ONE ×4 (00:05→20:43)
[2018-08-25] MEDS: PIPERACILLIN/TAZOB 2.25 GM 2.25 GM in DEXTROSE 5%-WATER - 50 ML IVPB SCH ×4 (02:05→20:56)
[2018-08-25] MEDS: DOCUSATE SODIUM 100 MG CAPSULE (FP) PO SCH ×3 (05:20→21:01)
[2018-08-25 07:11] LABS: BASO % 0.6 % (0-2.0); EOS % 1.6 % (0-4.5); HEMOGLOBIN 10.3 GM/dL (10.7-15.3); LYMPH % 4.9 % (8-40); MCH 33.7 pg (25.7-33.7); MCHC 32.3 g/dl (32.0-36.0); MEAN CELL VOLUME 104.5 fl (80-96); MEAN PLT VOLUME 8.1 fl (7.5-11.1); MONO % 5.4 % (3.8-10.2); NEUT % 87.5 % (42.8-82.8); PLATELET COUNT 415 K/MM3 (134-434); RBC 3.06 M/mm3 (3.60-5.2); RDW 15.9 % (11.6-15.6); WHITE BLOOD COUNT 20.5 K/mm3 (4.0-10.0)
[2018-08-25 07:34] LABS: ALBUMIN 1.8 g/dl (3.4-5.0); BILIRUBIN,TOTAL 0.7 mg/dL (0.2-1); CALCIUM 8.4 mg/dL (8.5-10.1); CREATININE 0.9 mg/dL (0.55-1.3); POTASSIUM 4.1 mmol/L (3.5-5.1); TOT PROT 5.4 g/dl (6.4-8.2)
[2018-08-25 09:33] LABS: ANISOCYTOSIS 1+; MACROCYTOSIS 1+; PLATELET ESTIMATE NORMAL; TARGET CELLS 1+
[2018-08-25] MEDS: MULTIVITAMINS (DAILY MVI) TABLET (FP) PO SCH (09:46)
[2018-08-25] MEDS: MAGNESIUM OXIDE 400 MG TABLET (FP) PO SCH ×2 (09:46→21:01)
[2018-08-25] MEDS: MEGESTROL ACETATE 400 MG/10 ML UNIT DOSE CUP PO SCH (09:47)
[2018-08-25] MEDS: GALANTAMINE HBR 8 MG PO SCH ×2 (09:47→21:04)
[2018-08-25] MEDS: POTASSIUM CHLORIDE ORAL LIQUID 20 MEQ/15 ML PO SCH (09:47)
[2018-08-25] MEDS: APIXABAN 2.5 MG TABLET PO SCH ×2 (09:53→21:01)
--- NOTE | 2018-08-25 10:34 | PN ---
Progress Note, Physician History of Present Illness: patient events noted again increase in wbc w - Current Medication List Current Medications: Active Medications Acetaminophen (Tylenol -) 650 mg PO Q6H PRN PRN Reason: PAIN LEVEL 1-5 Last Admin: 08/23/18 22:06 Dose: 650 mg Apixaban (Eliquis -) 2.5 mg PO BID [facility] Last Admin: 08/25/18 09:53 Dose: 2.5 mg Docusate Sodium (Colace -) 100 mg PO TID [facility] Last Admin: 08/25/18 05:20 Dose: Not Given Piperacillin Sod/Tazobactam (Sod 2.25 gm/ Dextrose) 50 mls @ 100 mls/hr IVPB Q6H-IV [facility]; Protocol Last Admin: 08/25/18 09:45 Dose: 100 mls/hr Magnesium Oxide (Mag-Ox -) 400 mg PO BID [facility] Last Admin: 08/25/18 09:46 Dose: 400 mg Megestrol Acetate (Megace Oral Suspension -) 400 mg PO DAILY [facility] Last Admin: 08/25/18 09:47 Dose: Not Given Metoprolol Succinate (Toprol Xl -) 100 mg PO BID [facility] Last Admin: 08/25/18 09:52 Dose: 100 mg Metoprolol Tartrate (Lopressor Injection -) 5 mg IVPUSH Q4H PRN PRN Reason: TACHYCARDIA Multivitamins/Minerals/Vitamin C (Tab-A-Vit -) 1 tab PO DAILY [facility] Last Admin: 08/25/18 09:46 Dose: 1 tab Non-Formulary Med( Galantamine Hbr 8 Mg Tab 1 each PO BID [facility] Last Admin: 08/25/18 09:47 Dose: 1 each Ondansetron HCl (Zofran Injection) 4 mg IVPUSH Q6H PRN PRN Reason: NAUSEA AND/OR VOMITING Potassium Chloride (Potassium Chloride Oral Liquid) 40 meq PO DAILY [facility] Last Admin: 08/25/18 09:47 Dose: 40 meq Tramadol HCl (Ultram -) 50 mg PO BID [facility] Last Admin: 08/24/18 21:26 Dose: 50 mg - Objective Vital Signs: Vital Signs Temperature 97.8 F 08/25/18 05:42 Pulse Rate 106 H 08/25/18 05:42 Respiratory Rate 20 08/25/18 05:42 Blood Pressure 149/89 08/25/18 05:42 O2 Sat by Pulse Oximetry (%) 97 08/24/18 21:00 Constitutional: Yes: No Distress, Calm Cardiovascular: Yes: S1, S2 Respiratory: Yes: Regular, CTA Bilaterally Gastrointestinal: Yes: Normal Bowel Sounds, Soft Musculoskeletal: Yes: WNL Extremities: Yes: WNL Neurological: Yes: Alert Psychiatric: Yes: Alert Labs: CBC, BMP 08/25/18 05:55 08/25/18 05:55 INR, PTT INR 1.98 (0.83-1.09) H 08/18/18 06:48 Assessment/Plan Problem List - Problems (1) Rapid atrial fibrillation Code(s): I48.91 - UNSPECIFIED ATRIAL FIBRILLATION (2) UTI (urinary tract infection) Code(s): N39.0 - URINARY TRACT INFECTION, SITE NOT SPECIFIED Qualifiers: Urinary tract infection type: acute cystitis Hematuria presence: with hematuria Qualified Code(s): N30.01 - Acute cystitis with hematuria (3) APPLE (acute kidney injury) Code(s): N17.9 - ACUTE KIDNEY FAILURE, UNSPECIFIED (4) Dementia Code(s): F03.90 - UNSPECIFIED DEMENTIA WITHOUT BEHAVIORAL DISTURBANCE dirrhoea leukocytosis plan continue abx monitor wbc monitor fevers rest as per the team
[2018-08-25] MEDS: traMADol HCL 50 MG TABLET PO SCH ×2 (11:13→21:01)
--- NOTE | 2018-08-25 11:28 | PN ---
Progress Note, Physician Chief Complaint: afib History of Present Illness: conversant. denies cp, sob, palpitations, syncope - Current Medication List Current Medications: Active Medications Acetaminophen (Tylenol -) 650 mg PO Q6H PRN PRN Reason: PAIN LEVEL 1-5 Last Admin: 08/23/18 22:06 Dose: 650 mg Apixaban (Eliquis -) 2.5 mg PO BID [facility] Last Admin: 08/25/18 09:53 Dose: 2.5 mg Docusate Sodium (Colace -) 100 mg PO TID [facility] Last Admin: 08/25/18 05:20 Dose: Not Given Piperacillin Sod/Tazobactam (Sod 2.25 gm/ Dextrose) 50 mls @ 100 mls/hr IVPB Q6H-IV [facility]; Protocol Last Admin: 08/25/18 09:45 Dose: 100 mls/hr Magnesium Oxide (Mag-Ox -) 400 mg PO BID [facility] Last Admin: 08/25/18 09:46 Dose: 400 mg Megestrol Acetate (Megace Oral Suspension -) 400 mg PO DAILY [facility] Last Admin: 08/25/18 09:47 Dose: Not Given Metoprolol Succinate (Toprol Xl -) 100 mg PO BID [facility] Last Admin: 08/25/18 09:52 Dose: 100 mg Metoprolol Tartrate (Lopressor Injection -) 5 mg IVPUSH Q4H PRN PRN Reason: TACHYCARDIA Multivitamins/Minerals/Vitamin C (Tab-A-Vit -) 1 tab PO DAILY [facility] Last Admin: 08/25/18 09:46 Dose: 1 tab Non-Formulary Med( Galantamine Hbr 8 Mg Tab 1 each PO BID [facility] Last Admin: 08/25/18 09:47 Dose: 1 each Ondansetron HCl (Zofran Injection) 4 mg IVPUSH Q6H PRN PRN Reason: NAUSEA AND/OR VOMITING Potassium Chloride (Potassium Chloride Oral Liquid) 40 meq PO DAILY [facility] Last Admin: 08/25/18 09:47 Dose: 40 meq Tramadol HCl (Ultram -) 50 mg PO BID [facility] Last Admin: 08/25/18 11:13 Dose: Not Given - Objective Vital Signs: Vital Signs Temperature 97.8 F 08/25/18 05:42 Pulse Rate 106 H 08/25/18 05:42 Respiratory Rate 20 08/25/18 05:42 Blood Pressure 149/89 08/25/18 05:42 O2 Sat by Pulse Oximetry (%) 97 08/24/18 21:00 Constitutional: Yes: Well Nourished, No Distress, Calm Cardiovascular: Yes: Pulse Irregular, S1, S2. No: Gallop, Murmur Respiratory: Yes: Regular, CTA Bilaterally. No: Accessory Muscle Use, Rales, Wheezes Extremities: No: Cold Edema: No Neurological: Yes: Alert. No: Seizure Psychiatric: No: Agitated Labs: CBC, BMP 08/25/18 05:55 08/25/18 05:55 INR, PTT INR 1.98 (0.83-1.09) H 08/18/18 06:48 Assessment/Plan CXR: no congestion EKG: sinus with PACs, no ischemic changes EKG 08/05 afib with RVR, no ischemic changes echo 07/2018 nl LV/RV function, mild TR, mild AR 1. Afib with RVR: - no prior cardiac hx, discussed with patient's daughter - nl LV function on echo - on toprol 100 bid, resting HRs 100s, normotensive. will add diltiazem CD 120 for rate control, empirically reduce metoprolol succinate (50 bid) to avoid polypharmacy in elderly pt - [id number] 4, anticoagulation indicated, on eliquis (2.5 bid for age and weight) 2. APPLE -renal following, likely prerenal -improved with IVF 3. UTI - manage per primary 4. HTN - bp stable. home meds held, cont AF avn blockers as doing
--- NOTE | 2018-08-25 22:57 | PN ---
Progress Note, Physician - Current Medication List Current Medications: Active Medications Acetaminophen (Tylenol -) 650 mg PO Q6H PRN PRN Reason: PAIN LEVEL 1-5 Last Admin: 08/23/18 22:06 Dose: 650 mg Apixaban (Eliquis -) 2.5 mg PO BID [facility] Last Admin: 08/25/18 21:01 Dose: 2.5 mg Diltiazem HCl (Cardizem Cd -) 120 mg PO DAILY [facility] Last Admin: 08/25/18 12:25 Dose: 120 mg Docusate Sodium (Colace -) 100 mg PO TID [facility] Last Admin: 08/25/18 21:01 Dose: 100 mg Piperacillin Sod/Tazobactam (Sod 2.25 gm/ Dextrose) 50 mls @ 100 mls/hr IVPB Q6H-IV [facility]; Protocol Last Admin: 08/25/18 20:56 Dose: 100 mls/hr Magnesium Oxide (Mag-Ox -) 400 mg PO BID [facility] Last Admin: 08/25/18 21:01 Dose: 400 mg Megestrol Acetate (Megace Oral Suspension -) 400 mg PO DAILY [facility] Last Admin: 08/25/18 09:47 Dose: Not Given Metoprolol Succinate (Toprol Xl -) 50 mg PO BID [facility] Last Admin: 08/25/18 21:03 Dose: 50 mg Metoprolol Tartrate (Lopressor Injection -) 5 mg IVPUSH Q4H PRN PRN Reason: TACHYCARDIA Multivitamins/Minerals/Vitamin C (Tab-A-Vit -) 1 tab PO DAILY [facility] Last Admin: 08/25/18 09:46 Dose: 1 tab Non-Formulary Med( Galantamine Hbr 8 Mg Tab 1 each PO BID [facility] Last Admin: 08/25/18 21:04 Dose: 1 each Ondansetron HCl (Zofran Injection) 4 mg IVPUSH Q6H PRN PRN Reason: NAUSEA AND/OR VOMITING Potassium Chloride (Potassium Chloride Oral Liquid) 40 meq PO DAILY [facility] Last Admin: 08/25/18 09:47 Dose: 40 meq Tramadol HCl (Ultram -) 50 mg PO BID [facility] Last Admin: 08/25/18 21:01 Dose: 50 mg - Objective Vital Signs: Vital Signs Temperature 98.9 F 08/25/18 16:52 Pulse Rate 86 08/25/18 16:52 Respiratory Rate 20 08/25/18 16:52 Blood Pressure 114/51 L 08/25/18 16:52 O2 Sat by Pulse Oximetry (%) 96 08/25/18 09:00 Labs: CBC, BMP 08/25/18 05:55 08/25/18 05:55 INR, PTT INR 1.98 (0.83-1.09) H 08/18/18 06:48 Problem List - Problems (1) Rapid atrial fibrillation Code(s): I48.91 - UNSPECIFIED ATRIAL FIBRILLATION (2) UTI (urinary tract infection) Code(s): N39.0 - URINARY TRACT INFECTION, SITE NOT SPECIFIED Qualifiers: Urinary tract infection type: acute cystitis Hematuria presence: with hematuria Qualified Code(s): N30.01 - Acute cystitis with hematuria (3) APPLE (acute kidney injury) Code(s): N17.9 - ACUTE KIDNEY FAILURE, UNSPECIFIED (4) Elbow pain Code(s): M25.529 - PAIN IN UNSPECIFIED ELBOW (5) HTN (hypertension) Code(s): I10 - ESSENTIAL (PRIMARY) HYPERTENSION (6) Severe protein-calorie malnutrition Code(s): E43 - UNSPECIFIED SEVERE PROTEIN-CALORIE MALNUTRITION (7) Dementia Code(s): F03.90 - UNSPECIFIED DEMENTIA WITHOUT BEHAVIORAL DISTURBANCE (8) Femoral neck fracture Code(s): S72.009A - FRACTURE OF UNSP PART OF NECK OF UNSP FEMUR, INIT
[2018-08-26] MEDS ORDERED: DEXTROSE 5%-WATER - 50 ML IVPB ONE ×2 (01:48→09:12)
[2018-08-26] MEDS ORDERED: PIPERACILLIN/TAZOBACTAM 2.25 GM VIAL IVPB ONE ×2 (01:48→09:12)
[2018-08-26] MEDS: PIPERACILLIN/TAZOB 2.25 GM 2.25 GM in DEXTROSE 5%-WATER - 50 ML IVPB SCH ×2 (02:13→09:42)
[2018-08-26] MEDS: DOCUSATE SODIUM 100 MG CAPSULE (FP) PO SCH ×3 (05:17→22:22)
[2018-08-26 06:57] LABS: BASO % 0.7 % (0-2.0); EOS % 2.1 % (0-4.5); HEMATOCRIT 25.6 % (32.4-45.2); HEMOGLOBIN 8.2 GM/dL (10.7-15.3); LYMPH % 5.8 % (8-40); MCH 33.4 pg (25.7-33.7); MCHC 32.1 g/dl (32.0-36.0); MEAN CELL VOLUME 103.9 fl (80-96); MONO % 5.9 % (3.8-10.2); NEUT % 85.5 % (42.8-82.8); PLATELET COUNT 335 K/MM3 (134-434); RBC 2.46 M/mm3 (3.60-5.2); RDW 15.9 % (11.6-15.6)
[2018-08-26 07:26] LABS: ALBUMIN 1.6 g/dl (3.4-5.0); BILIRUBIN,TOTAL 0.5 mg/dL (0.2-1); CALCIUM 8.3 mg/dL (8.5-10.1); CREATININE 0.9 mg/dL (0.55-1.3); POTASSIUM 3.8 mmol/L (3.5-5.1)
[2018-08-26] MEDS ORDERED: PT OWN MED DRAWER 7, Y5N ONE (09:12)
[2018-08-26] MEDS: MAGNESIUM OXIDE 400 MG TABLET (FP) PO SCH ×2 (09:42→22:21)
[2018-08-26] MEDS: traMADol HCL 50 MG TABLET PO SCH ×2 (09:42→22:20)
[2018-08-26] MEDS: APIXABAN 2.5 MG TABLET PO SCH ×2 (09:43→22:21)
[2018-08-26] MEDS: MULTIVITAMINS (DAILY MVI) TABLET (FP) PO SCH (09:43)
[2018-08-26] MEDS: MEGESTROL ACETATE 400 MG/10 ML UNIT DOSE CUP PO SCH (09:43)
[2018-08-26] MEDS: POTASSIUM CHLORIDE ORAL LIQUID 20 MEQ/15 ML PO SCH ×2 (09:43→15:30)
[2018-08-26 10:12] LABS: ANISOCYTOSIS 1+; MACROCYTOSIS 1+; OVALOCYTE 1+; PLATELET ESTIMATE NORMAL; TARGET CELLS 1+
[2018-08-26] MEDS: GALANTAMINE HBR 8 MG PO SCH ×2 (10:14→22:22)
--- NOTE | 2018-08-26 11:17 | PN ---
Progress Note, Physician History of Present Illness: stable no new issues wbc still on the higher side patient clinically non toxic could be leukomoid reaction - Current Medication List Current Medications: Active Medications Acetaminophen (Tylenol -) 650 mg PO Q6H PRN PRN Reason: PAIN LEVEL 1-5 Last Admin: 08/23/18 22:06 Dose: 650 mg Apixaban (Eliquis -) 2.5 mg PO BID [facility] Last Admin: 08/26/18 09:43 Dose: 2.5 mg Diltiazem HCl (Cardizem Cd -) 120 mg PO DAILY [facility] Last Admin: 08/26/18 09:46 Dose: 120 mg Docusate Sodium (Colace -) 100 mg PO TID [facility] Last Admin: 08/26/18 05:17 Dose: 100 mg Piperacillin Sod/Tazobactam (Sod 2.25 gm/ Dextrose) 50 mls @ 100 mls/hr IVPB Q6H-IV [facility]; Protocol Last Admin: 08/26/18 09:42 Dose: 100 mls/hr Magnesium Oxide (Mag-Ox -) 400 mg PO BID [facility] Last Admin: 08/26/18 09:42 Dose: 400 mg Megestrol Acetate (Megace Oral Suspension -) 400 mg PO DAILY [facility] Last Admin: 08/26/18 09:43 Dose: 400 mg Metoprolol Succinate (Toprol Xl -) 50 mg PO BID [facility] Last Admin: 08/26/18 09:46 Dose: 50 mg Metoprolol Tartrate (Lopressor Injection -) 5 mg IVPUSH Q4H PRN PRN Reason: TACHYCARDIA Multivitamins/Minerals/Vitamin C (Tab-A-Vit -) 1 tab PO DAILY [facility] Last Admin: 08/26/18 09:43 Dose: 1 tab Non-Formulary Med( Galantamine Hbr 8 Mg Tab 1 each PO BID [facility] Last Admin: 08/26/18 10:14 Dose: 1 each Ondansetron HCl (Zofran Injection) 4 mg IVPUSH Q6H PRN PRN Reason: NAUSEA AND/OR VOMITING Potassium Chloride (Potassium Chloride Oral Liquid) 40 meq PO DAILY [facility] Last Admin: 08/26/18 09:43 Dose: 40 meq Tramadol HCl (Ultram -) 50 mg PO BID [facility] Last Admin: 08/26/18 09:42 Dose: 50 mg - Objective Vital Signs: Vital Signs Temperature 98.8 F 08/26/18 10:00 Pulse Rate 101 H 08/26/18 10:00 Respiratory Rate 18 08/26/18 10:00 Blood Pressure 100/44 L 08/26/18 10:00 O2 Sat by Pulse Oximetry (%) 98 08/26/18 09:00 Constitutional: Yes: No Distress, Calm Cardiovascular: Yes: Tachycardia, S1, S2 Respiratory: Yes: Regular, CTA Bilaterally Gastrointestinal: Yes: Normal Bowel Sounds, Soft Musculoskeletal: Yes: WNL Extremities: Yes: WNL Neurological: Yes: Alert Psychiatric: Yes: Alert Labs: CBC, BMP 08/26/18 06:30 08/26/18 06:30 INR, PTT INR 1.98 (0.83-1.09) H 08/18/18 06:48 Assessment/Plan Problem List - Problems (1) Rapid atrial fibrillation Code(s): I48.91 - UNSPECIFIED ATRIAL FIBRILLATION (2) UTI (urinary tract infection) Code(s): N39.0 - URINARY TRACT INFECTION, SITE NOT SPECIFIED Qualifiers: Urinary tract infection type: acute cystitis Hematuria presence: with hematuria Qualified Code(s): N30.01 - Acute cystitis with hematuria (3) APPLE (acute kidney injury) Code(s): N17.9 - ACUTE KIDNEY FAILURE, UNSPECIFIED (4) Dementia Code(s): F03.90 - UNSPECIFIED DEMENTIA WITHOUT BEHAVIORAL DISTURBANCE dirrhoea leukocytosis plan will again change back to oral and monitor rest as per the team
--- NOTE | 2018-08-26 14:08 | PN ---
Progress Note, Physician History of Present Illness: Pt seen and examined at bedside. She appear weak and fatigued. - Current Medication List Current Medications: Active Medications Acetaminophen (Tylenol -) 650 mg PO Q6H PRN PRN Reason: PAIN LEVEL 1-5 Last Admin: 08/23/18 22:06 Dose: 650 mg Amoxicillin/Clavulanate Potassium (Augmentin - 500mg Tablet) 1 tab PO BID@0800, 1730 [facility] Apixaban (Eliquis -) 2.5 mg PO BID [facility] Last Admin: 08/26/18 09:43 Dose: 2.5 mg Diltiazem HCl (Cardizem Cd -) 120 mg PO DAILY [facility] Last Admin: 08/26/18 09:46 Dose: 120 mg Docusate Sodium (Colace -) 100 mg PO TID [facility] Last Admin: 08/26/18 05:17 Dose: 100 mg Magnesium Oxide (Mag-Ox -) 400 mg PO BID [facility] Last Admin: 08/26/18 09:42 Dose: 400 mg Megestrol Acetate (Megace Oral Suspension -) 400 mg PO DAILY [facility] Last Admin: 08/26/18 09:43 Dose: 400 mg Metoprolol Succinate (Toprol Xl -) 50 mg PO BID [facility] Last Admin: 08/26/18 09:46 Dose: 50 mg Metoprolol Tartrate (Lopressor Injection -) 5 mg IVPUSH Q4H PRN PRN Reason: TACHYCARDIA Multivitamins/Minerals/Vitamin C (Tab-A-Vit -) 1 tab PO DAILY [facility] Last Admin: 08/26/18 09:43 Dose: 1 tab Non-Formulary Med( Galantamine Hbr 8 Mg Tab 1 each PO BID [facility] Last Admin: 08/26/18 10:14 Dose: 1 each Ondansetron HCl (Zofran Injection) 4 mg IVPUSH Q6H PRN PRN Reason: NAUSEA AND/OR VOMITING Potassium Chloride (Potassium Chloride Oral Liquid) 40 meq PO DAILY [facility] Last Admin: 08/26/18 09:43 Dose: 40 meq Tramadol HCl (Ultram -) 50 mg PO BID [facility] Last Admin: 08/26/18 09:42 Dose: 50 mg - Objective Vital Signs: Vital Signs Temperature 98.8 F 08/26/18 10:00 Pulse Rate 101 H 08/26/18 10:00 Respiratory Rate 18 08/26/18 10:00 Blood Pressure 100/44 L 08/26/18 10:00 O2 Sat by Pulse Oximetry (%) 98 08/26/18 09:00 Constitutional: Yes: Cachectic Eyes: Yes: Conjunctiva Clear HENT: Yes: Atraumatic Cardiovascular: Yes: S1, S2 Respiratory: Yes: CTA Bilaterally Gastrointestinal: Yes: Soft Genitourinary: Yes: Incontinence Musculoskeletal: Yes: Muscle Weakness Edema: Yes Neurological: Yes: Lethargy Labs: CBC, BMP 08/26/18 06:30 08/26/18 06:30 INR, PTT INR 1.98 (0.83-1.09) H 08/18/18 06:48 Problem List - Problems (1) APPLE (acute kidney injury) Code(s): N17.9 - ACUTE KIDNEY FAILURE, UNSPECIFIED Assessment/Plan Current Medications Generic Name Dose Route Start Last Admin Trade Name Freq PRN Reason Stop Dose Admin Acetaminophen 650 mg 08/16/18 17:19 08/23/18 22:06 Tylenol - PO 650 mg Q6H PRN Administration PAIN LEVEL 1-5 Amoxicillin/Clavulanate Potassium 1 tab 08/26/18 17:30 Augmentin - 500mg Tablet PO BID@0800,1730 [facility] Apixaban 2.5 mg 08/08/18 10:00 08/26/18 09:43 Eliquis - PO 2.5 mg BID [facility] Administration Diltiazem HCl 120 mg 08/25/18 11:45 08/26/18 09:46 Cardizem Cd - PO 120 mg DAILY [facility] Administration Docusate Sodium 100 mg 08/10/18 13:00 08/26/18 05:17 Colace - PO 100 mg TID [facility] Administration Magnesium Oxide 400 mg 08/18/18 10:00 08/26/18 09:42 Mag-Ox - PO 400 mg BID [facility] Administration Megestrol Acetate 400 mg 08/08/18 10:00 08/26/18 09:43 Megace Oral Suspension - PO 400 mg DAILY [facility] Administration Metoprolol Succinate 50 mg 08/25/18 11:34 08/26/18 09:46 Toprol Xl - PO 50 mg BID [facility] Administration Metoprolol Tartrate 5 mg 08/23/18 11:28 Lopressor Injection - IVPUSH Q4H PRN TACHYCARDIA Multivitamins/Minerals/Vitamin C 1 tab 08/08/18 10:00 08/26/18 09:43 Tab-A-Vit - PO 1 tab DAILY [facility] Administration Non-Formulary Med( 1 each 08/10/18 22:00 08/26/18 10:14 Galantamine Hbr 8 Mg PO 1 each Tab BID [facility] Administration Ondansetron HCl 4 mg 08/14/18 15:59 Zofran Injection IVPUSH Q6H PRN NAUSEA AND/OR VOMITING Potassium Chloride 40 meq 08/20/18 10:00 08/26/18 09:43 Potassium Chloride Oral Liquid PO 40 meq DAILY ROBIN Administration Tramadol HCl 50 mg 08/24/18 22:00 08/26/18 09:42 Ultram - PO 50 mg BID ROBIN Administration Impression 1. APPLE 2. hyperkalemia 3. htn 4. UTI 5. hld 6. dementia 7. hydronephrosis 8. nephrolithiasis 9. hypokalemia Plan - will restart fluids as sodium is rising - monitor lytes - encourage PO intake - potassium tayler Dr Ferrara
--- NOTE | 2018-08-26 15:18 | PN ---
Progress Note (short form) - Note Progress Note: s: no chest pain, palps, dizziness, lightheadedness Current Medications Generic Name Dose Route Start Last Admin Trade Name Freq PRN Reason Stop Dose Admin Acetaminophen 650 mg 08/16/18 17:19 08/23/18 22:06 Tylenol - PO 650 mg Q6H PRN Administration PAIN LEVEL 1-5 Amoxicillin/Clavulanate Potassium 1 tab 08/26/18 17:30 Augmentin - 500mg Tablet PO BID@0800,1730 ROBIN Apixaban 2.5 mg 08/08/18 10:00 08/26/18 09:43 Eliquis - PO 2.5 mg BID ROBIN Administration Diltiazem HCl 120 mg 08/25/18 11:45 08/26/18 09:46 Cardizem Cd - PO 120 mg DAILY ROBIN Administration Docusate Sodium 100 mg 08/10/18 13:00 08/26/18 05:17 Colace - PO 100 mg TID ROBIN Administration Dextrose 1,000 mls @ 42 mls/hr 08/26/18 14:15 D5w - IV ASDIR ROBIN Magnesium Oxide 400 mg 08/18/18 10:00 08/26/18 09:42 Mag-Ox - PO 400 mg BID ROBIN Administration Megestrol Acetate 400 mg 08/08/18 10:00 08/26/18 09:43 Megace Oral Suspension - PO 400 mg DAILY ROBIN Administration Metoprolol Succinate 50 mg 08/25/18 11:34 08/26/18 09:46 Toprol Xl - PO 50 mg BID ROBIN Administration Metoprolol Tartrate 5 mg 08/23/18 11:28 Lopressor Injection - IVPUSH Q4H PRN TACHYCARDIA Multivitamins/Minerals/Vitamin C 1 tab 08/08/18 10:00 08/26/18 09:43 Tab-A-Vit - PO 1 tab DAILY ROBIN Administration Non-Formulary Med( 1 each 08/10/18 22:00 08/26/18 10:14 Galantamine Hbr 8 Mg PO 1 each Tab BID ROBIN Administration Ondansetron HCl 4 mg 08/14/18 15:59 Zofran Injection IVPUSH Q6H PRN NAUSEA AND/OR VOMITING Potassium Chloride 40 meq 08/20/18 10:00 08/26/18 09:43 Potassium Chloride Oral Liquid PO 40 meq DAILY ROBIN Administration Tramadol HCl 50 mg 08/24/18 22:00 08/26/18 09:42 Ultram - PO 50 mg BID ROBIN Administration Vital Signs Period Temp Pulse Resp BP Sys/Deluna Pulse Ox Last 24 Hr 98.1 F-98.9 F 69-103 18-20 100-114/44-60 98-98 Constitutional: Yes: No Distress, Calm Eyes: Yes: Conjunctiva Clear Neck: Yes: Supple, Trachea Midline Respiratory: Yes: Regular, CTA Bilaterally Gastrointestinal: Yes: Normal Bowel Sounds, Soft Cardiovascular: Yes: Pulse Irregular JVD: No Extremities: No: Cold Edema: No Integumentary: No: Jaundice Neurological: Yes: Alert Psychiatric: No: Agitated CBC, BMP 08/26/18 06:30 08/26/18 06:30 Assessment/Plan CXR: no congestion EKG: sinus with PACs, no ischemic changes EKG 08/05 afib with RVR, no ischemic changes echo 07/2018 nl LV/RV function, mild TR, mild AR 1. Afib with RVR: - no prior cardiac hx, discussed with patient's daughter - nl LV function on echo - cont toprol and dilt for rate control - [id number] 4, anticoagulation indicated, on eliquis (2.5 bid for age and weight) 2. APPLE -renal following, likely prerenal -improved with IVF 3. UTI - manage per primary 4. HTN - bp stable. home meds held, cont AF avn blockers as doing
[2018-08-26] MEDS: DEXTROSE 5%-WATER - 1,000 ML IV SCH (15:29)
[2018-08-26] MEDS: AMOX TR/POT CLAV 500MG/125MG TABLETS (FP) PO SCH (17:19)
--- NOTE | 2018-08-26 21:39 | PN ---
Progress Note, Physician History of Present Illness: No new complaints - Current Medication List Current Medications: Active Medications Acetaminophen (Tylenol -) 650 mg PO Q6H PRN PRN Reason: PAIN LEVEL 1-5 Last Admin: 08/23/18 22:06 Dose: 650 mg Amoxicillin/Clavulanate Potassium (Augmentin - 500mg Tablet) 1 tab PO BID@0800, 1730 [facility] Last Admin: 08/26/18 17:19 Dose: 1 tab Apixaban (Eliquis -) 2.5 mg PO BID [facility] Last Admin: 08/26/18 09:43 Dose: 2.5 mg Bacitracin (Bacitracin -) 1 applic TP DAILY [facility] Diltiazem HCl (Cardizem Cd -) 120 mg PO DAILY [facility] Last Admin: 08/26/18 09:46 Dose: 120 mg Docusate Sodium (Colace -) 100 mg PO TID [facility] Last Admin: 08/26/18 15:22 Dose: Not Given Dextrose (D5w -) 1,000 mls @ 42 mls/hr IV ASDIR [facility] Last Admin: 08/26/18 15:29 Dose: 42 mls/hr Magnesium Oxide (Mag-Ox -) 400 mg PO BID [facility] Last Admin: 08/26/18 09:42 Dose: 400 mg Megestrol Acetate (Megace Oral Suspension -) 400 mg PO DAILY [facility] Last Admin: 08/26/18 09:43 Dose: 400 mg Metoprolol Succinate (Toprol Xl -) 50 mg PO BID [facility] Last Admin: 08/26/18 09:46 Dose: 50 mg Metoprolol Tartrate (Lopressor Injection -) 5 mg IVPUSH Q4H PRN PRN Reason: TACHYCARDIA Multivitamins/Minerals/Vitamin C (Tab-A-Vit -) 1 tab PO DAILY [facility] Last Admin: 08/26/18 09:43 Dose: 1 tab Non-Formulary Med( Galantamine Hbr 8 Mg Tab 1 each PO BID [facility] Last Admin: 08/26/18 10:14 Dose: 1 each Ondansetron HCl (Zofran Injection) 4 mg IVPUSH Q6H PRN PRN Reason: NAUSEA AND/OR VOMITING Potassium Chloride (Potassium Chloride Oral Liquid) 40 meq PO DAILY [facility] Last Admin: 08/26/18 15:30 Dose: Not Given Tramadol HCl (Ultram -) 50 mg PO BID [facility] Last Admin: 08/26/18 09:42 Dose: 50 mg - Objective Vital Signs: Vital Signs Temperature 98.4 F 08/26/18 18:00 Pulse Rate 84 08/26/18 18:00 Respiratory Rate 18 08/26/18 18:00 Blood Pressure 101/55 L 08/26/18 18:00 O2 Sat by Pulse Oximetry (%) 98 08/26/18 09:00 Neck: Yes: WNL, Supple Cardiovascular: Yes: WNL, Regular Rate and Rhythm Respiratory: Yes: WNL, Regular, CTA Bilaterally Gastrointestinal: Yes: WNL, Normal Bowel Sounds, Soft Labs: CBC, BMP 08/26/18 06:30 08/26/18 06:30 INR, PTT INR 1.98 (0.83-1.09) H 08/18/18 06:48 Problem List - Problems (1) Rapid atrial fibrillation Assessment/Plan: Cont eliquis Heart rate better controlled Cont Metoprolol Code(s): I48.91 - UNSPECIFIED ATRIAL FIBRILLATION (2) UTI (urinary tract infection) Assessment/Plan: Pt now on po augmentin Increased WBC could be due to leukomoid rxn As per ID Repeat WBC in am S/P ureteral stent placement/lithotripsy Repeat urine cultures and BC remain negative Code(s): N39.0 - URINARY TRACT INFECTION, SITE NOT SPECIFIED Qualifiers: Urinary tract infection type: acute cystitis Hematuria presence: with hematuria Qualified Code(s): N30.01 - Acute cystitis with hematuria (3) APPLE (acute kidney injury) Assessment/Plan: Cont IVF Resolving 8mm ureteral stone/hydronephrosis S/P ureterscopic lithotripsy Code(s): N17.9 - ACUTE KIDNEY FAILURE, UNSPECIFIED (4) Elbow pain Assessment/Plan: Ortho reconsulted Cont tramadol Code(s): M25.529 - PAIN IN UNSPECIFIED ELBOW (5) HTN (hypertension) Assessment/Plan: BP stable Pt is on metoprolol Code(s): I10 - ESSENTIAL (PRIMARY) HYPERTENSION (6) Severe protein-calorie malnutrition Code(s): E43 - UNSPECIFIED SEVERE PROTEIN-CALORIE MALNUTRITION (7) Dementia Code(s): F03.90 - UNSPECIFIED DEMENTIA WITHOUT BEHAVIORAL DISTURBANCE (8) Femoral neck fracture Code(s): S72.009A - FRACTURE OF UNSP PART OF NECK OF UNSP FEMUR, INIT
[2018-08-27] MEDS: DOCUSATE SODIUM 100 MG CAPSULE (FP) PO SCH ×2 (05:34→13:54)
[2018-08-27 07:37] LABS: BASO % 0.4 % (0-2.0); EOS % 1.8 % (0-4.5); HEMATOCRIT 26.4 % (32.4-45.2); HEMOGLOBIN 8.4 GM/dL (10.7-15.3); LYMPH % 5.9 % (8-40); MCH 33.1 pg (25.7-33.7); MCHC 31.9 g/dl (32.0-36.0); MEAN CELL VOLUME 103.6 fl (80-96); MEAN PLT VOLUME 8.2 fl (7.5-11.1); MONO % 5.5 % (3.8-10.2); NEUT % 86.4 % (42.8-82.8); PLATELET COUNT 328 K/MM3 (134-434); RBC 2.54 M/mm3 (3.60-5.2); WHITE BLOOD COUNT 20.1 K/mm3 (4.0-10.0)
[2018-08-27 08:12] LABS: ALBUMIN 1.6 g/dl (3.4-5.0); BILIRUBIN,TOTAL 0.4 mg/dL (0.2-1); CALCIUM 8.2 mg/dL (8.5-10.1); CREATININE 0.9 mg/dL (0.55-1.3); POTASSIUM 3.7 mmol/L (3.5-5.1); TOT PROT 5.2 g/dl (6.4-8.2)
[2018-08-27] MEDS: AMOX TR/POT CLAV 500MG/125MG TABLETS (FP) PO SCH ×2 (09:00→16:31)
[2018-08-27] MEDS: GALANTAMINE HBR 8 MG PO SCH (09:01)
[2018-08-27] MEDS: POTASSIUM CHLORIDE ORAL LIQUID 20 MEQ/15 ML PO SCH (09:01)
[2018-08-27] MEDS: MULTIVITAMINS (DAILY MVI) TABLET (FP) PO SCH (09:01)
[2018-08-27] MEDS: MEGESTROL ACETATE 400 MG/10 ML UNIT DOSE CUP PO SCH (09:01)
[2018-08-27] MEDS: MAGNESIUM OXIDE 400 MG TABLET (FP) PO SCH (09:01)
[2018-08-27] MEDS: traMADol HCL 50 MG TABLET PO SCH (09:02)
[2018-08-27] MEDS: APIXABAN 2.5 MG TABLET PO SCH (09:02)
[2018-08-27] MEDS ORDERED: BACITRACIN 15 GM TUBE TOPICAL OINTMENT TP SCH (10:00)
[2018-08-27 11:13] LABS: ANISOCYTOSIS 1+; MACROCYTOSIS 1+; OVALOCYTE 1+; PLATELET ESTIMATE NORMAL
--- NOTE | 2018-08-27 12:02 | PN ---
Progress Note, Physician History of Present Illness: slightly confused awake and alert - Current Medication List Current Medications: Active Medications Acetaminophen (Tylenol -) 650 mg PO Q6H PRN PRN Reason: PAIN LEVEL 1-5 Last Admin: 08/23/18 22:06 Dose: 650 mg Amoxicillin/Clavulanate Potassium (Augmentin - 500mg Tablet) 1 tab PO BID@0800, 1730 [facility] Last Admin: 08/27/18 09:00 Dose: 1 tab Apixaban (Eliquis -) 2.5 mg PO BID [facility] Last Admin: 08/27/18 09:02 Dose: 2.5 mg Bacitracin (Bacitracin -) 1 applic TP DAILY [facility] Last Admin: 08/27/18 09:00 Dose: 1 applic Diltiazem HCl (Cardizem Cd -) 120 mg PO DAILY [facility] Last Admin: 08/27/18 09:02 Dose: 120 mg Docusate Sodium (Colace -) 100 mg PO TID [facility] Last Admin: 08/27/18 05:34 Dose: Not Given Dextrose (D5w -) 1,000 mls @ 42 mls/hr IV ASDIR [facility] Last Admin: 08/26/18 15:29 Dose: 42 mls/hr Magnesium Oxide (Mag-Ox -) 400 mg PO BID [facility] Last Admin: 08/27/18 09:01 Dose: 400 mg Megestrol Acetate (Megace Oral Suspension -) 400 mg PO DAILY [facility] Last Admin: 08/27/18 09:01 Dose: 400 mg Metoprolol Succinate (Toprol Xl -) 50 mg PO BID [facility] Last Admin: 08/27/18 09:02 Dose: 50 mg Metoprolol Tartrate (Lopressor Injection -) 5 mg IVPUSH Q4H PRN PRN Reason: TACHYCARDIA Multivitamins/Minerals/Vitamin C (Tab-A-Vit -) 1 tab PO DAILY [facility] Last Admin: 08/27/18 09:01 Dose: 1 tab Non-Formulary Med( Galantamine Hbr 8 Mg Tab 1 each PO BID [facility] Last Admin: 08/27/18 09:01 Dose: 1 each Ondansetron HCl (Zofran Injection) 4 mg IVPUSH Q6H PRN PRN Reason: NAUSEA AND/OR VOMITING Potassium Chloride (Potassium Chloride Oral Liquid) 40 meq PO DAILY [facility] Last Admin: 05/15/19 09:01 Dose: 40 meq Tramadol HCl (Ultram -) 50 mg PO BID ROBIN Last Admin: 08/27/18 09:02 Dose: 50 mg - Objective Vital Signs: Vital Signs Temperature 97.6 F 08/27/18 10:00 Pulse Rate 111 H 08/27/18 10:00 Respiratory Rate 18 08/27/18 10:00 Blood Pressure 130/78 08/27/18 10:00 O2 Sat by Pulse Oximetry (%) 94 L 08/27/18 09:00 Constitutional: Yes: No Distress, Calm Respiratory: Yes: Regular, CTA Bilaterally Gastrointestinal: Yes: Normal Bowel Sounds, Soft Musculoskeletal: Yes: WNL Extremities: Yes: Other Neurological: Yes: Alert Psychiatric: Yes: Alert Labs: CBC, BMP 08/27/18 06:30 08/27/18 06:30 INR, PTT INR 1.98 (0.83-1.09) H 08/18/18 06:48 Assessment/Plan Problem List - Problems (1) Rapid atrial fibrillation Code(s): I48.91 - UNSPECIFIED ATRIAL FIBRILLATION (2) UTI (urinary tract infection) Code(s): N39.0 - URINARY TRACT INFECTION, SITE NOT SPECIFIED Qualifiers: Urinary tract infection type: acute cystitis Hematuria presence: with hematuria Qualified Code(s): N30.01 - Acute cystitis with hematuria (3) APPLE (acute kidney injury) Code(s): N17.9 - ACUTE KIDNEY FAILURE, UNSPECIFIED (4) Dementia Code(s): F03.90 - UNSPECIFIED DEMENTIA WITHOUT BEHAVIORAL DISTURBANCE dirrhoea leukocytosis plan continue oral will stop abx in a day or so and monitor rest as per the team
--- NOTE | 2018-08-27 12:17 | PN ---
Progress Note, Physician History of Present Illness: Pt seen and examined. She is more awake today. She is tolerating fluids. - Current Medication List Current Medications: Active Medications Acetaminophen (Tylenol -) 650 mg PO Q6H PRN PRN Reason: PAIN LEVEL 1-5 Last Admin: 08/23/18 22:06 Dose: 650 mg Amoxicillin/Clavulanate Potassium (Augmentin - 500mg Tablet) 1 tab PO BID@0800, 1730 [facility] Last Admin: 08/27/18 09:00 Dose: 1 tab Apixaban (Eliquis -) 2.5 mg PO BID [facility] Last Admin: 08/27/18 09:02 Dose: 2.5 mg Bacitracin (Bacitracin -) 1 applic TP DAILY [facility] Last Admin: 08/27/18 09:00 Dose: 1 applic Diltiazem HCl (Cardizem Cd -) 120 mg PO DAILY [facility] Last Admin: 08/27/18 09:02 Dose: 120 mg Docusate Sodium (Colace -) 100 mg PO TID [facility] Last Admin: 08/27/18 05:34 Dose: Not Given Dextrose (D5w -) 1,000 mls @ 42 mls/hr IV ASDIR [facility] Last Admin: 08/26/18 15:29 Dose: 42 mls/hr Magnesium Oxide (Mag-Ox -) 400 mg PO BID [facility] Last Admin: 08/27/18 09:01 Dose: 400 mg Megestrol Acetate (Megace Oral Suspension -) 400 mg PO DAILY [facility] Last Admin: 08/27/18 09:01 Dose: 400 mg Metoprolol Succinate (Toprol Xl -) 50 mg PO BID [facility] Last Admin: 08/27/18 09:02 Dose: 50 mg Metoprolol Tartrate (Lopressor Injection -) 5 mg IVPUSH Q4H PRN PRN Reason: TACHYCARDIA Multivitamins/Minerals/Vitamin C (Tab-A-Vit -) 1 tab PO DAILY [facility] Last Admin: 08/27/18 09:01 Dose: 1 tab Non-Formulary Med( Galantamine Hbr 8 Mg Tab 1 each PO BID [facility] Last Admin: 08/27/18 09:01 Dose: 1 each Ondansetron HCl (Zofran Injection) 4 mg IVPUSH Q6H PRN PRN Reason: NAUSEA AND/OR VOMITING Potassium Chloride (Potassium Chloride Oral Liquid) 40 meq PO DAILY [facility] Last Admin: 08/27/18 09:01 Dose: 40 meq Tramadol HCl (Ultram -) 50 mg PO BID ROBIN Last Admin: 08/27/18 09:02 Dose: 50 mg - Objective Vital Signs: Vital Signs Temperature 97.6 F 08/27/18 10:00 Pulse Rate 111 H 08/27/18 10:00 Respiratory Rate 18 08/27/18 10:00 Blood Pressure 130/78 08/27/18 10:00 O2 Sat by Pulse Oximetry (%) 94 L 08/27/18 09:00 Constitutional: Yes: Calm, Cachectic Eyes: Yes: Conjunctiva Clear HENT: Yes: Atraumatic Cardiovascular: Yes: S1, S2 Gastrointestinal: Yes: Soft Genitourinary: Yes: Incontinence Edema: No Neurological: Yes: Oriented Labs: CBC, BMP 08/27/18 06:30 08/27/18 06:30 INR, PTT INR 1.98 (0.83-1.09) H 08/18/18 06:48 Problem List - Problems (1) APPLE (acute kidney injury) Code(s): N17.9 - ACUTE KIDNEY FAILURE, UNSPECIFIED Assessment/Plan Current Medications Generic Name Dose Route Start Last Admin Trade Name Freq PRN Reason Stop Dose Admin Acetaminophen 650 mg 08/16/18 17:19 08/23/18 22:06 Tylenol - PO 650 mg Q6H PRN Administration PAIN LEVEL 1-5 Amoxicillin/Clavulanate Potassium 1 tab 08/26/18 17:30 08/27/18 09:00 Augmentin - 500mg Tablet PO 1 tab BID@0800,1730 ROBIN Administration Apixaban 2.5 mg 08/08/18 10:00 08/27/18 09:02 Eliquis - PO 2.5 mg BID ROBIN Administration Bacitracin 1 applic 08/27/18 10:00 08/27/18 09:00 Bacitracin - TP 1 applic DAILY ROBIN Administration Diltiazem HCl 120 mg 08/25/18 11:45 08/27/18 09:02 Cardizem Cd - PO 120 mg DAILY ROBNI Administration Docusate Sodium 100 mg 08/10/18 13:00 08/27/18 05:34 Colace - PO Not Given TID ROBIN Dextrose 1,000 mls @ 42 mls/hr 08/26/18 14:15 08/26/18 15:29 D5w - IV 42 mls/hr ASDIR ROBIN Administration Magnesium Oxide 400 mg 08/18/18 10:00 08/27/18 09:01 Mag-Ox - PO 400 mg BID ROBIN Administration Megestrol Acetate 400 mg 08/08/18 10:00 08/27/18 09:01 Megace Oral Suspension - PO 400 mg DAILY RBOIN Administration Metoprolol Succinate 50 mg 08/25/18 11:34 08/27/18 09:02 Toprol Xl - PO 50 mg BID ROBIN Administration Metoprolol Tartrate 5 mg 08/23/18 11:28 Lopressor Injection - IVPUSH Q4H PRN TACHYCARDIA Multivitamins/Minerals/Vitamin C 1 tab 08/08/18 10:00 08/27/18 09:01 Tab-A-Vit - PO 1 tab DAILY ROBIN Administration Non-Formulary Med( 1 each 08/10/18 22:00 08/27/18 09:01 Galantamine Hbr 8 Mg PO 1 each Tab BID ROBIN Administration Ondansetron HCl 4 mg 08/14/18 15:59 Zofran Injection IVPUSH Q6H PRN NAUSEA AND/OR VOMITING Potassium Chloride 40 meq 08/20/18 10:00 08/27/18 09:01 Potassium Chloride Oral Liquid PO 40 meq DAILY ROBIN Administration Tramadol HCl 50 mg 08/24/18 22:00 08/27/18 09:02 Ultram - PO 50 mg BID ROBIN Administration Impression 1. APPLE 2. hyperkalemia 3. htn 4. UTI 5. hld 6. dementia 7. hydronephrosis 8. nephrolithiasis 9. hypokalemia Plan - sodium improved - d/c fluids if her po intake improves - monitor lytes while on fluids Dr Ferrara
[2018-08-27] MEDS: DEXTROSE 5%-WATER - 1,000 ML IV SCH (14:35)
--- NOTE | 2018-08-27 15:06 | PN ---
Progress Note, Physician Chief Complaint: seen and examined No distress - Current Medication List Current Medications: Active Medications Acetaminophen (Tylenol -) 650 mg PO Q6H PRN PRN Reason: PAIN LEVEL 1-5 Last Admin: 08/23/18 22:06 Dose: 650 mg Amoxicillin/Clavulanate Potassium (Augmentin - 500mg Tablet) 1 tab PO BID@0800, 1730 [facility] Last Admin: 08/27/18 09:00 Dose: 1 tab Apixaban (Eliquis -) 2.5 mg PO BID [facility] Last Admin: 08/27/18 09:02 Dose: 2.5 mg Bacitracin (Bacitracin -) 1 applic TP DAILY [facility] Last Admin: 08/27/18 09:00 Dose: 1 applic Diltiazem HCl (Cardizem Cd -) 120 mg PO DAILY [facility] Last Admin: 08/27/18 09:02 Dose: 120 mg Docusate Sodium (Colace -) 100 mg PO TID [facility] Last Admin: 08/27/18 13:54 Dose: Not Given Dextrose (D5w -) 1,000 mls @ 42 mls/hr IV ASDIR [facility] Last Admin: 08/27/18 14:35 Dose: 42 mls/hr Magnesium Oxide (Mag-Ox -) 400 mg PO BID [facility] Last Admin: 08/27/18 09:01 Dose: 400 mg Megestrol Acetate (Megace Oral Suspension -) 400 mg PO DAILY [facility] Last Admin: 08/27/18 09:01 Dose: 400 mg Metoprolol Succinate (Toprol Xl -) 50 mg PO BID [facility] Last Admin: 08/27/18 09:02 Dose: 50 mg Metoprolol Tartrate (Lopressor Injection -) 5 mg IVPUSH Q4H PRN PRN Reason: TACHYCARDIA Multivitamins/Minerals/Vitamin C (Tab-A-Vit -) 1 tab PO DAILY [facility] Last Admin: 08/27/18 09:01 Dose: 1 tab Non-Formulary Med( Galantamine Hbr 8 Mg Tab 1 each PO BID [facility] Last Admin: 08/27/18 09:01 Dose: 1 each Ondansetron HCl (Zofran Injection) 4 mg IVPUSH Q6H PRN PRN Reason: NAUSEA AND/OR VOMITING Potassium Chloride (Potassium Chloride Oral Liquid) 40 meq PO DAILY [facility] Last Admin: 08/27/18 09:01 Dose: 40 meq Tramadol HCl (Ultram -) 50 mg PO BID [facility] Last Admin: 08/27/18 09:02 Dose: 50 mg - Objective Vital Signs: Vital Signs Temperature 98.5 F 08/27/18 14:11 Pulse Rate 101 H 08/27/18 14:11 Respiratory Rate 20 08/27/18 14:11 Blood Pressure 117/78 08/27/18 14:11 O2 Sat by Pulse Oximetry (%) 94 L 08/27/18 09:00 Constitutional: Yes: No Distress Cardiovascular: Yes: Pulse Irregular Respiratory: Yes: CTA Bilaterally Gastrointestinal: Yes: Soft (NT) Edema: No Neurological: Yes: Alert, Oriented ...Motor Strength: WNL Labs: CBC, BMP 08/27/18 06:30 08/27/18 06:30 INR, PTT INR 1.98 (0.83-1.09) H 08/18/18 06:48 Laboratory Tests 08/27/18 08/27/18 06:30 06:30 WBC 20.1 H Hgb 8.4 L Hct 26.4 L Plt Count 328 Sodium 143 Potassium 3.7 BUN 17 Creatinine 0.9 Assessment/Plan Assessment/Plan CXR: no congestion EKG: sinus with PACs, no ischemic changes EKG 08/05 afib with RVR, no ischemic changes echo 07/2018 nl LV/RV function, mild TR, mild AR 1. Afib with RVR: - no prior cardiac hx, discussed with patient's daughter - nl LV function on echo - cont toprol and dilt for rate control - [id number] 4, anticoagulation indicated, on eliquis (2.5 bid for age and weight) 2. APPLE -renal following, likely prerenal -improved with IVF 3. UTI - manage per primary 4. HTN - bp stable. home meds held, cont AF avn blockers as doing
[2018-08-27 17:33] VITALS: BP 128/61; PULSE 110; TEMP 97.5
== END 2018-08-27 18:00 | DRG 659 ==
LOC: JER 08:20 → JERBED 09:46 → OBSVTOIN 23:37 → J4W 08-05 00:09 → J7W 08-07 20:56
PROVIDERS: ADMIT Internal Medicine; ATTEND Internal Medicine
PROC: 0TC68ZZ Extirpation of Matter from Right Ureter, Via Natural or Artificial Opening Endoscopic (ICD-10-PCS; principal; 2018-08-14 15:00)
PROC: 0T768DZ Dilation of Right Ureter with Intraluminal Device, Via Natural or Artificial Opening Endoscopic (ICD-10-PCS; 2018-08-14 15:00)
DX: N39.0 Urinary tract infection, site not specified (principal); S72.009A Fracture of unspecified part of neck of unspecified femur, initial encounter for closed fracture; G92 Toxic encephalopathy; E43 Unspecified severe protein-calorie malnutrition; N17.9 Acute kidney failure, unspecified; Z68.1 Body mass index [BMI] 19.9 or less, adult; R64 Cachexia; N13.2 Hydronephrosis with renal and ureteral calculous obstruction; E87.6 Hypokalemia; I10 Essential (primary) hypertension; M81.0 Age-related osteoporosis without current pathological fracture; E78.5 Hyperlipidemia, unspecified; E87.5 Hyperkalemia; I48.91 Unspecified atrial fibrillation; Z87.891 Personal history of nicotine dependence; K59.00 Constipation, unspecified; E86.0 Dehydration; R19.7 Diarrhea, unspecified; N94.89 Other specified conditions associated with female genital organs and menstrual cycle; M41.9 Scoliosis, unspecified; M48.061 Spinal stenosis, lumbar region without neurogenic claudication; I44.0 Atrioventricular block, first degree; M25.462 Effusion, left knee; G20 Parkinson's disease; F02.80 Dementia in other diseases classified elsewhere, unspecified severity, without behavioral disturbance, psychotic disturbance, mood disturbance, and anxiety; M16.12 Unilateral primary osteoarthritis, left hip; M19.021 Primary osteoarthritis, right elbow; X58.XXXA Exposure to other specified factors, initial encounter; Y93.89 Activity, other specified; Y92.89 Other specified places as the place of occurrence of the external cause; Y99.8 Other external cause status
CPT/HCPCS: 36415; 70450-TC; 71045-TC-FY; 73070-TC-RT-FY; 73523-TC-FY; 73552-TC-LT-FY; 73560-TC-LT-FY; 74176-TC; 76775-TC; 80048; 80053; 81003; 82565; 82607; 83735; 83930; 83935; 84300; 84484; 85025; 85610; 85730; 87040; 87086; 93005; 93010; 93306-TC; 93880-TC; 93970-TC; 94760; 97116-GP; 97162-GP; 99285-25; E0372; G0378; J1644; J7030